=== PATIENT | male | born 1960 | race American Indian/Alaskan Native ===

== ENCOUNTER 2017-08-31 12:55 | Inpatient (IN) | payer MEDICAID, OTHER ==
[2017-08-31 15:09] LABS: BASO # 0.1 K/uL (0.0-0.2); BASO % 0.5 % (0.0-2.0); EOS # 1.3 K/uL (0.0-0.7); EOS % 8.6 % (0.0-4.0); HEMOGLOBIN 7.4 g/dL (12.0-18.0); LYMPH % 6.5 % (20.0-40.0); MEAN CELL VOLUME 68.3 fL (80.0-94.0); MEAN CORPUSCULAR HEMOGLOBIN 20.8 pg (27.0-31.0); MEAN CORPUSCULAR HGB CONC 30.4 g/dL (33.0-37.0); MEAN PLATELET VOLUME 7.4 fL (7.2-11.7); MONO # 1.3 K/uL (0.0-0.8); MONO % 8.6 % (0.0-10.0); NEUT # 11.1 K/uL (1.8-7.0); NEUT % 75.8 % (50.0-75.0); NRBC % 0.7 % (0.0-2.0); PLATELET COUNT 503 K/uL (130-400); RBC 3.57 Mil/uL (4.40-5.90); WHITE BLOOD COUNT 14.7 K/uL (4.8-10.8)
[2017-08-31] MEDS ORDERED: Permethrin 1% Kit 59 ML BOTTLE TOP ONE ×2 (15:15→16:31)
[2017-08-31 15:22] LABS: ALB/GLOB RATIO 0.7 (1.0-2.1); ALBUMIN 3.2 g/dL (3.5-5.0); ALT/SGPT 9 U/L (21-72); AST/SGOT 16 U/L (17-59); BLOOD UREA NITROGEN 19 mg/dL (9-20); CALCIUM 8.7 mg/dl (8.6-10.4); GFR AFRICAN-AMERICAN > 60; GFR NON-AFRICAN AMERICAN > 60; LIPASE 84 U/L (23-300)
[2017-08-31 15:29] LABS: NEUTROPHIL 78 % (50-75); TOTAL CELLS COUNTED 100
[2017-08-31 15:30] LABS: EOSINOPHIL 7 % (0-4); LYMPHOCYTE 7 % (20-40); MONOCYTE 8 % (0-10); PLATELET ESTIMATE NORMAL (NORMAL)
[2017-08-31 15:31] LABS: ANISOCYTOSIS SLIGHT; HYPOCHROMIC SLIGHT; POIKILOCYTOSIS SLIGHT; TARGET CELLS SLIGHT
[2017-08-31] MEDS: Permethrin 1% Kit 59 ML BOTTLE TOP ONE ×2 (15:45)
--- NOTE | 2017-08-31 16:30 | RAD ---
PROCEDURE: CHEST RADIOGRAPH, 1 VIEW HISTORY: Cough COMPARISON: None available. FINDINGS: LUNGS: The lungs are well inflated. There is a large mass in the left upper lobe. PLEURA: No pneumothorax or pleural fluid seen. CARDIOVASCULAR: Normal. OSSEOUS STRUCTURES: There is probable destruction of the left posterior 3rd rib. VISUALIZED UPPER ABDOMEN: Normal. OTHER FINDINGS: None. IMPRESSION: Large left upper lobe mass with probable involvement of the left posterior 3rd rib. Findings are concerning for malignancy. Dedicated CT scan of the chest with intravenous contrast is recommended for further characterization.
--- NOTE | 2017-08-31 16:52 | C.PDOC ---
History Of Present Illness Pt was sent from homeless residential for body lice infestation? Pt c/o generalized weakness. 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), HTN Family History: States: Unknown Family Hx - Social History Hx Alcohol Use: No Hx Substance Use: No - Immunization History Hx Tetanus Toxoid Vaccination: No Hx Influenza Vaccination: No Hx Pneumococcal Vaccination: No Review Of Systems Constitutional: Positive for: Weakness Respiratory: Positive for: Cough Physical Exam - Physical Exam Appears: No Acute Distress, Unkempt, Other (Infested with lice) Skin: Warm, Dry Head: Atraumatic Eye(s): bilateral: PERRL, EOMI, Conjunctiva Pale Neck: Normal ROM, Supple Cardiovascular: Rhythm Regular Respiratory: Normal Breath Sounds, No Accessory Muscle Use Gastrointestinal/Abdominal: Soft, Tenderness (mild nonspecific) Neurological/Psych: No Normal Motor (RUE weakness compared to left) Gait: Unable To Assess ED Course And Treatment - Laboratory Results Result Diagrams: 08/31/17 15:05 08/31/17 15:05 Lab Interpretation: Abnormal Interpretation Of Abnormal: Leukocytosis. Anemia. O2 Sat by Pulse Oximetry: 100 Pulse Ox Interpretation: Normal - Radiology CXR: Viewed By Me, Read By Radiologist CXR Interpretation: Yes: Other (Mass vs. consolidation in AMBROSE) Progress Note: Pt was given a shower with Nix. Pt will be placed on respiratory isolation after the CXR was reviewed. Disposition Discussed With : Francisco Lowry Comment: He accepted pt on hospitalist service. Doctor Will See Patient In The: Hospital Counseled Patient/Family Regarding: Studies Performed, Diagnosis - Disposition Disposition: HOSPITALIZED Disposition Time: 16:56 Condition: SERIOUS - Clinical Impression Clinical Impression: Mass of upper lobe of left lung, Pneumonia, Anemia, Lice infestation
[2017-08-31] MEDS ORDERED: cefTRIAXone IV 1 gm in Dextros 50 ML IVPB ONE ×2 (16:57→17:14)
[2017-08-31] MEDS ORDERED: Azithromycin 500mg/250ML NS 500 MG/250 ML BAG IVPB STA (16:58)
[2017-08-31] MEDS ORDERED: Azithromycin 500 MG in Sodium Chloride 0.9% 250 ML IVPB SCH (17:15)
[2017-08-31] MEDS ORDERED: Azithromycin 500mg/250ML NS 500 MG/250 ML BAG IVPB ONE (17:15)
[2017-08-31] MEDS ORDERED: Tuberculin 5 Units/0.1 ml Inj ID ONE (17:15)
[2017-08-31 17:23] LABS: INR 1.5; PROTHROMBIN TIME 17.5 SECONDS (9.7-12.2)
[2017-08-31] MEDS: Sodium Chloride 0.9% 1,000 ML IV SCH (17:52)
[2017-08-31] MEDS ORDERED: Sodium Chloride 0.9% 1,000 ML ONE (17:52)
--- NOTE | 2017-08-31 17:55 | CP.PCM.HP ---
History of Present Illness - History of Present Illness History of Present Illness: Chief complaint: Weakness, weight loss This is a 57-year-old male who was [facility] due to having body lice This is a 57-year-old male with a history that is significant for CVA ( resulting in a right sided weakness as well as some difficulty speaking), hypertension, seizures. He was seen in the emergency room and already given body washings and showers twice and also permethrin cream was applied by the emergency room. Per discussion with the emergency room staff he explained that he was feeling really weak and tired for one month. In the ER he had lab work done showing that his hemoglobin was 7.4 and he was tachycardic. He did have elevated white blood cell count as well. A chest x-ray was done in the emergency room showing that he has a large left upper lobe mass. Radiology was concerned that this could represent either malignancy or some type of infection. We are in the process of getting a CT scan of the chest. Per Unfortunately the patient is a rather poor historian. He did not know why fpc sent him to [facility]. Previous documentation suggest he is usually AAO x 2. He tells us that he's had weakness for at least one month now, fevers, weight loss and a very poor appetite. He reports that he's had some difficulty walking as well - both from his history of stroke as well as ongoing weakness for this past 1 month. When I saw him he denied having any pain. He denied nausea vomiting. He reported urinary discomfort. He was not readily cooperative with the ER staff who were/are trying to help Past medical history: CVA, hypertension, seizures, pneumonia Surgical history: The patient thinks he had some sort of abdominal surgery and he was a child Allergies: He denied having any allergies Medications: The patient states that he used to be on medication but he stopped some time ago he does not know what they are. Per review of medical records in 2016 he was supposed to be on aspirin, Lipitor, Keppra. Family history: The patient states he does not know Social history: The patient states that a long time ago he used cocaine, he did not know how long ago this was Present on Admission - Present on Admission Any Indicators Present on Admission: Yes History of DVT/PE: No History of Uncontrolled Diabetes: No Urinary Catheter: No Decubitus Ulcer Present: No Review of Systems - NT Eyes: Blurred Vision - Cardiovascular Cardiovascular: Dyspnea. absent: Chest Pain, Chest Pain at Rest - Respiratory Respiratory: Dyspnea on Exertion - Integumentary Integumentary: Pruritus, Rash - Psychiatric Psychiatric: Depression Past Patient History - Past Medical History & Family History Past Medical History?: Yes - Past Social History Smoking Status: Never Smoked - CARDIAC Hx Hypertension: Yes - PULMONARY Hx Respiratory Disorders: No - NEUROLOGICAL HX Cerebrovascular Accident: Yes - HEENT Hx HEENT Problems: No - RENAL Hx Chronic Kidney Disease: No - ENDOCRINE/METABOLIC Hx Endocrine Disorders: No - HEMATOLOGICAL/ONCOLOGICAL Hx Blood Disorders: No - INTEGUMENTARY Hx Dermatological Problems: No - MUSCULOSKELETAL/RHEUMATOLOGICAL Hx Musculoskeletal Disorders: No Hx Falls: No - GASTROINTESTINAL Hx Gastrointestinal Disorders: No - GENITOURINARY/GYNECOLOGICAL Hx Genitourinary Disorders: No - PSYCHIATRIC Hx Substance Use: No - SURGICAL HISTORY Hx Surgeries: No - ANESTHESIA Hx Anesthesia: No Meds Allergies/Adverse Reactions: Allergies Allergy/AdvReac Type Severity Reaction Status Date / Time No Known Allergies Allergy Verified 08/31/17 13:25 Physical Exam - Constitutional Appears: No Acute Distress, Unkempt, Older Than Stated Age, Confused, Chronically Ill - Head Exam Additional comments: He has head lice, and this is despite the emergency room are providing him with 2 showers and vigorous scrubbing. - ENT Exam ENT Exam: Mucous Membranes Moist - Neurological Exam Neurological exam: Alert Additional comments: AAO x 2 - Psychiatric Exam Psychiatric exam: Depressed, Flat Affect - Skin Skin Exam: Abrasion, Dry, Rash Additional comments: He has a lot of areas where it looks like he's been scratching very heavily. Results - Vital Signs Recent Vital Signs: Last Vital Signs Temp 98.8 F 08/31/17 13:21 Pulse 106 H 08/31/17 13:21 Resp 20 08/31/17 13:21 BP 136/100 H 08/31/17 13:21 Pulse Ox 100 08/31/17 16:57 - Labs Result Diagrams: 08/31/17 15:05 08/31/17 15:05 Labs: Laboratory Results - last 24 hr 08/31/17 08/31/17 08/31/17 15:05 15:05 17:00 WBC 14.7 H RBC 3.57 L Hgb 7.4 L Hct 24.4 L MCV 68.3 L MCH 20.8 L MCHC 30.4 L RDW 19.0 H Plt Count 503 H MPV 7.4 Neut % (Auto) 75.8 H Lymph % (Auto) 6.5 L [place] % (Auto) 8.6 Eos % (Auto) 8.6 H Baso % (Auto) 0.5 Neut # (Auto) 11.1 H Lymph # (Auto) 1.0 [place] # (Auto) 1.3 H Eos # (Auto) 1.3 H Baso # (Auto) 0.1 Neutrophils % (Manual) 78 H Lymphocytes % (Manual) 7 L Monocytes % (Manual) 8 Eosinophils % (Manual) 7 H Platelet Estimate Normal Hypochromasia (manual) Slight Poikilocytosis (manual Slight Anisocytosis (manual) Slight Target Cells Slight PT INR APTT Sodium 140 Potassium 4.2 Chloride 105 Carbon Dioxide 24 Anion Gap 15 BUN 19 Creatinine 1.0 Est GFR ( Amer) > 60 Est GFR (Non-Af Amer) > 60 Random Glucose 103 Calcium 8.7 Magnesium 1.6 Total Bilirubin 0.4 AST 16 L ALT 9 L Alkaline Phosphatase 102 Total Protein 7.6 Albumin 3.2 L Globulin 4.4 H Albumin/Globulin Ratio 0.7 L Lipase 84 Alcohol, Quantitative < 10 Influenza Typ A,B (EIA) Negative for flu a/b Blood Type Antibody Screen 08/31/17 08/31/17 17:07 17:07 WBC RBC Hgb Hct MCV MCH MCHC RDW Plt Count MPV Neut % (Auto) Lymph % (Auto) [place] % (Auto) Eos % (Auto) Baso % (Auto) Neut # (Auto) Lymph # (Auto) [place] # (Auto) Eos # (Auto) Baso # (Auto) Neutrophils % (Manual) Lymphocytes % (Manual) Monocytes % (Manual) Eosinophils % (Manual) Platelet Estimate Hypochromasia (manual) Poikilocytosis (manual Anisocytosis (manual) Target Cells PT 17.5 H INR 1.5 APTT 35 H Sodium Potassium Chloride Carbon Dioxide Anion Gap BUN Creatinine Est GFR ( Amer) Est GFR (Non-Af Amer) Random Glucose Calcium Magnesium Total Bilirubin AST ALT Alkaline Phosphatase Total Protein Albumin Globulin Albumin/Globulin Ratio Lipase Alcohol, Quantitative Influenza Typ A,B (EIA) Blood Type AB POSITIVE Antibody Screen Negative Assessment & Plan - Assessment and Plan (Free Text) Assessment: Overall assessment: This is a 57-year-old male sent in by the homeless [facility] due to body lice. He has a history for previous CVA, seizures. He was discovered to have weakness, fatigue. He was found to have a very low hemoglobin with iron deficiency anemia. A chest x-ray was done showing that he has an undefined left upper lobe mass that could represent malignancy or infection. He reports weight loss, poor appetite. The patient is a remarkably poor historian. Per review of records in 2016 when he was in either [facility] he was very uncooperative with the staff there often times refusing blood work and medications 1 Body lice: 08/31/17: Patient was sent in from the homeless [facility] due to body lice. In the emergency room he already received showering as well as scrubbing. He was already given permethrin cream as well. However by the time I saw him he still had some body lice on his head. He will need to undergo body shavings of his hair and as well as the skin. We'll give him a one-time dose of ivermectin tomorrow we'll give him additional permethrin topical cream. 2 Left Upper Lobe Mass that could be infection or malignancy: 08/31/17: Considering the patient is from a homeless [facility] where can have to place him on isolation. I pulled up the old chest x-ray from 2016, he did not have that left upper lobe mass. He denied coughing up any blood however this is a very poor historian. We are can have to get a CT scan of the chest without contrast give us more information. For the time being will place the patient on Rocephin and azithromycin. He does need to be under respiratory/droplet and contact precautions. We will need to check a QuantiFERON goal say, sputum cultures for AFB cultures and stains. As well as a PPD. He does have a elevated white blood cell count which could be due to either infection or potential malignancy, blood cultures as well 3 Anemia, iron deficiency 08/31/17: The patient was not able to sign the blood consent however he did give us verbal consent. He said that he had difficulty writing. We will give give him 1 unit of PRBCs. If he does have a malignancy, this may explain his weight loss as well as his lack of appetite. 4 Weight loss, and failure to thrive: 08/31/17: As mentioned above he could very well have malignancy or some sort of chronic infection such as tuberculosis. Because he tells us that he's had a drug history before the distant past will have to check HIV, RPR, hepatitis, as well as a UDS 5 History of a CVA in 2016 with documented right arm and leg weakness 08/31/17: In the past it's documented that he had seizures. If need to we could start him on Keppra and when necessary Ativan. But for now we'll hold off on that. He'll be placed on a statin, as well as an aspirin every day Will need PT/OT to see him - however we'll hold off on ordering a PT/OT eval because I don't want any additional medical staff to be exposed to the body lice that he has. At this time we will hold off on consult any specialist to see him until we get more information back from the lab work. Hopefully he will not refuse any the labs like has done in the past. He was not readily cooperating with the emergency room staff were try to help Thank you very much, Robert Morley
[2017-08-31 18:57] LABS: FERRITIN 36.3 ng/mL
[2017-08-31 19:15] LABS: FOLATE 17.6 ng/mL
[2017-08-31 22:01] LABS: SQUAMOUS EPITHIAL < 1 /hpf (0-5); URINE BACTERIA RARE (<OCC); URINE BILIRUBIN NEGATIVE (NEGATIVE); URINE BLOOD 1+ (NEGATIVE); URINE CLARITY Hazy (Clear); URINE COLOR Yellow (YELLOW); URINE GLUCOSE (UA) NORMAL (Normal); URINE LEUKOCYTE ESTERASE 1+ Leu/uL (Negative); URINE PROTEIN NEGATIVE (NEGATIVE)
[2017-09-01] MEDS ORDERED: Sodium Chloride 0.9% 500 ML IV ONE (00:50)
[2017-09-01] MEDS ORDERED: Albuterol 0.042% Inhal Sol (1.25 mg/3 mL) UD INH ONE (07:00)
[2017-09-01] MEDS ORDERED: Acetylcysteine 20% Inhal Soln (4ml) INH ONE (07:00)
[2017-09-01] MEDS: Sodium Chloride 0.9% 1,000 ML IV SCH ×3 (07:18→22:54)
--- NOTE | 2017-09-01 07:59 | CP.PCM.PN ---
<Volodymyr Bourgeois - Last Filed: 09/01/17 12:18> Subjective - Date & Time of Evaluation Date of Evaluation: 09/01/17 Time of Evaluation: 07:43 - Subjective Subjective: PGY-[address] Morley. No acute events noted overnight. Patient stated his entire body was hurting including his arms and legs. He said this is the reason he has been refusing blood work. He stated he understands that we need the blood work to tailor his management - he seemed to understand. He admitted to fatigue. He stated he has poor appetite but his breakfast seemed to be 75% finished. He denied all other prompts on review of systems. Objective - Vital Signs/Intake and Output Vital Signs (last 24 hours): Temp Pulse Resp BP Pulse Ox 97.8 F 103 H 20 105/67 99 09/01/17 07:35 09/01/17 07:35 09/01/17 07:35 09/01/17 07:35 09/01/17 07:35 Intake and Output: 09/01/17 09/01/17 06:59 18:59 Intake Total 2050 Output Total 650 Balance 1400 - Medications Medications: Current Medications Sodium Chloride (Sodium Chloride 0.9%) 1,000 mls @ 70 mls/hr IV .[id number] [facility] Last Admin: 08/31/17 17:52 Dose: 70 mls/hr Ceftriaxone Sodium 1 gm/ (Sodium Chloride) 100 mls @ 100 mls/hr IVPB Q12H DEBRA PRN Reason: Protocol Last Admin: 09/01/17 06:02 Dose: 100 mls/hr Azithromycin 500 mg/ Sodium (Chloride) 250 mls @ 250 mls/hr IVPB Q24H DEBRA PRN Reason: Protocol Pneumococcal Polyvalent Vaccine (Pneumovax 23 Vaccine) 0.5 ml IM .ONCE ONE Stop: 09/02/17 08:01 - Labs Labs: 08/31/17 15:05 08/31/17 15:05 PT 17.5 SECONDS (9.7-12.2) H 08/31/17 17:07 INR 1.5 08/31/17 17:07 APTT 35 SECONDS (21-34) H 08/31/17 17:07 - Constitutional Appears: Unkempt - Head Exam Head Exam: ATRAUMATIC, NORMAL INSPECTION Additional comments: He has head lice, excoriations seen - Eye Exam Eye Exam: EOMI Pupil Exam: PERRL - ENT Exam ENT Exam: Mucous Membranes Moist - Neck Exam Neck Exam: Full ROM - Respiratory Exam Respiratory Exam: Decreased Breath Sounds, Rales, Wheezes Additional comments: Decreased breath sounds in left upper lobe - Cardiovascular Exam Cardiovascular Exam: Tachycardia, REGULAR RHYTHM, +S1, +S2. absent: JVD, Murmur - GI/Abdominal Exam GI & Abdominal Exam: Soft, Normal Bowel Sounds. absent: Distended, Guarding, Rigid, Tenderness - Extremities Exam Extremities Exam: Full ROM, Normal Capillary Refill, Normal Inspection. absent : Tenderness - Neurological Exam Neurological Exam: absent: Oriented x3 Additional comments: AAO x 2 - Psychiatric Exam Psychiatric exam: Flat Affect - Skin Skin Exam: Rash, Warm Additional comments: He has a lot of areas where it looks like he's been scratching very heavily. Assessment and Plan - Assessment and Plan (Free Text) Assessment: Left Upper Lobe Mass + Leukocytosis, afebrile F/U Mycoplasma Igm, Strep Pneumoniae, Legionella, RPR F/U Quantiferon Gold F/U AFB sputum cultures F/U PPD test F/U Blood Cx Imaging: F/U CT chest w/wo contrast 09/01/17: CXR 08/31/17: * Large left upper lobe mass with probable involvement of the left posterior 3rd rib. Findings are concerning for malignancy. Dedicated CT scan of the chest with intravenous contrast is recommended for further characterization. Meds: Azithromycin 500mg IVP QD Rocephin 1g IVP BID Anemia Hg on admission 7.4 RBC indices indicative of iron deficiency anemia Retic Count ELEVATED 2.5, Haptoglobin ELEVATED 369 (stress response?) Vitamin B12 and Folate NORMAL Ferritin NORMAL Homocysteine NORMAL F/U Intrinsic Factor, Parietal cell Ab F/U Peripheral smear F/U LDH F/U Iron and TIBC and % saturation Meds: Transfuse 1u pRBC * Patient would not sign the consent - he has also refused blood work Body Lice Shave patient bald Meds: Applied ivermectin and permethrin Weight Loss Failure to Thrive F/U HIV 4th generation Hx of CVA Hx of CVA in 2016 with documented right arm and leg weakness Meds: Aspirin 81mg PO QD Crestor 10mg PO HS Hx of Seizures Prior records show seizure activity Will monitor and if necessary start keppra and ativan Seizure precautions Prophylaxis SCDs AO contraindicated 2/2 to anemia <Robert Morley H - Last Filed: 09/01/17 15:30> Objective - Vital Signs/Intake and Output Vital Signs (last 24 hours): Temp Pulse Resp BP Pulse Ox 97.8 F 103 H 20 105/67 99 09/01/17 07:35 09/01/17 07:35 09/01/17 07:35 09/01/17 07:35 09/01/17 07:35 Intake and Output: 09/01/17 09/01/17 06:59 18:59 Intake Total 2050 Output Total 650 Balance 1400 - Medications Medications: Current Medications Aspirin (Aspirin Chewable) [address] [facility] Last Admin: 09/01/17 13:19 Dose: Not Given Sodium Chloride (Sodium Chloride 0.9%) 1,000 mls @ 70 mls/hr IV .[id number] [facility] Last Admin: 09/01/17 13:18 Dose: 70 mls/hr Ceftriaxone Sodium 1 gm/ (Sodium Chloride) 100 mls @ 100 mls/hr IVPB Q12H DEBRA PRN Reason: Protocol Last Admin: 09/01/17 06:02 Dose: 100 mls/hr Azithromycin 500 mg/ Sodium (Chloride) 250 mls @ 250 mls/hr IVPB Q24H DEBRA PRN Reason: Protocol Pneumococcal Polyvalent Vaccine (Pneumovax 23 Vaccine) 0.5 ml IM .ONCE ONE Stop: 09/02/17 08:01 Rosuvastatin Calcium (Crestor) [address] [facility] Saccharomyces Boulardii (Florastor) 250 mg PO BID DEBRA - Labs Labs: 08/31/17 15:05 08/31/17 15:05 PT 17.5 SECONDS (9.7-12.2) H 08/31/17 17:07 INR 1.5 08/31/17 17:07 APTT 35 SECONDS (21-34) H 08/31/17 17:07 Attending/Attestation - Attestation I have personally seen and examined this patient.: Yes I have fully participated in the care of the patient.: Yes I have reviewed all pertinent clinical information, including history, physical exam and plan: Yes Notes (Text): Medical attending: Patient was seen and examined by me, agrees the above note by the medical collector. Unfortunately the patient was refusing lab draws. I explained to him that considering his weight loss, that it would be really important to follow-up at the lab work. However he didn't give me a good reason why he was refusing his lab work. Currently pending HIV 1 and 2, HIV fourth-generation, RPR. He has not given us a sputum culture and stain for AFB. Were currently pending on the CT scan of his chest to better assess what could be going on with the left upper lobe. My concern that it could represent either a malignancy or some type of infection such as tuberculosis or an opportunistic HIV infection The patient explained that he does not have any family members he's able to call. He does not know the number. At this time I do not want to consult any specialist since he is not being cooperative with us. Thank you very much, Robert Morley
[2017-09-01] MEDS ORDERED: Iohexol 350mg/ml 100 ML ONE (13:55)
[2017-09-01] MEDS ORDERED: Permethrin 1% Kit 59 ML BOTTLE TOP ONE (14:00)
[2017-09-01] MEDS: Saccharomyces Boulardi 250 mg Cap PO SCH (17:04)
[2017-09-01] MEDS: Azithromycin 500 MG in Sodium Chloride 0.9% 250 ML IVPB SCH (17:05)
[2017-09-02] MEDS ORDERED: Pneumococcal 23-Valent Vaccine IM ONE (08:00)
--- NOTE | 2017-09-02 09:41 | CP.PCM.PN ---
Subjective - Date & Time of Evaluation Date of Evaluation: 09/02/17 Time of Evaluation: 09:38 - Subjective Subjective: PGY-[address] Morley. Patient again refused blood transfusion yesterday, this was the 2nd attempt. Patient stated his entire body was hurting including his arms and legs. He said this is the reason he has been refusing blood work (he continues to refuse blood work). He admitted to fatigue. He stated he has poor appetite. He denied all other prompts on review of systems. Objective - Vital Signs/Intake and Output Vital Signs (last 24 hours): Temp Pulse Resp BP Pulse Ox 98.6 F 20 L 20 107/67 96 09/02/17 07:43 09/02/17 07:43 09/02/17 07:43 09/02/17 07:43 09/02/17 07:43 Intake and Output: 09/02/17 09/02/17 06:59 18:59 Intake Total 1400 840 Output Total 800 600 Balance 600 240 - Medications Medications: Current Medications Acetaminophen (Tylenol 325mg Tab) 650 mg PO Q6 PRN PRN Reason: fever. Last Admin: 09/01/17 22:46 Dose: 650 mg Aspirin (Aspirin Chewable) 81 mg PO DAILY [facility] Last Admin: 09/01/17 13:19 Dose: Not Given Sodium Chloride (Sodium Chloride 0.9%) 1,000 mls @ 70 mls/hr IV .[id number] [facility] Last Admin: 09/01/17 22:54 Dose: Not Given Ceftriaxone Sodium 1 gm/ (Sodium Chloride) 100 mls @ 100 mls/hr IVPB Q12H DEBRA PRN Reason: Protocol Last Admin: 09/02/17 05:46 Dose: 100 mls/hr Azithromycin 500 mg/ Sodium (Chloride) 250 mls @ 250 mls/hr IVPB Q24H DEBRA PRN Reason: Protocol Last Admin: 09/01/17 17:05 Dose: 250 mls/hr Rosuvastatin Calcium (Crestor) 10 mg PO HS [facility] Last Admin: 09/01/17 21:34 Dose: 10 mg Saccharomyces Boulardii (Florastor) 250 mg PO BID [facility] Last Admin: 09/01/17 17:04 Dose: 250 mg - Labs Labs: 08/31/17 15:05 08/31/17 15:05 PT 17.5 SECONDS (9.7-12.2) H 08/31/17 17:07 INR 1.5 08/31/17 17:07 APTT 35 SECONDS (21-34) H 08/31/17 17:07 - Additional Findings Additional findings: - Constitutional Appears: Unkempt - Head Exam Head Exam: ATRAUMATIC, NORMAL INSPECTION Additional comments: He has head lice, excoriations seen - Eye Exam Eye Exam: EOMI Pupil Exam: PERRL - ENT Exam ENT Exam: Mucous Membranes Moist - Neck Exam Neck Exam: Full ROM - Respiratory Exam Respiratory Exam: Decreased Breath Sounds, Rales, Wheezes Additional comments: Decreased breath sounds in left upper lobe - Cardiovascular Exam Cardiovascular Exam: Tachycardia, REGULAR RHYTHM, +S1, +S2. absent: JVD, Murmur - GI/Abdominal Exam GI & Abdominal Exam: Soft, Normal Bowel Sounds. absent: Distended, Guarding, Rigid, Tenderness - Extremities Exam Extremities Exam: Full ROM, Normal Capillary Refill, Normal Inspection. absent : Tenderness - Neurological Exam Neurological Exam: absent: Oriented x3 Additional comments: AAO x 2 - Psychiatric Exam Psychiatric exam: Flat Affect - Skin Skin Exam: Rash, Warm Additional comments: He has a lot of areas where it looks like he's been scratching very heavily. Assessment and Plan - Assessment and Plan (Free Text) Assessment: Left Upper Lobe Mass + Leukocytosis, afebrile F/U Mycoplasma Igm, Strep Pneumoniae, Legionella, RPR F/U Quantiferon Gold F/U AFB sputum cultures F/U PPD test F/U Blood Cx Imaging: F/U CT chest w/wo contrast 09/01/17: CXR 08/31/17: * Large left upper lobe mass with probable involvement of the left posterior 3rd rib. Findings are concerning for malignancy. Dedicated CT scan of the chest with intravenous contrast is recommended for further characterization. Meds: Azithromycin 500mg IVP QD Rocephin 1g IVP BID Anemia Hg on admission 7.4 RBC indices indicative of iron deficiency anemia Retic Count ELEVATED 2.5, Haptoglobin ELEVATED 369 (stress response?) Vitamin B12 and Folate NORMAL Ferritin NORMAL Homocysteine NORMAL F/U Intrinsic Factor, Parietal cell Ab F/U Peripheral smear F/U LDH F/U Iron and TIBC and % saturation Meds: Transfuse 1u pRBC * Patient has signed consent but continues to refuse transfusion - he has also refused blood work Body Lice Shave patient balmaximino Meds: Applied ivermectin and permethrin Weight Loss Failure to Thrive F/U HIV 4th generation Refusing Treatment Refusing transfusion, CT scan, and blood draws Psych consult, Dr Asencio Hx of CVA Hx of CVA in 2016 with documented right arm and leg weakness Meds: Aspirin 81mg PO QD Crestor 10mg PO HS Hx of Seizures Prior records show seizure activity Will monitor and if necessary start keppra and ativan Seizure precautions Prophylaxis SCDs AO contraindicated 2/2 to anemia
[2017-09-02] MEDS: Saccharomyces Boulardi 250 mg Cap PO SCH ×2 (09:43→18:03)
[2017-09-02] MEDS: Tramadol 25 mg PO SCH ×2 (11:49→18:22)
[2017-09-02] MEDS: Sodium Chloride 0.9% 1,000 ML IV SCH ×2 (13:58→23:55)
[2017-09-02] MEDS: Azithromycin 500 MG in Sodium Chloride 0.9% 250 ML IVPB SCH (18:04)
[2017-09-03] MEDS: Saccharomyces Boulardi 250 mg Cap PO SCH ×2 (10:00→17:13)
[2017-09-03] MEDS: Tramadol 25 mg PO SCH ×5 (10:00→17:13)
--- NOTE | 2017-09-03 10:19 | CP.PCM.PN ---
Objective - Vital Signs/Intake and Output Vital Signs (last 24 hours): Temp Pulse Resp BP Pulse Ox 99.2 F 111 H 20 123/74 65 L 09/03/17 08:00 09/03/17 08:00 09/03/17 08:00 09/03/17 08:00 09/03/17 08:00 Intake and Output: 09/03/17 09/03/17 06:59 18:59 Intake Total 1560 Output Total 850 Balance 710 - Medications Medications: Current Medications Acetaminophen (Tylenol 325mg Tab) 650 mg PO Q6 PRN PRN Reason: fever. Last Admin: 09/01/17 22:46 Dose: 650 mg Aspirin (Aspirin Chewable) 81 mg PO DAILY [facility] Last Admin: 09/03/17 10:00 Dose: 81 mg Sodium Chloride (Sodium Chloride 0.9%) 1,000 mls @ 70 mls/hr IV .[id number] [facility] Last Admin: 09/02/17 23:55 Dose: 70 mls/hr Ceftriaxone Sodium 1 gm/ (Sodium Chloride) 100 mls @ 100 mls/hr IVPB Q12H [facility] PRN Reason: Protocol Last Admin: 09/03/17 06:03 Dose: 100 mls/hr Azithromycin 500 mg/ Sodium (Chloride) 250 mls @ 250 mls/hr IVPB Q24H [facility] PRN Reason: Protocol Last Admin: 09/02/17 18:04 Dose: 250 mls/hr Rosuvastatin Calcium (Crestor) 10 mg PO HS [facility] Last Admin: 09/02/17 21:20 Dose: 10 mg Saccharomyces Boulardii (Florastor) 250 mg PO BID [facility] Last Admin: 09/03/17 10:00 Dose: 250 mg Tramadol HCl (Ultram) 25 mg PO TID [facility] Last Admin: 09/03/17 10:01 Dose: Not Given - Labs Labs: 08/31/17 15:05 08/31/17 15:05 PT 17.5 SECONDS (9.7-12.2) H 08/31/17 17:07 INR 1.5 08/31/17 17:07 APTT 35 SECONDS (21-34) H 08/31/17 17:07
[2017-09-03] MEDS ORDERED: Tuberculin 5 Units/0.1 ml Inj ID ONE (13:00)
[2017-09-03] MEDS: Azithromycin 500 MG in Sodium Chloride 0.9% 250 ML IVPB SCH (17:13)
[2017-09-03] MEDS: Sodium Chloride 0.9% 1,000 ML IV SCH (17:15)
[2017-09-04] MEDS: Sodium Chloride 0.9% 1,000 ML IV SCH (07:03)
[2017-09-04 08:22] LABS: BARBITURATES, UR NEGATIVE (NEGATIVE); BENZODIAZEPINES, UR NEGATIVE (NEGATIVE); OPIATES, UR NEGATIVE (NEGATIVE); PHENCYCLIDINE, UR NEGATIVE (NEGATIVE)
[2017-09-04 10:07] LABS: METHYLMALONIC ACID,SERUM 332 nmol/L (87-318)
[2017-09-04] MEDS: Tramadol 25 mg PO SCH ×3 (10:56→17:07)
[2017-09-04] MEDS: Saccharomyces Boulardi 250 mg Cap PO SCH ×2 (14:43→17:07)
[2017-09-04] MEDS: Azithromycin 500 MG in Sodium Chloride 0.9% 250 ML IVPB SCH (17:12)
--- NOTE | 2017-09-04 20:40 | CP.PCM.PN ---
<Carlos Morris E - Last Filed: 09/04/17 20:37> Subjective - Date & Time of Evaluation Date of Evaluation: 09/04/17 Time of Evaluation: 09:30 - Subjective Subjective: Medicine progress note (Dr. Torres's service) Patient was seen and examined at bedside. Patient was uncooperative and refused all recommended diagnostic test, blood work and treatment. Patient reports multiple times " I will be fine, don't worry about me" Objective - Vital Signs/Intake and Output Vital Signs (last 24 hours): Temp Pulse Resp BP Pulse Ox 99.7 F H 114 H 20 109/65 96 09/04/17 16:00 09/04/17 16:00 09/04/17 16:00 09/04/17 16:00 09/04/17 16:00 Intake and Output: 09/04/17 09/05/17 18:59 06:59 Intake Total 410 Balance 410 - Medications Medications: Current Medications Acetaminophen (Tylenol 325mg Tab) 650 mg PO Q6 PRN PRN Reason: fever. Last Admin: 09/01/17 22:46 Dose: 650 mg Aspirin (Aspirin Chewable) 81 mg PO DAILY [facility] Last Admin: 09/04/17 14:43 Dose: 81 mg Sodium Chloride (Sodium Chloride 0.9%) 1,000 mls @ 70 mls/hr IV .[id number] [facility] Last Admin: 09/03/17 17:15 Dose: Not Given Ceftriaxone Sodium 1 gm/ (Sodium Chloride) 100 mls @ 100 mls/hr IVPB Q12H [facility] PRN Reason: Protocol Last Admin: 09/04/17 17:11 Dose: 100 mls/hr Azithromycin 500 mg/ Sodium (Chloride) 250 mls @ 250 mls/hr IVPB Q24H [facility] PRN Reason: Protocol Last Admin: 09/04/17 17:12 Dose: 250 mls/hr Rosuvastatin Calcium (Crestor) 10 mg PO HS [facility] Last Admin: 09/03/17 21:20 Dose: 10 mg Saccharomyces Boulardii (Florastor) 250 mg PO BID [facility] Last Admin: 09/04/17 17:07 Dose: 250 mg Tramadol HCl (Ultram) 25 mg PO TID [facility] Last Admin: 09/04/17 17:07 Dose: 25 mg - Labs Labs: 08/31/17 15:05 08/31/17 15:05 PT 17.5 SECONDS (9.7-12.2) H 08/31/17 17:07 INR 1.5 08/31/17 17:07 APTT 35 SECONDS (21-34) H 08/31/17 17:07 - Constitutional Appears: No Acute Distress - Head Exam Head Exam: ATRAUMATIC - Eye Exam Eye Exam: EOMI - ENT Exam ENT Exam: Mucous Membranes Dry - Respiratory Exam Additional comments: Poor effort on exam; unable to note an adequate exam - Cardiovascular Exam Cardiovascular Exam: REGULAR RHYTHM, +S1, +S2 - GI/Abdominal Exam GI & Abdominal Exam: Soft, Normal Bowel Sounds. absent: Guarding, Rigid, Tenderness - Extremities Exam Extremities Exam: Normal Inspection - Neurological Exam Neurological Exam: Alert. absent: Oriented x3 - Psychiatric Exam Psychiatric exam: Depressed, Flat Affect - Skin Skin Exam: Rash Additional comments: Multiple scratches and dry Assessment and Plan (1) Refusal of treatment Assessment & Plan: Psych consult * Evaluate for capacity Status: Acute (2) Mass of upper lobe of left lung Assessment & Plan: CXR 08/31/17: * Large left upper lobe mass with probable involvement of the left posterior 3rd rib. Findings are concerning for malignancy. Dedicated CT scan of the chest with intravenous contrast is recommended for further characterization. * Patient is currently refusing chest CT Labs: * QFT negative, legionella negative, pending Mycoplasma Igm, Strep Pneumoniae, * Patient is refusing to produce sputum Status: Acute (3) Leukocytosis Assessment & Plan: On admission: 14.7, patient is refusing further lab work Blood Culture: Negative Meds: Azithromycin 500mg IVP QD Rocephin 1g IVP BID Status: Acute (4) Anemia Assessment & Plan: H/H: 7.4/24.4 Patient is refusing transfusion at the moment RBC indices indicative of iron deficiency anemia Retic Count ELEVATED 2.5, Haptoglobin ELEVATED 369 Vitamin B12 and Folate NORMAL Ferritin NORMAL Homocysteine NORMAL Parietal cell Ab negative, pending intrinsic factor Pending Peripheral smear, LDH, Iron and TIBC and % saturation Status: Acute (5) Lice infestation Assessment & Plan: Shave patient bald Meds: Applied ivermectin and permethrin Status: Acute (6) Weight loss Assessment & Plan: Pending HIV, patient is refusing blood work Status: Acute (7) History of CVA (cerebrovascular accident) Assessment & Plan: Hx of CVA in 2016 with documented right arm and leg weakness Meds: Aspirin 81mg PO QD Crestor 10mg PO HS Status: Chronic (8) History of seizures Assessment & Plan: Prior records show seizure activity Will monitor and if necessary start keppra and ativan Seizure precautions Status: Acute (9) Prophylactic measure Assessment & Plan: SCDs Anticoagualtion contraindication due to anemia All plans discussed with Dr. Torres Status: Acute <Lamonte Torres - Last Filed: 09/04/17 21:59> Objective - Vital Signs/Intake and Output Vital Signs (last 24 hours): Temp Pulse Resp BP Pulse Ox 99.7 F H 114 H 20 109/65 96 09/04/17 16:00 09/04/17 16:00 09/04/17 16:00 09/04/17 16:00 09/04/17 16:00 Intake and Output: 09/04/17 09/05/17 18:59 06:59 Intake Total 410 Balance 410 - Medications Medications: Current Medications Acetaminophen (Tylenol 325mg Tab) 650 mg PO Q6 PRN PRN Reason: fever. Last Admin: 09/01/17 22:46 Dose: 650 mg Aspirin (Aspirin Chewable) 81 mg PO DAILY [facility] Last Admin: 09/04/17 14:43 Dose: 81 mg Sodium Chloride (Sodium Chloride 0.9%) 1,000 mls @ 70 mls/hr IV .[id number] [facility] Last Admin: 09/03/17 17:15 Dose: Not Given Ceftriaxone Sodium 1 gm/ (Sodium Chloride) 100 mls @ 100 mls/hr IVPB Q12H [facility] PRN Reason: Protocol Last Admin: 09/04/17 17:11 Dose: 100 mls/hr Azithromycin 500 mg/ Sodium (Chloride) 250 mls @ 250 mls/hr IVPB Q24H [facility] PRN Reason: Protocol Last Admin: 09/04/17 17:12 Dose: 250 mls/hr Rosuvastatin Calcium (Crestor) 10 mg PO HS [facility] Last Admin: 09/03/17 21:20 Dose: 10 mg Saccharomyces Boulardii (Florastor) 250 mg PO BID [facility] Last Admin: 09/04/17 17:07 Dose: 250 mg Tramadol HCl (Ultram) 25 mg PO TID [facility] Last Admin: 09/04/17 17:07 Dose: 25 mg - Labs Labs: 08/31/17 15:05 08/31/17 15:05 PT 17.5 SECONDS (9.7-12.2) H 08/31/17 17:07 INR 1.5 08/31/17 17:07 APTT 35 SECONDS (21-34) H 08/31/17 17:07 Attending/Attestation - Attestation I have personally seen and examined this patient.: Yes I have fully participated in the care of the patient.: Yes I have reviewed all pertinent clinical information, including history, physical exam and plan: Yes Notes (Text): Patient was seen and examined this morning. Refuses CT chest. c/o not feeling well.Denies pain.lying comfortable on bed comfortable 1.Left upper lobe mass 2.Refusal of care 3.weight loss 4Anemia 5.Anemia 6.lice infection 7.h/o CVA 8.h/o Seziure D/W resident. I agree with the resident's documentation of the assessment and the plan
[2017-09-05] MEDS: Tramadol 25 mg PO SCH ×3 (10:00→17:11)
--- NOTE | 2017-09-05 11:20 | CP.PCM.PN ---
Addendum entered and electronically signed by Carlos Morris 09/05/17 17:59: Assessment: Anemia Plan: Labs: Intrinsic factor block ab: negative and anti-parietal cell ab: Negative Original Note: <Carlos Morris - Last Filed: 09/05/17 17:58> Subjective - Date & Time of Evaluation Date of Evaluation: 09/05/17 Time of Evaluation: 09:00 - Subjective Subjective: Medicine progress note (Dr. Torres's service) Patient was seen and examined at bedside. Patient was uncooperative and refused all recommended diagnostic test, blood work and treatmen, stating that he will think about accepting treatment and diagnostic testing. Patient reports multiple times " I will be fine, don't worry about me." During second encounter with the patient for PPD reading, patient remains uncooperative and mildly aggressive towards nursing staff. In addition, patient refused to drink contrast need for sahni CT scan. Objective - Vital Signs/Intake and Output Vital Signs (last 24 hours): Temp Pulse Resp BP Pulse Ox 99.7 F H 114 H 20 109/65 96 09/04/17 16:00 09/04/17 16:00 09/04/17 16:00 09/04/17 16:00 09/04/17 16:00 Intake and Output: 09/05/17 09/05/17 06:59 18:59 Intake Total 1810 Output Total 1200 Balance 610 - Medications Medications: Current Medications Acetaminophen (Tylenol 325mg Tab) 650 mg PO Q6 PRN PRN Reason: fever. Last Admin: 09/01/17 22:46 Dose: 650 mg Aspirin (Aspirin Chewable) 81 mg PO DAILY [facility] Last Admin: 09/04/17 14:43 Dose: 81 mg Sodium Chloride (Sodium Chloride 0.9%) 1,000 mls @ 70 mls/hr IV .[id number] [facility] Last Admin: 09/04/17 07:03 Dose: Not Given Ceftriaxone Sodium 1 gm/ (Sodium Chloride) 100 mls @ 100 mls/hr IVPB Q12H [facility] PRN Reason: Protocol Last Admin: 09/04/17 17:11 Dose: 100 mls/hr Azithromycin 500 mg/ Sodium (Chloride) 250 mls @ 250 mls/hr IVPB Q24H [facility] PRN Reason: Protocol Last Admin: 04/09/18 17:12 Dose: 250 mls/hr Rosuvastatin Calcium (Crestor) 10 mg PO HS [facility] Last Admin: 09/04/17 22:09 Dose: 10 mg Saccharomyces Boulardii (Florastor) 250 mg PO BID [facility] Last Admin: 09/04/17 17:07 Dose: 250 mg Tramadol HCl (Ultram) 25 mg PO TID [facility] Last Admin: 09/04/17 17:07 Dose: 25 mg - Labs Labs: 08/31/17 15:05 08/31/17 15:05 PT 17.5 SECONDS (9.7-12.2) H 08/31/17 17:07 INR 1.5 08/31/17 17:07 APTT 35 SECONDS (21-34) H 08/31/17 17:07 - Constitutional Appears: Non-toxic, Unkempt - Head Exam Head Exam: ATRAUMATIC - Eye Exam Eye Exam: EOMI - ENT Exam ENT Exam: Mucous Membranes Dry - Respiratory Exam Respiratory Exam: NORMAL BREATHING PATTERN. absent: Rhonchi, Wheezes Additional comments: Poor effort on exam; unable to note an adequate exam - Cardiovascular Exam Cardiovascular Exam: REGULAR RHYTHM, +S1, +S2 - GI/Abdominal Exam GI & Abdominal Exam: Soft, Normal Bowel Sounds. absent: Distended, Firm, Guarding, Rigid, Tenderness - Extremities Exam Extremities Exam: absent: Calf Tenderness, Pedal Edema - Neurological Exam Neurological Exam: Alert, Awake - Psychiatric Exam Psychiatric exam: Agitated, Anxious, Depressed - Skin Additional comments: Multiple old scratches and significant diffuse hyperkeratinization Assessment and Plan (1) Refusal of treatment Assessment & Plan: Psych consult, Dr. Martinez---> Help appreciated * Evaluate for capacity * As per psychiatry evaluation: Patient lacks the capacity to make his own medical decisions at this time. Status: Acute (2) Mass of upper lobe of left lung Assessment & Plan: CXR 08/31/17: * Large left upper lobe mass with probable involvement of the left posterior 3rd rib. Findings are concerning for malignancy. Dedicated CT scan of the chest with intravenous contrast is recommended for further characterization. * Patient is currently refusing chest CT Labs: * QFT negative, legionella negative, pending Mycoplasma Igm, Strep Pneumoniae, * Negative PPD read; no induration noted * Patient is refusing to produce sputum Status: Acute (3) Leukocytosis Assessment & Plan: On admission: 14.7, patient is refusing further lab work Blood Culture: Negative Meds: Azithromycin 500mg IVP QD Rocephin 1g IVP BID Status: Acute (4) Anemia Assessment & Plan: H/H: 7.4/24.4 Patient is refusing transfusion at the moment RBC indices indicative of iron deficiency anemia Retic Count ELEVATED 2.5, Haptoglobin ELEVATED 369 Vitamin B12 and Folate NORMAL Ferritin NORMAL Homocysteine NORMAL Parietal cell Ab negative, pending intrinsic factor Pending Peripheral smear, LDH, Iron and TIBC and % saturation Status: Acute (5) Lice infestation Assessment & Plan: Shave patient bald Meds: Applied ivermectin and permethrin Status: Acute (6) Weight loss Assessment & Plan: Pending HIV, patient is refusing blood work and sahni CT scan Status: Acute (7) History of CVA (cerebrovascular accident) Assessment & Plan: Hx of CVA in 2015 with documented right arm and leg weakness Meds: Aspirin 81mg PO QD Crestor 10mg PO HS Status: Chronic (8) Left shoulder pain Assessment & Plan: Left shoulder X-ray (09/05/2017): No acute fracture. Acromioclavicular degenerative arthritis. Status: Acute (9) History of seizures Assessment & Plan: Prior records show seizure activity Will monitor and if necessary start keppra and ativan Seizure precautions Status: Acute (10) Prophylactic measure Assessment & Plan: SCDs Anticoagualtion contraindication due to anemia Disposition: Patient continues to refuse treatment and diagnostic testing that is necessary for proper diagnosis All plans discussed with Dr. Torres Status: Acute <Lamonte Torres - Last Filed: 09/06/17 15:21> Objective - Vital Signs/Intake and Output Vital Signs (last 24 hours): Temp Pulse Resp BP Pulse Ox 98.3 F 102 H 20 132/67 96 09/06/17 07:41 09/06/17 07:41 09/06/17 07:41 09/06/17 07:41 09/06/17 07:41 Intake and Output: 09/06/17 09/06/17 06:59 18:59 Intake Total 760 Output Total 400 Balance 360 - Medications Medications: Current Medications Acetaminophen (Tylenol 325mg Tab) 650 mg PO Q6 PRN PRN Reason: fever. Last Admin: 09/01/17 22:46 Dose: 650 mg Aspirin (Aspirin Chewable) 81 mg PO DAILY [facility] Last Admin: 09/06/17 11:12 Dose: 81 mg Benztropine Mesylate (Cogentin) 1 mg PO BID [facility] Last Admin: 09/06/17 11:14 Dose: 1 mg Diphenhydramine HCl (Benadryl) 25 mg PO Q6 PRN PRN Reason: Agitation Haloperidol (Haldol) 5 mg PO Q6 PRN PRN Reason: Agitation Azithromycin 500 mg/ Sodium (Chloride) 250 mls @ 250 mls/hr IVPB Q24H [facility] PRN Reason: Protocol Last Admin: 09/05/17 17:11 Dose: 250 mls/hr Lorazepam (Ativan) 1 mg PO Q6 PRN PRN Reason: Agitation Oxycodone/Acetaminophen (Percocet 5/325 Mg Tab) 1 tab PO Q6H PRN PRN Reason: Pain, moderate (4-7) Stop: 09/07/17 11:21 Last Admin: 09/06/17 14:03 Dose: 1 tab Risperidone (Risperdal Tab) 1 mg PO BID [facility] Last Admin: 09/06/17 11:13 Dose: 1 mg Rosuvastatin Calcium (Crestor) 10 mg PO [facility] Last Admin: 09/05/17 22:56 Dose: Not Given Saccharomyces Boulardii (Florastor) 250 mg PO BID [facility] Last Admin: 09/06/17 11:12 Dose: 250 mg Tramadol HCl (Ultram) 25 mg PO TID [facility] Last Admin: 09/06/17 11:16 Dose: 25 mg Trazodone HCl (Desyrel) 50 mg PO [facility] - Labs Labs: 08/31/17 15:05 08/31/17 15:05 PT 17.5 SECONDS (9.7-12.2) H 08/31/17 17:07 INR 1.5 08/31/17 17:07 APTT 35 SECONDS (21-34) H 08/31/17 17:07 Attending/Attestation - Attestation I have personally seen and examined this patient.: Yes I have fully participated in the care of the patient.: Yes I have reviewed all pertinent clinical information, including history, physical exam and plan: Yes Notes (Text): Patient was seen and examined this morning . He is refusing blood test and CT chest,refusing transfusion.poor intake lying comfortable on bed .Refuses detail exam alert and oriented, 1.Left upper lobe mass 2.Refusal of care 3.weight loss 4Anemia 5.Anemia 6.lice infection 7.h/o CVA 8.h/o Seziure follow psychiatrist assessment.Unable to get history and not cooperating D/W resident. I agree with the resident's documentation of the assessment and the plan
[2017-09-05] MEDS: Oxycodone/Acetaminophen 5/325 mg Tab PO PRN ×2 (11:59→22:58)
[2017-09-05] MEDS: Saccharomyces Boulardi 250 mg Cap PO SCH ×2 (11:59→17:11)
[2017-09-05] MEDS ORDERED: Iohexol 240 (50 ml) PO ONE ×2 (12:00)
[2017-09-05] MEDS: Sodium Chloride 0.9% 1,000 ML IV SCH (12:56)
--- NOTE | 2017-09-05 15:48 | PCM.PSYCH ---
Initial Psychiatric Evaluation - Initial Psychiatric Evaluation Type of Admission: Voluntary Legal Status: Capacity Chief Complaint (in patient's own words): Consult for Refusing Treatment History of Present Illness and Precipitating Events: This is a 57 year old AA male, who is unemployed and homeless, who came to the ED on 08/31/2017 for body lice treatment. Patient [facility] the ED [facility] Patient initially agreed to treatment for head lice but after admission began refusing medical treatment and refusing to eat. Patient complains he has pain all over. Patient had trouble answering questions to the provider. He was unable to provide information regarding his medical history or any psychiatric history. His attention is poor. Patient states he consumes alcohol but unable to quantify. He admits to past history of tobacco use but unable to quantify. Patient denies psychiatric hospitalizations. He denies feelings of depression or anxiety. Patient remained disorganized and internally preoccupied. Patient appeared paranoid and delusional. He remained isolated, confined and withdrawn. According to medical records, patient was previously hospitalized in January 2016 for sepsis. During this admission, patient also refused medical treatment. Psychiatric consultation note designated Adjustment Disorder, with mixed depression and anxiety. Medical History: CVA, HTN, Seizure Disorder (according to medical chart) Psych History: denies Current Medications: Active Medications Generic Name Dose Route Start Last Admin Trade Name Freq PRN Reason Stop Dose Admin Acetaminophen 650 mg 09/01/17 22:19 09/01/17 22:46 Tylenol 325mg Tab PO 650 mg Q6 PRN Administration fever. Aspirin 81 mg 09/01/17 10:00 09/05/17 11:59 Aspirin Chewable PO 81 mg DAILY [facility] Administration Sodium Chloride 1,000 mls @ 70 mls/hr 08/31/17 17:15 09/05/17 12:56 Sodium Chloride 0.9% IV Not Given .[id number] [facility] Ceftriaxone Sodium 1 gm/ 100 mls @ 100 mls/hr 09/01/17 06:00 09/04/17 17:11 Sodium Chloride IVPB 100 mls/hr Q12H [facility] Administration Protocol Azithromycin 500 mg/ Sodium 250 mls @ 250 mls/hr 09/01/17 18:00 09/04/17 17: 12 Chloride IVPB 250 mls/hr Q24H [facility] Administration Protocol Oxycodone/Acetaminophen 1 tab 09/05/17 11:20 09/05/17 11:59 Percocet 5/325 Mg Tab PO 09/07/17 11:21 1 tab Q6H PRN Administration Pain, moderate (4-7) Rosuvastatin Calcium 10 mg 09/01/17 22:00 09/04/17 22:09 Crestor PO 10 mg HS [facility] Administration Saccharomyces Boulardii 250 mg 09/01/17 18:00 09/05/17 11:59 Florastor PO 250 mg BID [facility] Administration Tramadol HCl 25 mg 09/02/17 10:41 09/05/17 14:25 Ultram PO Not Given TID [facility] Past Psychiatric History - Past Psychiatric History Previous Treatment History: None Pertinent Medical Hx (Current Medical&Sleep Prob, Allergies): Allergies Allergy/AdvReac Type Severity Reaction Status Date / Time No Known Allergies Allergy Verified 08/31/17 13:25 Amoxicillin/Clavulanate [Augmentin 875 MG-125 MG] 1 tab PO BID #0 tab 02/17/16 Aspirin [Aspirin Chewable] 81 mg PO DAILY #0 chew 02/17/16 Atorvastatin [Lipitor] 10 mg PO HS #0 tab 02/17/16 Pantoprazole [Protonix EC Tab] 40 mg PO DAILY #0 ect 02/17/16 levETIRAcetam [Keppra] 500 mg PO BID #0 tab 02/17/16 Review of Systems - Review of Systems All systems: reviewed and no additional remarkable complaints except - Psychiatric Psychiatric: Change in Appetite, Difficulty Concentrating, Panic Attacks. absent: Anxiety, Depression, Hallucinations, Suicidal Ideation Mental Status Examination - Personal Presentation Personal Presentation: Looks older than stated age - Affect Affect: Flat - Motor Activity Motor Activity: Psychomotor Retardation - Reliability in Providing Information Reliability in Providing Information: Poor, due to alteration in thoughts - Speech Speech: Disorganized - Mood Mood: Neutral - Formal Thought Process Formal Thought Process: Delusions, Paranoia, Loosening of associations, Other - Obsessions/Compulsions Obsessions: No Compulsions: No - Cognitive Functions Orientation: Person, Place, Situation, Time Sensorium: Alert Attention/Concentration: Attentive Abstract Thinking: [place] Estimate of Intelligence: Below average Judgement: Imparied, as evidence by: Poor judgement, Imparied, as evidence by: Lack of insight into illness - Risk Risk: Diminished functioning - Limitations Limitations: Living alone DSM 5 DX - DSM 5 DSM 5 Diagnosis: Psychotic Disorder, unspecified Rule out Schizophrenia paranoid type continuous - Recommended/Plan of Treatment Treatment Recommendations and Plan of Treatment: Patient lacks the capacity to make his own medical decisions at this time. Supportive therapy Risperdal 1 mg PO BID Cogentin 1 mg pO BID - Smoking Cessation Smoking Cessation Initiated: No
--- NOTE | 2017-09-05 16:37 | RAD ---
PROCEDURE: Radiographs of the Left Shoulder HISTORY: Left shoulder pain COMPARISON: No prior. FINDINGS: BONES: Normal. No fracture. JOINTS: Glenohumeral articulation intact. Acromioclavicular degenerative arthritis. SOFT TISSUES: Normal. OTHER FINDINGS: None. IMPRESSION: No acute fracture. Acromioclavicular degenerative arthritis.
[2017-09-05] MEDS: Azithromycin 500 MG in Sodium Chloride 0.9% 250 ML IVPB SCH (17:11)
--- NOTE | 2017-09-06 09:13 | CP.PCM.PN ---
<ArturoShandadayanna Starr - Last Filed: 09/06/17 15:40> Subjective - Date & Time of Evaluation Date of Evaluation: 09/06/17 Time of Evaluation: 07:45 - Subjective Subjective: Medicine progress note (Dr. Torres's service) Patient was seen and examined at bedside. Patient remains uncooperative and continue to refuse all recommended diagnostic test, blood work and treatment, stating that he will think about accepting treatment and going for diagnostic testing. As per psychiatry initial evaluation, patient was deemed to lack capacity. Objective - Vital Signs/Intake and Output Vital Signs (last 24 hours): Temp Pulse Resp BP Pulse Ox 98.3 F 102 H 20 132/67 96 09/06/17 07:41 09/06/17 07:41 09/06/17 07:41 09/06/17 07:41 09/06/17 07:41 Intake and Output: 09/06/17 09/06/17 06:59 18:59 Intake Total 760 Output Total 400 Balance 360 - Medications Medications: Current Medications Acetaminophen (Tylenol 325mg Tab) 650 mg PO Q6 PRN PRN Reason: fever. Last Admin: 09/01/17 22:46 Dose: 650 mg Aspirin (Aspirin Chewable) 81 mg PO DAILY [facility] Last Admin: 09/05/17 11:59 Dose: 81 mg Benztropine Mesylate (Cogentin) 1 mg PO BID [facility] Diphenhydramine HCl (Benadryl) 25 mg PO Q6 PRN PRN Reason: Agitation Haloperidol (Haldol) 5 mg PO Q6 PRN PRN Reason: Agitation Sodium Chloride (Sodium Chloride 0.9%) 1,000 mls @ 70 mls/hr IV .[id number] [facility] Last Admin: 09/05/17 12:56 Dose: Not Given Azithromycin 500 mg/ Sodium (Chloride) 250 mls @ 250 mls/hr IVPB Q24H DEBRA PRN Reason: Protocol Last Admin: 09/05/17 17:11 Dose: 250 mls/hr Lorazepam (Ativan) 1 mg PO Q6 PRN PRN Reason: Agitation Oxycodone/Acetaminophen (Percocet 5/325 Mg Tab) 1 tab PO Q6H PRN PRN Reason: Pain, moderate (4-7) Stop: 09/07/17 11:21 Last Admin: 09/05/17 22:58 Dose: 1 tab Risperidone (Risperdal Tab) 1 mg PO BID [facility] Rosuvastatin Calcium (Crestor) 10 mg PO HS [facility] Last Admin: 09/05/17 22:56 Dose: Not Given Saccharomyces Boulardii (Florastor) 250 mg PO BID [facility] Last Admin: 09/05/17 17:11 Dose: 250 mg Tramadol HCl (Ultram) 25 mg PO TID [facility] Last Admin: 09/05/17 17:11 Dose: 25 mg Trazodone HCl (Desyrel) 50 mg PO HS [facility] - Labs Labs: 08/31/17 15:05 08/31/17 15:05 PT 17.5 SECONDS (9.7-12.2) H 08/31/17 17:07 INR 1.5 08/31/17 17:07 APTT 35 SECONDS (21-34) H 08/31/17 17:07 - Constitutional Appears: No Acute Distress - Head Exam Head Exam: ATRAUMATIC - Eye Exam Eye Exam: EOMI - ENT Exam ENT Exam: Mucous Membranes Dry - Respiratory Exam Respiratory Exam: NORMAL BREATHING PATTERN Additional comments: Poor effort on exam - Cardiovascular Exam Cardiovascular Exam: REGULAR RHYTHM, +S1, +S2 - GI/Abdominal Exam GI & Abdominal Exam: Soft, Normal Bowel Sounds. absent: Firm, Guarding, Rigid, Tenderness - Extremities Exam Extremities Exam: absent: Pedal Edema - Neurological Exam Neurological Exam: Alert, Awake - Psychiatric Exam Psychiatric exam: Flat Affect - Skin Additional comments: Diffuse hyperkeratinization Assessment and Plan (1) Refusal of treatment Assessment & Plan: Psych consult, Dr. Martinez---> Help appreciated * Evaluate for capacity * As per psychiatry evaluation: Patient lacks the capacity to make his own medical decisions at this time. Will ask for re-evaluation Schizophrenia Paranoid Diagnosis; * Congentin 1mg PO BID * Benadryl 25mg PO Q6H prn * Haldol 5mg PO q6H prn * Ativan 1mg PO Q6H prn * Risperdal 1mg PO BID * Trazadone 50mg PO HS Status: Acute (2) Generalized pain Assessment & Plan: Ultram 25mg PO TID Percocet 1 tab PO q6h prn Status: Acute (3) Mass of upper lobe of left lung Assessment & Plan: CXR 08/31/17: * Large left upper lobe mass with probable involvement of the left posterior 3rd rib. Findings are concerning for malignancy. Dedicated CT scan of the chest with intravenous contrast is recommended for further characterization. * Patient is currently refusing chest CT at this time Labs: * QFT negative, legionella negative, pending Mycoplasma Igm, Strep Pneumoniae, * Negative PPD read; no induration noted * Patient is refusing to produce sputum Status: Acute (4) Leukocytosis Assessment & Plan: On admission: 14.7, patient is refusing further lab work Blood Culture: Negative Meds: Azithromycin 500mg IVP QD Rocephin 1g IVP BID Status: Acute (5) Anemia Assessment & Plan: H/H: 7.4/24.4 Patient is refusing transfusion at the moment RBC indices indicative of iron deficiency anemia Retic Count ELEVATED 2.5, Haptoglobin ELEVATED 369 Vitamin B12 and Folate NORMAL Ferritin NORMAL Homocysteine NORMAL Parietal cell Ab negative, Negative intrinsic factor Pending Peripheral smear, LDH, Iron and TIBC and % saturation Status: Acute (6) Lice infestation Assessment & Plan: Meds: Applied ivermectin and permethrin Status: Acute (7) Weight loss Assessment & Plan: Pending HIV, patient is refusing blood work and sahni CT scan Status: Acute (8) History of CVA (cerebrovascular accident) Assessment & Plan: Hx of CVA in 2016 with documented right arm and leg weakness Meds: Aspirin 81mg PO QD Crestor 10mg PO HS Status: Chronic (9) Left shoulder pain Assessment & Plan: Left shoulder X-ray (09/05/2017): No acute fracture. Acromioclavicular degenerative arthritis. Status: Acute (10) History of seizures Assessment & Plan: Prior records show seizure activity Will monitor and if necessary start keppra and ativan Seizure precautions Status: Acute (11) Prophylactic measure Assessment & Plan: SCDs Anticoagulation contraindication due to anemia Disposition: Patient continues to refuse treatment and diagnostic testing that is necessary for proper diagnosis All plans discussed with Dr. Torres Status: Acute <Lamonte Torres - Last Filed: 09/08/17 14:52> Objective - Vital Signs/Intake and Output Vital Signs (last 24 hours): Temp Pulse Resp BP Pulse Ox 99.1 F 101 H 20 97/62 L 97 09/07/17 18:20 09/07/17 18:20 09/07/17 18:20 09/07/17 18:20 09/07/17 18:20 Intake and Output: 09/07/17 09/07/17 06:59 18:59 Intake Total 360 Output Total 300 Balance 60 - Medications Medications: Current Medications Acetaminophen (Tylenol 325mg Tab) 650 mg PO Q6 PRN PRN Reason: fever. Last Admin: 09/01/17 22:46 Dose: 650 mg Aspirin (Aspirin Chewable) 81 mg PO DAILY [facility] Last Admin: 09/07/17 10:04 Dose: 81 mg Benztropine Mesylate (Cogentin) 1 mg PO BID [facility] Last Admin: 09/07/17 17:52 Dose: 1 mg Diphenhydramine HCl (Benadryl) 25 mg PO Q6 PRN PRN Reason: Agitation Haloperidol (Haldol) 5 mg PO Q6 PRN PRN Reason: Agitation Lorazepam (Ativan) 1 mg PO Q6 PRN PRN Reason: Agitation Last Admin: 09/07/17 10:04 Dose: 1 mg Risperidone (Risperdal Tab) 1 mg PO BID [facility] Last Admin: 09/07/17 17:52 Dose: 1 mg Rosuvastatin Calcium (Crestor) 10 mg PO [facility] Last Admin: 09/06/17 22:44 Dose: 10 mg Saccharomyces Boulardii (Florastor) 250 mg PO BID [facility] Last Admin: 09/07/17 17:52 Dose: 250 mg Tramadol HCl (Ultram) 25 mg PO TID [facility] Last Admin: 09/07/17 14:49 Dose: 25 mg Trazodone HCl (Desyrel) 50 mg PO [facility] Last Admin: 09/06/17 22:44 Dose: 50 mg - Labs Labs: 08/31/17 15:05 08/31/17 15:05 PT 17.5 SECONDS (9.7-12.2) H 08/31/17 17:07 INR 1.5 08/31/17 17:07 APTT 35 SECONDS (21-34) H 08/31/17 17:07 Attending/Attestation - Attestation I have personally seen and examined this patient.: Yes I have fully participated in the care of the patient.: Yes I have reviewed all pertinent clinical information, including history, physical exam and plan: Yes Notes (Text): Patient was seen and examined this morning. Refuses CT chest. Refuses to have blood drawn ,no giving sputum for testing.lying comfortable on bed As per psychiatry initial evaluation, patient was deemed to lack capacity 1.Left upper lobe mass 2.Refusal of care 3.weight loss 4Anemia 5.Anemia 6.lice infection 7.h/o CVA 8.h/o Seziure D/W resident. I agree with the resident's documentation of the assessment and the plan. d/w Cw about getting a guardian for him
[2017-09-06] MEDS: Saccharomyces Boulardi 250 mg Cap PO SCH ×2 (11:12→18:58)
[2017-09-06] MEDS: Tramadol 25 mg PO SCH ×3 (11:16→18:58)
[2017-09-06] MEDS: Oxycodone/Acetaminophen 5/325 mg Tab PO PRN ×2 (14:03→22:45)
[2017-09-06] MEDS: Azithromycin 500 MG in Sodium Chloride 0.9% 250 ML IVPB SCH (19:00)
[2017-09-07] MEDS: Tramadol 25 mg PO SCH ×3 (10:04→23:05)
[2017-09-07] MEDS: Saccharomyces Boulardi 250 mg Cap PO SCH ×2 (10:04→17:52)
--- NOTE | 2017-09-07 11:28 | CP.PCM.PN ---
<RedlakeShanda leedayanna E - Last Filed: 09/07/17 13:14> Subjective - Date & Time of Evaluation Date of Evaluation: 09/07/17 Time of Evaluation: 07:40 - Subjective Subjective: Medicine progress note (Dr. Torres's service) Patient was seen and examined at bedside. Patient was mildly cooperative today and was more verbal. Patient agrees to recommended diagnostic testing and blood work today. Patient still admits to pain but claims that he understands that he must complete recommended diagnostic/lab testing in order for him to obtain adequate care. Objective - Vital Signs/Intake and Output Vital Signs (last 24 hours): Temp Pulse Resp BP Pulse Ox 99.4 F 103 H 20 103/61 95 09/07/17 07:00 09/07/17 07:00 09/07/17 07:00 09/07/17 07:00 09/07/17 07:00 Intake and Output: 09/07/17 09/07/17 06:59 18:59 Intake Total 360 Output Total 300 Balance 60 - Medications Medications: Current Medications Acetaminophen (Tylenol 325mg Tab) 650 mg PO Q6 PRN PRN Reason: fever. Last Admin: 09/01/17 22:46 Dose: 650 mg Aspirin (Aspirin Chewable) 81 mg PO DAILY [facility] Last Admin: 09/07/17 10:04 Dose: 81 mg Benztropine Mesylate (Cogentin) 1 mg PO BID [facility] Last Admin: 09/07/17 10:04 Dose: 1 mg Diphenhydramine HCl (Benadryl) 25 mg PO Q6 PRN PRN Reason: Agitation Haloperidol (Haldol) 5 mg PO Q6 PRN PRN Reason: Agitation Lorazepam (Ativan) 1 mg PO Q6 PRN PRN Reason: Agitation Last Admin: 09/07/17 10:04 Dose: 1 mg Risperidone (Risperdal Tab) 1 mg PO BID [facility] Last Admin: 09/07/17 10:04 Dose: 1 mg Rosuvastatin Calcium (Crestor) 10 mg PO HS [facility] Last Admin: 09/06/17 22:44 Dose: 10 mg Saccharomyces Boulardii (Florastor) 250 mg PO BID [facility] Last Admin: 09/07/17 10:04 Dose: 250 mg Tramadol HCl (Ultram) 25 mg PO TID [facility] Last Admin: 09/07/17 10:04 Dose: 25 mg Trazodone HCl (Desyrel) 50 mg PO HS [facility] Last Admin: 09/06/17 22:44 Dose: 50 mg - Labs Labs: 08/31/17 15:05 08/31/17 15:05 PT 17.5 SECONDS (9.7-12.2) H 08/31/17 17:07 INR 1.5 08/31/17 17:07 APTT 35 SECONDS (21-34) H 08/31/17 17:07 - Constitutional Appears: No Acute Distress - Head Exam Head Exam: ATRAUMATIC, NORMAL INSPECTION - Eye Exam Eye Exam: EOMI - ENT Exam ENT Exam: Mucous Membranes Dry - Respiratory Exam Respiratory Exam: NORMAL BREATHING PATTERN. absent: Rhonchi, Wheezes - Cardiovascular Exam Cardiovascular Exam: REGULAR RHYTHM, +S1, +S2 - GI/Abdominal Exam GI & Abdominal Exam: Soft, Normal Bowel Sounds. absent: Guarding, Rigid, Tenderness - Extremities Exam Extremities Exam: absent: Calf Tenderness, Pedal Edema Additional comments: PPD reading after 48 and 72 hours on right forearm, negative; no noted induration. - Neurological Exam Neurological Exam: Alert, Awake - Psychiatric Exam Psychiatric exam: Depressed, Flat Affect - Skin Additional comments: Diffuse hyperkeratinization and scratches Assessment and Plan (1) Refusal of treatment Assessment & Plan: Psych consult, Dr. Martinez---> Help appreciated * Evaluate for capacity * As per psychiatry evaluation: Patient lacks the capacity to make his own medical decisions at this time. Plans for reevaluation at a latter time * Discussion with porter sample case today, 09/07/17; regarding possible guardianship Status: Acute (2) Generalized pain Assessment & Plan: CXR 08/31/17: * Large left upper lobe mass with probable involvement of the left posterior 3rd rib. Findings are concerning for malignancy. Dedicated CT scan of the chest with intravenous contrast is recommended for further characterization. * Patient has been refusing chest CT but states that he will think about and have the test done soon Labs: * QFT negative, legionella negative, pending Mycoplasma Igm, Strep Pneumoniae, * Negative PPD read; no induration noted * Patient is still refusing to produce sputum Status: Acute (3) Mass of upper lobe of left lung Status: Acute (4) Leukocytosis Assessment & Plan: On admission: 14.7, patient has been refusing further lab work but states that he would rethink his decision Blood Culture: Negative Meds: Azithromycin 500mg IVP QD Rocephin 1g IVP BID Status: Acute (5) Anemia Assessment & Plan: H/H: 7.4/24.4 Patient is refusing transfusion at the moment RBC indices indicative of iron deficiency anemia Retic Count ELEVATED 2.5, Haptoglobin ELEVATED 369 Vitamin B12 and Folate NORMAL Ferritin NORMAL Homocysteine NORMAL Parietal cell Ab negative, Negative intrinsic factor Pending Peripheral smear, LDH, Iron and TIBC and % saturation Status: Acute (6) Lice infestation Assessment & Plan: Shave patient bald Meds: Applied ivermectin and permethrin Status: Acute (7) Weight loss Assessment & Plan: Pending HIV, patient is refusing blood work and sahni CT scan Status: Acute (8) History of CVA (cerebrovascular accident) Assessment & Plan: Hx of CVA in 2015 with documented right arm and leg weakness Meds: Aspirin 81mg PO QD Crestor 10mg PO HS Status: Chronic (9) Left shoulder pain Assessment & Plan: Left shoulder X-ray (09/05/2017): No acute fracture. Acromioclavicular degenerative arthritis. Status: Acute (10) History of seizures Assessment & Plan: Prior records show seizure activity Will monitor and if necessary start keppra and ativan Seizure precautions Status: Acute (11) Prophylactic measure Assessment & Plan: SCDs Anticoagualtion contraindication due to anemia Disposition: Patient continues to refuse treatment and diagnostic testing that is necessary for proper diagnosis All plans discussed with Dr. Torres Status: Acute <Lamonte Torres - Last Filed: 09/09/17 11:36> Objective - Vital Signs/Intake and Output Vital Signs (last 24 hours): Temp Pulse Resp BP Pulse Ox 98.3 F 92 H 20 106/66 95 09/09/17 08:06 09/09/17 08:06 09/09/17 08:06 09/09/17 08:06 09/09/17 08:06 Intake and Output: 09/09/17 09/09/17 06:59 18:59 Intake Total 780 Output Total 1200 Balance -420 - Medications Medications: Current Medications Acetaminophen (Tylenol 325mg Tab) 650 mg PO Q6 PRN PRN Reason: fever. Last Admin: 09/08/17 01:01 Dose: 650 mg Aspirin (Aspirin Chewable) 81 mg PO DAILY [facility] Last Admin: 09/09/17 09:46 Dose: 81 mg Benztropine Mesylate (Cogentin) 1 mg PO BID [facility] Last Admin: 09/09/17 09:47 Dose: 1 mg Diphenhydramine HCl (Benadryl) 25 mg PO Q6 PRN PRN Reason: Agitation Haloperidol (Haldol) 5 mg PO Q6 PRN PRN Reason: Agitation Last Admin: 09/08/17 11:41 Dose: 5 mg Lorazepam (Ativan) 1 mg PO Q6 PRN PRN Reason: Agitation Last Admin: 09/08/17 11:42 Dose: 1 mg Risperidone (Risperdal Tab) 1 mg PO BID [facility] Last Admin: 09/09/17 09:48 Dose: 1 mg Rosuvastatin Calcium (Crestor) 10 mg PO HS [facility] Last Admin: 09/08/17 21:12 Dose: 10 mg Saccharomyces Boulardii (Florastor) 250 mg PO BID [facility] Last Admin: 09/09/17 09:46 Dose: 250 mg Tramadol HCl (Ultram) 25 mg PO TID [facility] Last Admin: 09/09/17 09:46 Dose: 25 mg Trazodone HCl (Desyrel) 50 mg PO [facility] Last Admin: 09/08/17 21:12 Dose: 50 mg - Labs Labs: 08/31/17 15:05 08/31/17 15:05 PT 17.5 SECONDS (9.7-12.2) H 08/31/17 17:07 INR 1.5 08/31/17 17:07 APTT 35 SECONDS (21-34) H 08/31/17 17:07 Attending/Attestation - Attestation I have personally seen and examined this patient.: Yes I have fully participated in the care of the patient.: Yes I have reviewed all pertinent clinical information, including history, physical exam and plan: Yes Notes (Text): Patient was seen and examined by me.He refuses test. Complaining feeling tired. As per patient he was living in a jail and he was born and brought up in [place]. Mother . No family or friends . Patient doesn't know the name of the hospital. He was not able to answer what month and year. He knows that our president is Meek.Patient says he is weak and tired. He was told that he has a lung mass and he is anemic need further study .Patient has no comment. Refuses CT chest and blood test. 1.Refusing treatment 2.Lung mass.possible malignant mass 3.Anemia 4.CVA with right side weakness 5.Weight loss 6.Poor hygiene,s/p body lice 7.h/o seizure Seen by psychiatrist. .Patient has no capacity to make his own decision. Discussed with CW/SW. Patient needs a guardian to make decision for him.There is no medical emergency to have two physician decision. We cannot force treatment or test against him. d/w The resident
[2017-09-07] MEDS ORDERED: Iohexol 240 (50 ml) PO ONE (15:45)
[2017-09-08] MEDS: Saccharomyces Boulardi 250 mg Cap PO SCH ×2 (11:41→17:43)
[2017-09-08] MEDS: Tramadol 25 mg PO SCH ×3 (11:42→17:43)
[2017-09-08] MEDS ORDERED: Iodixanol 320 MG/ML 100 ML BOTTLE IV ONE (12:48)
--- NOTE | 2017-09-08 16:58 | CP.PCM.PN ---
<Edmar Rose - Last Filed: 09/08/17 16:55> Subjective - Date & Time of Evaluation Date of Evaluation: 09/08/17 Time of Evaluation: 16:55 - Subjective Subjective: Patient seen and examined at bedside. States he feels dirty but overall he is feeling better. Denies any pain at this time. Denies any chest pain. Denies any SOB, nausea, vomiting, cough, diarrhea. Tolerating diet. Objective - Vital Signs/Intake and Output Vital Signs (last 24 hours): Temp Pulse Resp BP Pulse Ox 98.0 F 100 H 20 103/65 96 09/08/17 16:00 09/08/17 16:00 09/08/17 16:00 09/08/17 16:00 09/08/17 16:00 Intake and Output: 09/08/17 09/08/17 06:59 18:59 Intake Total 400 250 Balance 400 250 - Medications Medications: Current Medications Acetaminophen (Tylenol 325mg Tab) 650 mg PO Q6 PRN PRN Reason: fever. Last Admin: 09/08/17 01:01 Dose: 650 mg Aspirin (Aspirin Chewable) 81 mg PO DAILY [facility] Last Admin: 09/08/17 11:41 Dose: 81 mg Benztropine Mesylate (Cogentin) 1 mg PO BID [facility] Last Admin: 09/08/17 11:41 Dose: 1 mg Diphenhydramine HCl (Benadryl) 25 mg PO Q6 PRN PRN Reason: Agitation Haloperidol (Haldol) 5 mg PO Q6 PRN PRN Reason: Agitation Last Admin: 09/08/17 11:41 Dose: 5 mg Lorazepam (Ativan) 1 mg PO Q6 PRN PRN Reason: Agitation Last Admin: 09/08/17 11:42 Dose: 1 mg Risperidone (Risperdal Tab) 1 mg PO BID [facility] Last Admin: 09/08/17 11:41 Dose: 1 mg Rosuvastatin Calcium (Crestor) 10 mg PO HS [facility] Last Admin: 09/07/17 23:03 Dose: 10 mg Saccharomyces Boulardii (Florastor) 250 mg PO BID [facility] Last Admin: 09/08/17 11:41 Dose: 250 mg Tramadol HCl (Ultram) 25 mg PO TID [facility] Last Admin: 09/08/17 14:49 Dose: 25 mg Trazodone HCl (Desyrel) 50 mg PO HS [facility] Last Admin: 09/07/17 23:03 Dose: 50 mg - Labs Labs: 08/31/17 15:05 08/31/17 15:05 PT 17.5 SECONDS (9.7-12.2) H 08/31/17 17:07 INR 1.5 08/31/17 17:07 APTT 35 SECONDS (21-34) H 08/31/17 17:07 - Constitutional Appears: Well - Head Exam Head Exam: ATRAUMATIC, NORMAL INSPECTION, NORMOCEPHALIC - Eye Exam Eye Exam: EOMI, Normal appearance, PERRL Pupil Exam: NORMAL ACCOMODATION, PERRL - ENT Exam ENT Exam: Mucous Membranes Moist, Normal Exam - Neck Exam Neck Exam: Full ROM, Normal Inspection. absent: Lymphadenopathy - Respiratory Exam Respiratory Exam: Clear to Ausculation Bilateral, NORMAL BREATHING PATTERN - Cardiovascular Exam Cardiovascular Exam: REGULAR RHYTHM, +S1, +S2. absent: Murmur - GI/Abdominal Exam GI & Abdominal Exam: Soft, Normal Bowel Sounds. absent: Tenderness - Extremities Exam Extremities Exam: Full ROM, Normal Capillary Refill, Normal Inspection. absent : Joint Swelling, Pedal Edema - Back Exam Back Exam: NORMAL INSPECTION - Neurological Exam Neurological Exam: Alert, Awake, CN II-XII Intact, Normal Gait, Oriented x3 - Psychiatric Exam Psychiatric exam: Normal Affect, Normal Mood - Skin Skin Exam: Dry, Intact, Normal Color, Warm Assessment and Plan - Assessment and Plan (Free Text) Assessment: (1) Refusal of treatment Assessment & Plan: Psych consult, Dr. Martinez---> Help appreciated * Evaluate for capacity * As per psychiatry evaluation: Patient lacks the capacity to make his own medical decisions at this time. Plans for reevaluation at a latter time * Discussion with telephonic case manager today, 09/08/17; regarding possible guardianship Status: Acute (2) Generalized pain Assessment & Plan: CXR 08/31/17: * Large left upper lobe mass with probable involvement of the left posterior 3rd rib. Findings are concerning for malignancy. Dedicated CT scan of the chest with intravenous contrast is recommended for further characterization. * Patient has been refusing chest CT but states that he will think about and have the test done soon * CT abd/pelvis with IV contrast for today. Wanted PO contrast but patient refusing to drink PO Contrast. Follow up IV Contrast Labs: * QFT negative, legionella negative, pending Mycoplasma Igm, Strep Pneumoniae, * Negative PPD read; no induration noted * Patient is still refusing to produce sputum Status: Acute (3) Mass of upper lobe of left lung Status: Acute (4) Leukocytosis Assessment & Plan: On admission: 14.7, patient has been refusing further lab work but states that he would rethink his decision Blood Culture: Negative Meds: Azithromycin 500mg IVP QD Rocephin 1g IVP BID Status: Acute (5) Anemia Assessment & Plan: H/H: 7.4/24.4 Patient is refusing transfusion at the moment RBC indices indicative of iron deficiency anemia Retic Count ELEVATED 2.5, Haptoglobin ELEVATED 369 Vitamin B12 and Folate NORMAL Ferritin NORMAL Homocysteine NORMAL Parietal cell Ab negative, Negative intrinsic factor Pending Peripheral smear, LDH, Iron and TIBC and % saturation Status: Acute (6) Lice infestation Assessment & Plan: Shave patient bald Meds: Applied ivermectin and permethrin Status: Acute (7) Weight loss Assessment & Plan: Pending HIV, patient is refusing blood work and sahni CT scan Status: Acute (8) History of CVA (cerebrovascular accident) Assessment & Plan: Hx of CVA in 2016 with documented right arm and leg weakness Meds: Aspirin 81mg PO QD Crestor 10mg PO HS Status: Chronic (9) Left shoulder pain Assessment & Plan: Left shoulder X-ray (09/05/2017): No acute fracture. Acromioclavicular degenerative arthritis. Status: Acute (10) History of seizures Assessment & Plan: Prior records show seizure activity Will monitor and if necessary start keppra and ativan Seizure precautions Status: Acute (11) Prophylactic measure Assessment & Plan: SCDs Anticoagualtion contraindication due to anemia Disposition: Patient continues to refuse treatment and diagnostic testing that is necessary for proper diagnosis All plans discussed with Dr. Torres Status: Acute <Lamonte Torres - Last Filed: 09/09/17 11:38> Objective - Vital Signs/Intake and Output Vital Signs (last 24 hours): Temp Pulse Resp BP Pulse Ox 98.3 F 92 H 20 106/66 95 09/09/17 08:06 09/09/17 08:06 09/09/17 08:06 09/09/17 08:06 09/09/17 08:06 Intake and Output: 09/09/17 09/09/17 06:59 18:59 Intake Total 780 Output Total 1200 Balance -420 - Medications Medications: Current Medications Acetaminophen (Tylenol 325mg Tab) 650 mg PO Q6 PRN PRN Reason: fever. Last Admin: 09/08/17 01:01 Dose: 650 mg Aspirin (Aspirin Chewable) 81 mg PO DAILY [facility] Last Admin: 09/09/17 09:46 Dose: 81 mg Benztropine Mesylate (Cogentin) 1 mg PO BID [facility] Last Admin: 09/09/17 09:47 Dose: 1 mg Diphenhydramine HCl (Benadryl) 25 mg PO Q6 PRN PRN Reason: Agitation Haloperidol (Haldol) 5 mg PO Q6 PRN PRN Reason: Agitation Last Admin: 09/08/17 11:41 Dose: 5 mg Lorazepam (Ativan) 1 mg PO Q6 PRN PRN Reason: Agitation Last Admin: 09/08/17 11:42 Dose: 1 mg Risperidone (Risperdal Tab) 1 mg PO BID [facility] Last Admin: 09/09/17 09:48 Dose: 1 mg Rosuvastatin Calcium (Crestor) 10 mg PO [facility] Last Admin: 09/08/17 21:12 Dose: 10 mg Saccharomyces Boulardii (Florastor) 250 mg PO BID [facility] Last Admin: 09/09/17 09:46 Dose: 250 mg Tramadol HCl (Ultram) 25 mg PO TID [facility] Last Admin: 09/09/17 09:46 Dose: 25 mg Trazodone HCl (Desyrel) 50 mg PO [facility] Last Admin: 09/08/17 21:12 Dose: 50 mg - Labs Labs: 08/31/17 15:05 08/31/17 15:05 PT 17.5 SECONDS (9.7-12.2) H 08/31/17 17:07 INR 1.5 08/31/17 17:07 APTT 35 SECONDS (21-34) H 08/31/17 17:07 Attending/Attestation - Attestation I have personally seen and examined this patient.: Yes I have fully participated in the care of the patient.: Yes I have reviewed all pertinent clinical information, including history, physical exam and plan: Yes Notes (Text): Seen and examined by me Has no changes .refuses care d/w RN As per patient he was living in a long term and he was born and brought up in [place]. Mother . No family or friends . Patient doesn't know the name of the hospital. He was not able to answer what month and year. He knows that our president is Meek.Patient says he is weak and tired. He was told that he has a lung mass and he is anemic need further study .Patient has no comment. Refuses CT chest and blood test. 1.Refusing treatment 2.Lung mass.possible malignant mass 3.Anemia 4.CVA with right side weakness 5.Weight loss 6.Poor hygiene,s/p body lice 7.h/o seizure Seen by psychiatrist. .Patient has no capacity to make his own decision. Discussed with CW/SW. Patient needs a guardian to make decision for him.There is no medical emergency to have two physician decision. We cannot force treatment or test against him. d/w The resident
--- NOTE | 2017-09-09 01:27 | CP.PCM.PN ---
<Carlos Morris - Last Filed: 09/09/17 01:24> Subjective - Date & Time of Evaluation Date of Evaluation: 09/09/17 Time of Evaluation: 01:05 - Subjective Subjective: Medicine progress note ( Dr. Torres's service) Patient was seen and examined at bedside. Patient was resting comfortably in bed watching TV and requesting for a sandwich. As per nursing, patient had no acute events and he has been eating very well. Patient agreed to diagnostic testing yesterday but refused at the time of transport. Refusal of treatment and diagnostic testing was discussed with patient and how important it is for him to not refuse in order to obtain adequate care. Patient states that he will continue to think about whether he will adhere to medical recommendation. Objective - Vital Signs/Intake and Output Vital Signs (last 24 hours): Temp Pulse Resp BP Pulse Ox 98.8 F 110 H 20 102/64 94 L 09/09/17 00:00 09/09/17 00:00 09/09/17 00:00 09/09/17 00:00 09/09/17 00:00 Intake and Output: 09/08/17 09/09/17 18:59 06:59 Intake Total 250 480 Output Total 800 Balance 250 -320 - Medications Medications: Current Medications Acetaminophen (Tylenol 325mg Tab) 650 mg PO Q6 PRN PRN Reason: fever. Last Admin: 09/08/17 01:01 Dose: 650 mg Aspirin (Aspirin Chewable) 81 mg PO DAILY [facility] Last Admin: 09/08/17 11:41 Dose: 81 mg Benztropine Mesylate (Cogentin) 1 mg PO BID [facility] Last Admin: 09/08/17 17:43 Dose: 1 mg Diphenhydramine HCl (Benadryl) 25 mg PO Q6 PRN PRN Reason: Agitation Haloperidol (Haldol) 5 mg PO Q6 PRN PRN Reason: Agitation Last Admin: 09/08/17 11:41 Dose: 5 mg Lorazepam (Ativan) 1 mg PO Q6 PRN PRN Reason: Agitation Last Admin: 09/08/17 11:42 Dose: 1 mg Risperidone (Risperdal Tab) 1 mg PO BID [facility] Last Admin: 09/08/17 17:43 Dose: 1 mg Rosuvastatin Calcium (Crestor) [address] [facility] Last Admin: 09/08/17 21:12 Dose: 10 mg Saccharomyces Boulardii (Florastor) 250 mg PO BID [facility] Last Admin: 09/08/17 17:43 Dose: 250 mg Tramadol HCl (Ultram) 25 mg PO TID [facility] Last Admin: 09/08/17 17:43 Dose: 25 mg Trazodone HCl (Desyrel) 50 mg PO HS [facility] Last Admin: 09/08/17 21:12 Dose: 50 mg - Labs Labs: 08/31/17 15:05 08/31/17 15:05 PT 17.5 SECONDS (9.7-12.2) H 08/31/17 17:07 INR 1.5 08/31/17 17:07 APTT 35 SECONDS (21-34) H 08/31/17 17:07 - Constitutional Appears: Well, No Acute Distress - Head Exam Head Exam: ATRAUMATIC - Eye Exam Eye Exam: EOMI - ENT Exam ENT Exam: Mucous Membranes Moist - Respiratory Exam Respiratory Exam: NORMAL BREATHING PATTERN - Cardiovascular Exam Cardiovascular Exam: REGULAR RHYTHM, +S1, +S2. absent: Murmur - GI/Abdominal Exam GI & Abdominal Exam: Soft, Normal Bowel Sounds. absent: Firm, Guarding, Rigid, Tenderness - Extremities Exam Extremities Exam: absent: Calf Tenderness, Pedal Edema - Neurological Exam Neurological Exam: Alert, Awake - Psychiatric Exam Psychiatric exam: Depressed, Flat Affect - Skin Additional comments: Diffuse hyperkeratinization Assessment and Plan (1) Refusal of treatment Assessment & Plan: Psych consult, Dr. Martinez---> Help appreciated * Evaluate for capacity * As per psychiatry evaluation: Patient lacks the capacity to make his own medical decisions at this time. Plans for reevaluation at a latter time * Discussion with case checker today, 09/08/17; regarding possible guardianship Medications: Status: Acute (2) Generalized pain Assessment & Plan: CXR 08/31/17: * Large left upper lobe mass with probable involvement of the left posterior 3rd rib. Findings are concerning for malignancy. Dedicated CT scan of the chest with intravenous contrast is recommended for further characterization. * Patient has been refusing chest CT but states that he will think about and have the test done soon * CT abd/pelvis with IV contrast for today. Wanted PO contrast but patient refusing to drink PO Contrast or IV contrast; refused testing at the time of transport Labs: * QFT negative, legionella negative, pending Mycoplasma Igm, Strep Pneumoniae, * Negative PPD read; no induration noted * Patient is still refusing to produce sputum Status: Acute (3) Mass of upper lobe of left lung Assessment & Plan: CXR 08/31/17: * Large left upper lobe mass with probable involvement of the left posterior 3rd rib. Findings are concerning for malignancy. Dedicated CT scan of the chest with intravenous contrast is recommended for further characterization. * Patient has been refusing chest CT but states that he will think about and have the test done soon * CT abd/pelvis with IV contrast for today. Wanted PO contrast but patient refusing to drink PO Contrast or IV contrast; refused testing at the time of transport Status: Acute (4) Leukocytosis Assessment & Plan: On admission: 14.7, patient has been refusing further lab work but continues to state that he would rethink his decision Blood Culture: Negative Meds: Azithromycin 500mg IVP QD Rocephin 1g IVP BID Status: Acute (5) Anemia Assessment & Plan: H/H: 7.4/24.4 Patient is refusing transfusion at the moment RBC indices indicative of iron deficiency anemia Retic Count ELEVATED 2.5, Haptoglobin ELEVATED 369 Vitamin B12 and Folate NORMAL Ferritin NORMAL Homocysteine NORMAL Parietal cell Ab negative, Negative intrinsic factor Pending Peripheral smear, LDH, Iron and TIBC and % saturation Status: Acute Status: Acute (6) Lice infestation Assessment & Plan: Recommendation to shave patient bald; patient refuses Meds: Applied ivermectin and permethrin Status: Acute (7) Weight loss Assessment & Plan: Pending HIV, patient is refusing blood work and sahni CT scan As per nursing, patient is eating very well Status: Acute (8) History of CVA (cerebrovascular accident) Assessment & Plan: Hx of CVA in 2016 with documented right arm and leg weakness Meds: Aspirin 81mg PO QD Crestor 10mg PO HS Status: Chronic (9) Left shoulder pain Assessment & Plan: Left shoulder X-ray (09/05/2017): No acute fracture. Acromioclavicular degenerative arthritis. Status: Acute (10) History of seizures Assessment & Plan: Prior records show seizure activity Will monitor and if necessary start keppra and ativan Seizure precautions Status: Acute (11) Prophylactic measure Assessment & Plan: SCDs Anticoagualtion contraindication due to anemia Disposition: Patient continues to refuse treatment and diagnostic testing that is necessary for proper diagnosis All plans discussed with Dr. Torres Status: Acute <Lamonte Torres - Last Filed: 09/09/17 11:40> Objective - Vital Signs/Intake and Output Vital Signs (last 24 hours): Temp Pulse Resp BP Pulse Ox 98.3 F 92 H 20 106/66 95 09/09/17 08:06 09/09/17 08:06 09/09/17 08:06 09/09/17 08:06 09/09/17 08:06 Intake and Output: 09/09/17 09/09/17 06:59 18:59 Intake Total 780 Output Total 1200 Balance -420 - Medications Medications: Current Medications Acetaminophen (Tylenol 325mg Tab) 650 mg PO Q6 PRN PRN Reason: fever. Last Admin: 09/08/17 01:01 Dose: 650 mg Aspirin (Aspirin Chewable) 81 mg PO DAILY [facility] Last Admin: 09/09/17 09:46 Dose: 81 mg Benztropine Mesylate (Cogentin) 1 mg PO BID [facility] Last Admin: 09/09/17 09:47 Dose: 1 mg Diphenhydramine HCl (Benadryl) 25 mg PO Q6 PRN PRN Reason: Agitation Haloperidol (Haldol) 5 mg PO Q6 PRN PRN Reason: Agitation Last Admin: 09/08/17 11:41 Dose: 5 mg Lorazepam (Ativan) 1 mg PO Q6 PRN PRN Reason: Agitation Last Admin: 09/08/17 11:42 Dose: 1 mg Risperidone (Risperdal Tab) 1 mg PO BID [facility] Last Admin: 09/09/17 09:48 Dose: 1 mg Rosuvastatin Calcium (Crestor) 10 mg PO HS [facility] Last Admin: 09/08/17 21:12 Dose: 10 mg Saccharomyces Boulardii (Florastor) 250 mg PO BID [facility] Last Admin: 09/09/17 09:46 Dose: 250 mg Tramadol HCl (Ultram) 25 mg PO TID [facility] Last Admin: 09/09/17 09:46 Dose: 25 mg Trazodone HCl (Desyrel) [address] [facility] Last Admin: 09/08/17 21:12 Dose: 50 mg - Labs Labs: 08/31/17 15:05 08/31/17 15:05 PT 17.5 SECONDS (9.7-12.2) H 08/31/17 17:07 INR 1.5 08/31/17 17:07 APTT 35 SECONDS (21-34) H 08/31/17 17:07 Attending/Attestation - Attestation I have personally seen and examined this patient.: Yes I have fully participated in the care of the patient.: Yes I have reviewed all pertinent clinical information, including history, physical exam and plan: Yes Notes (Text): Patient was seen and examined by me.No complain. Looks comfortable.Refuses tests As per patient he was living in a intermediate and he was born and brought up in [place]. Mother . No family or friends . Patient doesn't know the name of the hospital. He was not able to answer what month and year. He knows that our president is Meek.Patient says he is weak and tired. He was told that he has a lung mass and he is anemic need further study .Patient had no comments. 1.Refusing treatment 2.Lung mass.possible malignant mass 3.Anemia 4.CVA with right side weakness 5.Weight loss 6.Poor hygiene,s/p body lice 7.h/o seizure Seen by psychiatrist. .Patient has no capacity to make his own decision. Discussed with CW/SW. Patient needs a guardian to make decision for him.There is no medical emergency to have two physician decision. We cannot force treatment or test against him. I agree with the resident's documentation of assessment and the plan
[2017-09-09] MEDS: Saccharomyces Boulardi 250 mg Cap PO SCH ×2 (09:46→17:39)
[2017-09-09] MEDS: Tramadol 25 mg PO SCH ×3 (09:46→17:41)
--- NOTE | 2017-09-10 02:58 | CP.PCM.PN ---
<Carlos Morris E - Last Filed: 09/10/17 03:08> Subjective - Date & Time of Evaluation Date of Evaluation: 09/10/17 Time of Evaluation: 02:40 - Subjective Subjective: Medicine progress note ( Dr. Torres's service) Patient was seen and examined at bedside. Patient was resting comfortably in bed. Patient denies any acute issues or new complaints. Patient reports that he plans on going for recommended diagnostic testing as he still thinking about it. Patient still admits to generalized body pain. Objective - Vital Signs/Intake and Output Vital Signs (last 24 hours): Temp Pulse Resp BP Pulse Ox 97.2 F L 99 H 20 106/60 96 09/09/17 15:00 09/09/17 15:00 09/09/17 15:00 09/09/17 15:00 09/09/17 15:00 Intake and Output: 09/09/17 09/10/17 18:59 06:59 Intake Total 350 Output Total 500 Balance -150 - Medications Medications: Current Medications Acetaminophen (Tylenol 325mg Tab) 650 mg PO Q6 PRN PRN Reason: fever. Last Admin: 09/08/17 01:01 Dose: 650 mg Aspirin (Aspirin Chewable) 81 mg PO DAILY [facility] Last Admin: 09/09/17 09:46 Dose: 81 mg Benztropine Mesylate (Cogentin) 1 mg PO BID [facility] Last Admin: 09/09/17 17:39 Dose: 1 mg Diphenhydramine HCl (Benadryl) 25 mg PO Q6 PRN PRN Reason: Agitation Haloperidol (Haldol) 5 mg PO Q6 PRN PRN Reason: Agitation Last Admin: 09/08/17 11:41 Dose: 5 mg Lorazepam (Ativan) 1 mg PO Q6 PRN PRN Reason: Agitation Last Admin: 09/08/17 11:42 Dose: 1 mg Risperidone (Risperdal Tab) 1 mg PO BID [facility] Last Admin: 09/09/17 17:39 Dose: 1 mg Rosuvastatin Calcium (Crestor) 10 mg PO HS [facility] Last Admin: 09/09/17 21:52 Dose: 10 mg Saccharomyces Boulardii (Florastor) 250 mg PO BID [facility] Last Admin: 09/09/17 17:39 Dose: 250 mg Tramadol HCl (Ultram) 25 mg PO TID [facility] Last Admin: 09/09/17 17:41 Dose: 25 mg Trazodone HCl (Desyrel) 50 mg PO HS [facility] Last Admin: 09/09/17 21:52 Dose: 50 mg - Labs Labs: 08/31/17 15:05 08/31/17 15:05 PT 17.5 SECONDS (9.7-12.2) H 08/31/17 17:07 INR 1.5 08/31/17 17:07 APTT 35 SECONDS (21-34) H 08/31/17 17:07 - Constitutional Appears: No Acute Distress - Head Exam Head Exam: ATRAUMATIC - Eye Exam Eye Exam: EOMI - ENT Exam ENT Exam: Mucous Membranes Moist - Respiratory Exam Respiratory Exam: NORMAL BREATHING PATTERN. absent: Rhonchi, Wheezes - Cardiovascular Exam Cardiovascular Exam: REGULAR RHYTHM, +S1, +S2. absent: Murmur - GI/Abdominal Exam GI & Abdominal Exam: Soft, Normal Bowel Sounds. absent: Firm, Guarding, Rigid, Tenderness - Extremities Exam Extremities Exam: Normal Inspection. absent: Calf Tenderness, Pedal Edema - Neurological Exam Neurological Exam: Alert, Awake - Psychiatric Exam Psychiatric exam: Depressed, Flat Affect - Skin Additional comments: Diffuse hyperkeratinization Assessment and Plan (1) Refusal of treatment Assessment & Plan: Psych consult, Dr. Martinez---> Help appreciated * Evaluate for capacity * As per psychiatry evaluation: Patient lacks the capacity to make his own medical decisions at this time. Plans for reevaluation at a latter time * Discussion with case filler today, 09/08/17; regarding possible guardianship Medications: * Cogentin 1mg PO BID * Benadryl 25mg PO Q6H PRN * Haldol 5mg PO Q6H PRN * Ativan 1mg PO Q6H PRN * Risperidone 1mg PO BID * Trazodone 50mg PO HS Status: Acute (2) Generalized pain Assessment & Plan: CXR 08/31/17: * Large left upper lobe mass with probable involvement of the left posterior 3rd rib. Findings are concerning for malignancy. Dedicated CT scan of the chest with intravenous contrast is recommended for further characterization. * Patient has been refusing chest CT but states that he will think about and have the test done soon * CT abd/pelvis with IV contrast for today. Wanted PO contrast but patient refusing to drink PO Contrast or IV contrast; refused testing at the time of transport Labs: * QFT negative, legionella negative, pending Mycoplasma Igm, Strep Pneumoniae, * Negative PPD read; no induration noted (48 hours and 72 hours read) * Patient is still refusing to produce sputum Medications: * Trazadone 50mg PO HS * Tylenol 650mg PO Q6H PRN Status: Acute (3) Mass of upper lobe of left lung Assessment & Plan: CXR 08/31/17: * Large left upper lobe mass with probable involvement of the left posterior 3rd rib. Findings are concerning for malignancy. Dedicated CT scan of the chest with intravenous contrast is recommended for further characterization. * Patient has been refusing chest CT but states that he will think about and have the test done soon * CT abd/pelvis with IV contrast for today. Wanted PO contrast but patient refusing to drink PO Contrast. Follow up IV Contrast Status: Acute (4) Leukocytosis Assessment & Plan: On admission: 14.7, patient has been refusing further lab work but continues to state that he would rethink his decision Blood Culture: Negative Meds: Azithromycin 500mg IVP QD-- D/C Rocephin 1g IVP BID--D/C Status: Acute (5) Anemia Assessment & Plan: H/H: 7.4/24.4 Patient is refusing transfusion at the moment RBC indices indicative of iron deficiency anemia Retic Count ELEVATED 2.5, Haptoglobin ELEVATED 369 Vitamin B12 and Folate NORMAL Ferritin NORMAL Homocysteine NORMAL Parietal cell Ab negative, Negative intrinsic factor Pending Peripheral smear, LDH, Iron and TIBC and % saturation Status: Acute (6) Lice infestation Assessment & Plan: Recommendation to shave patient bald; patient refuses Meds: Applied ivermectin and permethrin Status: Acute (7) Weight loss Assessment & Plan: Pending HIV, patient is refusing blood work and sahni CT scan As per nursing, patient is eating very well Status: Acute (8) History of CVA (cerebrovascular accident) Assessment & Plan: Hx of CVA in 2016 with documented right arm and leg weakness Meds: Aspirin 81mg PO QD Crestor 10mg PO HS Status: Chronic (9) Left shoulder pain Assessment & Plan: Left shoulder X-ray (09/05/2017): No acute fracture. Acromioclavicular degenerative arthritis. Status: Acute (10) History of seizures Assessment & Plan: Prior records show seizure activity Will monitor and if necessary start keppra and ativan Seizure precautions Status: Acute (11) Prophylactic measure Assessment & Plan: SCDs Anticoagualtion contraindication due to anemia Disposition: Patient continues to refuse treatment and diagnostic testing that is necessary for proper diagnosis All plans discussed with Dr. Torres Status: Acute <Lamonte Torres - Last Filed: 09/10/17 12:04> Objective - Vital Signs/Intake and Output Vital Signs (last 24 hours): Temp Pulse Resp BP Pulse Ox 98.2 F 102 H 20 99/64 L 100 09/10/17 08:29 09/10/17 08:29 09/10/17 08:29 09/10/17 08:29 09/10/17 08:29 Intake and Output: 09/10/17 09/10/17 06:59 18:59 Intake Total 350 Output Total 500 Balance -150 - Medications Medications: Current Medications Acetaminophen (Tylenol 325mg Tab) 650 mg PO Q6 PRN PRN Reason: fever. Last Admin: 09/08/17 01:01 Dose: 650 mg Aspirin (Aspirin Chewable) 81 mg PO DAILY [facility] Last Admin: 09/10/17 09:44 Dose: 81 mg Benztropine Mesylate (Cogentin) 1 mg PO BID [facility] Last Admin: 09/10/17 09:45 Dose: 1 mg Diphenhydramine HCl (Benadryl) 25 mg PO Q6 PRN PRN Reason: Agitation Haloperidol (Haldol) 5 mg PO Q6 PRN PRN Reason: Agitation Last Admin: 09/08/17 11:41 Dose: 5 mg Lorazepam (Ativan) 1 mg PO Q6 PRN PRN Reason: Agitation Last Admin: 09/08/17 11:42 Dose: 1 mg Risperidone (Risperdal Tab) 1 mg PO BID [facility] Last Admin: 09/10/17 09:45 Dose: 1 mg Rosuvastatin Calcium (Crestor) 10 mg PO HS [facility] Last Admin: 09/09/17 21:52 Dose: 10 mg Saccharomyces Boulardii (Florastor) 250 mg PO BID [facility] Last Admin: 09/10/17 09:45 Dose: 250 mg Tramadol HCl (Ultram) 25 mg PO TID [facility] Last Admin: 09/10/17 09:47 Dose: 25 mg Trazodone HCl (Desyrel) 50 mg PO HS [facility] Last Admin: 09/09/17 21:52 Dose: 50 mg - Labs Labs: 08/31/17 15:05 08/31/17 15:05 PT 17.5 SECONDS (9.7-12.2) H 08/31/17 17:07 INR 1.5 08/31/17 17:07 APTT 35 SECONDS (21-34) H 08/31/17 17:07 Attending/Attestation - Attestation I have personally seen and examined this patient.: Yes I have fully participated in the care of the patient.: Yes I have reviewed all pertinent clinical information, including history, physical exam and plan: Yes Notes (Text): Patient was seen and examined by me .He was not cooperating. Has right side weakness with some stiffness. left arm is ok. Uses left arm to feed himself. Not want me to touch his legs.Patient refuses all test today. says may be later. d/w RN .He ate breakfast good today. Intake improving. patient was choosing his lunch from menu this morning . Took his oral meds .His is not interested in knowing his medical problem. Patient says he is weak and tired. He was told that he is anemia and has a lung mass needs further study .Patient had no comments. no cough,no fever.Not able to give sputum for AF[employer]. (He is from a homeless senior living . Brought in for body lice .He is a poor historian .Refuses care and test . As per patient he was born and brought up in [place]. Mother . He is not in touch with his family or friends . Patient doesn't know the name of the hospital. He was not able to answer what month or year. He knows that our president is Meek.) 1.Refusing treatment 2.Lung mass.possible malignant mass 3.Anemia 4.CVA with right side weakness 5.Weight loss 6.Poor hygiene,s/p body lice 7.h/o seizure Seen by psychiatrist. .Patient has no capacity to make his own decision. Discussed with CW/SW. Patient needs a guardian to make decision for him.There is no medical emergency to have two physician decision. I agree with the resident's documentation of assessment and the plan
[2017-09-10] MEDS: Saccharomyces Boulardi 250 mg Cap PO SCH ×2 (09:45→17:41)
[2017-09-10] MEDS: Tramadol 25 mg PO SCH ×3 (09:47→17:41)
[2017-09-11] MEDS: Tramadol 25 mg PO SCH ×3 (09:38→17:56)
[2017-09-11] MEDS: Saccharomyces Boulardi 250 mg Cap PO SCH ×2 (09:38→17:56)
--- NOTE | 2017-09-11 11:09 | CP.PCM.PN ---
<Carlos Morris E - Last Filed: 09/11/17 16:35> Subjective - Date & Time of Evaluation Date of Evaluation: 09/11/17 Time of Evaluation: 07:10 - Subjective Subjective: Medicine progress note ( Dr. Morley's service) Patient was seen and examined at bedside. Patient was resting comfortably in bed. Patient denies any acute issues or new complaints. Patient reports that he plans on going for recommended diagnostic testing as he still thinking about it. Patient still admits to generalized body pain. Patient is awake, alert and oriented to day, year, location and he is aware of who the president is. Objective - Vital Signs/Intake and Output Vital Signs (last 24 hours): Temp Pulse Resp BP Pulse Ox 97.9 F 100 H 20 104/67 96 09/11/17 07:00 09/11/17 07:00 09/11/17 07:00 09/11/17 07:00 09/11/17 07:00 Intake and Output: 09/11/17 09/11/17 06:59 18:59 Intake Total 300 Output Total 800 Balance -500 - Medications Medications: Current Medications Acetaminophen (Tylenol 325mg Tab) 650 mg PO Q6 PRN PRN Reason: fever. Last Admin: 09/08/17 01:01 Dose: 650 mg Aspirin (Aspirin Chewable) 81 mg PO DAILY [facility] Last Admin: 09/11/17 09:37 Dose: 81 mg Benztropine Mesylate (Cogentin) 1 mg PO BID [facility] Last Admin: 09/11/17 09:38 Dose: 1 mg Diphenhydramine HCl (Benadryl) 25 mg PO Q6 PRN PRN Reason: Agitation Haloperidol (Haldol) 5 mg PO Q6 PRN PRN Reason: Agitation Last Admin: 09/08/17 11:41 Dose: 5 mg Lorazepam (Ativan) 1 mg PO Q6 PRN PRN Reason: Agitation Last Admin: 09/08/17 11:42 Dose: 1 mg Lorazepam (Ativan) 1 mg IVP ONCE ONE Stop: 09/11/17 11:09 Risperidone (Risperdal Tab) 1 mg PO BID [facility] Last Admin: 09/11/17 09:38 Dose: 1 mg Rosuvastatin Calcium (Crestor) 10 mg PO HS [facility] Last Admin: 09/10/17 21:30 Dose: 10 mg Saccharomyces Boulardii (Florastor) 250 mg PO BID [facility] Last Admin: 09/11/17 09:38 Dose: 250 mg Tramadol HCl (Ultram) 25 mg PO TID [facility] Last Admin: 09/11/17 09:38 Dose: 25 mg Trazodone HCl (Desyrel) 50 mg PO HS [facility] Last Admin: 09/10/17 21:30 Dose: 50 mg - Labs Labs: 08/31/17 15:05 08/31/17 15:05 PT 17.5 SECONDS (9.7-12.2) H 08/31/17 17:07 INR 1.5 08/31/17 17:07 APTT 35 SECONDS (21-34) H 08/31/17 17:07 - Constitutional Appears: No Acute Distress - Head Exam Head Exam: ATRAUMATIC, NORMAL INSPECTION - Eye Exam Eye Exam: EOMI - ENT Exam ENT Exam: Mucous Membranes Moist - Respiratory Exam Respiratory Exam: NORMAL BREATHING PATTERN - Cardiovascular Exam Cardiovascular Exam: REGULAR RHYTHM, +S1, +S2. absent: Murmur - GI/Abdominal Exam GI & Abdominal Exam: Soft, Normal Bowel Sounds - Extremities Exam Extremities Exam: Normal Inspection - Neurological Exam Neurological Exam: Alert, Awake - Psychiatric Exam Psychiatric exam: Depressed, Flat Affect - Skin Skin Exam: Normal Color Assessment and Plan (1) Refusal of treatment Assessment & Plan: Psych consult, Dr. Martinez---> Help appreciated * Evaluate for capacity * As per psychiatry evaluation: Patient lacks the capacity to make his own medical decisions at this time. Plans for reevaluation at a latter time * Discussion with porter sample case today, 09/08/17; regarding possible guardianship Medications: * Cogentin 1mg PO BID * Benadryl 25mg PO Q6H PRN * Haldol 5mg PO Q6H PRN * Ativan 1mg PO Q6H PRN * Risperidone 1mg PO BID * Trazodone 50mg PO HS Status: Acute (2) Generalized pain Assessment & Plan: CXR 08/31/17: * Large left upper lobe mass with probable involvement of the left posterior 3rd rib. Findings are concerning for malignancy. Dedicated CT scan of the chest with intravenous contrast is recommended for further characterization. * Patient has been refusing chest CT but states that he will think about and have the test done soon * CT abd/pelvis with IV contrast for today. Wanted PO contrast but patient refusing to drink PO Contrast or IV contrast; refused testing at the time of transport Labs: * QFT negative, legionella negative, pending Mycoplasma Igm, Strep Pneumoniae, * Negative PPD read; no induration noted (48 hours and 72 hours read) * Patient is still refusing to produce sputum Medications: * Trazadone 50mg PO HS * Tylenol 650mg PO Q6H PRN Status: Acute (3) Mass of upper lobe of left lung Assessment & Plan: CXR 08/31/17: Large left upper lobe mass with probable involvement of the left posterior 3rd rib. Findings are concerning for malignancy. Dedicated CT scan of the chest with intravenous contrast is recommended for further characterization. Patient has been refusing chest CT but states that he will think about it and plans for IV contrast today CT chest/ abd/pelvis with IV contrast for today. Wanted PO contrast but patient refusing to drink PO Contrast. Status: Acute (4) Leukocytosis Assessment & Plan: On admission: 14.7, patient has been refusing further lab work but continues to state that he would rethink his decision Blood Culture: Negative Meds: Azithromycin 500mg IVP QD-- D/C Rocephin 1g IVP BID--D/C Status: Acute (5) Anemia Assessment & Plan: H/H: 7.4/24.4 Patient is refusing transfusion at the moment RBC indices indicative of iron deficiency anemia Retic Count ELEVATED 2.5, Haptoglobin ELEVATED 369 Vitamin B12 and Folate NORMAL Ferritin NORMAL Homocysteine NORMAL Parietal cell Ab negative, Negative intrinsic factor Pending Peripheral smear, LDH, Iron and TIBC and % saturation Status: Acute (6) Lice infestation Assessment & Plan: Recommendation to shave patient bald; patient refuses Meds: Applied ivermectin and permethrin Status: Acute (7) Weight loss Assessment & Plan: Pending HIV, patient is refusing blood work and sahni CT scan; will attempt blood work and CT chest/abdomen/pelvis 09/11/17 As per nursing, patient is eating very well Status: Acute (8) History of CVA (cerebrovascular accident) Assessment & Plan: Hx of CVA in 2015 with documented right arm and leg weakness Meds: Aspirin 81mg PO QD Crestor 10mg PO HS Status: Chronic (9) Left shoulder pain Assessment & Plan: Left shoulder X-ray (09/05/2017): No acute fracture. Acromioclavicular degenerative arthritis. Status: Acute (10) History of seizures Assessment & Plan: Patient has been without any seizure activity since admission Prior records show seizure activity Will monitor and if necessary start keppra and ativan Seizure precautions Status: Acute (11) Prophylactic measure Assessment & Plan: SCDs Anticoagualtion contraindication due to anemia Disposition: Patient continues to refuse treatment and diagnostic testing that is necessary for proper diagnosis. Will attempt to obtain diagnostic testing and lab work with Ativan, as patient is very anxious at testing All plans discussed with Dr. Morley Status: Acute <Robert Morley H - Last Filed: 09/11/17 18:27> Objective - Vital Signs/Intake and Output Vital Signs (last 24 hours): Temp Pulse Resp BP Pulse Ox 98.3 F 99 H 20 106/68 96 09/11/17 15:10 09/11/17 15:10 09/11/17 15:10 09/11/17 15:10 09/11/17 15:10 Intake and Output: 09/11/17 09/11/17 06:59 18:59 Intake Total 300 360 Output Total 800 Balance -500 360 - Medications Medications: Current Medications Acetaminophen (Tylenol 325mg Tab) 650 mg PO Q6 PRN PRN Reason: fever. Last Admin: 09/08/17 01:01 Dose: 650 mg Aspirin (Aspirin Chewable) 81 mg PO DAILY [facility] Last Admin: 09/11/17 09:37 Dose: 81 mg Benztropine Mesylate (Cogentin) 1 mg PO BID [facility] Last Admin: 09/11/17 17:55 Dose: 1 mg Diphenhydramine HCl (Benadryl) 25 mg PO Q6 PRN PRN Reason: Agitation Haloperidol (Haldol) 5 mg PO Q6 PRN PRN Reason: Agitation Last Admin: 09/08/17 11:41 Dose: 5 mg Lorazepam (Ativan) 1 mg PO Q6 PRN PRN Reason: Agitation Last Admin: 09/08/17 11:42 Dose: 1 mg Risperidone (Risperdal Tab) 1 mg PO BID [facility] Last Admin: 09/11/17 17:54 Dose: 1 mg Rosuvastatin Calcium (Crestor) 10 mg PO HS [facility] Last Admin: 04/15/18 21:30 Dose: 10 mg Saccharomyces Boulardii (Florastor) 250 mg PO BID [facility] Last Admin: 09/11/17 17:56 Dose: 250 mg Tramadol HCl (Ultram) 25 mg PO TID [facility] Last Admin: 09/11/17 17:56 Dose: 25 mg Trazodone HCl (Desyrel) 50 mg PO HS [facility] Last Admin: 09/10/17 21:30 Dose: 50 mg - Labs Labs: 08/31/17 15:05 08/31/17 15:05 PT 17.5 SECONDS (9.7-12.2) H 08/31/17 17:07 INR 1.5 08/31/17 17:07 APTT 35 SECONDS (21-34) H 08/31/17 17:07 Attending/Attestation - Attestation I have personally seen and examined this patient.: Yes I have fully participated in the care of the patient.: Yes I have reviewed all pertinent clinical information, including history, physical exam and plan: Yes Notes (Text): Medical attending: Patient was seen and examined by me. Also with the medical doctor md Not much has changed - as mentioned previously he was evaluated by psychiatry last week and is declared non-competent So today I tried to tried to reason with him - and maybe that was a waste of time - but I explained to him that we will give IV ativan before a CT scan today. He seemed ok with this. However from discussion with from my colleague last week - he then refuses the CT later when they ordered it. So we will see if he continues to refuse the CT - if he does then we will get an ethics consult to see if him being non - competent could allow us to get imaging as well as blood work thank you Robert Morley
[2017-09-12] MEDS: Tramadol 25 mg PO SCH ×3 (09:28→18:31)
[2017-09-12] MEDS: Saccharomyces Boulardi 250 mg Cap PO SCH ×2 (09:30→18:18)
[2017-09-12] MEDS ORDERED: Permethrin 5% Cream(60 gm) TOP ONE (12:14)
[2017-09-12] MEDS ORDERED: Iodixanol 320 MG/ML 100 ML BOTTLE IV ONE ×2 (13:51→14:11)
--- NOTE | 2017-09-12 15:09 | CT ---
PROCEDURE: CT HEAD WITHOUT CONTRAST. HISTORY: R/o brain pathology COMPARISON: None available. TECHNIQUE: Axial computed tomography images were obtained through the head/brain without intravenous contrast. Radiation dose: Total exam DLP = 1420.09 mGy-cm. This CT exam was performed using one or more of the following dose reduction techniques: Automated exposure control, adjustment of the mA and/or kV according to patient size, and/or use of iterative reconstruction technique. FINDINGS: HEMORRHAGE: No intracranial hemorrhage. BRAIN: A moderately large posterior left MCA distribution chronic infarct is identified. No CT evidence to suggest an acute separate Hem brain infarction at this time. There is no positive mass effect above or below the tentorium with ex vacuo expansion of the left lateral ventricle appreciated mild expansion of mid to posterior left cerebral sulci and cisterns as well. No suspicious extra-axial fluid collections identified with the posterior fossa contents appear unremarkable including the brainstem. VENTRICLES: Unremarkable. No hydrocephalus. CALVARIUM: Unremarkable. PARANASAL SINUSES: Unremarkable as visualized. No significant inflammatory changes. MASTOID AIR CELLS: Unremarkable as visualized. No inflammatory changes. OTHER FINDINGS: None. IMPRESSION: A chronic infarct at the left MCA distribution is identified as well as age related neuro degenerative changes which are mildly advanced for the patient's age of 57 years. No intra hemorrhage, mass effect or CT pattern of an acute or subacute brain infarction is appreciated at this time. Follow-up CT or MRI are available if clinically warranted. .
--- NOTE | 2017-09-12 17:28 | CT ---
PROCEDURE: CT Chest, Abdomen and Pelvis with intravenous contrast HISTORY: Weight loss COMPARISON: None. TECHNIQUE: IV dose administered: 100 mL Visipaque Radiation dose: Total exam DLP = 920.32 mGy-cm. This CT exam was performed using one or more of the following dose reduction techniques: Automated exposure control, adjustment of the mA and/or kV according to patient size, and/or use of iterative reconstruction technique. FINDINGS: CT CHEST WITH CONTRAST: LUNGS: There is large heterogeneous mass lesion at the left lung upper lobe extending to the left apex measures 9.2 centimeter in the longitudinal diameter 10.3 centimeter in the transverse diameter and 8.8 centimeter in the AP diameter consistent with malignant neoplasm. This mass extending to the superior portion of the left hilum. The mass is also extending to the left posterior chest wall and extending to the left aspect of T3 and T4. There are moderate emphysematous changes noted in the upper lobes. MEDIASTINUM: Unremarkable. Normal caliber aorta and pulmonary arterial trunk. No aortic dissection. Normal size heart. LYMPH NODES: Left hilar and left AP window lymphadenopathy are noted suggestive of metastasis. PLEURA: Small amount of left pleural effusion is noted. Foci of pleural thickening seen bilaterally. BONES: There are erosion and partial destruction of the left 2nd 3rd 4th ribs adjacent to the above-mentioned mass consistent with local invasion of the ribs by the mass. There is pathology care fracture at the posterior aspect of the left 4th rib. There is also partial destruction of the left aspect of T3 and T4 and upper aspect of T5 also consistent with local invasion of the tumor to the upper thoracic spine. There is partial destruction of T4 vertebral body. OTHER FINDINGS: None. CT ABDOMEN AND PELVIS: LIVER: Heterogeneous enhancement of the liver is noted without evidence of discrete mass. GALLBLADDER AND BILE DUCTS: Unremarkable. PANCREAS: Unremarkable. No gross lesion or ductal dilatation. SPLEEN: Unremarkable. ADRENALS: There is 3.2 x 2.5 centimeter mass lesion at the right adrenal gland highly suspicious for metastasis. KIDNEYS AND URETERS: There is moderate to mildly severe right hydronephrosis and proximal hydroureter up to 10.5 millimeter calculus at the proximal right ureter the right kidney appears smaller than the left. There are possible nonobstructing calculi in both kidneys. No evidence of left hydronephrosis. There is mild to moderate delayed enhancement of the right renal cortex compared to the left. VASCULATURE: Unremarkable. No aortic aneurysm. BOWEL: Moderate constipation is noted. No evidence of high-grade bowel obstruction. APPENDIX: No evidence of appendicitis PERITONEUM: Unremarkable. No free fluid. No free air. LYMPH NODES: Unremarkable. No enlarged lymph nodes. BLADDER: Unremarkable. REPRODUCTIVE: Prostate is mildly enlarged BONES: No evidence of destructive bony lesion in the abdomen and pelvis. OTHER FINDINGS: None. IMPRESSION: Large destructive heterogeneous soft tissue mass in the left lung upper lobe extending to the left upper posterior chest wall and extending to the left aspect of the upper thoracic spine consistent with malignant neoplasm. The mass is extending to upper aspect of the left hilum. Bony erosion and partial destruction of the left upper ribs and left aspect of T3 and T4 vertebral bodies. Left hilum and left mediastinum lymphadenopathy consistent with metastasis. Right adrenal mass likely represent metastasis. Moderate to mildly severe right hydronephrosis and proximal hydroureter up to 10.5 millimeter obstructing calculus at the proximal right ureter. Moderate constipation.
--- NOTE | 2017-09-12 17:35 | CP.PCM.PN ---
<Carlos Morris E - Last Filed: 09/12/17 17:45> Subjective - Date & Time of Evaluation Date of Evaluation: 09/12/17 Time of Evaluation: 07:25 - Subjective Subjective: Medicine progress note ( Dr. Morley's service) Patient was seen and examined at bedside. Patient was resting comfortably in bed. Patient denies any acute issues or new complaints. Patient reports that he plans on going for recommended diagnostic testing today, which he did. Patient still admits to generalized body pain. Patient is awake, alert and oriented to day, year, location. Objective - Vital Signs/Intake and Output Vital Signs (last 24 hours): Temp Pulse Resp BP Pulse Ox 97.8 F 90 20 113/62 98 09/12/17 16:38 09/12/17 16:38 09/12/17 16:38 09/12/17 16:38 09/12/17 16:38 Intake and Output: 09/12/17 09/12/17 06:59 18:59 Intake Total 240 300 Balance 240 300 - Medications Medications: Current Medications Acetaminophen (Tylenol 325mg Tab) 650 mg PO Q6 PRN PRN Reason: fever. Last Admin: 09/08/17 01:01 Dose: 650 mg Aspirin (Aspirin Chewable) 81 mg PO DAILY [facility] Last Admin: 09/12/17 09:30 Dose: 81 mg Benztropine Mesylate (Cogentin) 1 mg PO BID [facility] Last Admin: 09/12/17 09:32 Dose: 1 mg Diphenhydramine HCl (Benadryl) 25 mg PO Q6 PRN PRN Reason: Agitation Haloperidol (Haldol) 5 mg PO Q6 PRN PRN Reason: Agitation Last Admin: 09/08/17 11:41 Dose: 5 mg Lorazepam (Ativan) 1 mg PO Q6 PRN PRN Reason: Agitation Last Admin: 09/08/17 11:42 Dose: 1 mg Risperidone (Risperdal Tab) 1 mg PO BID [facility] Last Admin: 09/12/17 09:31 Dose: 1 mg Rosuvastatin Calcium (Crestor) 10 mg PO HS [facility] Last Admin: 09/11/17 22:19 Dose: 10 mg Saccharomyces Boulardii (Florastor) 250 mg PO BID [facility] Last Admin: 09/12/17 09:30 Dose: 250 mg Tramadol HCl (Ultram) 25 mg PO TID [facility] Last Admin: 09/12/17 09:28 Dose: 25 mg Trazodone HCl (Desyrel) 50 mg PO HS [facility] Last Admin: 09/11/17 22:19 Dose: 50 mg - Labs Labs: 08/31/17 15:05 08/31/17 15:05 PT 17.5 SECONDS (9.7-12.2) H 08/31/17 17:07 INR 1.5 08/31/17 17:07 APTT 35 SECONDS (21-34) H 08/31/17 17:07 - Constitutional Appears: No Acute Distress - Head Exam Head Exam: ATRAUMATIC, NORMAL INSPECTION - Eye Exam Eye Exam: EOMI, Normal appearance - ENT Exam ENT Exam: Mucous Membranes Dry - Respiratory Exam Respiratory Exam: NORMAL BREATHING PATTERN. absent: Rhonchi, Wheezes - Cardiovascular Exam Cardiovascular Exam: REGULAR RHYTHM, +S1, +S2 - GI/Abdominal Exam GI & Abdominal Exam: Soft, Normal Bowel Sounds. absent: Firm, Guarding, Rigid, Tenderness - Extremities Exam Extremities Exam: Normal Inspection. absent: Calf Tenderness, Pedal Edema - Neurological Exam Neurological Exam: Alert, Awake - Psychiatric Exam Psychiatric exam: Depressed, Flat Affect - Skin Skin Exam: Normal Color Assessment and Plan (1) Refusal of treatment Assessment & Plan: Psych consult, Dr. Martinez---> Help appreciated * Evaluate for capacity * As per psychiatry evaluation: Patient lacks the capacity to make his own medical decisions at this time. Plans for reevaluation at a latter time * Discussion with immigration case manager today, 09/08/17; regarding possible guardianship Medical ethics consults * Management as per recommendation Medications: * Cogentin 1mg PO BID * Benadryl 25mg PO Q6H PRN * Haldol 5mg PO Q6H PRN * Ativan 1mg PO Q6H PRN * Risperidone 1mg PO BID * Trazodone 50mg PO HS Status: Acute (2) Generalized pain Assessment & Plan: CXR 08/31/17: * Large left upper lobe mass with probable involvement of the left posterior 3rd rib. Findings are concerning for malignancy. Dedicated CT scan of the chest with intravenous contrast is recommended for further characterization. * Patient has been refusing chest CT but states that he will think about and have the test done soon * CT abd/pelvis with IV contrast for today. Wanted PO contrast but patient refusing to drink PO Contrast, thus IV contrast: Large destructive heterogeneous soft tissue mass in the left lung upper lobe extending to the left upper posterior chest wall and extending to the left aspect of the upper thoracic spine consistent with malignant neoplasm. The mass is extending to upper aspect of the left hilum. Bony erosion and partial destruction of the left upper ribs and left aspect of T3 and T4 vertebral bodies. Left hilum and left mediastinum lymphadenopathy consistent with metastasis. Right adrenal mass likely represent metastasis. Moderate to mildly severe right hydronephrosis and proximal hydroureter up to 10.5 millimeter obstructing calculus at the proximal right ureter. Moderate constipation. Labs: * QFT negative, legionella negative, pending Mycoplasma Igm, Strep Pneumoniae, * Negative PPD read; no induration noted (48 hours and 72 hours read) * Patient is still refusing to produce sputum Medications: * Trazadone 50mg PO HS * Tylenol 650mg PO Q6H PRN Status: Acute (3) Mass of upper lobe of left lung Assessment & Plan: CXR 08/31/17: Large left upper lobe mass with probable involvement of the left posterior 3rd rib. Findings are concerning for malignancy. Dedicated CT scan of the chest with intravenous contrast is recommended for further characterization. Chest CT: Large destructive heterogeneous soft tissue mass in the left lung upper lobe extending to the left upper posterior chest wall and extending to the left aspect of the upper thoracic spine consistent with malignant neoplasm. The mass is extending to upper aspect of the left hilum. Bony erosion and partial destruction of the left upper ribs and left aspect of T3 and T4 vertebral bodies. Left hilum and left mediastinum lymphadenopathy consistent with metastasis. Status: Acute (4) Leukocytosis Assessment & Plan: On admission: 14.7, patient has been refusing further lab work but continues to state that he would rethink his decision Blood Culture: Negative Meds: Azithromycin 500mg IVP QD-- D/C Rocephin 1g IVP BID--D/C Status: Acute (5) Anemia Assessment & Plan: H/H: 7.4/24.4 Patient is refusing transfusion at the moment RBC indices indicative of iron deficiency anemia Retic Count ELEVATED 2.5, Haptoglobin ELEVATED 369 Vitamin B12 and Folate NORMAL Ferritin NORMAL Homocysteine NORMAL Parietal cell Ab negative, Negative intrinsic factor Pending Peripheral smear, LDH, Iron and TIBC and % saturation Status: Acute (6) Lice infestation Assessment & Plan: Recommendation to shave patient bald; patient refuses Meds: Applied ivermectin and permethrin Status: Acute (7) Weight loss Assessment & Plan: Pending HIV, patient is refusing blood work and sahni CT scan; will attempt blood work and CT chest/abdomen/pelvis 09/11/17 As per nursing, patient is eating very well Status: Acute (8) History of CVA (cerebrovascular accident) Assessment & Plan: Hx of CVA in 2016 with documented right arm and leg weakness Head CT: A chronic infarct at the left MCA distribution is identified as well as age related neuro degenerative changes which are mildly advanced for the patient's age of 57 years. No intra hemorrhage, mass effect or CT pattern of an acute or subacute brain infarction is appreciated at this time. Follow-up CT or MRI are available if clinically warranted. Meds: Aspirin 81mg PO QD Crestor 10mg PO HS Status: Chronic (9) Left shoulder pain Assessment & Plan: Left shoulder X-ray (09/05/2017): No acute fracture. Acromioclavicular degenerative arthritis. Status: Acute (10) History of seizures Assessment & Plan: Patient has been without any seizure activity since admission Prior records show seizure activity Will monitor and if necessary start keppra and ativan Seizure precautions Status: Acute (11) Prophylactic measure Assessment & Plan: SCDs Anticoagualtion contraindication due to anemia All plans discussed with Dr. Morley Status: Acute <Robert Morley H - Last Filed: 09/12/17 19:15> Objective - Vital Signs/Intake and Output Vital Signs (last 24 hours): Temp Pulse Resp BP Pulse Ox 97.8 F 90 20 113/62 98 09/12/17 16:38 09/12/17 16:38 09/12/17 16:38 09/12/17 16:38 09/12/17 16:38 Intake and Output: 09/12/17 09/13/17 18:59 06:59 Intake Total 300 Balance 300 - Medications Medications: Current Medications Acetaminophen (Tylenol 325mg Tab) 650 mg PO Q6 PRN PRN Reason: fever. Last Admin: 09/08/17 01:01 Dose: 650 mg Aspirin (Aspirin Chewable) 81 mg PO DAILY [facility] Last Admin: 09/12/17 09:30 Dose: 81 mg Benztropine Mesylate (Cogentin) 1 mg PO BID [facility] Last Admin: 09/12/17 18:17 Dose: 1 mg Diphenhydramine HCl (Benadryl) 25 mg PO Q6 PRN PRN Reason: Agitation Haloperidol (Haldol) 5 mg PO Q6 PRN PRN Reason: Agitation Last Admin: 09/08/17 11:41 Dose: 5 mg Lorazepam (Ativan) 1 mg PO Q6 PRN PRN Reason: Agitation Last Admin: 09/08/17 11:42 Dose: 1 mg Risperidone (Risperdal Tab) 1 mg PO BID [facility] Last Admin: 09/12/17 18:18 Dose: 1 mg Rosuvastatin Calcium (Crestor) 10 mg PO [facility] Last Admin: 09/11/17 22:19 Dose: 10 mg Saccharomyces Boulardii (Florastor) 250 mg PO BID [facility] Last Admin: 09/12/17 18:18 Dose: 250 mg Tramadol HCl (Ultram) 25 mg PO TID [facility] Last Admin: 09/12/17 18:31 Dose: 25 mg Trazodone HCl (Desyrel) 50 mg PO [facility] Last Admin: 09/11/17 22:19 Dose: 50 mg - Labs Labs: 08/31/17 15:05 08/31/17 15:05 PT 17.5 SECONDS (9.7-12.2) H 08/31/17 17:07 INR 1.5 08/31/17 17:07 APTT 35 SECONDS (21-34) H 08/31/17 17:07 Attending/Attestation - Attestation I have personally seen and examined this patient.: Yes I have fully participated in the care of the patient.: Yes I have reviewed all pertinent clinical information, including history, physical exam and plan: Yes Notes (Text): 09/12/17 19:08 Medical attending: Patient was seen and examined by me as well - suprisingly he was able to get a CT of the head, chest, abdomen and pelvis. I saw him as he was coming back from CT today. Later in the day it was resulted and the left upper lung mass shows that it appears this is some type of very advanced malignancy. The report is suggesting this is also in his vertebral body as well as other systems of his body. So at this time I feel more comfortable DC the repiratory isolation. He will still need contact precautions however given his ongoing lice infestation that is particularly difficult to deal with..... Robert Morley
[2017-09-13] MEDS: Saccharomyces Boulardi 250 mg Cap PO SCH ×2 (09:43→18:04)
[2017-09-13] MEDS: Tramadol 25 mg PO SCH ×3 (09:43→18:04)
[2017-09-13] MEDS ORDERED: Morphine 4 MG/ML VIAL IV PRN (14:08)
--- NOTE | 2017-09-13 14:12 | CP.PCM.PN ---
<Carlos Morris E - Last Filed: 09/13/17 15:08> Subjective - Date & Time of Evaluation Date of Evaluation: 09/13/17 Time of Evaluation: 07:00 - Subjective Subjective: Medicine progress note ( Dr. Morley's service) Patient was seen and examined at bedside. Patient was resting comfortably in bed. Patient denies any acute issues or new complaints. Patient still admits to generalized body pain. Patient was made aware that there is significant disease noted on imaging. Patient is awake, alert and oriented to day, year, location. During the encounter, patient was also urged to obtain blood work; patient states that he will think about it. Objective - Vital Signs/Intake and Output Vital Signs (last 24 hours): Temp Pulse Resp BP Pulse Ox 99.0 F 100 H 20 108/69 97 09/13/17 09:15 09/13/17 09:15 09/13/17 09:15 09/13/17 09:15 09/13/17 09:15 Intake and Output: 09/13/17 09/13/17 06:59 18:59 Intake Total 200 Balance 200 - Medications Medications: Current Medications Acetaminophen (Tylenol 325mg Tab) 650 mg PO Q6 PRN PRN Reason: fever. Last Admin: 09/08/17 01:01 Dose: 650 mg Aspirin (Aspirin Chewable) 81 mg PO DAILY [facility] Last Admin: 09/13/17 09:43 Dose: 81 mg Benztropine Mesylate (Cogentin) 1 mg PO BID [facility] Last Admin: 09/13/17 09:43 Dose: 1 mg Diphenhydramine HCl (Benadryl) 25 mg PO Q6 PRN PRN Reason: Agitation Haloperidol (Haldol) 5 mg PO Q6 PRN PRN Reason: Agitation Last Admin: 09/08/17 11:41 Dose: 5 mg Morphine Sulfate (Morphine) 2 mg IV Q6 PRN PRN Reason: Pain, severe (8-10) Risperidone (Risperdal Tab) 1 mg PO BID [facility] Last Admin: 09/13/17 09:43 Dose: 1 mg Rosuvastatin Calcium (Crestor) 10 mg PO HS [facility] Last Admin: 09/12/17 21:15 Dose: 10 mg Saccharomyces Boulardii (Florastor) 250 mg PO BID [facility] Last Admin: 09/13/17 09:43 Dose: 250 mg Tramadol HCl (Ultram) 25 mg PO TID [facility] Last Admin: 09/13/17 13:33 Dose: Not Given Trazodone HCl (Desyrel) 50 mg PO HS [facility] Last Admin: 09/12/17 21:16 Dose: 50 mg - Labs Labs: 08/31/17 15:05 08/31/17 15:05 PT 17.5 SECONDS (9.7-12.2) H 08/31/17 17:07 INR 1.5 08/31/17 17:07 APTT 35 SECONDS (21-34) H 08/31/17 17:07 - Constitutional Appears: Well, No Acute Distress - Head Exam Head Exam: ATRAUMATIC, NORMAL INSPECTION - Eye Exam Eye Exam: EOMI, Normal appearance - ENT Exam ENT Exam: Mucous Membranes Moist - Respiratory Exam Respiratory Exam: Clear to Ausculation Bilateral, NORMAL BREATHING PATTERN. absent: Accessory Muscle Use, Chest Wall Tenderness, Prolonged Expiratory Phase , Rhonchi, Wheezes, Respiratory Distress - Cardiovascular Exam Cardiovascular Exam: REGULAR RHYTHM, +S1, +S2. absent: Murmur - GI/Abdominal Exam GI & Abdominal Exam: Soft, Normal Bowel Sounds. absent: Distended, Firm, Guarding, Rigid, Tenderness - Extremities Exam Extremities Exam: Normal Inspection. absent: Calf Tenderness, Pedal Edema - Neurological Exam Neurological Exam: Alert, Awake - Psychiatric Exam Psychiatric exam: Depressed, Flat Affect - Skin Skin Exam: Normal Color Assessment and Plan (1) Refusal of treatment Assessment & Plan: Evaluate for capacity * As per psychiatry evaluation: Patient lacks the capacity to make his own medical decisions at this time. Plans for reevaluation at a latter time * Discussion with special education case manager today, 09/08/17; regarding possible guardianship Medical ethics consults * Management as per recommendation Medications: * Cogentin 1mg PO BID * Benadryl 25mg PO Q6H PRN * Haldol 5mg PO Q6H PRN * Ativan 1mg PO Q6H PRN * Risperidone 1mg PO BID * Trazodone 50mg PO HS Status: Acute (2) Generalized pain Assessment & Plan: CXR 08/31/17: * Large left upper lobe mass with probable involvement of the left posterior 3rd rib. Findings are concerning for malignancy. Dedicated CT scan of the chest with intravenous contrast is recommended for further characterization. * Patient has been refusing chest CT but states that he will think about and have the test done soon * CT abd/pelvis with IV contrast for today. Wanted PO contrast but patient refusing to drink PO Contrast, thus IV contrast: Large destructive heterogeneous soft tissue mass in the left lung upper lobe extending to the left upper posterior chest wall and extending to the left aspect of the upper thoracic spine consistent with malignant neoplasm. The mass is extending to upper aspect of the left hilum. Bony erosion and partial destruction of the left upper ribs and left aspect of T3 and T4 vertebral bodies. Left hilum and left mediastinum lymphadenopathy consistent with metastasis. Right adrenal mass likely represent metastasis. Moderate to mildly severe right hydronephrosis and proximal hydroureter up to 10.5 millimeter obstructing calculus at the proximal right ureter. Moderate constipation. Labs: * QFT negative, legionella negative, pending Mycoplasma Igm, Strep Pneumoniae, * Negative PPD read; no induration noted (48 hours and 72 hours read) * Patient is still refusing to produce sputum Medications: * Trazadone 50mg PO HS * Tylenol 650mg PO Q6H PRN * Morphine 2mg IV Q6H PRN, for severe pain Palliative consult * Management as per recommendation Status: Acute (3) Mass of upper lobe of left lung Assessment & Plan: CXR 08/31/17: Large left upper lobe mass with probable involvement of the left posterior 3rd rib. Findings are concerning for malignancy. Dedicated CT scan of the chest with intravenous contrast is recommended for further characterization. Chest CT: Large destructive heterogeneous soft tissue mass in the left lung upper lobe extending to the left upper posterior chest wall and extending to the left aspect of the upper thoracic spine consistent with malignant neoplasm. The mass is extending to upper aspect of the left hilum. Bony erosion and partial destruction of the left upper ribs and left aspect of T3 and T4 vertebral bodies. Left hilum and left mediastinum lymphadenopathy consistent with metastasis. Palliative consult * Management as per recommendation Status: Acute (4) Leukocytosis Assessment & Plan: On admission: 14.7, patient has been refusing further lab work but continues to state that he would rethink his decision Blood Culture: Negative X5 days Meds: Azithromycin 500mg IVP QD-- D/C Rocephin 1g IVP BID--D/C Status: Acute (5) Anemia Assessment & Plan: H/H: 7.4/24.4 Patient is refusing transfusion at the moment RBC indices indicative of iron deficiency anemia Retic Count ELEVATED 2.5, Haptoglobin ELEVATED 369 Vitamin B12 and Folate NORMAL Ferritin NORMAL Homocysteine NORMAL Parietal cell Ab negative, Negative intrinsic factor Pending Peripheral smear, LDH, Iron and TIBC and % saturation Status: Acute (6) Lice infestation Assessment & Plan: Recommendation to shave patient bald; patient refuses Meds: Applied ivermectin and permethrin Contact precautions Status: Acute (7) Weight loss Assessment & Plan: Pending HIV, patient is refusing blood work and sahni CT scan; will attempt blood work and CT chest/abdomen/pelvis 09/11/17 As per nursing, patient is eating very well Status: Acute (8) History of CVA (cerebrovascular accident) Assessment & Plan: Hx of CVA in 2016 with documented right arm and leg weakness Head CT: A chronic infarct at the left MCA distribution is identified as well as age related neuro degenerative changes which are mildly advanced for the patient's age of 57 years. No intra hemorrhage, mass effect or CT pattern of an acute or subacute brain infarction is appreciated at this time. Follow-up CT or MRI are available if clinically warranted. Meds: Aspirin 81mg PO QD Crestor 10mg PO HS Status: Chronic (9) Left shoulder pain Assessment & Plan: Left shoulder X-ray (09/05/2017): No acute fracture. Acromioclavicular degenerative arthritis. Status: Acute (10) History of seizures Assessment & Plan: Patient has been without any seizure activity since admission Prior records show seizure activity Will monitor and if necessary start keppra and ativan Seizure precautions Status: Acute (11) Prophylactic measure Assessment & Plan: SCDs Anticoagualtion contraindication due to anemia All plans discussed with Dr. Morley Status: Acute (12) Right adrenal mass Status: Acute <Robetr Morley - Last Filed: 09/13/17 17:23> Objective - Vital Signs/Intake and Output Vital Signs (last 24 hours): Temp Pulse Resp BP Pulse Ox 98.4 F 78 20 100/63 97 09/13/17 15:00 09/13/17 15:00 09/13/17 15:00 09/13/17 15:00 09/13/17 15:00 Intake and Output: 09/13/17 09/13/17 06:59 18:59 Intake Total 200 Balance 200 - Medications Medications: Current Medications Acetaminophen (Tylenol 325mg Tab) 650 mg PO Q6 PRN PRN Reason: fever. Last Admin: 09/08/17 01:01 Dose: 650 mg Aspirin (Aspirin Chewable) 81 mg PO DAILY [facility] Last Admin: 09/13/17 09:43 Dose: 81 mg Benztropine Mesylate (Cogentin) 1 mg PO BID [facility] Last Admin: 09/13/17 09:43 Dose: 1 mg Diphenhydramine HCl (Benadryl) 25 mg PO Q6 PRN PRN Reason: Agitation Haloperidol (Haldol) 5 mg PO Q6 PRN PRN Reason: Agitation Last Admin: 09/08/17 11:41 Dose: 5 mg Morphine Sulfate (Morphine) 2 mg IV Q6 PRN PRN Reason: Pain, severe (8-10) Risperidone (Risperdal Tab) 1 mg PO BID [facility] Last Admin: 09/13/17 09:43 Dose: 1 mg Rosuvastatin Calcium (Crestor) 10 mg PO [facility] Last Admin: 09/12/17 21:15 Dose: 10 mg Saccharomyces Boulardii (Florastor) 250 mg PO BID [facility] Last Admin: 09/13/17 09:43 Dose: 250 mg Tramadol HCl (Ultram) 25 mg PO TID [facility] Last Admin: 09/13/17 13:33 Dose: Not Given Trazodone HCl (Desyrel) 50 mg PO [facility] Last Admin: 09/12/17 21:16 Dose: 50 mg - Labs Labs: 08/31/17 15:05 08/31/17 15:05 PT 17.5 SECONDS (9.7-12.2) H 08/31/17 17:07 INR 1.5 08/31/17 17:07 APTT 35 SECONDS (21-34) H 08/31/17 17:07 Attending/Attestation - Attestation I have personally seen and examined this patient.: Yes I have fully participated in the care of the patient.: Yes I have reviewed all pertinent clinical information, including history, physical exam and plan: Yes Notes (Text): 09/13/17 17:16 Medical attending: Patient was seen and examined by me. agree with the above note by the medical services manager The patient had a CT of the chest, abdomen, and pelvis, as well as of the head yesterday afternoon. Unfortunately it shows that the left upper lobe mass we were concerned about is an advanced malignancy - the report is showing metastatic spread to the bone - the thoracic and verterbal area. There are also lymph-adenopathy as well as metastatic spread to the adrenal gland. I came and explained this to Mr Perez, he seemed to understand what I was telling him - however he did not say much afterward. I suggested to him to allow us to do a lab work/blood work and he sort of looked away. The reason for additional lab work I explained would be it would allow us to see if he need a blood transfusion or not. "I'll think about it he says" Despite the patient being declared non-competent I do not believe we can force him to get lab work. I encouraged patient to allow for it later on. For now palliative care consult, also pain medication as well thank you Robert Morley
[2017-09-14] MEDS: Saccharomyces Boulardi 250 mg Cap PO SCH ×2 (09:57→17:53)
[2017-09-14] MEDS: Tramadol 25 mg PO SCH ×3 (09:57→17:53)
--- NOTE | 2017-09-14 10:56 | CP.PCM.CON ---
History of Present Illness - History of Present Illness History of Present Illness: Palliative consult requested by Tiburcio STOREY for goals of care discussion patient is a 57 yo male admitted from [facility], with weakness, cough and boy lice infestation. After multiple diagnostic stdudies, clinical diagnosis are Left lung mass, pneumonia, anemia and lice infestation. Rocephin IV initiated, patient placed n isolation. WBC 14.7 and Hb 7.4 on admission. Patient was seen by Psychiatrist and determined to have lack of decision making capacity.Possible guardianship pending. PMH: CVA, RUE weakness, mild aphasia, HTN Soc. Hx: single, denies family and friends Fam. Hx: denies Review of Systems - Constitutional Constitutional: Fatigue, Weakness - EENT Eyes: absent: As Per HPI, Blind Spots, Blurred Vision, Change in Vision, Decreased Night Vision, Diplopia, Discharge, Dry Eye, Exophthalmos, Floaters, Irritation, Itchy Eyes, Loss of Peripheral Vision, Pain, Photophobia, Requires Corrective Lenses, Sees Flashes, Spots in Vision, Tunnel Vision, Other Visual Disturbances, Loss of Vision, Other Ears: absent: As Per HPI, Decreased Hearing, Ear Discharge, Ear Pain, Tinnitus, Abnormal Hearing, Disequilibrium, Dizziness, Other Nose/Mouth/Throat: absent: As Per HPI, Epistaxis, Nasal Congestion, Nasal Discharge, Nasal Obstruction, Nasal Trauma, Nose Pain, Post Nasal Drip, Sinus Pain, Sinus Pressure, Bleeding Gums, Change in Voice, Dental Pain, Dry Mouth, Dysphagia, Halitosis, Hoarsness, Lip Swelling, Mouth Lesions, Mouth Pain, Odynophagia, Sore Throat, Throat Swelling, Tongue Swelling, Facial Pain, Neck Pain, Neck Mass, Other - Cardiovascular Cardiovascular: absent: As Per HPI, Acrocyanosis, Chest Pain, Chest Pain at Rest , Chest Pain with Activity, Claudication, Diaphoresis, Dyspnea, Dyspnea on Exertion, Edema, Irregular Heart Rhythm, Pain Radiating to Arm/Neck/Jaw, Leg Edema, Leg Ulcers, Lightheadedness, Orthopnea, Palpitations, Paroxysmal Nocturnal Dyspnea, Pedal Edema, Radiating Pain, Rapid Heart Rate, Slow Heart Rate, Syncope, Other - Respiratory Respiratory: Cough - Gastrointestinal Gastrointestinal: Abdominal Pain - Genitourinary Genitourinary: absent: As Per HPI, Change in Urinary Stream, Difficulty Urinating, Dysuria, Flank Pain, Hematuria, Pyuria, Nocturia, Urinary Incontinence, Urinary Frequency, Urinary Hesitance, Urinary Urgency, Voiding Freq/Small Amts, Freq UTI, Hx Renal/Bladder Calculi, Hx /Renal Surgery, Bladder Distension, Other - Musculoskeletal Musculoskeletal: absent: As Per HPI, Abnormal Gait, Arthralgias, Atrophy, Back Pain, Deformity, Joint Swelling, Limited Range of Motion, Loss of Height, Muscle Cramps, Muscle Weakness, Myalgias, Neck Pain, Numbness, Radiating Pain into Limb, Stiffness, Tingling, Other - Integumentary Integumentary: Pruritus - Neurological Neurological: Abnormal Speech - Psychiatric Psychiatric: Anhedonia - Endocrine Endocrine: absent: As Per HPI, Change in Body Appearance, Change in Libido, Cold Intolorance, Deepening of Voice, Excessive Sweating, Fatigue, Flushing, Heat Intolorance, Increase in Ring/Shoe/Hat Size, Palpitations, Polydipsia, Polyphagia, Polyuria, Other - Hematologic/Lymphatic Hematologic: As Per HPI Past Patient History - Past Medical History & Family History Past Medical History?: Yes - Past Social History Smoking Status: Never Smoked - CARDIAC Hx Cardiac Disorders: Yes Hx Hypertension: Yes - PULMONARY Hx Respiratory Disorders: No - NEUROLOGICAL HX Cerebrovascular Accident: Yes - HEENT Hx HEENT Problems: No - RENAL Hx Chronic Kidney Disease: No - ENDOCRINE/METABOLIC Hx Endocrine Disorders: No - HEMATOLOGICAL/ONCOLOGICAL Hx Blood Disorders: Yes Hx Anemia: Yes - INTEGUMENTARY Hx Dermatological Problems: No - MUSCULOSKELETAL/RHEUMATOLOGICAL Hx Falls: No - GASTROINTESTINAL Hx Gastrointestinal Disorders: No - GENITOURINARY/GYNECOLOGICAL Hx Genitourinary Disorders: No - PSYCHIATRIC Hx Psychophysiologic Disorder: Yes Hx Substance Use: Yes - SURGICAL HISTORY Hx Surgeries: No - ANESTHESIA Hx Anesthesia: No Hx Anesthesia Reactions: No Hx Malignant Hyperthermia: No Has any member of the family had a problem w/ anesthesia?: No Meds Allergies/Adverse Reactions: Allergies Allergy/AdvReac Type Severity Reaction Status Date / Time No Known Allergies Allergy Verified 08/31/17 13:25 - Medications Medications: Current Medications Acetaminophen (Tylenol 325mg Tab) 650 mg PO Q6 PRN PRN Reason: fever. Last Admin: 09/08/17 01:01 Dose: 650 mg Aspirin (Aspirin Chewable) 81 mg PO DAILY [facility] Last Admin: 04/19/18 09:57 Dose: 81 mg Benztropine Mesylate (Cogentin) 1 mg PO BID [facility] Last Admin: 09/14/17 09:56 Dose: 1 mg Diphenhydramine HCl (Benadryl) 25 mg PO Q6 PRN PRN Reason: Agitation Haloperidol (Haldol) 5 mg PO Q6 PRN PRN Reason: Agitation Last Admin: 09/08/17 11:41 Dose: 5 mg Morphine Sulfate (Morphine) 2 mg IV Q6 PRN PRN Reason: Pain, severe (8-10) Risperidone (Risperdal Tab) 1 mg PO BID [facility] Last Admin: 09/14/17 09:56 Dose: 1 mg Rosuvastatin Calcium (Crestor) 10 mg PO [facility] Last Admin: 09/13/17 22:10 Dose: 10 mg Saccharomyces Boulardii (Florastor) 250 mg PO BID [facility] Last Admin: 09/14/17 09:57 Dose: 250 mg Tramadol HCl (Ultram) 25 mg PO TID [facility] Last Admin: 09/14/17 09:57 Dose: 25 mg Trazodone HCl (Desyrel) 50 mg PO [facility] Last Admin: 09/13/17 22:10 Dose: 50 mg Physical Exam - Constitutional Appears: No Acute Distress - Head Exam Head Exam: ATRAUMATIC, NORMAL INSPECTION, NORMOCEPHALIC - Eye Exam Eye Exam: EOMI, Normal appearance, PERRL Pupil Exam: NORMAL ACCOMODATION, PERRL - ENT Exam ENT Exam: Normal Exam - Neck Exam Neck exam: Positive for: Normal Inspection - Respiratory Exam Respiratory Exam: Decreased Breath Sounds, Rhonchi, NORMAL BREATHING PATTERN - Cardiovascular Exam Cardiovascular Exam: Tachycardia, REGULAR RHYTHM - GI/Abdominal Exam GI & Abdominal Exam: Guarding, Normal Bowel Sounds - Rectal Exam Rectal Exam: Deferred - Extremities Exam Extremities exam: Positive for: normal inspection - Back Exam Back exam: NORMAL INSPECTION - Neurological Exam Neurological exam: Alert, Oriented x3 - Psychiatric Exam Psychiatric exam: Flat Affect - Skin Additional comments: admits to itching, no visible scratch zarate Results - Vital Signs Recent Vital Signs: Last Vital Signs Temp 98.8 F 09/14/17 00:04 Pulse 106 H 09/14/17 00:04 Resp 20 09/14/17 00:04 BP 100/61 09/14/17 00:04 Pulse Ox 98 09/14/17 00:04 - Labs Result Diagrams: 08/31/17 15:05 08/31/17 15:05 Assessment & Plan - Assessment and Plan (Free Text) Assessment: Palliative consult Full Code, no advance directive on chart, PPS 40% I reviewed medical records, all diagnostic studies, examined and interviewed patient in the bed. Patient is alert, oriented to place , time and person. Speech muffled but able to bring his point across. Affect is flat. Patient is on antipsych. Tx. Seen by Psych. Determined to lack decision making capacity. Skin intact, no visible scratch zarate, admits to itching, Benadryl on board. Breaths sounds diminished, admits to dry cough. Abdomen soft, active bowel sounds. Complains of abdominal pain. Unable to give more clear characteristics of pain, just calls it " pain". Morphine PRN and Tramadol on board for pain. Uses urinal. Urine concentrated. NaCl 0.9 % at 70 cc on board. Able to freely move all extremities. BP 100/61, HR 106. Hb 7.4 Goals of care discussion attempted. I first elicited patient's knowledge about his condition. He understands " he has bad disease" on his lungs. I confirmed. Further discussion was about his expectations of care. Patient was able to say that he wanted to get better. More detailed conversation about treatment options was not possible as patient showed poor insight of overall condition. When asked what he thinks where will he go from here, patient was firm, he did not want to return to a [facility]. Impression * This is a young, homeless man with mild mental disorder, unable to fully advocate for himself * lack of family support * Acute abdominal pain * Cough * Possible lice infestation * Weakness * Anemia Suggestion * Patient will need a guardian to advocate for him and be his decision making surrogate * Due to mild retardation, discharge to [facility] may not be a safe discharge. I would look into a intermediate placement if possible * Treat pneumonia * Would involve ID * Continue current pain meds * Would consider blood transfusion for Hb 7.4 and further monitoring of Hb level Thank you for consulting Palliative care.
--- NOTE | 2017-09-14 21:01 | CP.PCM.PN ---
Subjective - Date & Time of Evaluation Date of Evaluation: 09/14/17 Time of Evaluation: 07:10 - Subjective Subjective: Medicine progress note ( Dr. Rajan'ss service) Patient was seen and examined at bedside. Patient was resting comfortably in bed. Patient denies any acute issues or new complaints. Patient still admits to generalized body pain. Information regarding patient's diagnostic image was review again today and patient was made aware of subsequent testing. Patient is awake, alert and oriented to day, year, location. During the second encounter with attending present, patient revealed that he lost his mother over a year ago and he has not been the same since the incident. Objective - Vital Signs/Intake and Output Vital Signs (last 24 hours): Temp Pulse Resp BP Pulse Ox 97.4 F L 97 H 20 103/66 97 09/14/17 15:00 09/14/17 15:00 09/14/17 15:00 09/14/17 15:00 09/14/17 15:00 Intake and Output: 09/14/17 09/15/17 18:59 06:59 Intake Total 240 Balance 240 - Medications Medications: Current Medications Acetaminophen (Tylenol 325mg Tab) 650 mg PO Q6 PRN PRN Reason: fever. Last Admin: 09/08/17 01:01 Dose: 650 mg Aspirin (Aspirin Chewable) 81 mg PO DAILY [facility] Last Admin: 09/14/17 09:57 Dose: 81 mg Benztropine Mesylate (Cogentin) 1 mg PO BID [facility] Last Admin: 09/14/17 17:54 Dose: 1 mg Diphenhydramine HCl (Benadryl) 25 mg PO Q6 PRN PRN Reason: Agitation Haloperidol (Haldol) 5 mg PO Q6 PRN PRN Reason: Agitation Last Admin: 09/08/17 11:41 Dose: 5 mg Morphine Sulfate (Morphine) 2 mg IV Q6 PRN PRN Reason: Pain, severe (8-10) Risperidone (Risperdal Tab) 1 mg PO BID [facility] Last Admin: 09/14/17 17:53 Dose: 1 mg Rosuvastatin Calcium (Crestor) 10 mg PO HS [facility] Last Admin: 09/13/17 22:10 Dose: 10 mg Saccharomyces Boulardii (Florastor) 250 mg PO BID [facility] Last Admin: 09/14/17 17:53 Dose: 250 mg Tramadol HCl (Ultram) 25 mg PO TID [facility] Last Admin: 09/14/17 17:53 Dose: 25 mg Trazodone HCl (Desyrel) 50 mg PO HS [facility] Last Admin: 09/13/17 22:10 Dose: 50 mg - Labs Labs: 08/31/17 15:05 08/31/17 15:05 PT 17.5 SECONDS (9.7-12.2) H 08/31/17 17:07 INR 1.5 08/31/17 17:07 APTT 35 SECONDS (21-34) H 08/31/17 17:07 - Constitutional Appears: No Acute Distress - Head Exam Head Exam: ATRAUMATIC, NORMAL INSPECTION - Eye Exam Eye Exam: EOMI - ENT Exam ENT Exam: Mucous Membranes Dry - Respiratory Exam Respiratory Exam: NORMAL BREATHING PATTERN - Cardiovascular Exam Cardiovascular Exam: REGULAR RHYTHM, +S1, +S2. absent: Murmur - GI/Abdominal Exam GI & Abdominal Exam: Soft, Normal Bowel Sounds - Extremities Exam Extremities Exam: absent: Calf Tenderness, Full ROM - Neurological Exam Neurological Exam: Alert. absent: Oriented x3 - Psychiatric Exam Psychiatric exam: Depressed, Flat Affect - Skin Skin Exam: Normal Color Assessment and Plan (1) Refusal of treatment Assessment & Plan: Evaluate for capacity * As per psychiatry evaluation: Patient lacks the capacity to make his own medical decisions at this time. Plans for reevaluation at a latter time. * Re-consultation for capacity and evaluation for severe depression and possible pseudodementia (09/14/17) * Discussion with case checker today, 09/08/17; regarding possible guardianship Medical ethics consults * Management as per recommendation Medications: * Cogentin 1mg PO BID * Benadryl 25mg PO Q6H PRN * Haldol 5mg PO Q6H PRN * Ativan 1mg PO Q6H PRN * Risperidone 1mg PO BID * Trazodone 50mg PO HS Status: Acute (2) Generalized pain Assessment & Plan: CXR 08/31/17: * Large left upper lobe mass with probable involvement of the left posterior 3rd rib. Findings are concerning for malignancy. Dedicated CT scan of the chest with intravenous contrast is recommended for further characterization. * Patient has been refusing chest CT but states that he will think about and have the test done soon * CT abd/pelvis with IV contrast for today. Wanted PO contrast but patient refusing to drink PO Contrast, thus IV contrast: Large destructive heterogeneous soft tissue mass in the left lung upper lobe extending to the left upper posterior chest wall and extending to the left aspect of the upper thoracic spine consistent with malignant neoplasm. The mass is extending to upper aspect of the left hilum. Bony erosion and partial destruction of the left upper ribs and left aspect of T3 and T4 vertebral bodies. Left hilum and left mediastinum lymphadenopathy consistent with metastasis. Right adrenal mass likely represent metastasis. Moderate to mildly severe right hydronephrosis and proximal hydroureter up to 10.5 millimeter obstructing calculus at the proximal right ureter. Moderate constipation. Labs: * QFT negative, legionella negative, pending Mycoplasma Igm, Strep Pneumoniae, * Negative PPD read; no induration noted (48 hours and 72 hours read) * Patient is still refusing to produce sputum Medications: * Trazadone 50mg PO HS * Tylenol 650mg PO Q6H PRN * Morphine 2mg IV Q6H PRN, for severe pain Palliative consult * Management as per recommendation Status: Acute (3) Mass of upper lobe of left lung Assessment & Plan: CXR 08/31/17: Large left upper lobe mass with probable involvement of the left posterior 3rd rib. Findings are concerning for malignancy. Dedicated CT scan of the chest with intravenous contrast is recommended for further characterization. Chest CT: Large destructive heterogeneous soft tissue mass in the left lung upper lobe extending to the left upper posterior chest wall and extending to the left aspect of the upper thoracic spine consistent with malignant neoplasm. The mass is extending to upper aspect of the left hilum. Bony erosion and partial destruction of the left upper ribs and left aspect of T3 and T4 vertebral bodies. Left hilum and left mediastinum lymphadenopathy consistent with metastasis. Palliative consult * Management as per recommendation Status: Acute (4) Right adrenal mass Assessment & Plan: CT abd/pelvis with IV contrast for today. Wanted PO contrast but patient refusing to drink PO Contrast, thus IV contrast: Right adrenal mass likely represent metastasis. Status: Acute (5) Leukocytosis Assessment & Plan: On admission: 14.7, patient has been refusing further lab work but continues to state that he would rethink his decision Blood Culture: Negative X5 days Meds: Azithromycin 500mg IVP QD-- D/C Rocephin 1g IVP BID--D/C Status: Acute (6) Anemia Assessment & Plan: H/H: 7.4/24.4 Patient is refusing transfusion at the moment RBC indices indicative of iron deficiency anemia Retic Count ELEVATED 2.5, Haptoglobin ELEVATED 369 Vitamin B12 and Folate NORMAL Ferritin NORMAL Homocysteine NORMAL Parietal cell Ab negative, Negative intrinsic factor Pending Peripheral smear, LDH, Iron and TIBC and % saturation Status: Acute (7) Lice infestation Assessment & Plan: Recommendation to shave patient bald; patient refuses Meds: Applied ivermectin and permethrin Contact precautions Status: Acute (8) Weight loss Assessment & Plan: Pending HIV, patient is refusing blood work and sahni CT scan; will attempt blood work and CT chest/abdomen/pelvis 09/11/17 As per nursing, patient is eating very well Status: Acute (9) History of CVA (cerebrovascular accident) Assessment & Plan: Hx of CVA in 2016 with documented right arm and leg weakness Head CT: A chronic infarct at the left MCA distribution is identified as well as age related neuro degenerative changes which are mildly advanced for the patient's age of 57 years. No intra hemorrhage, mass effect or CT pattern of an acute or subacute brain infarction is appreciated at this time. Follow-up CT or MRI are available if clinically warranted. Meds: Aspirin 81mg PO QD Crestor 10mg PO HS Status: Chronic (10) Left shoulder pain Assessment & Plan: Left shoulder X-ray (09/05/2017): No acute fracture. Acromioclavicular degenerative arthritis. Status: Acute (11) History of seizures Assessment & Plan: Patient has been without any seizure activity since admission Prior records show seizure activity Will monitor and if necessary start keppra and ativan Seizure precautions Status: Acute (12) Prophylactic measure Assessment & Plan: SCDs Anticoagualtion contraindication due to anemia All plans discussed with Dr. Rajan Status: Acute
--- NOTE | 2017-09-14 22:53 | PCM.PYCHPN ---
Psychiatric Progress Note - Psychiatric Progress Note Patient seen today, length of contact: 15 min Patient Chief Complaint: Consult for Refusing Treatment Problems Identified/Issues Discussed: Patient seen and evaluated, chart reviewed and discussed with the nurse. Patient appears more organized and reports improvement in his mood and improvement. Pt denies any auditory and visual hallucinations. He denies any SI/HI. Patient is compliant with medications and denies any side effects. Support and psychoeducation given. Medication Change: No Medical Record Reviewed: Yes Mental Status Examination - Cognitive Function Orientation: Person, Place, Situation, Time Memory: Intact Attention: WNL Concentration: WNL Association: WNL Fund of Knowledge: Poor - Mood Mood: Neutral - Affect Affect: Constricted - Speech Speech: Soft - Formal Thought Process Formal Thought Process: No Impairment - Suicidal Ideation Suicidal Ideation: No - Homicidal Ideation Homicidal Ideation: No Goal/Treatment Plan - Goal/Treatment Plan Need for Continued Stay: Severe depression anxiety, Severe functional impairment Progress Toward Problem(s) and Goals/Treatment Plan: Patient psychiatrically stable and clear for discharge. - Smoking Cessation Smoking Cessation Initiated: No
[2017-09-15] MEDS: Tramadol 25 mg PO SCH (10:53)
[2017-09-15] MEDS: Saccharomyces Boulardi 250 mg Cap PO SCH (10:53)
[2017-09-15] MEDS ORDERED: Permethrin 1% Kit 59 ML BOTTLE TOP ONE (12:30)
--- NOTE | 2017-09-15 18:22 | CP.PCM.PN ---
Subjective - Date & Time of Evaluation Date of Evaluation: 09/15/17 Time of Evaluation: 07:45 - Subjective Subjective: Medicine progress note ( Dr. Rajan'ss service) Patient was seen and examined at bedside. Patient was resting comfortably in bed. Patient denies any acute issues or new complaints. Patient still admits to generalized body pain. Patient is awake, alert and oriented to day, year, location. Objective - Vital Signs/Intake and Output Vital Signs (last 24 hours): Temp Pulse Resp BP Pulse Ox 99.3 F 94 H 20 121/64 97 09/15/17 15:00 09/15/17 15:00 09/15/17 15:00 09/15/17 15:00 09/15/17 15:00 Intake and Output: 09/15/17 09/15/17 06:59 18:59 Intake Total 680 Balance 680 - Medications Medications: Current Medications Acetaminophen (Tylenol 325mg Tab) 650 mg PO Q6 PRN PRN Reason: fever. Last Admin: 09/08/17 01:01 Dose: 650 mg Aspirin (Aspirin Chewable) 81 mg PO DAILY [facility] Last Admin: 09/15/17 10:52 Dose: 81 mg Benztropine Mesylate (Cogentin) 1 mg PO BID [facility] Last Admin: 09/15/17 17:32 Dose: Not Given Haloperidol (Haldol) 5 mg PO Q6 PRN PRN Reason: Agitation Last Admin: 09/08/17 11:41 Dose: 5 mg Risperidone (Risperdal Tab) 1 mg PO BID [facility] Last Admin: 09/15/17 17:32 Dose: Not Given Rosuvastatin Calcium (Crestor) 10 mg PO HS [facility] Last Admin: 09/14/17 22:17 Dose: 10 mg Trazodone HCl (Desyrel) 50 mg PO [facility] Last Admin: 09/14/17 22:18 Dose: 50 mg - Labs Labs: 08/31/17 15:05 08/31/17 15:05 PT 17.5 SECONDS (9.7-12.2) H 08/31/17 17:07 INR 1.5 08/31/17 17:07 APTT 35 SECONDS (21-34) H 08/31/17 17:07 - Constitutional Appears: Well, No Acute Distress - Head Exam Head Exam: ATRAUMATIC, NORMAL INSPECTION - Eye Exam Eye Exam: EOMI, Normal appearance - ENT Exam ENT Exam: Mucous Membranes Dry - Respiratory Exam Respiratory Exam: Clear to Ausculation Bilateral, NORMAL BREATHING PATTERN. absent: Prolonged Expiratory Phase, Rhonchi, Wheezes, Respiratory Distress - Cardiovascular Exam Cardiovascular Exam: REGULAR RHYTHM, +S1, +S2. absent: Murmur - GI/Abdominal Exam GI & Abdominal Exam: Soft, Normal Bowel Sounds. absent: Distended, Firm, Guarding, Rigid, Tenderness - Extremities Exam Extremities Exam: absent: Calf Tenderness, Pedal Edema - Back Exam Back Exam: NORMAL INSPECTION - Neurological Exam Neurological Exam: Alert, Awake - Psychiatric Exam Psychiatric exam: Normal Affect - Skin Skin Exam: Normal Color Assessment and Plan (1) Refusal of treatment Assessment & Plan: Psychiatry Consult, Dr. Martinez---> Help appreciated Evaluate for capacity * As per psychiatry evaluation: Patient lacks the capacity to make his own medical decisions at this time. Plans for reevaluation at a latter time. * Re-consultation for capacity and evaluation for severe depression and possible pseudodementia (09/14/17); As per documentation, patient is psychiatrically stable for discharge. As per phone conversation with Dr. Martinez, he will addendum note (09/14/17) commenting on patient's capacity receiving manager, Consultation: Discussion with geriatric case manager today, 09/08/17; regarding possible guardianship Medical ethics consults * Management as per recommendation Medications: * Cogentin 1mg PO BID * Haldol 5mg PO Q6H PRN * Risperidone 1mg PO BID * Trazodone 50mg PO HS Status: Acute (2) Generalized pain Assessment & Plan: CXR 08/31/17: * Large left upper lobe mass with probable involvement of the left posterior 3rd rib. Findings are concerning for malignancy. Dedicated CT scan of the chest with intravenous contrast is recommended for further characterization. * Patient has been refusing chest CT but states that he will think about and have the test done soon * CT abd/pelvis with IV contrast for today. Wanted PO contrast but patient refusing to drink PO Contrast, thus IV contrast: Large destructive heterogeneous soft tissue mass in the left lung upper lobe extending to the left upper posterior chest wall and extending to the left aspect of the upper thoracic spine consistent with malignant neoplasm. The mass is extending to upper aspect of the left hilum. Bony erosion and partial destruction of the left upper ribs and left aspect of T3 and T4 vertebral bodies. Left hilum and left mediastinum lymphadenopathy consistent with metastasis. Right adrenal mass likely represent metastasis. Moderate to mildly severe right hydronephrosis and proximal hydroureter up to 10.5 millimeter obstructing calculus at the proximal right ureter. Moderate constipation. Labs: * QFT negative, legionella negative, pending Mycoplasma Igm, Strep Pneumoniae, * Negative PPD read; no induration noted (48 hours and 72 hours read) * Patient is still refusing to produce sputum Medications: * Trazadone 50mg PO HS * Tylenol 650mg PO Q6H PRN Palliative consult * Management as per recommendation Status: Acute (3) Mass of upper lobe of left lung Assessment & Plan: CXR 08/31/17: Large left upper lobe mass with probable involvement of the left posterior 3rd rib. Findings are concerning for malignancy. Dedicated CT scan of the chest with intravenous contrast is recommended for further characterization. Chest CT: Large destructive heterogeneous soft tissue mass in the left lung upper lobe extending to the left upper posterior chest wall and extending to the left aspect of the upper thoracic spine consistent with malignant neoplasm. The mass is extending to upper aspect of the left hilum. Bony erosion and partial destruction of the left upper ribs and left aspect of T3 and T4 vertebral bodies. Left hilum and left mediastinum lymphadenopathy consistent with metastasis. Palliative consult * Management as per recommendation Status: Acute (4) Right adrenal mass Assessment & Plan: CT abd/pelvis with IV contrast for today. Wanted PO contrast but patient refusing to drink PO Contrast, thus IV contrast: Right adrenal mass likely represent metastasis. Status: Acute (5) Leukocytosis Assessment & Plan: On admission: 14.7, patient has been refusing further lab work but continues to state that he would rethink his decision Blood Culture: Negative X5 days UA: LE (2+) and WBC (22), f/u repeat UA and UC (09/15/17) Meds: Cipro 400mg PO BID, started 09/15/17 ( Discontinue if repeat UA AND UC is negative) Status: Acute (6) Anemia Assessment & Plan: H/H: 7.4/24.4 Patient is refusing transfusion at the moment RBC indices indicative of iron deficiency anemia Retic Count ELEVATED 2.5, Haptoglobin ELEVATED 369 Vitamin B12 and Folate NORMAL Ferritin NORMAL Homocysteine NORMAL Parietal cell Ab negative, Negative intrinsic factor Pending Peripheral smear, LDH, Iron and TIBC and % saturation Status: Acute (7) Lice infestation Assessment & Plan: Recommendation to shave patient bald; patient refuses Meds: Applied ivermectin and permethrin Given NIX kit Contact precautions Status: Acute (8) Weight loss Assessment & Plan: Pending HIV, patient is refusing blood work and sahni CT scan; will attempt blood work and CT chest/abdomen/pelvis 09/11/17 As per nursing, patient is eating Status: Acute (9) History of CVA (cerebrovascular accident) Assessment & Plan: Hx of CVA in 2016 with documented right arm and leg weakness Head CT: A chronic infarct at the left MCA distribution is identified as well as age related neuro degenerative changes which are mildly advanced for the patient's age of 57 years. No intra hemorrhage, mass effect or CT pattern of an acute or subacute brain infarction is appreciated at this time. Follow-up CT or MRI are available if clinically warranted. Meds: Aspirin 81mg PO QD Crestor 10mg PO HS Status: Chronic (10) Left shoulder pain Assessment & Plan: Left shoulder X-ray (09/05/2017): No acute fracture. Acromioclavicular degenerative arthritis. Status: Acute (11) History of seizures Assessment & Plan: Patient has been without any seizure activity since admission Prior records show seizure activity Will monitor and if necessary start keppra and ativan Seizure precautions Status: Acute (12) Prophylactic measure Assessment & Plan: SCDs Anticoagualtion contraindication due to anemia All plans discussed with Dr. Rajan Status: Acute
[2017-09-15 20:08] LABS: SQUAMOUS EPITHIAL 6 /hpf (0-5); URINE BILIRUBIN NEGATIVE (NEGATIVE); URINE BLOOD 1+ (NEGATIVE); URINE CALCIUM OXALATE CRYSTALS FEW /hpf (<OCC); URINE CLARITY Hazy (Clear); URINE COLOR Yellow (YELLOW); URINE GLUCOSE (UA) NORMAL (Normal); URINE LEUKOCYTE ESTERASE 1+ Leu/uL (Negative); URINE PROTEIN NEGATIVE (NEGATIVE)
--- NOTE | 2017-09-16 00:13 | CP.PCM.PN ---
<Diamante Gallardo - Last Filed: 09/16/17 06:11> Subjective - Date & Time of Evaluation Date of Evaluation: 09/16/17 Time of Evaluation: 06:00 - Subjective Subjective: PGY 1 Medicine Note Patient seen and examined at bedside and in no acute distress. Patient says he feels fine and has no complaints. Patient denies any shortness of breath, chest pain, abdominal pain, nausea, vomiting, constipation, or diarrhea. Objective - Vital Signs/Intake and Output Vital Signs (last 24 hours): Temp Pulse Resp BP Pulse Ox 99.3 F 94 H 20 121/64 97 09/15/17 15:00 09/15/17 15:00 09/15/17 15:00 09/15/17 15:00 09/15/17 15:00 - Medications Medications: Current Medications Acetaminophen (Tylenol 325mg Tab) 650 mg PO Q6 PRN PRN Reason: fever. Last Admin: 09/08/17 01:01 Dose: 650 mg Aspirin (Aspirin Chewable) 81 mg PO DAILY [facility] Last Admin: 09/15/17 10:52 Dose: 81 mg Benztropine Mesylate (Cogentin) 1 mg PO BID [facility] Last Admin: 09/15/17 17:32 Dose: Not Given Ciprofloxacin (Cipro) 500 mg PO BID [facility] PRN Reason: Protocol Last Admin: 09/15/17 18:53 Dose: 500 mg Haloperidol (Haldol) 5 mg PO Q6 PRN PRN Reason: Agitation Last Admin: 09/08/17 11:41 Dose: 5 mg Risperidone (Risperdal Tab) 1 mg PO BID [facility] Last Admin: 09/15/17 17:32 Dose: Not Given Rosuvastatin Calcium (Crestor) 10 mg PO [facility] Last Admin: 09/15/17 21:39 Dose: Not Given Trazodone HCl (Desyrel) 50 mg PO [facility] Last Admin: 09/15/17 21:39 Dose: Not Given - Labs Labs: 08/31/17 15:05 08/31/17 15:05 PT 17.5 SECONDS (9.7-12.2) H 08/31/17 17:07 INR 1.5 08/31/17 17:07 APTT 35 SECONDS (21-34) H 08/31/17 17:07 - Additional Findings Additional findings: - Constitutional Appears: Well, No Acute Distress - Head Exam Head Exam: ATRAUMATIC, NORMAL INSPECTION - Eye Exam Eye Exam: EOMI, Normal appearance - ENT Exam ENT Exam: Mucous Membranes Dry - Respiratory Exam Respiratory Exam: Clear to Ausculation Bilateral, NORMAL BREATHING PATTERN. absent: Prolonged Expiratory Phase, Rhonchi, Wheezes, Respiratory Distress - Cardiovascular Exam Cardiovascular Exam: REGULAR RHYTHM, +S1, +S2. absent: Murmur - GI/Abdominal Exam GI & Abdominal Exam: Soft, Normal Bowel Sounds. absent: Distended, Firm, Guarding, Rigid, Tenderness - Extremities Exam Extremities Exam: absent: Calf Tenderness, Pedal Edema - Back Exam Back Exam: NORMAL INSPECTION - Neurological Exam Neurological Exam: Alert, Awake - Psychiatric Exam Psychiatric exam: Normal Affect - Skin Skin Exam: Normal Color Assessment and Plan - Assessment and Plan (Free Text) Assessment: (1) Refusal of treatment Assessment & Plan: Psychiatry Consult, Dr. Martinez---> Help appreciated Evaluate for capacity * As per psychiatry evaluation: Patient lacks the capacity to make his own medical decisions at this time. Plans for reevaluation at a latter time. * Re-consultation for capacity and evaluation for severe depression and possible pseudodementia (09/14/17); As per documentation, patient is psychiatrically stable for discharge. As per phone conversation with Dr. 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 Findings are concerning for malignancy. Dedicated CT scan of the chest with intravenous contrast is recommended for further characterization. * Patient has been refusing chest CT but states that he will think about and have the test done soon * CT abd/pelvis with IV contrast for today. Wanted PO contrast but patient refusing to drink PO Contrast, thus IV contrast: Large destructive heterogeneous soft tissue mass in the left lung upper lobe extending to the left upper posterior chest wall and extending to the left aspect of the upper thoracic spine consistent with malignant neoplasm. The mass is extending to upper aspect of the left hilum. Bony erosion and partial destruction of the left upper ribs and left aspect of T3 and T4 vertebral bodies. Left hilum and left mediastinum lymphadenopathy consistent with metastasis. Right adrenal mass likely represent metastasis. Moderate to mildly severe right hydronephrosis and proximal hydroureter up to 10.5 millimeter obstructing calculus at the proximal right ureter. Moderate constipation. Labs: * QFT negative, legionella negative, pending Mycoplasma Igm, Strep Pneumoniae, * Negative PPD read; no induration noted (48 hours and 72 hours read) * Patient is still refusing to produce sputum Medications: * Trazadone 50mg PO HS * Tylenol 650mg PO Q6H PRN Palliative consult * Management as per recommendation Status: Acute (3) Mass of upper lobe of left lung Assessment & Plan: CXR 08/31/17: Large left upper lobe mass with probable involvement of the left posterior 3rd rib. Findings are concerning for malignancy. Dedicated CT scan of the chest with intravenous contrast is recommended for further characterization. Chest CT: Large destructive heterogeneous soft tissue mass in the left lung upper lobe extending to the left upper posterior chest wall and extending to the left aspect of the upper thoracic spine consistent with malignant neoplasm. The mass is extending to upper aspect of the left hilum. Bony erosion and partial destruction of the left upper ribs and left aspect of T3 and T4 vertebral bodies. Left hilum and left mediastinum lymphadenopathy consistent with metastasis. Palliative consult * Management as per recommendation Status: Acute (4) Right adrenal mass Assessment & Plan: CT abd/pelvis with IV contrast for today. Wanted PO contrast but patient refusing to drink PO Contrast, thus IV contrast: Right adrenal mass likely represent metastasis. Status: Acute (5) Leukocytosis Assessment & Plan: On admission: 14.7, patient has been refusing further lab work but continues to state that he would rethink his decision Blood Culture: Negative X5 days UA: LE (2+) and WBC (22), f/u repeat UA and UC (09/15/17) Meds: Cipro 400mg PO BID, started 09/15/17 ( Discontinue if repeat UA AND UC is negative) Status: Acute (6) Anemia Assessment & Plan: H/H: 7.4/24.4 Patient is refusing transfusion at the moment RBC indices indicative of iron deficiency anemia Retic Count ELEVATED 2.5, Haptoglobin ELEVATED 369 Vitamin B12 and Folate NORMAL Ferritin NORMAL Homocysteine NORMAL Parietal cell Ab negative, Negative intrinsic factor Pending Peripheral smear, LDH, Iron and TIBC and % saturation Status: Acute (7) Lice infestation Assessment & Plan: Recommendation to shave patient bald; patient refuses Meds: Applied ivermectin and permethrin Given NIX kit Contact precautions Status: Acute (8) Weight loss Assessment & Plan: Pending HIV, patient is refusing blood work and sahni CT scan; will attempt blood work and CT chest/abdomen/pelvis 09/11/17 As per nursing, patient is eating Status: Acute (9) History of CVA (cerebrovascular accident) Assessment & Plan: Hx of CVA in 2016 with documented right arm and leg weakness Head CT: A chronic infarct at the left MCA distribution is identified as well as age related neuro degenerative changes which are mildly advanced for the patient's age of 57 years. No intra hemorrhage, mass effect or CT pattern of an acute or subacute brain infarction is appreciated at this time. Follow-up CT or MRI are available if clinically warranted. Meds: Aspirin 81mg PO QD Crestor 10mg PO HS Status: Chronic (10) Left shoulder pain Assessment & Plan: Left shoulder X-ray (09/05/2017): No acute fracture. Acromioclavicular degenerative arthritis. Status: Acute (11) History of seizures Assessment & Plan: Patient has been without any seizure activity since admission Prior records show seizure activity Will monitor and if necessary start keppra and ativan Seizure precautions Status: Acute (12) Prophylactic measure Assessment & Plan: SCDs Anticoagualtion contraindication due to anemia <Robert Morley H - Last Filed: 09/16/17 13:15> Objective - Vital Signs/Intake and Output Vital Signs (last 24 hours): Temp Pulse Resp BP Pulse Ox 97.8 F 70 20 99/63 L 98 09/16/17 08:00 09/16/17 08:00 09/16/17 08:00 09/16/17 08:00 09/16/17 08:00 Intake and Output: 09/16/17 09/16/17 06:59 18:59 Intake Total 200 Balance 200 - Medications Medications: Current Medications Acetaminophen (Tylenol 325mg Tab) 650 mg PO Q6 PRN PRN Reason: fever. Last Admin: 09/08/17 01:01 Dose: 650 mg Aspirin (Aspirin Chewable) 81 mg PO DAILY [facility] Last Admin: 09/16/17 10:34 Dose: Not Given Benztropine Mesylate (Cogentin) 1 mg PO BID [facility] Last Admin: 09/16/17 10:34 Dose: Not Given Ciprofloxacin (Cipro) 500 mg PO BID [facility] PRN Reason: Protocol Last Admin: 09/16/17 10:27 Dose: 500 mg Haloperidol (Haldol) 5 mg PO Q6 PRN PRN Reason: Agitation Last Admin: 09/08/17 11:41 Dose: 5 mg Risperidone (Risperdal Tab) 1 mg PO BID [facility] Last Admin: 09/16/17 10:34 Dose: Not Given Rosuvastatin Calcium (Crestor) 10 mg PO HS [facility] Last Admin: 09/15/17 21:39 Dose: Not Given Trazodone HCl (Desyrel) 50 mg PO [facility] Last Admin: 09/15/17 21:39 Dose: Not Given - Labs Labs: 08/31/17 15:05 08/31/17 15:05 PT 17.5 SECONDS (9.7-12.2) H 08/31/17 17:07 INR 1.5 08/31/17 17:07 APTT 35 SECONDS (21-34) H 08/31/17 17:07 Attending/Attestation - Attestation I have personally seen and examined this patient.: Yes I have fully participated in the care of the patient.: Yes I have reviewed all pertinent clinical information, including history, physical exam and plan: Yes Notes (Text): Medical attending: Patient was seen and examined by me. His speech this morning was very difficult to understand. He looks profoundly depressed and fatigued. The entire food tray was untouched. He does not want to try any appettie stimulant such as megace. Currently on Cipro PO for UTI. He unfortunately continues to not want to allow lab/blood draws despite us explaining several times he may be anemic probably from the metastatic malignancy Overall prognosis appears poor - he is barely moving at all. Robert Morley
--- NOTE | 2017-09-17 03:28 | CP.PCM.PN ---
<Elida Burris - Last Filed: 09/17/17 06:11> Subjective - Date & Time of Evaluation Date of Evaluation: 09/17/17 Time of Evaluation: 03:29 - Subjective Subjective: Progress note for Dr. Morley Patient seen and examined at bedside. No changes since last visit per notes. Labs have not been drawn since 08/31. Objective - Vital Signs/Intake and Output Vital Signs (last 24 hours): Temp Pulse Resp BP Pulse Ox 98.2 F 91 H 20 105/57 L 95 09/17/17 00:53 09/17/17 00:53 09/17/17 00:53 09/17/17 00:53 09/17/17 00:53 Intake and Output: 09/16/17 09/17/17 18:59 06:59 Intake Total 480 480 Output Total 450 Balance 30 480 - Medications Medications: Current Medications Acetaminophen (Tylenol 325mg Tab) 650 mg PO Q6 PRN PRN Reason: fever. Last Admin: 09/08/17 01:01 Dose: 650 mg Aspirin (Aspirin Chewable) 81 mg PO DAILY [facility] Last Admin: 09/16/17 10:34 Dose: Not Given Benztropine Mesylate (Cogentin) 1 mg PO BID [facility] Last Admin: 09/16/17 18:40 Dose: Not Given Haloperidol (Haldol) 5 mg PO Q6 PRN PRN Reason: Agitation Last Admin: 09/08/17 11:41 Dose: 5 mg Risperidone (Risperdal Tab) 1 mg PO BID [facility] Last Admin: 09/16/17 18:40 Dose: Not Given Rosuvastatin Calcium (Crestor) 10 mg PO [facility] Last Admin: 09/16/17 22:11 Dose: 10 mg Trazodone HCl (Desyrel) 50 mg PO [facility] Last Admin: 09/16/17 22:11 Dose: 50 mg - Labs Labs: 08/31/17 15:05 08/31/17 15:05 PT 17.5 SECONDS (9.7-12.2) H 08/31/17 17:07 INR 1.5 08/31/17 17:07 APTT 35 SECONDS (21-34) H 08/31/17 17:07 - Additional Findings Additional findings: - Constitutional Appears: Well, No Acute Distress - Head Exam Head Exam: ATRAUMATIC, NORMAL INSPECTION - Eye Exam Eye Exam: EOMI, Normal appearance - ENT Exam ENT Exam: Mucous Membranes Dry - Respiratory Exam Respiratory Exam: Clear to Ausculation Bilateral, NORMAL BREATHING PATTERN. absent: Prolonged Expiratory Phase, Rhonchi, Wheezes, Respiratory Distress - Cardiovascular Exam Cardiovascular Exam: REGULAR RHYTHM, +S1, +S2. absent: Murmur - GI/Abdominal Exam GI & Abdominal Exam: Soft, Normal Bowel Sounds. absent: Distended, Firm, Guarding, Rigid, Tenderness - Extremities Exam Extremities Exam: absent: Calf Tenderness, Pedal Edema - Back Exam Back Exam: NORMAL INSPECTION - Neurological Exam Neurological Exam: Alert, Awake - Psychiatric Exam Psychiatric exam: Normal Affect - Skin Skin Exam: Normal Color Assessment and Plan - Assessment and Plan (Free Text) Assessment: (1) Refusal of treatment Assessment & Plan: Psychiatry Consult, Dr. Martinez Evaluate for capacity * As per psychiatry evaluation: Patient lacks the capacity to make his own medical decisions at this time. Plans for reevaluation at a latter time. * Re-consultation for capacity and evaluation for severe depression and possible pseudodementia (09/14/17); As per documentation, patient is psychiatrically stable for discharge. As per phone conversation with Dr. 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 Findings are concerning for malignancy. Dedicated CT scan of the chest with intravenous contrast is recommended for further characterization. * Patient has been refusing chest CT but states that he will think about and have the test done soon * CT abd/pelvis with IV contrast for today. Wanted PO contrast but patient refusing to drink PO Contrast, thus IV contrast: Large destructive heterogeneous soft tissue mass in the left lung upper lobe extending to the left upper posterior chest wall and extending to the left aspect of the upper thoracic spine consistent with malignant neoplasm. The mass is extending to upper aspect of the left hilum. Bony erosion and partial destruction of the left upper ribs and left aspect of T3 and T4 vertebral bodies. Left hilum and left mediastinum lymphadenopathy consistent with metastasis. Right adrenal mass likely represent metastasis. Moderate to mildly severe right hydronephrosis and proximal hydroureter up to 10.5 millimeter obstructing calculus at the proximal right ureter. Moderate constipation. Labs: * QFT negative, legionella negative, pending Mycoplasma Igm, Strep Pneumoniae, * Negative PPD read; no induration noted (48 hours and 72 hours read) * Patient is still refusing to produce sputum Medications: * Trazadone 50mg PO HS * Tylenol 650mg PO Q6H PRN Palliative consult * Management as per recommendation Status: Acute (3) Mass of upper lobe of left lung Assessment & Plan: CXR 08/31/17: Large left upper lobe mass with probable involvement of the left posterior 3rd rib. Findings are concerning for malignancy. Dedicated CT scan of the chest with intravenous contrast is recommended for further characterization. Chest CT: Large destructive heterogeneous soft tissue mass in the left lung upper lobe extending to the left upper posterior chest wall and extending to the left aspect of the upper thoracic spine consistent with malignant neoplasm. The mass is extending to upper aspect of the left hilum. Bony erosion and partial destruction of the left upper ribs and left aspect of T3 and T4 vertebral bodies. Left hilum and left mediastinum lymphadenopathy consistent with metastasis. Palliative consult * Management as per recommendation Status: Acute (4) Right adrenal mass Assessment & Plan: CT abd/pelvis with IV contrast for today. Wanted PO contrast but patient refusing to drink PO Contrast, thus IV contrast: Right adrenal mass likely represent metastasis. Status: Acute (5) Leukocytosis Assessment & Plan: On admission: 14.7, patient has been refusing further lab work but continues to state that he would rethink his decision Blood Culture: Negative X5 days UA: LE (2+) and WBC (22), f/u repeat UA and UC (09/15/17) Meds: Cipro 400mg PO BID, started 09/15/17 ( Discontinue if repeat UA AND UC is negative) Status: Acute (6) Anemia Assessment & Plan: Patient is refusing transfusion at the moment RBC indices indicative of iron deficiency anemia Retic Count ELEVATED 2.5, Haptoglobin ELEVATED 369 Vitamin B12 and Folate NORMAL Ferritin NORMAL Homocysteine NORMAL Parietal cell Ab negative, Negative intrinsic factor Pending Peripheral smear, LDH, Iron and TIBC and % saturation Status: Acute (7) Lice infestation Assessment & Plan: Recommendation to shave patient bald; patient refuses Meds: Applied ivermectin and permethrin Given NIX kit Contact precautions Status: Acute (8) Weight loss Assessment & Plan: Pending HIV, patient is refusing blood work and sahni CT scan; will attempt blood work and CT chest/abdomen/pelvis 09/11/17 As per nursing, patient is eating Status: Acute (9) History of CVA (cerebrovascular accident) Assessment & Plan: Hx of CVA in 2016 with documented right arm and leg weakness Head CT: A chronic infarct at the left MCA distribution is identified as well as age related neuro degenerative changes which are mildly advanced for the patient's age of 57 years. No intra hemorrhage, mass effect or CT pattern of an acute or subacute brain infarction is appreciated at this time. Follow-up CT or MRI are available if clinically warranted. Meds: Aspirin 81mg PO QD Crestor 10mg PO HS Status: Chronic (10) Left shoulder pain Assessment & Plan: Left shoulder X-ray (09/05/2017): No acute fracture. Acromioclavicular degenerative arthritis. Status: Acute (11) History of seizures Assessment & Plan: Patient has been without any seizure activity since admission Prior records show seizure activity Will monitor and if necessary start keppra and ativan Seizure precautions Status: Acute (12) Prophylactic measure Assessment & Plan: SCDs Anticoagulation contraindication due to anemia Patient continues to refuse labs. Dr. Milli Burris DO PGY1 <Robert Morley H - Last Filed: 09/17/17 09:59> Objective - Vital Signs/Intake and Output Vital Signs (last 24 hours): Temp Pulse Resp BP Pulse Ox 97.5 F L 103 H 21 105/67 97 09/17/17 07:00 09/17/17 07:00 09/17/17 07:00 09/17/17 07:00 09/17/17 07:00 Intake and Output: 09/17/17 09/17/17 06:59 18:59 Intake Total 480 200 Balance 480 200 - Medications Medications: Current Medications Acetaminophen (Tylenol 325mg Tab) 650 mg PO Q6 PRN PRN Reason: fever. Last Admin: 09/08/17 01:01 Dose: 650 mg Aspirin (Aspirin Chewable) 81 mg PO DAILY [facility] Last Admin: 09/16/17 10:34 Dose: Not Given Benztropine Mesylate (Cogentin) 1 mg PO BID [facility] Last Admin: 09/16/17 18:40 Dose: Not Given Haloperidol (Haldol) 5 mg PO Q6 PRN PRN Reason: Agitation Last Admin: 09/08/17 11:41 Dose: 5 mg Risperidone (Risperdal Tab) 1 mg PO BID [facility] Last Admin: 09/16/17 18:40 Dose: Not Given Rosuvastatin Calcium (Crestor) 10 mg PO HS [facility] Last Admin: 09/16/17 22:11 Dose: 10 mg Trazodone HCl (Desyrel) 50 mg PO [facility] Last Admin: 09/16/17 22:11 Dose: 50 mg - Labs Labs: 08/31/17 15:05 08/31/17 15:05 PT 17.5 SECONDS (9.7-12.2) H 08/31/17 17:07 INR 1.5 08/31/17 17:07 APTT 35 SECONDS (21-34) H 08/31/17 17:07 Attending/Attestation - Attestation I have personally seen and examined this patient.: Yes I have fully participated in the care of the patient.: Yes I have reviewed all pertinent clinical information, including history, physical exam and plan: Yes Notes (Text): 09/17/17 09:58 Medical attending: Patient was seen and examined by me. Again the food tray was not touched Per staff he has not gotten out of bed and has been bed bound. He is not able to change the channel on the television. Unfortunately continues to not want to allow lab/blood draws despite us explaining several times he may be anemic probably from the metastatic malignancy Overall prognosis appears poor - he is barely moving at all. Robert Morley
[2017-09-18] MEDS ORDERED: Oxycodone/Acetaminophen 5/325 mg Tab PO PRN (13:23)
[2017-09-18 14:41] LABS: BASO # 0.1 K/uL (0.0-0.2); BASO % 0.6 % (0.0-2.0); EOS # 0.3 K/uL (0.0-0.7); EOS % 2.3 % (0.0-4.0); HEMOGLOBIN 8.1 g/dL (12.0-18.0); LYMPH % 7.8 % (20.0-40.0); MEAN CORPUSCULAR HEMOGLOBIN 19.9 pg (27.0-31.0); MEAN CORPUSCULAR HGB CONC 30.2 g/dL (33.0-37.0); MEAN PLATELET VOLUME 7.3 fL (7.2-11.7); MONO # 1.2 K/uL (0.0-0.8); MONO % 9.5 % (0.0-10.0); NEUT # 10.5 K/uL (1.8-7.0); NEUT % 79.8 % (50.0-75.0); NRBC % 0.7 % (0.0-2.0); RBC 4.08 Mil/uL (4.40-5.90); RED CELL DISTRIBUTION WIDTH 18.8 % (11.5-14.5); WHITE BLOOD COUNT 13.2 K/uL (4.8-10.8)
[2017-09-18 14:42] LABS: MEAN CELL VOLUME 65.8 fL (80.0-94.0); PLATELET COUNT 809 K/uL (130-400)
[2017-09-18 14:59] LABS: ALB/GLOB RATIO 0.6 (1.0-2.1); ALBUMIN 3.4 g/dL (3.5-5.0); ALT/SGPT 14 U/L (21-72); AST/SGOT 20 U/L (17-59); BLOOD UREA NITROGEN 16 mg/dL (9-20); GFR AFRICAN-AMERICAN > 60; GFR NON-AFRICAN AMERICAN > 60
[2017-09-18 15:05] LABS: IRON 16 ug/dL (49-181)
[2017-09-18 15:14] LABS: % IRON SATURATION 5 (20-55); TOTAL IRON BINDING CAPACITY 302 ug/dL (250-450)
[2017-09-18 15:29] LABS: HEPATITIS B SURFACE AG Negative (NEGATIVE)
[2017-09-18 15:34] LABS: HEPATITIS A IGM NEGATIVE (NEGATIVE); HEPATITIS B CORE AB NEGATIVE (NEGATIVE)
[2017-09-18 15:40] LABS: ANISOCYTOSIS SLIGHT; BASOPHIL 1 % (0-2); HYPOCHROMIC MODERATE; LYMPHOCYTE 7 % (20-40); MONOCYTE 11 % (0-10); NEUTROPHIL 81 % (50-75); PLATELET ESTIMATE INCREASED (NORMAL); POIKILOCYTOSIS SLIGHT; TARGET CELLS SLIGHT; TOTAL CELLS COUNTED 100
[2017-09-18 15:41] LABS: MICROCYTOSIS SLIGHT
[2017-09-18 15:46] LABS: HEPATITIS C ANTIBODY NEGATIVE (NEGATIVE)
--- NOTE | 2017-09-18 17:45 | CP.PCM.PN ---
<Shanda Morrisdayanna Starr - Last Filed: 09/18/17 17:52> Subjective - Date & Time of Evaluation Date of Evaluation: 09/18/17 Time of Evaluation: 09:30 - Subjective Subjective: Medicine progress note ( Dr. Torres's service) Patient was seen and examined with bed with attending and psychiatrist attending present. Patient confirms that he is aware that there is noted malignancy on his CT scan. Patient agreed to have blood work done upon request, however, patient denied when nurse staff was present to collect blood work. Patient was moderately aggressive when asked if does not treatment and recommended studies; patient did not give a clear answer. Objective - Vital Signs/Intake and Output Vital Signs (last 24 hours): Temp Pulse Resp BP Pulse Ox 97.6 F 86 20 111/69 96 09/18/17 07:45 09/18/17 07:45 09/18/17 07:45 09/18/17 07:45 09/18/17 07:45 Intake and Output: 09/18/17 09/18/17 06:59 18:59 Intake Total 860 350 Balance 860 350 - Medications Medications: Current Medications Acetaminophen (Tylenol 325mg Tab) 650 mg PO Q6 PRN PRN Reason: fever. Last Admin: 09/17/17 11:32 Dose: 650 mg Aspirin (Aspirin Chewable) 81 mg PO DAILY [facility] Last Admin: 09/18/17 10:37 Dose: Not Given Benztropine Mesylate (Cogentin) 1 mg PO BID [facility] Last Admin: 09/18/17 10:37 Dose: Not Given Docusate Sodium (Colace) 100 mg PO TID [facility] Last Admin: 09/18/17 13:59 Dose: Not Given Haloperidol (Haldol) 5 mg PO Q6 PRN PRN Reason: Agitation Last Admin: 09/08/17 11:41 Dose: 5 mg Morphine Sulfate (Morphine Extended Release Tab) 15 mg PO Q12 [facility] Oxycodone/Acetaminophen (Percocet 5/325 Mg Tab) 1 tab PO Q4H PRN PRN Reason: Pain, moderate (4-7) Stop: 09/21/17 13:24 Risperidone (Risperdal Tab) 1 mg PO BID [facility] Last Admin: 09/18/17 10:37 Dose: Not Given Rosuvastatin Calcium (Crestor) 10 mg PO HS [facility] Last Admin: 09/17/17 22:32 Dose: Not Given Trazodone HCl (Desyrel) 50 mg PO HS [facility] Last Admin: 09/17/17 22:32 Dose: Not Given - Labs Labs: 09/18/17 14:34 09/18/17 14:34 PT 17.5 SECONDS (9.7-12.2) H 08/31/17 17:07 INR 1.5 08/31/17 17:07 APTT 35 SECONDS (21-34) H 08/31/17 17:07 - Constitutional Appears: No Acute Distress - Head Exam Head Exam: ATRAUMATIC - Eye Exam Eye Exam: EOMI - ENT Exam ENT Exam: Mucous Membranes Dry - Respiratory Exam Respiratory Exam: NORMAL BREATHING PATTERN - Cardiovascular Exam Cardiovascular Exam: REGULAR RHYTHM, +S1, +S2 - GI/Abdominal Exam GI & Abdominal Exam: Soft, Normal Bowel Sounds - Extremities Exam Extremities Exam: Normal Inspection - Neurological Exam Neurological Exam: Alert, Awake - Psychiatric Exam Psychiatric exam: Agitated, Depressed, Flat Affect - Skin Skin Exam: Normal Color Assessment and Plan (1) Refusal of treatment Assessment & Plan: Psychiatry Consult, Dr. Martinez Evaluate for capacity * As per psychiatry evaluation: Patient lacks the capacity to make his own medical decisions at this time. Plans for reevaluation at a latter time. * Re-consultation for capacity and evaluation for severe depression and possible pseudodementia (09/14/17); As per documentation, patient is psychiatrically stable for discharge. As per phone conversation with Dr. 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 Findings are concerning for malignancy. Dedicated CT scan of the chest with intravenous contrast is recommended for further characterization. * Patient has been refusing chest CT but states that he will think about and have the test done soon * CT abd/pelvis with IV contrast for today. Wanted PO contrast but patient refusing to drink PO Contrast, thus IV contrast: Large destructive heterogeneous soft tissue mass in the left lung upper lobe extending to the left upper posterior chest wall and extending to the left aspect of the upper thoracic spine consistent with malignant neoplasm. The mass is extending to upper aspect of the left hilum. Bony erosion and partial destruction of the left upper ribs and left aspect of T3 and T4 vertebral bodies. Left hilum and left mediastinum lymphadenopathy consistent with metastasis. Right adrenal mass likely represent metastasis. Moderate to mildly severe right hydronephrosis and proximal hydroureter up to 10.5 millimeter obstructing calculus at the proximal right ureter. Moderate constipation. Labs: * QFT negative, legionella negative, pending Mycoplasma Igm, Strep Pneumoniae, * Negative PPD read; no induration noted (48 hours and 72 hours read) * Patient is still refusing to produce sputum Medications: * Trazadone 50mg PO HS * Tylenol 650mg PO Q6H PRN * Morphine extended release 15mg PO Q12H * Percocet 1 tab PO Q4H Palliative consult * Management as per recommendation Status: Acute (3) Mass of upper lobe of left lung Assessment & Plan: CXR 08/31/17: Large left upper lobe mass with probable involvement of the left posterior 3rd rib. Findings are concerning for malignancy. Dedicated CT scan of the chest with intravenous contrast is recommended for further characterization. Chest CT: Large destructive heterogeneous soft tissue mass in the left lung upper lobe extending to the left upper posterior chest wall and extending to the left aspect of the upper thoracic spine consistent with malignant neoplasm. The mass is extending to upper aspect of the left hilum. Bony erosion and partial destruction of the left upper ribs and left aspect of T3 and T4 vertebral bodies. Left hilum and left mediastinum lymphadenopathy consistent with metastasis. Palliative consult Management as per recommendation Status: Acute (4) Right adrenal mass Assessment & Plan: CT abd/pelvis with IV contrast for today. Wanted PO contrast but patient refusing to drink PO Contrast, thus IV contrast: Right adrenal mass likely represent metastasis. Status: Acute (5) Leukocytosis Assessment & Plan: On admission: 14.7, patient has been refusing further lab work but continues to state that he would rethink his decision Blood Culture: Negative X5 days UA: LE (2+) and WBC (22), f/u repeat UA and UC (09/15/17) Meds: Cipro 400mg PO BID, started 09/15/17 ( Discontinue if repeat UA AND UC is negative) Status: Acute (6) Anemia Assessment & Plan: Patient is refusing transfusion at the moment RBC indices indicative of iron deficiency anemia Retic Count ELEVATED 2.5, Haptoglobin ELEVATED 369 Vitamin B12 and Folate NORMAL Ferritin NORMAL Homocysteine NORMAL Parietal cell Ab negative, Negative intrinsic factor Pending Peripheral smear, LDH, Iron and TIBC and % saturation Status: Acute (7) Lice infestation Assessment & Plan: Recommendation to shave patient bald; patient refuses Meds: Applied ivermectin and permethrin Given NIX kit once Contact precautions Status: Acute (8) Weight loss Assessment & Plan: Pending HIV, patient is refusing blood work and sahni CT scan; will attempt blood work and CT chest/abdomen/pelvis 09/11/17 Patient is currently not eating Status: Acute (9) History of CVA (cerebrovascular accident) Assessment & Plan: Hx of CVA in 2016 with documented right arm and leg weakness Head CT: A chronic infarct at the left MCA distribution is identified as well as age related neuro degenerative changes which are mildly advanced for the patient's age of 57 years. No intra hemorrhage, mass effect or CT pattern of an acute or subacute brain infarction is appreciated at this time. Follow-up CT or MRI are available if clinically warranted. Meds: Aspirin 81mg PO QD Crestor 10mg PO HS Status: Chronic (10) Left shoulder pain Assessment & Plan: Left shoulder X-ray (09/05/2017): No acute fracture. Acromioclavicular degenerative arthritis. Status: Acute (11) History of seizures Assessment & Plan: Patient has been without any seizure activity since admission Prior records show seizure activity Will monitor and if necessary start keppra and ativan Seizure precautions Status: Acute (12) Prophylactic measure Assessment & Plan: SCDs Anticoagulation contraindication due to anemia Disposition: Patient continues to refuse labs, food, treatment and diagnostic testing All plans and management discussed with attending, Dr. Torres Status: Acute <Lamonte Torres - Last Filed: 09/19/17 16:48> Objective - Vital Signs/Intake and Output Vital Signs (last 24 hours): Temp Pulse Resp BP Pulse Ox 98.1 F 79 21 104/70 98 09/19/17 09:27 09/19/17 09:27 09/19/17 09:27 09/19/17 09:27 09/19/17 09:27 Intake and Output: 09/19/17 09/19/17 06:59 18:59 Intake Total 300 540 Output Total 400 Balance -100 540 - Medications Medications: Current Medications Acetaminophen (Tylenol 325mg Tab) 650 mg PO Q6 PRN PRN Reason: fever. Last Admin: 09/17/17 11:32 Dose: 650 mg Aspirin (Aspirin Chewable) 81 mg PO DAILY [facility] Last Admin: 09/19/17 10:49 Dose: Not Given Benztropine Mesylate (Cogentin) 1 mg PO BID [facility] Last Admin: 09/19/17 10:49 Dose: Not Given Docusate Sodium (Colace) 100 mg PO TID [facility] Last Admin: 09/19/17 13:50 Dose: Not Given Enoxaparin Sodium (Lovenox) 30 mg SC DAILY [facility] Last Admin: 09/19/17 10:49 Dose: Not Given Ferrous Sulfate (Feosol) 325 mg PO TID [facility] Last Admin: 09/19/17 13:50 Dose: Not Given Haloperidol (Haldol) 5 mg PO Q6 PRN PRN Reason: Agitation Last Admin: 09/08/17 11:41 Dose: 5 mg Piperacillin Sod/Tazobactam Sod (Zosyn 3.375 Gm Iv Premix) 3.375 gm in 50 mls @ 100 mls/hr IVPB Q6H [facility] PRN Reason: Protocol Last Admin: 09/19/17 10:51 Dose: Not Given Sodium Chloride (Sodium Chloride 0.9%) 1,000 mls @ 80 mls/hr IV .[id number] [facility] Last Admin: 09/19/17 10:51 Dose: Not Given Mirtazapine (Remeron) 15 mg PO HS [facility] Morphine Sulfate (Morphine Extended Release Tab) 15 mg PO Q12 [facility] Last Admin: 09/19/17 10:50 Dose: Not Given Oxycodone/Acetaminophen (Percocet 5/325 Mg Tab) 1 tab PO Q4H PRN PRN Reason: Pain, moderate (4-7) Stop: 09/21/17 13:24 Risperidone (Risperdal Tab) 1 mg PO BID [facility] Last Admin: 09/19/17 10:50 Dose: Not Given Rosuvastatin Calcium (Crestor) 10 mg PO HS [facility] Last Admin: 09/18/17 21:14 Dose: Not Given Sertraline HCl (Zoloft) 50 mg PO DAILY [facility] Last Admin: 09/19/17 10:51 Dose: Not Given Trazodone HCl (Desyrel) 50 mg PO HS [facility] Last Admin: 09/18/17 21:14 Dose: Not Given - Labs Labs: 09/18/17 14:34 09/18/17 14:34 PT 17.5 SECONDS (9.7-12.2) H 08/31/17 17:07 INR 1.5 08/31/17 17:07 APTT 35 SECONDS (21-34) H 08/31/17 17:07 Attending/Attestation - Attestation I have personally seen and examined this patient.: Yes I have fully participated in the care of the patient.: Yes I have reviewed all pertinent clinical information, including history, physical exam and plan: Yes Notes (Text): Patient was seen and examined by me. He is lying comfortable. Admitted that he has pain all over his body.Refuses lung biopsy/any procedures. Discussed about advance directives/Resuscitation. He has no answer.Discussed with psychiatrist Dr Martinez. He is planning to start on meds for depression. I will start him on pain medication Agrees to have blood drawn for test. He knows that he is sick and has lung cancer. Discussed with the resident I agree with the documentation of the resident's assessment and the plan
[2017-09-18] MEDS: Morphine 15 mg SR Tab PO SCH (21:14)
--- NOTE | 2017-09-18 21:18 | PCM.PYCHPN ---
Psychiatric Progress Note - Psychiatric Progress Note Patient seen today, length of contact: 15 min Patient Chief Complaint: Consult for Refusing Treatment Problems Identified/Issues Discussed: Patient seen and evaluated, chart reviewed and discussed with the nurse. Patient appears more organized but he appeared very depressed and isolated. As per the staff he is not eating and not getting out pf his room. However, Pt denies any auditory and visual hallucinations and he denies any SI/HI. Patient is compliant with medications and denies any side effects. Support and psychoeducation given. Medication Change: Yes (start remeron , start zoloft) Medical Record Reviewed: Yes Mental Status Examination - Cognitive Function Orientation: Person, Place, Situation, Time Memory: Intact Attention: WNL Concentration: WNL Association: WNL Fund of Knowledge: Poor - Mood Mood: Depressed, Anxious - Affect Affect: Constricted, Depressed - Speech Speech: Soft - Formal Thought Process Formal Thought Process: No Impairment - Suicidal Ideation Suicidal Ideation: No - Homicidal Ideation Homicidal Ideation: No Goal/Treatment Plan - Goal/Treatment Plan Need for Continued Stay: Severe depression anxiety, Severe functional impairment Progress Toward Problem(s) and Goals/Treatment Plan: Supportive therapy Start Zoloft 50 mg PO Daily Start Remeron 15 mg PO QHS Continue Risperdal 1 mg PO BID Continue Cegentin 1 mg pO BID - Smoking Cessation Smoking Cessation Initiated: No
[2017-09-19] MEDS: Enoxaparin 30 mg Syringe SC SCH (10:49)
[2017-09-19] MEDS: Morphine 15 mg SR Tab PO SCH ×2 (10:50→22:11)
[2017-09-19] MEDS: Sodium Chloride 0.9% 1,000 ML IV SCH ×2 (10:51→22:33)
[2017-09-19] MEDS: Piperacill/Tazo 3.375gm in Dex 3.375 GM/50 ML BAG IVPB SCH ×3 (10:51→22:11)
--- NOTE | 2017-09-19 15:57 | CP.PCM.PN ---
<Carlos Morris - Last Filed: 09/19/17 15:51> Subjective - Date & Time of Evaluation Date of Evaluation: 09/19/17 Time of Evaluation: 07:15 - Subjective Subjective: Medicine progress note ( Dr. Torres's service) Patient was seen and examined at bedside. Patient is resting in bed. Patient is clinically the same with no acute issues. Patient continues to intermittently refuse treatment, however, patient allowed for blood work yesterday. Objective - Vital Signs/Intake and Output Vital Signs (last 24 hours): Temp Pulse Resp BP Pulse Ox 98.1 F 79 21 104/70 98 09/19/17 09:27 09/19/17 09:27 09/19/17 09:27 09/19/17 09:27 09/19/17 09:27 Intake and Output: 09/19/17 09/19/17 06:59 18:59 Intake Total 300 540 Output Total 400 Balance -100 540 - Medications Medications: Current Medications Acetaminophen (Tylenol 325mg Tab) 650 mg PO Q6 PRN PRN Reason: fever. Last Admin: 09/17/17 11:32 Dose: 650 mg Aspirin (Aspirin Chewable) 81 mg PO DAILY [facility] Last Admin: 09/19/17 10:49 Dose: Not Given Benztropine Mesylate (Cogentin) 1 mg PO BID [facility] Last Admin: 09/19/17 10:49 Dose: Not Given Docusate Sodium (Colace) 100 mg PO TID [facility] Last Admin: 09/19/17 13:50 Dose: Not Given Enoxaparin Sodium (Lovenox) 30 mg SC DAILY [facility] Last Admin: 09/19/17 10:49 Dose: Not Given Ferrous Sulfate (Feosol) 325 mg PO TID [facility] Last Admin: 09/19/17 13:50 Dose: Not Given Haloperidol (Haldol) 5 mg PO Q6 PRN PRN Reason: Agitation Last Admin: 09/08/17 11:41 Dose: 5 mg Piperacillin Sod/Tazobactam Sod (Zosyn 3.375 Gm Iv Premix) 3.375 gm in 50 mls @ 100 mls/hr IVPB Q6H [facility] PRN Reason: Protocol Last Admin: 09/19/17 10:51 Dose: Not Given Sodium Chloride (Sodium Chloride 0.9%) 1,000 mls @ 80 mls/hr IV .[id number] [facility] Last Admin: 09/19/17 10:51 Dose: Not Given Mirtazapine (Remeron) 15 mg PO [facility] Morphine Sulfate (Morphine Extended Release Tab) 15 mg PO Q12 [facility] Last Admin: 09/19/17 10:50 Dose: Not Given Oxycodone/Acetaminophen (Percocet 5/325 Mg Tab) 1 tab PO Q4H PRN PRN Reason: Pain, moderate (4-7) Stop: 09/21/17 13:24 Risperidone (Risperdal Tab) 1 mg PO BID [facility] Last Admin: 09/19/17 10:50 Dose: Not Given Rosuvastatin Calcium (Crestor) 10 mg PO [facility] Last Admin: 09/18/17 21:14 Dose: Not Given Sertraline HCl (Zoloft) 50 mg PO DAILY [facility] Last Admin: 09/19/17 10:51 Dose: Not Given Trazodone HCl (Desyrel) 50 mg PO [facility] Last Admin: 09/18/17 21:14 Dose: Not Given - Labs Labs: 09/18/17 14:34 09/18/17 14:34 PT 17.5 SECONDS (9.7-12.2) H 08/31/17 17:07 INR 1.5 08/31/17 17:07 APTT 35 SECONDS (21-34) H 08/31/17 17:07 - Constitutional Appears: No Acute Distress - Head Exam Head Exam: ATRAUMATIC - Eye Exam Eye Exam: EOMI - ENT Exam ENT Exam: Mucous Membranes Dry - Respiratory Exam Respiratory Exam: NORMAL BREATHING PATTERN. absent: Rhonchi, Wheezes, Respiratory Distress - Cardiovascular Exam Cardiovascular Exam: REGULAR RHYTHM, +S1, +S2. absent: Murmur - GI/Abdominal Exam GI & Abdominal Exam: Soft, Normal Bowel Sounds. absent: Firm, Guarding, Rigid, Tenderness - Extremities Exam Extremities Exam: Normal Inspection. absent: Calf Tenderness, Pedal Edema - Neurological Exam Neurological Exam: Alert, Awake - Psychiatric Exam Psychiatric exam: Depressed, Flat Affect - Skin Skin Exam: Normal Color Assessment and Plan (1) Refusal of treatment Assessment & Plan: Psychiatry Consult, Dr. Martinez Evaluate for capacity * As per psychiatry evaluation: Patient lacks the capacity to make his own medical decisions at this time. Plans for reevaluation at a latter time. * Re-consultation for capacity and evaluation for severe depression and possible pseudodementia (09/14/17); As per documentation, patient is psychiatrically stable for discharge. As per phone conversation with Dr. 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 Findings are concerning for malignancy. Dedicated CT scan of the chest with intravenous contrast is recommended for further characterization. * Patient has been refusing chest CT but states that he will think about and have the test done soon * CT abd/pelvis with IV contrast for today. Wanted PO contrast but patient refusing to drink PO Contrast, thus IV contrast: Large destructive heterogeneous soft tissue mass in the left lung upper lobe extending to the left upper posterior chest wall and extending to the left aspect of the upper thoracic spine consistent with malignant neoplasm. The mass is extending to upper aspect of the left hilum. Bony erosion and partial destruction of the left upper ribs and left aspect of T3 and T4 vertebral bodies. Left hilum and left mediastinum lymphadenopathy consistent with metastasis. Right adrenal mass likely represent metastasis. Moderate to mildly severe right hydronephrosis and proximal hydroureter up to 10.5 millimeter obstructing calculus at the proximal right ureter. Moderate constipation. Labs: * QFT negative, legionella negative, pending Mycoplasma Igm, Strep Pneumoniae, * Negative PPD read; no induration noted (48 hours and 72 hours read) * Patient is still refusing to produce sputum Medications: * Trazadone 50mg PO HS * Tylenol 650mg PO Q6H PRN * Morphine extended release 15mg PO Q12H * Percocet 1 tab PO Q4H Palliative consult * Management as per recommendation Status: Acute (3) Mass of upper lobe of left lung Assessment & Plan: CXR 08/31/17: Large left upper lobe mass with probable involvement of the left posterior 3rd rib. Findings are concerning for malignancy. Dedicated CT scan of the chest with intravenous contrast is recommended for further characterization. Chest CT: Large destructive heterogeneous soft tissue mass in the left lung upper lobe extending to the left upper posterior chest wall and extending to the left aspect of the upper thoracic spine consistent with malignant neoplasm. The mass is extending to upper aspect of the left hilum. Bony erosion and partial destruction of the left upper ribs and left aspect of T3 and T4 vertebral bodies. Left hilum and left mediastinum lymphadenopathy consistent with metastasis. Palliative consult Management as per recommendation Status: Acute (4) Right adrenal mass Assessment & Plan: CT abd/pelvis with IV contrast for today. Wanted PO contrast but patient refusing to drink PO Contrast, thus IV contrast: Right adrenal mass likely represent metastasis. Status: Acute Status: Acute (5) Leukocytosis Assessment & Plan: Patient agreed to blood work, 09/20/17: 13.7 On admission: 14.7, patient has been refusing further lab work but continues to state that he would rethink his decision Blood Culture: Negative X5 days UA: LE (2+) and WBC (22), f/u repeat UA and UC (09/15/17) Meds: Cipro 400mg PO BID, started 09/15/17 ( Discontinue if repeat UA AND UC is negative) Zosyn 3.375gm IV Q6H ( Started 09/19/17) Status: Acute (6) Anemia Assessment & Plan: Patient is refusing transfusion at the moment RBC indices indicative of iron deficiency anemia Retic Count ELEVATED 2.5, Haptoglobin ELEVATED 369 Vitamin B12 and Folate NORMAL Ferritin NORMAL Homocysteine NORMAL IRON: 16 TIBC: 302 % Saturation: 5 Peripheral smear: Slight Parietal cell Ab negative, Negative intrinsic factor Pending LDH Medication: * Ferrous sulfate 325mg PO TID Status: Acute (7) Lice infestation Assessment & Plan: Recommendation to shave patient bald; patient refuses Meds: Applied ivermectin and permethrin Given NIX kit once Contact precautions Status: Acute (8) Weight loss Assessment & Plan: Pending HIV Patient is currently not eating Supplemental diet Status: Acute (9) History of CVA (cerebrovascular accident) Assessment & Plan: Hx of CVA in 2016 with documented right arm and leg weakness Head CT: A chronic infarct at the left MCA distribution is identified as well as age related neuro degenerative changes which are mildly advanced for the patient's age of 57 years. No intra hemorrhage, mass effect or CT pattern of an acute or subacute brain infarction is appreciated at this time. Follow-up CT or MRI are available if clinically warranted. Meds: Aspirin 81mg PO QD Crestor 10mg PO HS Status: Chronic (10) Left shoulder pain Assessment & Plan: Left shoulder X-ray (09/05/2017): No acute fracture. Acromioclavicular degenerative arthritis. Status: Acute (11) History of seizures Assessment & Plan: Patient has been without any seizure activity since admission Prior records show seizure activity Will monitor and if necessary start keppra and ativan Seizure precautions Status: Acute (12) Prophylactic measure Assessment & Plan: SCDs Anticoagulation contraindication due to anemia Disposition: Patient continues to refuse labs, food, treatment and diagnostic testing All plans and management discussed with attending, Dr. Torres Status: Acute <Lamonte Torres - Last Filed: 09/22/17 10:03> Objective - Vital Signs/Intake and Output Vital Signs (last 24 hours): Temp Pulse Resp BP Pulse Ox 98.4 F 98 H 20 109/68 97 09/19/17 15:00 09/19/17 15:00 09/19/17 15:00 09/19/17 15:00 09/19/17 15:00 Intake and Output: 09/19/17 09/19/17 06:59 18:59 Intake Total 300 540 Output Total 400 Balance -100 540 - Medications Medications: Current Medications Acetaminophen (Tylenol 325mg Tab) 650 mg PO Q6 PRN PRN Reason: fever. Last Admin: 09/17/17 11:32 Dose: 650 mg Aspirin (Aspirin Chewable) 81 mg PO DAILY [facility] Last Admin: 09/19/17 10:49 Dose: Not Given Benztropine Mesylate (Cogentin) 1 mg PO BID [facility] Last Admin: 09/19/17 10:49 Dose: Not Given Docusate Sodium (Colace) 100 mg PO TID [facility] Last Admin: 09/19/17 13:50 Dose: Not Given Enoxaparin Sodium (Lovenox) 30 mg SC DAILY [facility] Last Admin: 09/19/17 10:49 Dose: Not Given Ferrous Sulfate (Feosol) 325 mg PO TID [facility] Last Admin: 09/19/17 13:50 Dose: Not Given Haloperidol (Haldol) 5 mg PO Q6 PRN PRN Reason: Agitation Last Admin: 09/08/17 11:41 Dose: 5 mg Piperacillin Sod/Tazobactam Sod (Zosyn 3.375 Gm Iv Premix) 3.375 gm in 50 mls @ 100 mls/hr IVPB Q6H [facility] PRN Reason: Protocol Last Admin: 09/19/17 10:51 Dose: Not Given Sodium Chloride (Sodium Chloride 0.9%) 1,000 mls @ 80 mls/hr IV .[id number] [facility] Last Admin: 09/19/17 10:51 Dose: Not Given Mirtazapine (Remeron) 15 mg PO HS [facility] Morphine Sulfate (Morphine Extended Release Tab) 15 mg PO Q12 [facility] Last Admin: 09/19/17 10:50 Dose: Not Given Oxycodone/Acetaminophen (Percocet 5/325 Mg Tab) 1 tab PO Q4H PRN PRN Reason: Pain, moderate (4-7) Stop: 09/21/17 13:24 Risperidone (Risperdal Tab) 1 mg PO BID [facility] Last Admin: 09/19/17 10:50 Dose: Not Given Rosuvastatin Calcium (Crestor) 10 mg PO HS [facility] Last Admin: 09/18/17 21:14 Dose: Not Given Sertraline HCl (Zoloft) 50 mg PO DAILY [facility] Last Admin: 09/19/17 10:51 Dose: Not Given Trazodone HCl (Desyrel) 50 mg PO HS [facility] Last Admin: 09/18/17 21:14 Dose: Not Given - Labs Labs: 09/18/17 14:34 09/18/17 14:34 PT 17.5 SECONDS (9.7-12.2) H 08/31/17 17:07 INR 1.5 08/31/17 17:07 APTT 35 SECONDS (21-34) H 08/31/17 17:07 Attending/Attestation - Attestation I have personally seen and examined this patient.: Yes I have fully participated in the care of the patient.: Yes I have reviewed all pertinent clinical information, including history, physical exam and plan: Yes Notes (Text): seen and examined by me. He is lying on bed with no activities,Had blood test yesterday. has leukocytosis with left shift. started on zosyn for possible aspiration pneumoia. He is refusing labs and intervention. Discussed with the resident I agree with the documentation of the assessment and the plan
[2017-09-20] MEDS: Piperacill/Tazo 3.375gm in Dex 3.375 GM/50 ML BAG IVPB SCH ×4 (04:00→21:48)
[2017-09-20] MEDS: Enoxaparin 30 mg Syringe SC SCH (10:12)
[2017-09-20] MEDS: Morphine 15 mg SR Tab PO SCH ×2 (10:12→21:48)
[2017-09-20] MEDS: Sodium Chloride 0.9% 1,000 ML IV SCH (13:17)
--- NOTE | 2017-09-20 14:37 | CP.PCM.PN ---
<Carlos Morris E - Last Filed: 09/20/17 14:39> Subjective - Date & Time of Evaluation Date of Evaluation: 09/20/17 Time of Evaluation: 07:45 - Subjective Subjective: Medicine progress note ( Dr. Torres's service) Patient was seen and examined at bedside. Patient is resting in bed. Patient is clinically the same with no acute issues. Patient continues to intermittently refuse treatment. Patient was asked about the goal of care, " You have to give me time" Objective - Vital Signs/Intake and Output Vital Signs (last 24 hours): Temp Pulse Resp BP Pulse Ox 98.8 F 88 20 106/67 96 09/20/17 07:59 09/20/17 07:59 09/20/17 07:59 09/20/17 07:59 09/20/17 07:59 Intake and Output: 09/20/17 09/20/17 06:59 18:59 Intake Total 240 Balance 240 - Medications Medications: Current Medications Acetaminophen (Tylenol 325mg Tab) 650 mg PO Q6 PRN PRN Reason: fever. Last Admin: 09/17/17 11:32 Dose: 650 mg Aspirin (Aspirin Chewable) 81 mg PO DAILY [facility] Last Admin: 09/20/17 10:11 Dose: Not Given Benztropine Mesylate (Cogentin) 1 mg PO BID [facility] Last Admin: 09/20/17 10:12 Dose: Not Given Docusate Sodium (Colace) 100 mg PO TID [facility] Last Admin: 09/20/17 13:18 Dose: Not Given Enoxaparin Sodium (Lovenox) 30 mg SC DAILY [facility] Last Admin: 09/20/17 10:12 Dose: Not Given Ferrous Sulfate (Feosol) 325 mg PO TID [facility] Last Admin: 09/20/17 13:18 Dose: Not Given Haloperidol (Haldol) 5 mg PO Q6 PRN PRN Reason: Agitation Last Admin: 09/08/17 11:41 Dose: 5 mg Piperacillin Sod/Tazobactam Sod (Zosyn 3.375 Gm Iv Premix) 3.375 gm in 50 mls @ 100 mls/hr IVPB Q6H DE[facility] PRN Reason: Protocol Last Admin: 09/20/17 10:12 Dose: Not Given Sodium Chloride (Sodium Chloride 0.9%) 1,000 mls @ 80 mls/hr IV .[id number] [facility] Last Admin: 09/20/17 13:17 Dose: Not Given Mirtazapine (Remeron) 15 mg PO [facility] Last Admin: 09/19/17 22:11 Dose: Not Given Morphine Sulfate (Morphine Extended Release Tab) 15 mg PO Q12 [facility] Last Admin: 09/20/17 10:12 Dose: Not Given Oxycodone/Acetaminophen (Percocet 5/325 Mg Tab) 1 tab PO Q4H PRN PRN Reason: Pain, moderate (4-7) Stop: 09/21/17 13:24 Risperidone (Risperdal Tab) 1 mg PO BID [facility] Last Admin: 09/20/17 10:12 Dose: Not Given Rosuvastatin Calcium (Crestor) 10 mg PO [facility] Last Admin: 09/19/17 22:11 Dose: Not Given Sertraline HCl (Zoloft) 50 mg PO DAILY [facility] Last Admin: 09/20/17 10:12 Dose: Not Given Trazodone HCl (Desyrel) 50 mg PO [facility] Last Admin: 09/19/17 22:11 Dose: Not Given - Labs Labs: 09/18/17 14:34 09/18/17 14:34 PT 17.5 SECONDS (9.7-12.2) H 08/31/17 17:07 INR 1.5 08/31/17 17:07 APTT 35 SECONDS (21-34) H 08/31/17 17:07 - Constitutional Appears: No Acute Distress, Unkempt - Head Exam Head Exam: ATRAUMATIC, NORMAL INSPECTION - Eye Exam Eye Exam: EOMI - ENT Exam ENT Exam: Mucous Membranes Moist - Respiratory Exam Respiratory Exam: NORMAL BREATHING PATTERN. absent: Prolonged Expiratory Phase , Rhonchi, Wheezes, Respiratory Distress - Cardiovascular Exam Cardiovascular Exam: REGULAR RHYTHM, +S1, +S2 - GI/Abdominal Exam GI & Abdominal Exam: Soft, Normal Bowel Sounds - Extremities Exam Extremities Exam: Normal Inspection - Neurological Exam Neurological Exam: Alert, Awake - Psychiatric Exam Psychiatric exam: Depressed, Flat Affect - Skin Skin Exam: Normal Color Assessment and Plan (1) Refusal of treatment Assessment & Plan: Psychiatry Consult, Dr. Martinez Evaluate for capacity * As per psychiatry evaluation: Patient lacks the capacity to make his own medical decisions at this time. Plans for reevaluation at a latter time. * Re-consultation for capacity and evaluation for severe depression and possible pseudodementia (09/14/17); As per documentation, patient is psychiatrically stable for discharge. As per phone conversation with Dr. Martinez, he will addendum note (09/14/17) commenting on patient's capacity manager medicaid, Consultation: Discussion with corrections caseworker today, 09/08/17; regarding possible guardianship Medical ethics consults * Management as per recommendation Medications: * Cogentin 1mg PO BID * Haldol 5mg PO Q6H PRN * Risperidone 1mg PO BID * Trazodone 50mg PO HS Status: Acute (2) Generalized pain Assessment & Plan: CXR 08/31/17: * Large left upper lobe mass with probable involvement of the left posterior 3rd rib. Findings are concerning for malignancy. Dedicated CT scan of the chest with intravenous contrast is recommended for further characterization. * Patient has been refusing chest CT but states that he will think about and have the test done soon * CT abd/pelvis with IV contrast for today. Wanted PO contrast but patient refusing to drink PO Contrast, thus IV contrast: Large destructive heterogeneous soft tissue mass in the left lung upper lobe extending to the left upper posterior chest wall and extending to the left aspect of the upper thoracic spine consistent with malignant neoplasm. The mass is extending to upper aspect of the left hilum. Bony erosion and partial destruction of the left upper ribs and left aspect of T3 and T4 vertebral bodies. Left hilum and left mediastinum lymphadenopathy consistent with metastasis. Right adrenal mass likely represent metastasis. Moderate to mildly severe right hydronephrosis and proximal hydroureter up to 10.5 millimeter obstructing calculus at the proximal right ureter. Moderate constipation. Labs: * QFT negative, legionella negative, pending Mycoplasma Igm, Strep Pneumoniae, * Negative PPD read; no induration noted (48 hours and 72 hours read) * Patient is still refusing to produce sputum Medications: * Trazadone 50mg PO HS * Tylenol 650mg PO Q6H PRN * Morphine extended release 15mg PO Q12H * Percocet 1 tab PO Q4H Palliative consult * Management as per recommendation Status: Acute (3) Mass of upper lobe of left lung Assessment & Plan: CXR 08/31/17: Large left upper lobe mass with probable involvement of the left posterior 3rd rib. Findings are concerning for malignancy. Dedicated CT scan of the chest with intravenous contrast is recommended for further characterization. Chest CT: Large destructive heterogeneous soft tissue mass in the left lung upper lobe extending to the left upper posterior chest wall and extending to the left aspect of the upper thoracic spine consistent with malignant neoplasm. The mass is extending to upper aspect of the left hilum. Bony erosion and partial destruction of the left upper ribs and left aspect of T3 and T4 vertebral bodies. Left hilum and left mediastinum lymphadenopathy consistent with metastasis. Palliative consult Management as per recommendation Status: Acute (4) Right adrenal mass Assessment & Plan: CT abd/pelvis with IV contrast for today. Wanted PO contrast but patient refusing to drink PO Contrast, thus IV contrast: Right adrenal mass likely represent metastasis. Status: Acute (5) Leukocytosis Assessment & Plan: Patient agreed to blood work, 09/20/17: 13.7 On admission: 14.7, patient has been refusing further lab work but continues to state that he would rethink his decision Blood Culture: Negative X5 days UA: LE (2+) and WBC (22), f/u repeat UA and UC (09/15/17) Meds: Cipro 400mg PO BID, started 09/15/17 ( Discontinue if repeat UA AND UC is negative) Zosyn 3.375gm IV Q6H ( Started 09/19/17)-- As per nursing, patient refused treatment Status: Acute (6) Anemia Assessment & Plan: H/H stable : 8.1/26.8 Patient is refusing transfusion at the moment RBC indices indicative of iron deficiency anemia Retic Count ELEVATED 2.5, Haptoglobin ELEVATED 369 Vitamin B12 and Folate NORMAL Ferritin NORMAL Homocysteine NORMAL IRON: 16 TIBC: 302 % Saturation: 5 Peripheral smear: Slight Parietal cell Ab negative, Negative intrinsic factor Pending LDH Medication: * Ferrous sulfate 325mg PO TID Status: Acute (7) Lice infestation Assessment & Plan: Recommendation to shave patient bald; patient refuses Meds: Applied ivermectin and permethrin Given NIX kit once Contact precautions Status: Acute (8) Weight loss Assessment & Plan: Pending HIV Patient is currently not eating Supplemental diet Status: Acute (9) History of CVA (cerebrovascular accident) Assessment & Plan: Hx of CVA in 2016 with documented right arm and leg weakness Head CT: A chronic infarct at the left MCA distribution is identified as well as age related neuro degenerative changes which are mildly advanced for the patient's age of 57 years. No intra hemorrhage, mass effect or CT pattern of an acute or subacute brain infarction is appreciated at this time. Follow-up CT or MRI are available if clinically warranted. Meds: Aspirin 81mg PO QD Crestor 10mg PO HS Status: Chronic (10) Left shoulder pain Assessment & Plan: Left shoulder X-ray (09/05/2017): No acute fracture. Acromioclavicular degenerative arthritis. Status: Acute (11) History of seizures Assessment & Plan: Patient has been without any seizure activity since admission Prior records show seizure activity Will monitor and if necessary start keppra and ativan Seizure precautions Status: Acute (12) Severe depression Assessment & Plan: Start Zoloft 50 mg PO Daily Start Remeron 15 mg PO QHS Status: Acute (13) Prophylactic measure Assessment & Plan: SCDs Anticoagulation contraindication due to anemia Disposition: Patient continues to refuse labs, food, treatment and diagnostic testing/ medications All plans and management discussed with attending, Dr. Torres Status: Acute <Lamonte Torres - Last Filed: 09/22/17 15:10> Objective - Vital Signs/Intake and Output Vital Signs (last 24 hours): Temp Pulse Resp BP Pulse Ox 98.5 F 97 H 20 116/72 95 09/22/17 07:54 09/22/17 07:54 09/22/17 07:54 09/22/17 07:54 09/22/17 07:54 Intake and Output: 09/22/17 09/22/17 06:59 18:59 Intake Total 480 Output Total 200 Balance 280 - Medications Medications: Current Medications Acetaminophen (Tylenol 325mg Tab) 650 mg PO Q6 PRN PRN Reason: fever. Last Admin: 09/17/17 11:32 Dose: 650 mg Aspirin (Aspirin Chewable) 81 mg PO DAILY [facility] Last Admin: 09/22/17 09:34 Dose: Not Given Benztropine Mesylate (Cogentin) 1 mg PO BID [facility] Last Admin: 09/22/17 09:34 Dose: Not Given Docusate Sodium (Colace) 100 mg PO TID [facility] Last Admin: 09/22/17 13:29 Dose: Not Given Enoxaparin Sodium (Lovenox) 30 mg SC DAILY [facility] Last Admin: 09/22/17 09:34 Dose: Not Given Ferrous Sulfate (Feosol) 325 mg PO TID [facility] Last Admin: 09/22/17 13:30 Dose: Not Given Haloperidol (Haldol) 5 mg PO Q6 PRN PRN Reason: Agitation Last Admin: 09/08/17 11:41 Dose: 5 mg Mirtazapine (Remeron) 15 mg PO HS [facility] Last Admin: 09/21/17 22:56 Dose: Not Given Morphine Sulfate (Morphine Extended Release Tab) 15 mg PO Q12 [facility] Last Admin: 09/22/17 09:34 Dose: Not Given Risperidone (Risperdal Tab) 1 mg PO BID [facility] Last Admin: 09/22/17 09:34 Dose: Not Given Rosuvastatin Calcium (Crestor) 10 mg PO [facility] Last Admin: 09/21/17 22:55 Dose: Not Given Sertraline HCl (Zoloft) 50 mg PO DAILY [facility] Last Admin: 09/22/17 09:35 Dose: Not Given Trazodone HCl (Desyrel) 50 mg PO [facility] Last Admin: 09/21/17 22:55 Dose: Not Given - Labs Labs: 09/18/17 14:34 09/18/17 14:34 PT 17.5 SECONDS (9.7-12.2) H 08/31/17 17:07 INR 1.5 08/31/17 17:07 APTT 35 SECONDS (21-34) H 08/31/17 17:07 Attending/Attestation - Attestation I have personally seen and examined this patient.: Yes I have fully participated in the care of the patient.: Yes I have reviewed all pertinent clinical information, including history, physical exam and plan: Yes Notes (Text): This is a 57 years old homeless male with history of CVA brought in from homeless care home for body lices. He is anemic,weak. His CT shows CT abd/pelvis with IV contrast Large destructive heterogeneous soft tissue mass in the left lung upper lobe extending to the left upper posterior chest wall and extending to the left aspect of the upper thoracic spine consistent with malignant neoplasm. The mass is extending to upper aspect of the left hilum. Bony erosion and partial destruction of the left upper ribs and left aspect of T3 and T4 vertebral bodies. Left hilum and left mediastinum lymphadenopathy consistent with metastasis. Right adrenal mass likely represent metastasis. Moderate to mildly severe right hydro nephrosis and proximal hydro ureter up to 10.5 millimeter obstructing calculus at the proximal right ureter. Moderate constipation. 1. Lung mass/likely metastatic cancer,likely bone mets 2.Hydronephrosis 3.Anemia 4.h/o CVA 5.Weakness/unable to sit or ambulate 6.Refuses care,refuses labs,refuses meds 7.Poor intake 8.Depression Patient is complaining of whole body hurts. Started on Morphine ER,started on antidepressant. Patient is not taking medication. Refuses meds. He knows that he is in the hospital.Not able to tell the name of the hospital. Able to tell that we its August 2017.Knows Meek is our president. He knows that he is sick. Discussed with the about getting Medicaid. Spoke to Dr Martinez about refusing meds. we will ask [place]oina palliative RN and [address] Justice to see him
[2017-09-21] MEDS: Sodium Chloride 0.9% 1,000 ML IV SCH ×2 (00:15→12:12)
[2017-09-21] MEDS: Piperacill/Tazo 3.375gm in Dex 3.375 GM/50 ML BAG IVPB SCH ×4 (04:02→22:56)
[2017-09-21] MEDS: Enoxaparin 30 mg Syringe SC SCH (09:41)
[2017-09-21] MEDS: Morphine 15 mg SR Tab PO SCH ×2 (09:41→22:56)
--- NOTE | 2017-09-21 12:42 | CP.PCM.PN ---
<Carlos Morris - Last Filed: 09/21/17 18:47> Subjective - Date & Time of Evaluation Date of Evaluation: 09/21/17 Time of Evaluation: 07:40 - Subjective Subjective: Medicine progress note ( Dr. Torres's service) Patient was seen and examined at bedside. Patient is resting in bed. Patient is clinically the same with no acute issues and continues to refuse treatment. Objective - Vital Signs/Intake and Output Vital Signs (last 24 hours): Temp Pulse Resp BP Pulse Ox 98.7 F 90 20 104/66 95 09/21/17 08:04 09/21/17 08:04 09/21/17 08:04 09/21/17 08:04 09/21/17 08:04 Intake and Output: 09/21/17 09/21/17 06:59 18:59 Intake Total 240 Balance 240 - Medications Medications: Current Medications Acetaminophen (Tylenol 325mg Tab) 650 mg PO Q6 PRN PRN Reason: fever. Last Admin: 09/17/17 11:32 Dose: 650 mg Aspirin (Aspirin Chewable) 81 mg PO DAILY [facility] Last Admin: 09/21/17 09:41 Dose: Not Given Benztropine Mesylate (Cogentin) 1 mg PO BID [facility] Last Admin: 09/21/17 09:41 Dose: Not Given Docusate Sodium (Colace) 100 mg PO TID [facility] Last Admin: 09/21/17 09:41 Dose: Not Given Enoxaparin Sodium (Lovenox) 30 mg SC DAILY [facility] Last Admin: 09/21/17 09:41 Dose: Not Given Ferrous Sulfate (Feosol) 325 mg PO TID [facility] Last Admin: 09/21/17 09:41 Dose: Not Given Haloperidol (Haldol) 5 mg PO Q6 PRN PRN Reason: Agitation Last Admin: 09/08/17 11:41 Dose: 5 mg Piperacillin Sod/Tazobactam Sod (Zosyn 3.375 Gm Iv Premix) 3.375 gm in 50 mls @ 100 mls/hr IVPB Q6H PENDING S[facility] TO [facility] PRN Reason: Protocol Last Admin: 09/21/17 09:42 Dose: Not Given Sodium Chloride (Sodium Chloride 0.9%) 1,000 mls @ 80 mls/hr IV .[id number] [facility] Last Admin: 09/21/17 12:12 Dose: Not Given Mirtazapine (Remeron) 15 mg PO [facility] Last Admin: 09/20/17 21:48 Dose: Not Given Morphine Sulfate (Morphine Extended Release Tab) 15 mg PO Q12 [facility] Last Admin: 09/21/17 09:41 Dose: Not Given Oxycodone/Acetaminophen (Percocet 5/325 Mg Tab) 1 tab PO Q4H PRN PRN Reason: Pain, moderate (4-7) Stop: 09/21/17 13:24 Risperidone (Risperdal Tab) 1 mg PO BID [facility] Last Admin: 09/21/17 09:41 Dose: Not Given Rosuvastatin Calcium (Crestor) 10 mg PO [facility] Last Admin: 09/20/17 21:48 Dose: Not Given Sertraline HCl (Zoloft) 50 mg PO DAILY [facility] Last Admin: 09/21/17 09:42 Dose: Not Given Trazodone HCl (Desyrel) 50 mg PO [facility] Last Admin: 09/20/17 21:48 Dose: Not Given - Labs Labs: 09/18/17 14:34 09/18/17 14:34 PT 17.5 SECONDS (9.7-12.2) H 08/31/17 17:07 INR 1.5 08/31/17 17:07 APTT 35 SECONDS (21-34) H 08/31/17 17:07 - Constitutional Appears: No Acute Distress, Unkempt - Head Exam Head Exam: ATRAUMATIC, NORMAL INSPECTION - Eye Exam Eye Exam: EOMI - ENT Exam ENT Exam: Mucous Membranes Dry - Respiratory Exam Respiratory Exam: NORMAL BREATHING PATTERN - Cardiovascular Exam Cardiovascular Exam: REGULAR RHYTHM, +S1, +S2. absent: Murmur - GI/Abdominal Exam GI & Abdominal Exam: Soft, Normal Bowel Sounds. absent: Distended, Firm, Guarding, Rigid - Extremities Exam Extremities Exam: Normal Inspection. absent: Calf Tenderness, Pedal Edema - Neurological Exam Neurological Exam: Alert, Awake - Psychiatric Exam Psychiatric exam: Normal Affect - Skin Skin Exam: Normal Color Assessment and Plan (1) Refusal of treatment Assessment & Plan: Psychiatry Consult, Dr. Martinez Evaluate for capacity * As per psychiatry evaluation: Patient lacks the capacity to make his own medical decisions at this time. Plans for reevaluation at a latter time. * Re-consultation for capacity and evaluation for severe depression and possible pseudodementia (09/14/17); As per documentation, patient is psychiatrically stable for discharge. As per phone conversation with Dr. 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 Findings are concerning for malignancy. Dedicated CT scan of the chest with intravenous contrast is recommended for further characterization. * Patient has been refusing chest CT but states that he will think about and have the test done soon * CT abd/pelvis with IV contrast for today. Wanted PO contrast but patient refusing to drink PO Contrast, thus IV contrast: Large destructive heterogeneous soft tissue mass in the left lung upper lobe extending to the left upper posterior chest wall and extending to the left aspect of the upper thoracic spine consistent with malignant neoplasm. The mass is extending to upper aspect of the left hilum. Bony erosion and partial destruction of the left upper ribs and left aspect of T3 and T4 vertebral bodies. Left hilum and left mediastinum lymphadenopathy consistent with metastasis. Right adrenal mass likely represent metastasis. Moderate to mildly severe right hydronephrosis and proximal hydroureter up to 10.5 millimeter obstructing calculus at the proximal right ureter. Moderate constipation. Labs: * QFT negative, legionella negative, pending Mycoplasma Igm, Strep Pneumoniae, * Negative PPD read; no induration noted (48 hours and 72 hours read) * Patient is still refusing to produce sputum Medications: * Trazadone 50mg PO HS * Tylenol 650mg PO Q6H PRN * Morphine extended release 15mg PO Q12H * Percocet 1 tab PO Q4H Palliative consult * Management as per recommendation * Reconsultation, 09/21/17 Status: Acute (3) Mass of upper lobe of left lung Assessment & Plan: CXR 08/31/17: Large left upper lobe mass with probable involvement of the left posterior 3rd rib. Findings are concerning for malignancy. Dedicated CT scan of the chest with intravenous contrast is recommended for further characterization. Chest CT: Large destructive heterogeneous soft tissue mass in the left lung upper lobe extending to the left upper posterior chest wall and extending to the left aspect of the upper thoracic spine consistent with malignant neoplasm. The mass is extending to upper aspect of the left hilum. Bony erosion and partial destruction of the left upper ribs and left aspect of T3 and T4 vertebral bodies. Left hilum and left mediastinum lymphadenopathy consistent with metastasis. Palliative consult Management as per recommendation Status: Acute (4) Right adrenal mass Assessment & Plan: CT abd/pelvis with IV contrast for today. Wanted PO contrast but patient refusing to drink PO Contrast, thus IV contrast: Right adrenal mass likely represent metastasis. Status: Acute (5) Leukocytosis Assessment & Plan: Patient agreed to blood work, 09/20/17: 13.7 On admission: 14.7, patient has been refusing further lab work but continues to state that he would rethink his decision Blood Culture: Negative X5 days UA: LE (2+) and WBC (22), f/u repeat UA and UC (09/15/17) Meds: Cipro 400mg PO BID, started 09/15/17 ( Discontinue if repeat UA AND UC is negative) Zosyn 3.375gm IV Q6H ( Started 09/19/17)-- As per nursing, patient refused treatment Status: Acute (6) Anemia Assessment & Plan: H/H stable : 8.1/26.8 Patient is refusing transfusion at the moment RBC indices indicative of iron deficiency anemia Retic Count ELEVATED 2.5, Haptoglobin ELEVATED 369 Vitamin B12 and Folate NORMAL Ferritin NORMAL Homocysteine NORMAL IRON: 16 TIBC: 302 % Saturation: 5 Peripheral smear: Slight Parietal cell Ab negative, Negative intrinsic factor Pending LDH Medication: * Ferrous sulfate 325mg PO TID (As per nursing, patient is refusing treatment) Status: Acute (7) Lice infestation Assessment & Plan: Recommendation to shave patient bald; patient refuses Meds: Applied ivermectin and permethrin Given NIX kit once Contact precautions Status: Acute (8) Weight loss Assessment & Plan: Pending HIV Patient is currently not eating Supplemental diet Status: Acute (9) History of CVA (cerebrovascular accident) Assessment & Plan: Hx of CVA in 2016 with documented right arm and leg weakness Head CT: A chronic infarct at the left MCA distribution is identified as well as age related neuro degenerative changes which are mildly advanced for the patient's age of 57 years. No intra hemorrhage, mass effect or CT pattern of an acute or subacute brain infarction is appreciated at this time. Follow-up CT or MRI are available if clinically warranted. Meds: Aspirin 81mg PO QD Crestor 10mg PO HS Status: Chronic (10) Left shoulder pain Assessment & Plan: Left shoulder X-ray (09/05/2017): No acute fracture. Acromioclavicular degenerative arthritis. Status: Acute (11) History of seizures Assessment & Plan: Patient has been without any seizure activity since admission Prior records show seizure activity Will monitor and if necessary start keppra and ativan Seizure precautions Status: Acute (12) Severe depression Assessment & Plan: Start Zoloft 50 mg PO Daily Start Remeron 15 mg PO QHS Status: Acute (13) Prophylactic measure Assessment & Plan: SCDs Anticoagulation contraindication due to anemia Disposition: Patient continues to refuse labs, food, treatment and diagnostic testing/ medications All plans and management discussed with attending, Dr. Torres Status: Acute <Lamonte Torres - Last Filed: 09/22/17 15:12> Objective - Vital Signs/Intake and Output Vital Signs (last 24 hours): Temp Pulse Resp BP Pulse Ox 98.5 F 97 H 20 116/72 95 09/22/17 07:54 09/22/17 07:54 09/22/17 07:54 09/22/17 07:54 09/22/17 07:54 Intake and Output: 09/22/17 09/22/17 06:59 18:59 Intake Total 480 Output Total 200 Balance 280 - Medications Medications: Current Medications Acetaminophen (Tylenol 325mg Tab) 650 mg PO Q6 PRN PRN Reason: fever. Last Admin: 09/17/17 11:32 Dose: 650 mg Aspirin (Aspirin Chewable) 81 mg PO DAILY [facility] Last Admin: 09/22/17 09:34 Dose: Not Given Benztropine Mesylate (Cogentin) 1 mg PO BID [facility] Last Admin: 09/22/17 09:34 Dose: Not Given Docusate Sodium (Colace) 100 mg PO TID [facility] Last Admin: 09/22/17 13:29 Dose: Not Given Enoxaparin Sodium (Lovenox) 30 mg SC DAILY [facility] Last Admin: 09/22/17 09:34 Dose: Not Given Ferrous Sulfate (Feosol) 325 mg PO TID [facility] Last Admin: 09/22/17 13:30 Dose: Not Given Haloperidol (Haldol) 5 mg PO Q6 PRN PRN Reason: Agitation Last Admin: 09/08/17 11:41 Dose: 5 mg Mirtazapine (Remeron) 15 mg PO HS [facility] Last Admin: 09/21/17 22:56 Dose: Not Given Morphine Sulfate (Morphine Extended Release Tab) 15 mg PO Q12 [facility] Last Admin: 09/22/17 09:34 Dose: Not Given Risperidone (Risperdal Tab) 1 mg PO BID [facility] Last Admin: 09/22/17 09:34 Dose: Not Given Rosuvastatin Calcium (Crestor) 10 mg PO [facility] Last Admin: 09/21/17 22:55 Dose: Not Given Sertraline HCl (Zoloft) 50 mg PO DAILY [facility] Last Admin: 09/22/17 09:35 Dose: Not Given Trazodone HCl (Desyrel) 50 mg PO [facility] Last Admin: 09/21/17 22:55 Dose: Not Given - Labs Labs: 09/18/17 14:34 09/18/17 14:34 PT 17.5 SECONDS (9.7-12.2) H 08/31/17 17:07 INR 1.5 08/31/17 17:07 APTT 35 SECONDS (21-34) H 08/31/17 17:07 Attending/Attestation - Attestation I have personally seen and examined this patient.: Yes I have fully participated in the care of the patient.: Yes I have reviewed all pertinent clinical information, including history, physical exam and plan: Yes Notes (Text): This is a 57 years old homeless male with history of CVA brought in from homeless skilled nursing for body lices. He is anemic,weak. His CT shows CT abd/pelvis with IV contrast Large destructive heterogeneous soft tissue mass in the left lung upper lobe extending to the left upper posterior chest wall and extending to the left aspect of the upper thoracic spine consistent with malignant neoplasm. The mass is extending to upper aspect of the left hilum. Bony erosion and partial destruction of the left upper ribs and left aspect of T3 and T4 vertebral bodies. Left hilum and left mediastinum lymphadenopathy consistent with metastasis. Right adrenal mass likely represent metastasis. Moderate to mildly severe right hydro nephrosis and proximal hydro ureter up to 10.5 millimeter obstructing calculus at the proximal right ureter. Moderate constipation. 1. Lung mass/likely metastatic cancer,likely bone mets 2.Hydronephrosis 3.Anemia 4.h/o CVA 5.Weakness/unable to sit or ambulate 6.Refuses care,refuses labs,refuses meds 7.Poor intake 8.Depression Patient is complaining of whole body hurts. Started on Morphine ER,started on antidepressant. Patient is not taking medication. Refuses meds. He knows that he is in the hospital.Not able to tell the name of the hospital. Able to tell that we its August 2017.Knows Meek is our president. He knows that he is sick. Discussed with the SW about getting Medicaid. Spoke to Dr Martinez about refusing meds. He will be seen by Eloina sifuentes RN and 09/22/17 15:11
[2017-09-22] MEDS: Sodium Chloride 0.9% 1,000 ML IV SCH
[2017-09-22] MEDS: Piperacill/Tazo 3.375gm in Dex 3.375 GM/50 ML BAG IVPB SCH ×2 (04:00→09:35)
[2017-09-22] MEDS: Morphine 15 mg SR Tab PO SCH ×2 (09:34→22:40)
[2017-09-22] MEDS: Enoxaparin 30 mg Syringe SC SCH (09:34)
--- NOTE | 2017-09-22 18:57 | CP.PCM.PN ---
<ArturoShandadayanna Starr - Last Filed: 09/22/17 18:55> Subjective - Date & Time of Evaluation Date of Evaluation: 09/22/17 Time of Evaluation: 07:35 - Subjective Subjective: Medicine progress note ( Dr. Torres's service) Patient was seen and examined at bedside. Patient is resting in bed. Patient is clinically the same with no acute issues and continues to refuse treatment. Patient was more chatty today. Objective - Vital Signs/Intake and Output Vital Signs (last 24 hours): Temp Pulse Resp BP Pulse Ox 97.8 F 103 H 20 122/67 100 09/22/17 16:00 09/22/17 16:00 09/22/17 16:00 09/22/17 16:00 09/22/17 16:00 Intake and Output: 09/22/17 09/22/17 06:59 18:59 Intake Total 480 400 Output Total 200 Balance 280 400 - Medications Medications: Current Medications Acetaminophen (Tylenol 325mg Tab) 650 mg PO Q6 PRN PRN Reason: fever. Last Admin: 09/17/17 11:32 Dose: 650 mg Aspirin (Aspirin Chewable) 81 mg PO DAILY [facility] [place] Last Admin: 09/22/17 09:34 Dose: Not Given Benztropine Mesylate (Cogentin) 1 mg PO BID [facility] [place] Last Admin: 09/22/17 09:34 Dose: Not Given Docusate Sodium (Colace) 100 mg PO TID [facility] [place] Last Admin: 09/22/17 13:29 Dose: Not Given Enoxaparin Sodium (Lovenox) 30 mg SC DAILY [facility] [place] Last Admin: 09/22/17 09:34 Dose: Not Given Ferrous Sulfate (Feosol) 325 mg PO TID [facility] [place] Last Admin: 09/22/17 13:30 Dose: Not Given Haloperidol (Haldol) 5 mg PO Q6 PRN PRN Reason: Agitation Last Admin: 09/08/17 11:41 Dose: 5 mg Mirtazapine (Remeron) 15 mg PO HS [facility] [place] Last Admin: 09/21/17 22:56 Dose: Not Given Morphine Sulfate (Morphine Extended Release Tab) 15 mg PO Q12 [facility] [place] Last Admin: 09/22/17 09:34 Dose: Not Given Risperidone (Risperdal Tab) 1 mg PO BID [facility] [place] Last Admin: 09/22/17 09:34 Dose: Not Given Rosuvastatin Calcium (Crestor) 10 mg PO HS [facility] [place] Last Admin: 09/21/17 22:55 Dose: Not Given Sertraline HCl (Zoloft) 50 mg PO DAILY [facility] [place] Last Admin: 09/22/17 09:35 Dose: Not Given Trazodone HCl (Desyrel) 50 mg PO HS [facility] [place] Last Admin: 09/21/17 22:55 Dose: Not Given - Labs Labs: 09/18/17 14:34 09/18/17 14:34 PT 17.5 SECONDS (9.7-12.2) H 08/31/17 17:07 INR 1.5 08/31/17 17:07 APTT 35 SECONDS (21-34) H 08/31/17 17:07 - Constitutional Appears: Well, No Acute Distress - Head Exam Head Exam: ATRAUMATIC, NORMAL INSPECTION - Eye Exam Eye Exam: EOMI - ENT Exam ENT Exam: Mucous Membranes Moist - Respiratory Exam Respiratory Exam: NORMAL BREATHING PATTERN. absent: Prolonged Expiratory Phase , Rhonchi, Wheezes, Respiratory Distress - Cardiovascular Exam Cardiovascular Exam: REGULAR RHYTHM, +S1, +S2 - GI/Abdominal Exam GI & Abdominal Exam: Soft, Normal Bowel Sounds. absent: Distended, Firm, Guarding, Rigid, Tenderness - Extremities Exam Extremities Exam: Normal Inspection - Neurological Exam Neurological Exam: Alert, Awake - Psychiatric Exam Psychiatric exam: Depressed, Flat Affect - Skin Skin Exam: Abrasion Assessment and Plan (1) Refusal of treatment Assessment & Plan: Psychiatry Consult, Dr. Martinez Evaluate for capacity * As per psychiatry evaluation: Patient lacks the capacity to make his own medical decisions at this time. Plans for reevaluation at a latter time. * Re-consultation for capacity and evaluation for severe depression and possible pseudodementia (09/14/17); As per documentation, patient is psychiatrically stable for discharge. As per phone conversation with Dr. 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 Findings are concerning for malignancy. Dedicated CT scan of the chest with intravenous contrast is recommended for further characterization. * Patient has been refusing chest CT but states that he will think about and have the test done soon * CT abd/pelvis with IV contrast for today. Wanted PO contrast but patient refusing to drink PO Contrast, thus IV contrast: Large destructive heterogeneous soft tissue mass in the left lung upper lobe extending to the left upper posterior chest wall and extending to the left aspect of the upper thoracic spine consistent with malignant neoplasm. The mass is extending to upper aspect of the left hilum. Bony erosion and partial destruction of the left upper ribs and left aspect of T3 and T4 vertebral bodies. Left hilum and left mediastinum lymphadenopathy consistent with metastasis. Right adrenal mass likely represent metastasis. Moderate to mildly severe right hydronephrosis and proximal hydroureter up to 10.5 millimeter obstructing calculus at the proximal right ureter. Moderate constipation. Labs: * QFT negative, legionella negative, pending Mycoplasma Igm, Strep Pneumoniae, * Negative PPD read; no induration noted (48 hours and 72 hours read) * Patient is still refusing to produce sputum Medications: * Trazadone 50mg PO HS * Tylenol 650mg PO Q6H PRN * Morphine extended release 15mg PO Q12H * Percocet 1 tab PO Q4H Palliative consult * Management as per recommendation * Reconsultation, 09/21/17 Status: Acute (3) Mass of upper lobe of left lung Assessment & Plan: CXR 08/31/17: Large left upper lobe mass with probable involvement of the left posterior 3rd rib. Findings are concerning for malignancy. Dedicated CT scan of the chest with intravenous contrast is recommended for further characterization. Chest CT: Large destructive heterogeneous soft tissue mass in the left lung upper lobe extending to the left upper posterior chest wall and extending to the left aspect of the upper thoracic spine consistent with malignant neoplasm. The mass is extending to upper aspect of the left hilum. Bony erosion and partial destruction of the left upper ribs and left aspect of T3 and T4 vertebral bodies. Left hilum and left mediastinum lymphadenopathy consistent with metastasis. Palliative consult Management as per recommendation Status: Acute (4) Right adrenal mass Assessment & Plan: CT abd/pelvis with IV contrast for today. Wanted PO contrast but patient refusing to drink PO Contrast, thus IV contrast: Right adrenal mass likely represent metastasis. Status: Acute (5) Leukocytosis Assessment & Plan: Patient agreed to blood work, 09/20/17: 13.7 On admission: 14.7, patient has been refusing further lab work but continues to state that he would rethink his decision Blood Culture: Negative X5 days UA: LE (2+) and WBC (22), f/u repeat UA and UC (09/15/17) Meds: Cipro 400mg PO BID, started 09/15/17 ( Discontinue if repeat UA AND UC is negative) Zosyn 3.375gm IV Q6H ( Started 09/19/17)-- As per nursing, patient refused treatment Status: Acute (6) Anemia Assessment & Plan: H/H stable : 8.1/26.8 Patient is refusing transfusion at the moment RBC indices indicative of iron deficiency anemia Retic Count ELEVATED 2.5, Haptoglobin ELEVATED 369 Vitamin B12 and Folate NORMAL Ferritin NORMAL Homocysteine NORMAL IRON: 16 TIBC: 302 % Saturation: 5 Peripheral smear: Slight Parietal cell Ab negative, Negative intrinsic factor Pending LDH Medication: * Ferrous sulfate 325mg PO TID (As per nursing, patient is refusing treatment) Status: Acute (7) Lice infestation Assessment & Plan: Recommendation to shave patient bald; patient refuses Meds: Applied ivermectin and permethrin Given NIX kit once Contact precautions Status: Acute (8) Weight loss Assessment & Plan: Pending HIV Patient is currently not eating Supplemental diet Status: Acute (9) History of CVA (cerebrovascular accident) Assessment & Plan: Hx of CVA in 2016 with documented right arm and leg weakness Head CT: A chronic infarct at the left MCA distribution is identified as well as age related neuro degenerative changes which are mildly advanced for the patient's age of 57 years. No intra hemorrhage, mass effect or CT pattern of an acute or subacute brain infarction is appreciated at this time. Follow-up CT or MRI are available if clinically warranted. Meds: Aspirin 81mg PO QD Crestor 10mg PO HS Status: Chronic (10) Left shoulder pain Assessment & Plan: Left shoulder X-ray (09/05/2017): No acute fracture. Acromioclavicular degenerative arthritis. Status: Acute (11) History of seizures Assessment & Plan: Patient has been without any seizure activity since admission Prior records show seizure activity Will monitor and if necessary start keppra and ativan Seizure precautions Status: Acute (12) Severe depression Assessment & Plan: Start Zoloft 50 mg PO Daily Start Remeron 15 mg PO QHS Status: Acute (13) Prophylactic measure Assessment & Plan: SCDs Anticoagulation contraindication due to anemia Disposition: Patient continues to refuse labs, food, treatment and diagnostic testing/ medications All plans and management discussed with attending, Dr. Torres Status: Acute <Lamonte Torres - Last Filed: 09/24/17 20:47> Objective - Vital Signs/Intake and Output Vital Signs (last 24 hours): Temp Pulse Resp BP Pulse Ox 97.9 F 99 H 20 103/66 100 09/24/17 20:11 09/24/17 20:11 09/24/17 20:11 09/24/17 20:11 09/24/17 20:11 Intake and Output: 09/24/17 09/25/17 18:59 06:59 Intake Total 350 Balance 350 - Medications Medications: Current Medications Acetaminophen (Tylenol 325mg Tab) 650 mg PO Q6 PRN PRN Reason: fever. Last Admin: 09/23/17 14:30 Dose: 650 mg Aspirin (Aspirin Chewable) 81 mg PO DAILY [facility] [place] Last Admin: 09/24/17 09:23 Dose: Not Given Benztropine Mesylate (Cogentin) 1 mg PO BID [facility] [place] Last Admin: 09/24/17 17:58 Dose: Not Given Docusate Sodium (Colace) 100 mg PO TID [facility] [place] Last Admin: 09/24/17 17:58 Dose: Not Given Enoxaparin Sodium (Lovenox) 30 mg SC DAILY [facility] [place] Last Admin: 09/24/17 09:23 Dose: Not Given Ferrous Sulfate (Feosol) 325 mg PO TID [facility] [place] Last Admin: 09/24/17 17:58 Dose: Not Given Haloperidol (Haldol) 5 mg PO Q6 PRN PRN Reason: Agitation Last Admin: 09/08/17 11:41 Dose: 5 mg Mirtazapine (Remeron) 15 mg PO [facility] Last Admin: 09/23/17 21:49 Dose: Not Given Risperidone (Risperdal Tab) 1 mg PO BID [facility] [place] Last Admin: 09/24/17 17:58 Dose: Not Given Rosuvastatin Calcium (Crestor) 10 mg PO HS [facility] [place] Last Admin: 09/23/17 21:49 Dose: Not Given Sertraline HCl (Zoloft) 50 mg PO DAILY [facility] [place] Last Admin: 09/24/17 09:24 Dose: Not Given Trazodone HCl (Desyrel) 50 mg PO HS [facility] [place] Last Admin: 09/23/17 21:49 Dose: Not Given - Labs Labs: 09/18/17 14:34 09/18/17 14:34 PT 17.5 SECONDS (9.7-12.2) H 08/31/17 17:07 INR 1.5 08/31/17 17:07 APTT 35 SECONDS (21-34) H 08/31/17 17:07 Attending/Attestation - Attestation I have personally seen and examined this patient.: Yes I have fully participated in the care of the patient.: Yes I have reviewed all pertinent clinical information, including history, physical exam and plan: Yes Notes (Text): This is a 57 years old homeless male with history of CVA brought in from homeless group home for body lices. He is anemic,weak. His CT shows CT abd/pelvis with IV contrast Large destructive heterogeneous soft tissue mass in the left lung upper lobe extending to the left upper posterior chest wall and extending to the left aspect of the upper thoracic spine consistent with malignant neoplasm. The mass is extending to upper aspect of the left hilum. Bony erosion and partial destruction of the left upper ribs and left aspect of T3 and T4 vertebral bodies. Left hilum and left mediastinum lymphadenopathy consistent with metastasis. Right adrenal mass likely represent metastasis. Moderate to mildly severe right hydro nephrosis and proximal hydro ureter up to 10.5 millimeter obstructing calculus at the proximal right ureter. Moderate constipation. 1. Lung mass/likely metastatic cancer,likely bone mets 2.Hydronephrosis 3.Anemia 4.h/o CVA 5.Weakness/unable to sit or ambulate 6.Refuses care,refuses labs,refuses meds 7.Poor intake 8.Depression Patient is complaining of whole body hurts. Started on Morphine ER,started on antidepressant. Patient is not taking medication. Refuses meds. He knows that he is in the hospital.Not able to tell the name of the hospital. Able to tell that we its August 2017.Knows Meek is our president. He knows that he is sick. Discussed with the SW about getting Medicaid. Spoke to Dr Martinez about refusing meds.
--- NOTE | 2017-09-23 00:15 | CP.PCM.PN ---
<Nuria Rob - Last Filed: 09/23/17 00:12> Subjective - Date & Time of Evaluation Date of Evaluation: 09/23/17 Time of Evaluation: 00:12 - Subjective Subjective: Patient seen and examined at bedside. Patient resting comfortably in bed with no new complaints at this time. No acute events per nursing. Patient is clinically same. Objective - Vital Signs/Intake and Output Vital Signs (last 24 hours): Temp Pulse Resp BP Pulse Ox 97.8 F 103 H 20 122/67 100 09/22/17 16:00 09/22/17 16:00 09/22/17 16:00 09/22/17 16:00 09/22/17 16:00 Intake and Output: 09/22/17 09/23/17 18:59 06:59 Intake Total 400 240 Output Total 350 Balance 400 -110 - Medications Medications: Current Medications Acetaminophen (Tylenol 325mg Tab) 650 mg PO Q6 PRN PRN Reason: fever. Last Admin: 09/17/17 11:32 Dose: 650 mg Aspirin (Aspirin Chewable) 81 mg PO DAILY [facility] Last Admin: 09/22/17 09:34 Dose: Not Given Benztropine Mesylate (Cogentin) 1 mg PO BID [facility] Last Admin: 09/22/17 18:00 Dose: Not Given Docusate Sodium (Colace) 100 mg PO TID [facility] Last Admin: 09/22/17 18:00 Dose: Not Given Enoxaparin Sodium (Lovenox) 30 mg SC DAILY [facility] Last Admin: 09/22/17 09:34 Dose: Not Given Ferrous Sulfate (Feosol) 325 mg PO TID [facility] Last Admin: 09/22/17 18:00 Dose: Not Given Haloperidol (Haldol) 5 mg PO Q6 PRN PRN Reason: Agitation Last Admin: 09/08/17 11:41 Dose: 5 mg Mirtazapine (Remeron) 15 mg PO HS [facility] Last Admin: 09/22/17 22:41 Dose: Not Given Risperidone (Risperdal Tab) 1 mg PO BID [facility] Last Admin: 09/22/17 18:00 Dose: Not Given Rosuvastatin Calcium (Crestor) 10 mg PO HS [facility] Last Admin: 09/22/17 22:40 Dose: Not Given Sertraline HCl (Zoloft) 50 mg PO DAILY [facility] Last Admin: 09/22/17 09:35 Dose: Not Given Trazodone HCl (Desyrel) 50 mg PO HS [facility] Last Admin: 09/22/17 22:40 Dose: Not Given - Labs Labs: 09/18/17 14:34 09/18/17 14:34 PT 17.5 SECONDS (9.7-12.2) H 08/31/17 17:07 INR 1.5 08/31/17 17:07 APTT 35 SECONDS (21-34) H 08/31/17 17:07 - Additional Findings Additional findings: - Constitutional Appears: Well, No Acute Distress - Head Exam Head Exam: ATRAUMATIC, NORMAL INSPECTION - Eye Exam Eye Exam: EOMI - ENT Exam ENT Exam: Mucous Membranes Moist - Respiratory Exam Respiratory Exam: NORMAL BREATHING PATTERN. absent: Prolonged Expiratory Phase , Rhonchi, Wheezes, Respiratory Distress - Cardiovascular Exam Cardiovascular Exam: REGULAR RHYTHM, +S1, +S2 - GI/Abdominal Exam GI & Abdominal Exam: Soft, Normal Bowel Sounds. absent: Distended, Firm, Guarding, Rigid, Tenderness - Extremities Exam Extremities Exam: Normal Inspection - Neurological Exam Neurological Exam: Alert, Awake - Psychiatric Exam Psychiatric exam: Depressed, Flat Affect - Skin Skin Exam: Abrasion Assessment and Plan - Assessment and Plan (Free Text) Plan: (1) Refusal of treatment Assessment & Plan: Psychiatry Consult, Dr. Martinez Evaluate for capacity * As per psychiatry evaluation: Patient lacks the capacity to make his own medical decisions at this time. Plans for reevaluation at a latter time. * Re-consultation for capacity and evaluation for severe depression and possible pseudodementia (09/14/17); As per documentation, patient is psychiatrically stable for discharge. As per phone conversation with Dr. Martinez, he will addendum note (09/14/17) commenting on patient's capacity manager news, Consultation: Discussion with case filler today, 09/08/17; regarding possible guardianship Medical ethics consults * Management as per recommendation Medications: * Cogentin 1mg PO BID * Haldol 5mg PO Q6H PRN * Risperidone 1mg PO BID * Trazodone 50mg PO HS Status: Acute (2) Generalized pain Assessment & Plan: CXR 08/31/17: * Large left upper lobe mass with probable involvement of the left posterior 3rd rib. Findings are concerning for malignancy. Dedicated CT scan of the chest with intravenous contrast is recommended for further characterization. * Patient has been refusing chest CT but states that he will think about and have the test done soon * CT abd/pelvis with IV contrast for today. Wanted PO contrast but patient refusing to drink PO Contrast, thus IV contrast: Large destructive heterogeneous soft tissue mass in the left lung upper lobe extending to the left upper posterior chest wall and extending to the left aspect of the upper thoracic spine consistent with malignant neoplasm. The mass is extending to upper aspect of the left hilum. Bony erosion and partial destruction of the left upper ribs and left aspect of T3 and T4 vertebral bodies. Left hilum and left mediastinum lymphadenopathy consistent with metastasis. Right adrenal mass likely represent metastasis. Moderate to mildly severe right hydronephrosis and proximal hydroureter up to 10.5 millimeter obstructing calculus at the proximal right ureter. Moderate constipation. Labs: * QFT negative, legionella negative, pending Mycoplasma Igm, Strep Pneumoniae, * Negative PPD read; no induration noted (48 hours and 72 hours read) * Patient is still refusing to produce sputum Medications: * Trazadone 50mg PO HS * Tylenol 650mg PO Q6H PRN * Morphine extended release 15mg PO Q12H * Percocet 1 tab PO Q4H Palliative consult * Management as per recommendation * Reconsultation, 09/21/17 Status: Acute (3) Mass of upper lobe of left lung Assessment & Plan: CXR 08/31/17: Large left upper lobe mass with probable involvement of the left posterior 3rd rib. Findings are concerning for malignancy. Dedicated CT scan of the chest with intravenous contrast is recommended for further characterization. Chest CT: Large destructive heterogeneous soft tissue mass in the left lung upper lobe extending to the left upper posterior chest wall and extending to the left aspect of the upper thoracic spine consistent with malignant neoplasm. The mass is extending to upper aspect of the left hilum. Bony erosion and partial destruction of the left upper ribs and left aspect of T3 and T4 vertebral bodies. Left hilum and left mediastinum lymphadenopathy consistent with metastasis. Palliative consult Management as per recommendation Status: Acute (4) Right adrenal mass Assessment & Plan: CT abd/pelvis with IV contrast for today. Wanted PO contrast but patient refusing to drink PO Contrast, thus IV contrast: Right adrenal mass likely represent metastasis. Status: Acute (5) Leukocytosis Assessment & Plan: Patient agreed to blood work, 4/25/18: 13.7 On admission: 14.7, patient has been refusing further lab work but continues to state that he would rethink his decision Blood Culture: Negative X5 days UA: LE (2+) and WBC (22), f/u repeat UA and UC (09/15/17) Meds: Cipro 400mg PO BID, started 09/15/17 ( Discontinue if repeat UA AND UC is negative) Zosyn 3.375gm IV Q6H ( Started 09/19/17)-- As per nursing, patient refused treatment Status: Acute (6) Anemia Assessment & Plan: H/H stable : 8.1/26.8 Patient is refusing transfusion at the moment RBC indices indicative of iron deficiency anemia Retic Count ELEVATED 2.5, Haptoglobin ELEVATED 369 Vitamin B12 and Folate NORMAL Ferritin NORMAL Homocysteine NORMAL IRON: 16 TIBC: 302 % Saturation: 5 Peripheral smear: Slight Parietal cell Ab negative, Negative intrinsic factor Pending LDH Medication: * Ferrous sulfate 325mg PO TID (As per nursing, patient is refusing treatment) Status: Acute (7) Lice infestation Assessment & Plan: Recommendation to shave patient bald; patient refuses Meds: Applied ivermectin and permethrin Given NIX kit once Contact precautions Status: Acute (8) Weight loss Assessment & Plan: Pending HIV Patient is currently not eating Supplemental diet Status: Acute (9) History of CVA (cerebrovascular accident) Assessment & Plan: Hx of CVA in 2016 with documented right arm and leg weakness Head CT: A chronic infarct at the left MCA distribution is identified as well as age related neuro degenerative changes which are mildly advanced for the patient's age of 57 years. No intra hemorrhage, mass effect or CT pattern of an acute or subacute brain infarction is appreciated at this time. Follow-up CT or MRI are available if clinically warranted. Meds: Aspirin 81mg PO QD Crestor 10mg PO HS Status: Chronic (10) Left shoulder pain Assessment & Plan: Left shoulder X-ray (09/05/2017): No acute fracture. Acromioclavicular degenerative arthritis. Status: Acute (11) History of seizures Assessment & Plan: Patient has been without any seizure activity since admission Prior records show seizure activity Will monitor and if necessary start keppra and ativan Seizure precautions Status: Acute (12) Severe depression Assessment & Plan: Start Zoloft 50 mg PO Daily Start Remeron 15 mg PO QHS Status: Acute (13) Prophylactic measure Assessment & Plan: SCDs Anticoagulation contraindication due to anemia Disposition: Patient continues to refuse labs, food, treatment and diagnostic testing/ medications <RavinArun copelandmarkwilmar - Last Filed: 09/24/17 20:54> Objective - Vital Signs/Intake and Output Vital Signs (last 24 hours): Temp Pulse Resp BP Pulse Ox 97.9 F 99 H 20 103/66 100 09/24/17 20:11 09/24/17 20:11 09/24/17 20:11 09/24/17 20:11 09/24/17 20:11 Intake and Output: 09/24/17 09/25/17 18:59 06:59 Intake Total 350 Balance 350 - Medications Medications: Current Medications Acetaminophen (Tylenol 325mg Tab) 650 mg PO Q6 PRN PRN Reason: fever. Last Admin: 09/23/17 14:30 Dose: 650 mg Aspirin (Aspirin Chewable) 81 mg PO DAILY [facility] Last Admin: 09/24/17 09:23 Dose: Not Given Benztropine Mesylate (Cogentin) 1 mg PO BID [facility] Last Admin: 09/24/17 17:58 Dose: Not Given Docusate Sodium (Colace) 100 mg PO TID [facility] Last Admin: 09/24/17 17:58 Dose: Not Given Enoxaparin Sodium (Lovenox) 30 mg SC DAILY [facility] Last Admin: 09/24/17 09:23 Dose: Not Given Ferrous Sulfate (Feosol) 325 mg PO TID [facility] Last Admin: 09/24/17 17:58 Dose: Not Given Haloperidol (Haldol) 5 mg PO Q6 PRN PRN Reason: Agitation Last Admin: 09/08/17 11:41 Dose: 5 mg Mirtazapine (Remeron) 15 mg PO [facility] Last Admin: 09/23/17 21:49 Dose: Not Given Risperidone (Risperdal Tab) 1 mg PO BID [facility] Last Admin: 09/24/17 17:58 Dose: Not Given Rosuvastatin Calcium (Crestor) 10 mg PO HS [facility] Last Admin: 09/23/17 21:49 Dose: Not Given Sertraline HCl (Zoloft) 50 mg PO DAILY [facility] Last Admin: 09/24/17 09:24 Dose: Not Given Trazodone HCl (Desyrel) 50 mg PO HS [facility] Last Admin: 09/23/17 21:49 Dose: Not Given - Labs Labs: 09/18/17 14:34 09/18/17 14:34 PT 17.5 SECONDS (9.7-12.2) H 08/31/17 17:07 INR 1.5 08/31/17 17:07 APTT 35 SECONDS (21-34) H 08/31/17 17:07 Attending/Attestation - Attestation I have personally seen and examined this patient.: Yes I have fully participated in the care of the patient.: Yes I have reviewed all pertinent clinical information, including history, physical exam and plan: Yes Notes (Text): his is a 57 years old homeless male with history of CVA brought in from homeless long-term for body lices. He is anemic,weak. His CT shows CT abd/pelvis with IV contrast Large destructive heterogeneous soft tissue mass in the left lung upper lobe extending to the left upper posterior chest wall and extending to the left aspect of the upper thoracic spine consistent with malignant neoplasm. The mass is extending to upper aspect of the left hilum. Bony erosion and partial destruction of the left upper ribs and left aspect of T3 and T4 vertebral bodies. Left hilum and left mediastinum lymphadenopathy consistent with metastasis. Right adrenal mass likely represent metastasis. Moderate to mildly severe right hydro nephrosis and proximal hydro ureter up to 10.5 millimeter obstructing calculus at the proximal right ureter. Moderate constipation. 1. Lung mass/likely metastatic cancer,likely bone mets 2.Hydronephrosis 3.Anemia 4.h/o CVA 5.Weakness/unable to sit or ambulate 6.Refuses care,refuses labs,refuses meds 7.Poor intake 8.Depression D/W Resident. I agree with the documentation
[2017-09-23] MEDS: Enoxaparin 30 mg Syringe SC SCH (09:24)
--- NOTE | 2017-09-24 03:03 | CP.PCM.PN ---
<Nuria Rob - Last Filed: 09/24/17 03:02> Subjective - Date & Time of Evaluation Date of Evaluation: 09/24/17 Time of Evaluation: 03:02 - Subjective Subjective: Patient seen and examined at bedside. Patient resting comfortably in bed with no new complaints at this time. No acute events per nursing. Patient is clinically same. Objective - Vital Signs/Intake and Output Vital Signs (last 24 hours): Temp Pulse Resp BP Pulse Ox 98.1 F 96 H 20 104/64 94 L 09/24/17 00:00 09/24/17 00:00 09/24/17 00:00 09/24/17 00:00 09/24/17 00:00 Intake and Output: 09/23/17 09/24/17 18:59 06:59 Intake Total 600 250 Balance 600 250 - Medications Medications: Current Medications Acetaminophen (Tylenol 325mg Tab) 650 mg PO Q6 PRN PRN Reason: fever. Last Admin: 09/23/17 14:30 Dose: 650 mg Aspirin (Aspirin Chewable) 81 mg PO DAILY [facility] Last Admin: 09/23/17 09:24 Dose: Not Given Benztropine Mesylate (Cogentin) 1 mg PO BID [facility] Last Admin: 09/23/17 18:20 Dose: Not Given Docusate Sodium (Colace) 100 mg PO TID [facility] Last Admin: 09/23/17 18:21 Dose: Not Given Enoxaparin Sodium (Lovenox) 30 mg SC DAILY [facility] Last Admin: 09/23/17 09:24 Dose: Not Given Ferrous Sulfate (Feosol) 325 mg PO TID [facility] Last Admin: 09/23/17 18:21 Dose: Not Given Haloperidol (Haldol) 5 mg PO Q6 PRN PRN Reason: Agitation Last Admin: 09/08/17 11:41 Dose: 5 mg Mirtazapine (Remeron) 15 mg PO HS [facility] Last Admin: 09/23/17 21:49 Dose: Not Given Risperidone (Risperdal Tab) 1 mg PO BID [facility] Last Admin: 09/23/17 18:23 Dose: Not Given Rosuvastatin Calcium (Crestor) 10 mg PO HS [facility] Last Admin: 09/23/17 21:49 Dose: Not Given Sertraline HCl (Zoloft) 50 mg PO DAILY [facility] Last Admin: 09/23/17 09:25 Dose: Not Given Trazodone HCl (Desyrel) 50 mg PO HS [facility] Last Admin: 09/23/17 21:49 Dose: Not Given - Labs Labs: 09/18/17 14:34 09/18/17 14:34 PT 17.5 SECONDS (9.7-12.2) H 08/31/17 17:07 INR 1.5 08/31/17 17:07 APTT 35 SECONDS (21-34) H 08/31/17 17:07 - Additional Findings Additional findings: - Constitutional Appears: Well, No Acute Distress - Head Exam Head Exam: ATRAUMATIC, NORMAL INSPECTION - Eye Exam Eye Exam: EOMI - ENT Exam ENT Exam: Mucous Membranes Moist - Respiratory Exam Respiratory Exam: NORMAL BREATHING PATTERN. absent: Prolonged Expiratory Phase , Rhonchi, Wheezes, Respiratory Distress - Cardiovascular Exam Cardiovascular Exam: REGULAR RHYTHM, +S1, +S2 - GI/Abdominal Exam GI & Abdominal Exam: Soft, Normal Bowel Sounds. absent: Distended, Firm, Guarding, Rigid, Tenderness - Extremities Exam Extremities Exam: Normal Inspection - Neurological Exam Neurological Exam: Alert, Awake - Psychiatric Exam Psychiatric exam: Depressed, Flat Affect - Skin Skin Exam: Abrasion Assessment and Plan - Assessment and Plan (Free Text) Plan: (1) Refusal of treatment Assessment & Plan: Psychiatry Consult, Dr. Martinez Evaluate for capacity * As per psychiatry evaluation: Patient lacks the capacity to make his own medical decisions at this time. Plans for reevaluation at a latter time. * Re-consultation for capacity and evaluation for severe depression and possible pseudodementia (09/14/17); As per documentation, patient is psychiatrically stable for discharge. As per phone conversation with Dr. 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 Findings are concerning for malignancy. Dedicated CT scan of the chest with intravenous contrast is recommended for further characterization. * Patient has been refusing chest CT but states that he will think about and have the test done soon * CT abd/pelvis with IV contrast for today. Wanted PO contrast but patient refusing to drink PO Contrast, thus IV contrast: Large destructive heterogeneous soft tissue mass in the left lung upper lobe extending to the left upper posterior chest wall and extending to the left aspect of the upper thoracic spine consistent with malignant neoplasm. The mass is extending to upper aspect of the left hilum. Bony erosion and partial destruction of the left upper ribs and left aspect of T3 and T4 vertebral bodies. Left hilum and left mediastinum lymphadenopathy consistent with metastasis. Right adrenal mass likely represent metastasis. Moderate to mildly severe right hydronephrosis and proximal hydroureter up to 10.5 millimeter obstructing calculus at the proximal right ureter. Moderate constipation. Labs: * QFT negative, legionella negative, pending Mycoplasma Igm, Strep Pneumoniae, * Negative PPD read; no induration noted (48 hours and 72 hours read) * Patient is still refusing to produce sputum Medications: * Trazadone 50mg PO HS * Tylenol 650mg PO Q6H PRN * Morphine extended release 15mg PO Q12H * Percocet 1 tab PO Q4H Palliative consult * Management as per recommendation * Reconsultation, 09/21/17 Status: Acute (3) Mass of upper lobe of left lung Assessment & Plan: CXR 08/31/17: Large left upper lobe mass with probable involvement of the left posterior 3rd rib. Findings are concerning for malignancy. Dedicated CT scan of the chest with intravenous contrast is recommended for further characterization. Chest CT: Large destructive heterogeneous soft tissue mass in the left lung upper lobe extending to the left upper posterior chest wall and extending to the left aspect of the upper thoracic spine consistent with malignant neoplasm. The mass is extending to upper aspect of the left hilum. Bony erosion and partial destruction of the left upper ribs and left aspect of T3 and T4 vertebral bodies. Left hilum and left mediastinum lymphadenopathy consistent with metastasis. Palliative consult Management as per recommendation Status: Acute (4) Right adrenal mass Assessment & Plan: CT abd/pelvis with IV contrast for today. Wanted PO contrast but patient refusing to drink PO Contrast, thus IV contrast: Right adrenal mass likely represent metastasis. Status: Acute (5) Leukocytosis Assessment & Plan: Patient agreed to blood work, 09/20/17: 13.7 On admission: 14.7, patient has been refusing further lab work but continues to state that he would rethink his decision Blood Culture: Negative X5 days UA: LE (2+) and WBC (22), f/u repeat UA and UC (09/15/17) Meds: Cipro 400mg PO BID, started 09/15/17 ( Discontinue if repeat UA AND UC is negative) Zosyn 3.375gm IV Q6H ( Started 09/19/17)-- As per nursing, patient refused treatment Status: Acute (6) Anemia Assessment & Plan: H/H stable : 8.1/26.8 Patient is refusing transfusion at the moment RBC indices indicative of iron deficiency anemia Retic Count ELEVATED 2.5, Haptoglobin ELEVATED 369 Vitamin B12 and Folate NORMAL Ferritin NORMAL Homocysteine NORMAL IRON: 16 TIBC: 302 % Saturation: 5 Peripheral smear: Slight Parietal cell Ab negative, Negative intrinsic factor Pending LDH Medication: * Ferrous sulfate 325mg PO TID (As per nursing, patient is refusing treatment) Status: Acute (7) Lice infestation Assessment & Plan: Recommendation to shave patient bald; patient refuses Meds: Applied ivermectin and permethrin Given NIX kit once Contact precautions Status: Acute (8) Weight loss Assessment & Plan: Pending HIV Patient is currently not eating Supplemental diet Status: Acute (9) History of CVA (cerebrovascular accident) Assessment & Plan: Hx of CVA in 2016 with documented right arm and leg weakness Head CT: A chronic infarct at the left MCA distribution is identified as well as age related neuro degenerative changes which are mildly advanced for the patient's age of 57 years. No intra hemorrhage, mass effect or CT pattern of an acute or subacute brain infarction is appreciated at this time. Follow-up CT or MRI are available if clinically warranted. Meds: Aspirin 81mg PO QD Crestor 10mg PO HS Status: Chronic (10) Left shoulder pain Assessment & Plan: Left shoulder X-ray (09/05/2017): No acute fracture. Acromioclavicular degenerative arthritis. Status: Acute (11) History of seizures Assessment & Plan: Patient has been without any seizure activity since admission Prior records show seizure activity Will monitor and if necessary start keppra and ativan Seizure precautions Status: Acute (12) Severe depression Assessment & Plan: Start Zoloft 50 mg PO Daily Start Remeron 15 mg PO QHS Status: Acute (13) Prophylactic measure Assessment & Plan: SCDs Anticoagulation contraindication due to anemia Disposition: Patient continues to refuse labs, food, treatment and diagnostic testing/ medications <Lamonte Torres - Last Filed: 09/24/17 15:37> Objective - Vital Signs/Intake and Output Vital Signs (last 24 hours): Temp Pulse Resp BP Pulse Ox 97.6 F 82 20 100/62 98 09/24/17 08:00 09/24/17 08:00 09/24/17 08:00 09/24/17 08:00 09/24/17 08:00 Intake and Output: 09/24/17 09/24/17 06:59 18:59 Intake Total 490 350 Balance 490 350 - Medications Medications: Current Medications Acetaminophen (Tylenol 325mg Tab) 650 mg PO Q6 PRN PRN Reason: fever. Last Admin: 09/23/17 14:30 Dose: 650 mg Aspirin (Aspirin Chewable) 81 mg PO DAILY [facility] Last Admin: 09/24/17 09:23 Dose: Not Given Benztropine Mesylate (Cogentin) 1 mg PO BID [facility] Last Admin: 09/24/17 09:23 Dose: Not Given Docusate Sodium (Colace) 100 mg PO TID [facility] Last Admin: 09/24/17 13:30 Dose: Not Given Enoxaparin Sodium (Lovenox) 30 mg SC DAILY [facility] Last Admin: 09/24/17 09:23 Dose: Not Given Ferrous Sulfate (Feosol) 325 mg PO TID [facility] Last Admin: 09/24/17 13:30 Dose: Not Given Haloperidol (Haldol) 5 mg PO Q6 PRN PRN Reason: Agitation Last Admin: 09/08/17 11:41 Dose: 5 mg Mirtazapine (Remeron) 15 mg PO [facility] Last Admin: 09/23/17 21:49 Dose: Not Given Risperidone (Risperdal Tab) 1 mg PO BID [facility] Last Admin: 09/24/17 09:24 Dose: Not Given Rosuvastatin Calcium (Crestor) 10 mg PO HS [facility] Last Admin: 09/23/17 21:49 Dose: Not Given Sertraline HCl (Zoloft) 50 mg PO DAILY [facility] Last Admin: 09/24/17 09:24 Dose: Not Given Trazodone HCl (Desyrel) 50 mg PO HS [facility] Last Admin: 09/23/17 21:49 Dose: Not Given - Labs Labs: 09/18/17 14:34 09/18/17 14:34 PT 17.5 SECONDS (9.7-12.2) H 08/31/17 17:07 INR 1.5 08/31/17 17:07 APTT 35 SECONDS (21-34) H 08/31/17 17:07 Attending/Attestation - Attestation I have personally seen and examined this patient.: No I have fully participated in the care of the patient.: Yes I have reviewed all pertinent clinical information, including history, physical exam and plan: Yes
[2017-09-24] MEDS: Enoxaparin 30 mg Syringe SC SCH (09:23)
[2017-09-25] MEDS: Enoxaparin 30 mg Syringe SC SCH (11:23)
--- NOTE | 2017-09-25 19:01 | CP.PCM.PN ---
Subjective - Date & Time of Evaluation Date of Evaluation: 09/25/17 Time of Evaluation: 09:35 - Subjective Subjective: Medicine progress note ( Dr. Rajan's service) Patient was seen and examined at bedside. Patient is resting in bed. Patient is clinically the same with no acute issues and continues to refuse treatment. Patient has no intention of receiving treatment. Objective - Vital Signs/Intake and Output Vital Signs (last 24 hours): Temp Pulse Resp BP Pulse Ox 98 F 100 H 20 101/64 96 09/25/17 15:15 09/25/17 15:15 09/25/17 15:15 09/25/17 15:15 09/25/17 15:15 Intake and Output: 09/25/17 09/25/17 06:59 18:59 Intake Total 250 640 Balance 250 640 - Medications Medications: Current Medications Acetaminophen (Tylenol 325mg Tab) 650 mg PO Q6 PRN PRN Reason: fever. Last Admin: 09/23/17 14:30 Dose: 650 mg Aspirin (Aspirin Chewable) 81 mg PO DAILY [facility] Last Admin: 09/25/17 11:23 Dose: Not Given Benztropine Mesylate (Cogentin) 1 mg PO BID [facility] Last Admin: 09/25/17 11:23 Dose: Not Given Docusate Sodium (Colace) 100 mg PO TID [facility] Last Admin: 09/25/17 17:52 Dose: Not Given Enoxaparin Sodium (Lovenox) 30 mg SC DAILY [facility] Last Admin: 09/25/17 11:23 Dose: Not Given Ferrous Sulfate (Feosol) 325 mg PO TID [facility] Last Admin: 09/25/17 17:52 Dose: Not Given Haloperidol (Haldol) 5 mg PO Q6 PRN PRN Reason: Agitation Last Admin: 09/08/17 11:41 Dose: 5 mg Mirtazapine (Remeron) 15 mg PO HS [facility] Last Admin: 09/24/17 22:04 Dose: Not Given Risperidone (Risperdal Tab) 1 mg PO BID [facility] Last Admin: 09/25/17 17:52 Dose: Not Given Rosuvastatin Calcium (Crestor) 10 mg PO HS [facility] Last Admin: 09/24/17 22:03 Dose: Not Given Sertraline HCl (Zoloft) 50 mg PO DAILY [facility] Last Admin: 09/25/17 11:24 Dose: Not Given Trazodone HCl (Desyrel) 50 mg PO HS [facility] Last Admin: 09/24/17 22:03 Dose: Not Given - Labs Labs: 09/18/17 14:34 09/18/17 14:34 PT 17.5 SECONDS (9.7-12.2) H 08/31/17 17:07 INR 1.5 08/31/17 17:07 APTT 35 SECONDS (21-34) H 08/31/17 17:07 - Constitutional Appears: Well - Head Exam Head Exam: ATRAUMATIC, NORMAL INSPECTION - Eye Exam Eye Exam: EOMI, Normal appearance - ENT Exam ENT Exam: Mucous Membranes Moist - Respiratory Exam Respiratory Exam: NORMAL BREATHING PATTERN - Cardiovascular Exam Cardiovascular Exam: REGULAR RHYTHM, +S1, +S2 - GI/Abdominal Exam GI & Abdominal Exam: Soft, Normal Bowel Sounds. absent: Distended, Firm, Guarding, Rigid, Tenderness - Extremities Exam Extremities Exam: Normal Inspection Additional comments: Contracted, but able to move all extremities with assistance - Neurological Exam Neurological Exam: Alert, Awake - Psychiatric Exam Psychiatric exam: Normal Affect - Skin Skin Exam: Normal Color Assessment and Plan (1) Refusal of treatment Assessment & Plan: Psychiatry Consult, Dr. Martinez Evaluate for capacity * As per psychiatry evaluation: Patient lacks the capacity to make his own medical decisions at this time. Plans for reevaluation at a latter time. * Re-consultation for capacity and evaluation for severe depression and possible pseudodementia (09/14/17); As per documentation, patient is psychiatrically stable for discharge. As per phone conversation with Dr. 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 Findings are concerning for malignancy. Dedicated CT scan of the chest with intravenous contrast is recommended for further characterization. * Patient has been refusing chest CT but states that he will think about and have the test done soon * CT abd/pelvis with IV contrast for today. Wanted PO contrast but patient refusing to drink PO Contrast, thus IV contrast: Large destructive heterogeneous soft tissue mass in the left lung upper lobe extending to the left upper posterior chest wall and extending to the left aspect of the upper thoracic spine consistent with malignant neoplasm. The mass is extending to upper aspect of the left hilum. Bony erosion and partial destruction of the left upper ribs and left aspect of T3 and T4 vertebral bodies. Left hilum and left mediastinum lymphadenopathy consistent with metastasis. Right adrenal mass likely represent metastasis. Moderate to mildly severe right hydronephrosis and proximal hydroureter up to 10.5 millimeter obstructing calculus at the proximal right ureter. Moderate constipation. Labs: * QFT negative, legionella negative, pending Mycoplasma Igm, Strep Pneumoniae, * Negative PPD read; no induration noted (48 hours and 72 hours read) * Patient is still refusing to produce sputum Medications: * Trazadone 50mg PO HS * Tylenol 650mg PO Q6H PRN * Morphine extended release 15mg PO Q12H * Percocet 1 tab PO Q4H Palliative consult * Management as per recommendation * Reconsultation, 09/21/17 Status: Acute (3) Mass of upper lobe of left lung Assessment & Plan: CXR 08/31/17: Large left upper lobe mass with probable involvement of the left posterior 3rd rib. Findings are concerning for malignancy. Dedicated CT scan of the chest with intravenous contrast is recommended for further characterization. Chest CT: Large destructive heterogeneous soft tissue mass in the left lung upper lobe extending to the left upper posterior chest wall and extending to the left aspect of the upper thoracic spine consistent with malignant neoplasm. The mass is extending to upper aspect of the left hilum. Bony erosion and partial destruction of the left upper ribs and left aspect of T3 and T4 vertebral bodies. Left hilum and left mediastinum lymphadenopathy consistent with metastasis. Palliative consult Management as per recommendation Status: Acute (4) Right adrenal mass Assessment & Plan: CT abd/pelvis with IV contrast for today. Wanted PO contrast but patient refusing to drink PO Contrast, thus IV contrast: Right adrenal mass likely represent metastasis. Status: Acute (5) Leukocytosis Assessment & Plan: Patient agreed to blood work, 09/20/17: 13.7 On admission: 14.7, patient has been refusing further lab work but continues to state that he would rethink his decision Blood Culture: Negative X5 days UA: LE (2+) and WBC (22), f/u repeat UA and UC (09/15/17) Meds: Cipro 400mg PO BID, started 09/15/17 ( Discontinue if repeat UA AND UC is negative) Zosyn 3.375gm IV Q6H ( Started 09/19/17)-- As per nursing, patient refused treatment Status: Acute (6) Anemia Assessment & Plan: H/H stable : 8.1/26.8 Patient is refusing transfusion at the moment RBC indices indicative of iron deficiency anemia Retic Count ELEVATED 2.5, Haptoglobin ELEVATED 369 Vitamin B12 and Folate NORMAL Ferritin NORMAL Homocysteine NORMAL IRON: 16 TIBC: 302 % Saturation: 5 Peripheral smear: Slight Parietal cell Ab negative, Negative intrinsic factor Pending LDH Medication: Ferrous sulfate 325mg PO TID (As per nursing, patient is refusing treatment) Status: Acute (7) Lice infestation Assessment & Plan: Recommendation to shave patient bald; patient refuses Meds: Applied ivermectin and permethrin Given NIX kit once Contact precautions Status: Acute (8) Weight loss Assessment & Plan: Pending HIV Patient is currently not eating Supplemental diet Status: Acute (9) History of CVA (cerebrovascular accident) Assessment & Plan: Hx of CVA in 2016 with documented right arm and leg weakness Head CT: A chronic infarct at the left MCA distribution is identified as well as age related neuro degenerative changes which are mildly advanced for the patient's age of 57 years. No intra hemorrhage, mass effect or CT pattern of an acute or subacute brain infarction is appreciated at this time. Follow-up CT or MRI are available if clinically warranted. Meds: Aspirin 81mg PO QD Crestor 10mg PO HS Status: Chronic (10) Left shoulder pain Assessment & Plan: Left shoulder X-ray (09/05/2017): No acute fracture. Acromioclavicular degenerative arthritis. Status: Acute (11) History of seizures Assessment & Plan: Patient has been without any seizure activity since admission Prior records show seizure activity Will monitor and if necessary start keppra and ativan Seizure precautions Status: Acute (12) Severe depression Assessment & Plan: Start Zoloft 50 mg PO Daily Start Remeron 15 mg PO QHS Status: Acute (13) Prophylactic measure Assessment & Plan: SCDs Anticoagulation contraindication due to anemia Disposition: Patient continues to refuse labs, food, treatment and diagnostic testing/ medications Plans to look for guardianship All plans and management discussed with attending, Dr. Rajan Status: Acute
[2017-09-26] MEDS: Enoxaparin 30 mg Syringe SC SCH (09:55)
--- NOTE | 2017-09-26 15:04 | PCM.PYCHPN ---
Psychiatric Progress Note - Psychiatric Progress Note Patient seen today, length of contact: 15 min Patient Chief Complaint: Consult for Refusing Treatment Problems Identified/Issues Discussed: Patient seen and evaluated, chart reviewed and discussed with the nurse. Patient remained disorganized, depressed and isolated. As per the staff he is not eating and not getting out of his bed. However, Pt denies any auditory and visual hallucinations and he denies any SI/HI. Patient is compliant with medications but he is still refusing all blood work. Support and psychoeducation given. Medication Change: No (start remeron , start zoloft) Medical Record Reviewed: Yes Mental Status Examination - Cognitive Function Orientation: Person, Place, Situation, Time Memory: Intact Attention: WNL Concentration: Poor Association: Loose Fund of Knowledge: Poor - Mood Mood: Depressed, Anxious - Affect Affect: Constricted, Depressed - Speech Speech: Soft - Formal Thought Process Formal Thought Process: Delusions, Paranoia, Loosening of associations - Suicidal Ideation Suicidal Ideation: No - Homicidal Ideation Homicidal Ideation: No Goal/Treatment Plan - Goal/Treatment Plan Need for Continued Stay: Severe depression anxiety, Severe functional impairment Progress Toward Problem(s) and Goals/Treatment Plan: Supportive therapy Zoloft 200 mg PO Daily Remeron 30 mg PO QHS Risperdal 1 mg PO BID Cogentin 1 mg pO BID - Smoking Cessation Smoking Cessation Initiated: No
--- NOTE | 2017-09-26 18:50 | CP.PCM.PN ---
Subjective - Date & Time of Evaluation Date of Evaluation: 09/26/17 Time of Evaluation: 07:25 - Subjective Subjective: Medicine progress note ( Dr. Rajan's service) Patient was seen and examined at bedside. Patient is resting in bed. Patient is clinically the same with no acute issues and continues to refuse treatment. Patient has no intention of receiving treatment. Patient remains very stubborn and very uncooperative. Objective - Vital Signs/Intake and Output Vital Signs (last 24 hours): Temp Pulse Resp BP Pulse Ox 98.6 F 97 H 20 124/72 99 09/26/17 07:03 09/26/17 07:03 09/26/17 07:03 09/26/17 07:03 09/26/17 07:03 Intake and Output: 09/26/17 09/26/17 06:59 18:59 Intake Total 500 880 Output Total 450 Balance 50 880 - Medications Medications: Current Medications Acetaminophen (Tylenol 325mg Tab) 650 mg PO Q6 PRN PRN Reason: fever. Last Admin: 09/23/17 14:30 Dose: 650 mg Aspirin (Aspirin Chewable) 81 mg PO DAILY [facility] Last Admin: 09/26/17 09:54 Dose: Not Given Benztropine Mesylate (Cogentin) 1 mg PO BID [facility] Last Admin: 09/26/17 09:55 Dose: Not Given Docusate Sodium (Colace) 100 mg PO TID [facility] Last Admin: 09/26/17 13:52 Dose: Not Given Enoxaparin Sodium (Lovenox) 30 mg SC DAILY [facility] Last Admin: 09/26/17 09:55 Dose: Not Given Ferrous Sulfate (Feosol) 325 mg PO TID [facility] Last Admin: 09/26/17 13:52 Dose: Not Given Haloperidol (Haldol) 5 mg PO Q6 PRN PRN Reason: Agitation Last Admin: 09/08/17 11:41 Dose: 5 mg Mirtazapine (Remeron) 30 mg PO HS [facility] Risperidone (Risperdal Tab) 1 mg PO BID [facility] Last Admin: 09/26/17 09:55 Dose: Not Given Rosuvastatin Calcium (Crestor) 10 mg PO HS [facility] Last Admin: 09/25/17 21:59 Dose: Not Given Sertraline HCl (Zoloft) 200 mg PO DAILY [facility] Trazodone HCl (Desyrel) 50 mg PO HS [facility] Last Admin: 09/25/17 21:59 Dose: Not Given - Labs Labs: 09/18/17 14:34 09/18/17 14:34 PT 17.5 SECONDS (9.7-12.2) H 08/31/17 17:07 INR 1.5 08/31/17 17:07 APTT 35 SECONDS (21-34) H 08/31/17 17:07 - Constitutional Appears: No Acute Distress - Head Exam Head Exam: ATRAUMATIC - Eye Exam Eye Exam: EOMI - ENT Exam ENT Exam: Mucous Membranes Dry - Respiratory Exam Respiratory Exam: NORMAL BREATHING PATTERN - Cardiovascular Exam Cardiovascular Exam: REGULAR RHYTHM, +S1, +S2 - GI/Abdominal Exam GI & Abdominal Exam: Soft, Normal Bowel Sounds. absent: Distended, Firm, Guarding, Rigid, Tenderness - Extremities Exam Extremities Exam: Normal Inspection. absent: Calf Tenderness, Pedal Edema - Neurological Exam Neurological Exam: Alert, Awake, Oriented x3 - Psychiatric Exam Psychiatric exam: Depressed, Flat Affect - Skin Skin Exam: Normal Color Assessment and Plan (1) Refusal of treatment Assessment & Plan: Psychiatry Consult, Dr. Martinez Evaluate for capacity * As per psychiatry evaluation: Patient lacks the capacity to make his own medical decisions at this time. Plans for reevaluation at a latter time. * Re-consultation for capacity and evaluation for severe depression and possible pseudodementia (09/14/17); As per documentation, patient is psychiatrically stable for discharge. As per phone conversation with Dr. Martinez, he will addendum note (09/14/17) commenting on patient's capacity * Patient was seen by Dr. 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 Application for medicaid and guardianship Medications: * Cogentin 1mg PO BID * Haldol 5mg PO Q6H PRN * Risperidone 1mg PO BID * Trazodone 50mg PO HS Status: Acute (2) Generalized pain Assessment & Plan: XR 08/31/17: * Large left upper lobe mass with probable involvement of the left posterior 3rd rib. Findings are concerning for malignancy. Dedicated CT scan of the chest with intravenous contrast is recommended for further characterization. * Patient has been refusing chest CT but states that he will think about and have the test done soon * CT abd/pelvis with IV contrast for today. Wanted PO contrast but patient refusing to drink PO Contrast, thus IV contrast: Large destructive heterogeneous soft tissue mass in the left lung upper lobe extending to the left upper posterior chest wall and extending to the left aspect of the upper thoracic spine consistent with malignant neoplasm. The mass is extending to upper aspect of the left hilum. Bony erosion and partial destruction of the left upper ribs and left aspect of T3 and T4 vertebral bodies. Left hilum and left mediastinum lymphadenopathy consistent with metastasis. Right adrenal mass likely represent metastasis. Moderate to mildly severe right hydronephrosis and proximal hydroureter up to 10.5 millimeter obstructing calculus at the proximal right ureter. Moderate constipation. Labs: * QFT negative, legionella negative, pending Mycoplasma Igm, Strep Pneumoniae, * Negative PPD read; no induration noted (48 hours and 72 hours read) * Patient is still refusing to produce sputum Medications: * Trazadone 50mg PO HS * Tylenol 650mg PO Q6H PRN * Morphine extended release 15mg PO Q12H * Percocet 1 tab PO Q4H Palliative consult * Management as per recommendation * Reconsultation, 09/21/17 Status: Acute (3) Mass of upper lobe of left lung Assessment & Plan: CXR 08/31/17: Large left upper lobe mass with probable involvement of the left posterior 3rd rib. Findings are concerning for malignancy. Dedicated CT scan of the chest with intravenous contrast is recommended for further characterization. Chest CT: Large destructive heterogeneous soft tissue mass in the left lung upper lobe extending to the left upper posterior chest wall and extending to the left aspect of the upper thoracic spine consistent with malignant neoplasm. The mass is extending to upper aspect of the left hilum. Bony erosion and partial destruction of the left upper ribs and left aspect of T3 and T4 vertebral bodies. Left hilum and left mediastinum lymphadenopathy consistent with metastasis. Palliative consult Management as per recommendation Status: Acute (4) Right adrenal mass Assessment & Plan: CT abd/pelvis with IV contrast for today. Wanted PO contrast but patient refusing to drink PO Contrast, thus IV contrast: Right adrenal mass likely represent metastasis. Status: Acute (5) Leukocytosis Assessment & Plan: Patient agreed to blood work, 09/20/17: 13.7 On admission: 14.7, patient has been refusing further lab work but continues to state that he would rethink his decision Blood Culture: Negative X5 days UA: LE (2+) and WBC (22), f/u repeat UA and UC (09/15/17) Meds: Cipro 400mg PO BID, started 09/15/17 ( Discontinue if repeat UA AND UC is negative) Zosyn 3.375gm IV Q6H ( Started 09/19/17)-- As per nursing, patient refused treatment Status: Acute (6) Anemia Assessment & Plan: H/H stable : 8.1/26.8 Patient is refusing transfusion at the moment RBC indices indicative of iron deficiency anemia Retic Count ELEVATED 2.5, Haptoglobin ELEVATED 369 Vitamin B12 and Folate NORMAL Ferritin NORMAL Homocysteine NORMAL IRON: 16 TIBC: 302 % Saturation: 5 Peripheral smear: Slight Parietal cell Ab negative, Negative intrinsic factor Pending LDH Medication: Ferrous sulfate 325mg PO TID (As per nursing, patient is refusing treatment) Status: Acute (7) Lice infestation Assessment & Plan: Recommendation to shave patient bald; patient refuses Meds: Applied ivermectin and permethrin Given NIX kit once Contact precautions Status: Acute (8) Weight loss Assessment & Plan: Pending HIV, patient refused blood work Patient is currently not eating Supplemental diet Status: Acute (9) History of CVA (cerebrovascular accident) Assessment & Plan: Hx of CVA in 2016 with documented right arm and leg weakness Head CT: A chronic infarct at the left MCA distribution is identified as well as age related neuro degenerative changes which are mildly advanced for the patient's age of 57 years. No intra hemorrhage, mass effect or CT pattern of an acute or subacute brain infarction is appreciated at this time. Follow-up CT or MRI are available if clinically warranted. Meds: Aspirin 81mg PO QD Crestor 10mg PO HS Status: Chronic (10) Left shoulder pain Assessment & Plan: Left shoulder X-ray (09/05/2017): No acute fracture. Acromioclavicular degenerative arthritis. Status: Acute (11) History of seizures Assessment & Plan: Patient has been without any seizure activity since admission Prior records show seizure activity Will monitor and if necessary start keppra and ativan Seizure precautions Status: Acute (12) Severe depression Assessment & Plan: Start Zoloft 50 mg PO Daily Start Remeron 15 mg PO QHS Status: Acute (13) Prophylactic measure Assessment & Plan: SCDs Anticoagulation contraindication due to anemia Disposition: Patient continues to refuse labs, food, treatment and diagnostic testing/ medications Plans to look for guardianship All plans and management discussed with attending, Dr. Rajan Status: Acute
[2017-09-27] MEDS: Enoxaparin 30 mg Syringe SC SCH (09:36)
--- NOTE | 2017-09-27 14:47 | CP.PCM.PN ---
Subjective - Date & Time of Evaluation Date of Evaluation: 09/27/17 Time of Evaluation: 07:45 - Subjective Subjective: Medicine progress note ( Dr. Morley's service) Patient was seen and examined at bedside. Patient is resting in bed. Patient is clinically the same with no acute issues and continues to refuse treatment. Patient has no intention of receiving treatment. Patient remains very stubborn and very uncooperative. Patient was seen by Dr. Martinez, psychiatry, who believes patient needs guardianship. Objective - Vital Signs/Intake and Output Vital Signs (last 24 hours): Temp Pulse Resp BP Pulse Ox 98.9 F 103 H 20 115/71 95 09/27/17 07:52 09/27/17 07:52 09/27/17 07:52 09/27/17 07:52 09/27/17 07:52 Intake and Output: 09/27/17 09/27/17 06:59 18:59 Intake Total 480 400 Output Total 325 Balance 155 400 - Medications Medications: Current Medications Acetaminophen (Tylenol 325mg Tab) 650 mg PO Q6 PRN PRN Reason: fever. Last Admin: 09/23/17 14:30 Dose: 650 mg Aspirin (Aspirin Chewable) 81 mg PO DAILY [facility] Last Admin: 09/27/17 09:36 Dose: Not Given Benztropine Mesylate (Cogentin) 1 mg PO BID [facility] Last Admin: 09/27/17 09:36 Dose: Not Given Docusate Sodium (Colace) 100 mg PO TID [facility] Last Admin: 09/27/17 13:35 Dose: Not Given Enoxaparin Sodium (Lovenox) 30 mg SC DAILY [facility] Last Admin: 09/27/17 09:36 Dose: Not Given Ferrous Sulfate (Feosol) 325 mg PO TID [facility] Last Admin: 09/27/17 13:35 Dose: Not Given Haloperidol (Haldol) 5 mg PO Q6 PRN PRN Reason: Agitation Last Admin: 09/08/17 11:41 Dose: 5 mg Mirtazapine (Remeron) 30 mg PO [facility] Last Admin: 09/26/17 22:59 Dose: Not Given Risperidone (Risperdal Tab) 1 mg PO BID [facility] Last Admin: 09/27/17 09:37 Dose: Not Given Rosuvastatin Calcium (Crestor) 10 mg PO [facility] Last Admin: 09/26/17 22:59 Dose: Not Given Sertraline HCl (Zoloft) 200 mg PO DAILY [facility] Last Admin: 09/27/17 09:36 Dose: 200 mg Trazodone HCl (Desyrel) 50 mg PO HS [facility] Last Admin: 09/26/17 22:59 Dose: Not Given - Labs Labs: 09/18/17 14:34 09/18/17 14:34 PT 17.5 SECONDS (9.7-12.2) H 08/31/17 17:07 INR 1.5 08/31/17 17:07 APTT 35 SECONDS (21-34) H 08/31/17 17:07 - Constitutional Appears: Well, No Acute Distress - Head Exam Head Exam: ATRAUMATIC, NORMAL INSPECTION - Eye Exam Eye Exam: EOMI - ENT Exam ENT Exam: Mucous Membranes Moist - Respiratory Exam Respiratory Exam: NORMAL BREATHING PATTERN. absent: Prolonged Expiratory Phase , Rhonchi, Wheezes, Respiratory Distress - Cardiovascular Exam Cardiovascular Exam: REGULAR RHYTHM, +S1, +S2 - GI/Abdominal Exam GI & Abdominal Exam: Soft, Normal Bowel Sounds. absent: Distended, Firm, Guarding, Rigid, Tenderness - Extremities Exam Extremities Exam: Normal Inspection - Neurological Exam Neurological Exam: Alert, Awake - Psychiatric Exam Psychiatric exam: Normal Affect - Skin Skin Exam: Dry Assessment and Plan (1) Refusal of treatment Assessment & Plan: Psychiatry Consult, Dr. Martinez Evaluate for capacity * As per psychiatry evaluation: Patient lacks the capacity to make his own medical decisions at this time. Plans for reevaluation at a latter time. * Re-consultation for capacity and evaluation for severe depression and possible pseudodementia (09/14/17); As per documentation, patient is psychiatrically stable for discharge. As per phone conversation with Dr. Martinez, he will addendum note (09/14/17) commenting on patient's capacity * Patient was seen by Dr. 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 Application for medicaid and guardianship in progress Medications: * Cogentin 1mg PO BID * Haldol 5mg PO Q6H PRN * Risperidone 1mg PO BID * Trazodone 50mg PO HS * Patient continues to refuse all medications. Status: Acute (2) Generalized pain Assessment & Plan: CXR 08/31/17: * Large left upper lobe mass with probable involvement of the left posterior 3rd rib. Findings are concerning for malignancy. Dedicated CT scan of the chest with intravenous contrast is recommended for further characterization. * Patient has been refusing chest CT but states that he will think about and have the test done soon * CT abd/pelvis with IV contrast for today. Wanted PO contrast but patient refusing to drink PO Contrast, thus IV contrast: Large destructive heterogeneous soft tissue mass in the left lung upper lobe extending to the left upper posterior chest wall and extending to the left aspect of the upper thoracic spine consistent with malignant neoplasm. The mass is extending to upper aspect of the left hilum. Bony erosion and partial destruction of the left upper ribs and left aspect of T3 and T4 vertebral bodies. Left hilum and left mediastinum lymphadenopathy consistent with metastasis. Right adrenal mass likely represent metastasis. Moderate to mildly severe right hydronephrosis and proximal hydroureter up to 10.5 millimeter obstructing calculus at the proximal right ureter. Moderate constipation. Labs: * QFT negative, legionella negative, pending Mycoplasma Igm, Strep Pneumoniae, * Negative PPD read; no induration noted (48 hours and 72 hours read) * Patient is still refusing to produce sputum Medications: * Trazadone 50mg PO HS * Tylenol 650mg PO Q6H PRN * Morphine extended release 15mg PO Q12H * Percocet 1 tab PO Q4H Palliative consult * Management as per recommendation * Recommendation, Patient will need a guardian to advocate for him and be his decision making surrogate Status: Acute (3) Mass of upper lobe of left lung Assessment & Plan: CXR 08/31/17: Large left upper lobe mass with probable involvement of the left posterior 3rd rib. Findings are concerning for malignancy. Dedicated CT scan of the chest with intravenous contrast is recommended for further characterization. Chest CT: Large destructive heterogeneous soft tissue mass in the left lung upper lobe extending to the left upper posterior chest wall and extending to the left aspect of the upper thoracic spine consistent with malignant neoplasm. The mass is extending to upper aspect of the left hilum. Bony erosion and partial destruction of the left upper ribs and left aspect of T3 and T4 vertebral bodies. Left hilum and left mediastinum lymphadenopathy consistent with metastasis. Palliative consult Management as per recommendation Status: Acute (4) Right adrenal mass Assessment & Plan: CT abd/pelvis with IV contrast for today. Wanted PO contrast but patient refusing to drink PO Contrast, thus IV contrast: Right adrenal mass likely represent metastasis. Status: Acute (5) Leukocytosis Assessment & Plan: Patient agreed to blood work, 09/20/17: 13.7 On admission: 14.7, patient has been refusing further lab work but continues to state that he would rethink his decision Blood Culture: Negative X5 days UA: LE (2+) and WBC (22), f/u repeat UA and UC (09/15/17) Meds: Cipro 400mg PO BID, started 09/15/17 ( Discontinue if repeat UA AND UC is negative) Zosyn 3.375gm IV Q6H ( Started 09/19/17)-- As per nursing, patient refused treatment Status: Acute (6) Anemia Assessment & Plan: H/H stable : 8.1/26.8 Patient is refusing transfusion at the moment RBC indices indicative of iron deficiency anemia Retic Count ELEVATED 2.5, Haptoglobin ELEVATED 369 Vitamin B12 and Folate NORMAL Ferritin NORMAL Homocysteine NORMAL IRON: 16 TIBC: 302 % Saturation: 5 Peripheral smear: Slight Parietal cell Ab negative, Negative intrinsic factor Pending LDH Medication: Ferrous sulfate 325mg PO TID (As per nursing, patient is refusing treatment) Status: Acute (7) Lice infestation Assessment & Plan: Recommendation to shave patient bald; patient refuses Meds: Applied ivermectin and permethrin Given NIX kit once Contact precautions Status: Acute (8) Weight loss Assessment & Plan: Pending HIV, patient refuses blood work Patient is currently not eating Supplemental diet Status: Acute (9) History of CVA (cerebrovascular accident) Assessment & Plan: Hx of CVA in 2016 with documented right arm and leg weakness Head CT: A chronic infarct at the left MCA distribution is identified as well as age related neuro degenerative changes which are mildly advanced for the patient's age of 57 years. No intra hemorrhage, mass effect or CT pattern of an acute or subacute brain infarction is appreciated at this time. Follow-up CT or MRI are available if clinically warranted. Meds: Aspirin 81mg PO QD Crestor 10mg PO HS Status: Chronic (10) Left shoulder pain Assessment & Plan: Left shoulder X-ray (09/05/2017): No acute fracture. Acromioclavicular degenerative arthritis. Status: Acute (11) History of seizures Assessment & Plan: Patient has been without any seizure activity since admission Prior records show seizure activity Will monitor and if necessary start keppra and ativan Seizure precautions Status: Acute (12) Severe depression Assessment & Plan: Start Zoloft 50 mg PO Daily Start Remeron 15 mg PO QHS Status: Acute (13) Prophylactic measure Assessment & Plan: SCDs Anticoagulation contraindication due to anemia Disposition: Patient continues to refuse labs, food, treatment and diagnostic testing/ medications Plans to look for guardianship All plans and management discussed with attending, Dr. Morley Status: Acute
[2017-09-28] MEDS: Enoxaparin 30 mg Syringe SC SCH (09:59)
--- NOTE | 2017-09-28 10:22 | CP.PCM.PN ---
Subjective - Date & Time of Evaluation Date of Evaluation: 09/28/17 Time of Evaluation: 07:00 - Subjective Subjective: Medicine progress note ( Dr. Morley's service) Patient was seen and examined at bedside. Patient is clinically the same and refusing treatment. Patient still admits to pain but refuses further evaluation of current medical issues, even simple blood work. Objective - Vital Signs/Intake and Output Vital Signs (last 24 hours): Temp Pulse Resp BP Pulse Ox 98.0 F 92 H 20 125/65 98 09/28/17 08:18 09/28/17 08:18 09/28/17 08:18 09/28/17 08:18 09/28/17 08:18 Intake and Output: 09/28/17 09/28/17 06:59 18:59 Intake Total 360 200 Balance 360 200 - Medications Medications: Current Medications Acetaminophen (Tylenol 325mg Tab) 650 mg PO Q6 PRN PRN Reason: fever. Last Admin: 09/23/17 14:30 Dose: 650 mg Aspirin (Aspirin Chewable) 81 mg PO DAILY [facility] Last Admin: 09/28/17 09:59 Dose: Not Given Benztropine Mesylate (Cogentin) 1 mg PO BID [facility] Last Admin: 09/28/17 09:59 Dose: Not Given Docusate Sodium (Colace) 100 mg PO TID [facility] Last Admin: 09/28/17 09:59 Dose: Not Given Enoxaparin Sodium (Lovenox) 30 mg SC DAILY [facility] Last Admin: 09/28/17 09:59 Dose: Not Given Ferrous Sulfate (Feosol) 325 mg PO TID [facility] Last Admin: 09/28/17 09:59 Dose: Not Given Haloperidol (Haldol) 5 mg PO Q6 PRN PRN Reason: Agitation Last Admin: 09/08/17 11:41 Dose: 5 mg Mirtazapine (Remeron) 30 mg PO [facility] Last Admin: 09/27/17 22:48 Dose: Not Given Risperidone (Risperdal Tab) 1 mg PO BID [facility] Last Admin: 09/28/17 09:59 Dose: Not Given Rosuvastatin Calcium (Crestor) 10 mg PO HS [facility] Last Admin: 09/27/17 22:47 Dose: Not Given Sertraline HCl (Zoloft) 200 mg PO DAILY [facility] Last Admin: 09/28/17 09:59 Dose: Not Given Trazodone HCl (Desyrel) 50 mg PO HS [facility] Last Admin: 09/27/17 22:48 Dose: Not Given - Labs Labs: 09/18/17 14:34 09/18/17 14:34 PT 17.5 SECONDS (9.7-12.2) H 08/31/17 17:07 INR 1.5 08/31/17 17:07 APTT 35 SECONDS (21-34) H 08/31/17 17:07 - Constitutional Appears: Well, No Acute Distress - Head Exam Head Exam: ATRAUMATIC, NORMAL INSPECTION - Eye Exam Eye Exam: EOMI, Normal appearance - ENT Exam ENT Exam: Mucous Membranes Moist - Respiratory Exam Respiratory Exam: NORMAL BREATHING PATTERN. absent: Prolonged Expiratory Phase , Rhonchi, Wheezes, Respiratory Distress, Stridor - Cardiovascular Exam Cardiovascular Exam: REGULAR RHYTHM, +S1, +S2 - GI/Abdominal Exam GI & Abdominal Exam: Soft, Tenderness, Normal Bowel Sounds Additional comments: Bilateral palpable masses located on inferior anterior ribs; patient is refusing further evaluation at the moment - Extremities Exam Extremities Exam: Normal Inspection. absent: Calf Tenderness, Pedal Edema - Neurological Exam Neurological Exam: Alert, Awake - Skin Skin Exam: Dry Additional comments: very scaly skin Assessment and Plan (1) Refusal of treatment Assessment & Plan: Psychiatry Consult, Dr. Martinez Evaluate for capacity * As per psychiatry evaluation: Patient lacks the capacity to make his own medical decisions at this time. Plans for reevaluation at a latter time. * Re-consultation for capacity and evaluation for severe depression and possible pseudodementia (09/14/17); As per documentation, patient is psychiatrically stable for discharge. As per phone conversation with Dr. Martinez, he will addendum note (09/14/17) commenting on patient's capacity * Patient was seen by Dr. 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 Application for medicaid and guardianship in progress Medications: * Cogentin 1mg PO BID * Haldol 5mg PO Q6H PRN * Risperidone 1mg PO BID * Trazodone 50mg PO HS * Patient continues to refuse all medications. Status: Acute (2) Generalized pain Assessment & Plan: CXR 08/31/17: * Large left upper lobe mass with probable involvement of the left posterior 3rd rib. Findings are concerning for malignancy. Dedicated CT scan of the chest with intravenous contrast is recommended for further characterization. * Patient has been refusing chest CT but states that he will think about and have the test done soon * CT abd/pelvis with IV contrast for today. Wanted PO contrast but patient refusing to drink PO Contrast, thus IV contrast: Large destructive heterogeneous soft tissue mass in the left lung upper lobe extending to the left upper posterior chest wall and extending to the left aspect of the upper thoracic spine consistent with malignant neoplasm. The mass is extending to upper aspect of the left hilum. Bony erosion and partial destruction of the left upper ribs and left aspect of T3 and T4 vertebral bodies. Left hilum and left mediastinum lymphadenopathy consistent with metastasis. Right adrenal mass likely represent metastasis. Moderate to mildly severe right hydronephrosis and proximal hydroureter up to 10.5 millimeter obstructing calculus at the proximal right ureter. Moderate constipation. Labs: * QFT negative, legionella negative, pending Mycoplasma Igm, Strep Pneumoniae, * Negative PPD read; no induration noted (48 hours and 72 hours read) * Patient is still refusing to produce sputum Medications: * Trazadone 50mg PO HS * Tylenol 650mg PO Q6H PRN * Morphine extended release 15mg PO Q12H * Percocet 1 tab PO Q4H Palliative consult * Management as per recommendation * Recommendation, Patient will need a guardian to advocate for him and be his decision making surrogate Status: Acute (3) Mass of upper lobe of left lung Assessment & Plan: CXR 08/31/17: Large left upper lobe mass with probable involvement of the left posterior 3rd rib. Findings are concerning for malignancy. Dedicated CT scan of the chest with intravenous contrast is recommended for further characterization. Chest CT: Large destructive heterogeneous soft tissue mass in the left lung upper lobe extending to the left upper posterior chest wall and extending to the left aspect of the upper thoracic spine consistent with malignant neoplasm. The mass is extending to upper aspect of the left hilum. Bony erosion and partial destruction of the left upper ribs and left aspect of T3 and T4 vertebral bodies. Left hilum and left mediastinum lymphadenopathy consistent with metastasis. Palliative consult Management as per recommendation Status: Acute (4) Right adrenal mass Assessment & Plan: CT abd/pelvis with IV contrast for today. Wanted PO contrast but patient refusing to drink PO Contrast, thus IV contrast: Right adrenal mass likely represent metastasis. Status: Acute (5) Leukocytosis Assessment & Plan: Patient agreed to blood work, 09/20/17: 13.7 On admission: 14.7, patient has been refusing further lab work but continues to state that he would rethink his decision Blood Culture: Negative X5 days UA: LE (2+) and WBC (22), f/u repeat UA and UC (09/15/17) Meds: Cipro 400mg PO BID, started 09/15/17 ( Discontinue if repeat UA AND UC is negative) Zosyn 3.375gm IV Q6H ( Started 09/19/17)-- As per nursing, patient refused treatment Status: Acute (6) Anemia Assessment & Plan: H/H stable : 8.1/26.8 Patient is refusing transfusion at the moment RBC indices indicative of iron deficiency anemia Retic Count ELEVATED 2.5, Haptoglobin ELEVATED 369 Vitamin B12 and Folate NORMAL Ferritin NORMAL Homocysteine NORMAL IRON: 16 TIBC: 302 % Saturation: 5 Peripheral smear: Slight Parietal cell Ab negative, Negative intrinsic factor Pending LDH Medication: Ferrous sulfate 325mg PO TID (As per nursing, patient is refuses medication intermittently) Status: Acute (7) Lice infestation Assessment & Plan: Recommendation to shave patient bald; patient refuses Meds: Applied ivermectin and permethrin Given NIX kit once Contact precautions Status: Acute (8) Weight loss Assessment & Plan: Pending HIV, patient refuses blood work Patient is currently not eating Supplemental diet Status: Acute (9) History of CVA (cerebrovascular accident) Assessment & Plan: Hx of CVA in 2016 with documented right arm and leg weakness Head CT: A chronic infarct at the left MCA distribution is identified as well as age related neuro degenerative changes which are mildly advanced for the patient's age of 57 years. No intra hemorrhage, mass effect or CT pattern of an acute or subacute brain infarction is appreciated at this time. Follow-up CT or MRI are available if clinically warranted. Meds: Aspirin 81mg PO QD Crestor 10mg PO HS Status: Chronic (10) Left shoulder pain Assessment & Plan: Left shoulder X-ray (09/05/2017): No acute fracture. Acromioclavicular degenerative arthritis. Status: Acute Status: Acute (11) History of seizures Assessment & Plan: Patient has been without any seizure activity since admission Prior records show seizure activity Will monitor and if necessary start keppra and ativan Seizure precautions Status: Acute (12) Severe depression Assessment & Plan: Start Zoloft 50 mg PO Daily Start Remeron 15 mg PO QHS Status: Acute (13) Prophylactic measure Assessment & Plan: SCDs DVT: Lovenox 30mg SC daily Disposition: Patient continues to refuse labs, food, treatment and diagnostic testing/ medications Plans for guardianship All plans and management discussed with attending, Dr. Morley Status: Acute
[2017-09-29] MEDS: Enoxaparin 30 mg Syringe SC SCH (11:11)
--- NOTE | 2017-09-29 18:20 | CP.PCM.PN ---
Subjective - Date & Time of Evaluation Date of Evaluation: 09/29/17 Time of Evaluation: 08:45 - Subjective Subjective: Medicine progress note ( Dr. Morley's service) Patient was seen and examined at bedside. Patient is clinically the same and refusing treatment. Patient still admits to pain but refuses further evaluation of current medical issues, even simple blood work. Objective - Vital Signs/Intake and Output Vital Signs (last 24 hours): Temp Pulse Resp BP Pulse Ox 98.3 F 107 H 20 110/66 97 09/29/17 15:00 09/29/17 15:00 09/29/17 15:00 09/29/17 15:00 09/29/17 15:00 Intake and Output: 09/29/17 09/29/17 06:59 18:59 Intake Total 360 Balance 360 - Medications Medications: Current Medications Acetaminophen (Tylenol 325mg Tab) 650 mg PO Q6 PRN PRN Reason: fever. Last Admin: 09/29/17 16:33 Dose: 650 mg Aspirin (Aspirin Chewable) 81 mg PO DAILY REPLACED BY [facility] Last Admin: 09/29/17 11:10 Dose: Not Given Benztropine Mesylate (Cogentin) 1 mg PO BID REPLACED BY [facility] Last Admin: 09/29/17 11:11 Dose: Not Given Docusate Sodium (Colace) 100 mg PO TID REPLACED BY [facility] Last Admin: 09/29/17 13:11 Dose: Not Given Enoxaparin Sodium (Lovenox) 30 mg SC DAILY REPLACED BY [facility] Last Admin: 09/29/17 11:11 Dose: Not Given Ferrous Sulfate (Feosol) 325 mg PO TID REPLACED BY [facility] Last Admin: 09/29/17 13:11 Dose: Not Given Haloperidol (Haldol) 5 mg PO Q6 PRN PRN Reason: Agitation Last Admin: 09/08/17 11:41 Dose: 5 mg Mirtazapine (Remeron) 30 mg PO HS REPLACED BY [facility] Last Admin: 09/28/17 21:27 Dose: 30 mg Risperidone (Risperdal Tab) 1 mg PO BID REPLACED BY [facility] Last Admin: 09/29/17 11:11 Dose: Not Given Rosuvastatin Calcium (Crestor) 10 mg PO HS REPLACED BY [facility] Last Admin: 09/28/17 21:26 Dose: 10 mg Sertraline HCl (Zoloft) 200 mg PO DAILY REPLACED BY [facility] Last Admin: 09/29/17 11:11 Dose: Not Given Trazodone HCl (Desyrel) 50 mg PO HS [facility] Last Admin: 09/28/17 21:26 Dose: 50 mg - Labs Labs: 09/18/17 14:34 09/18/17 14:34 PT 17.5 SECONDS (9.7-12.2) H 08/31/17 17:07 INR 1.5 08/31/17 17:07 APTT 35 SECONDS (21-34) H 08/31/17 17:07 - Constitutional Appears: No Acute Distress - Head Exam Head Exam: ATRAUMATIC - Eye Exam Eye Exam: EOMI - ENT Exam ENT Exam: Mucous Membranes Dry - Respiratory Exam Respiratory Exam: NORMAL BREATHING PATTERN. absent: Rhonchi, Wheezes - Cardiovascular Exam Cardiovascular Exam: REGULAR RHYTHM, +S1, +S2. absent: Murmur - GI/Abdominal Exam GI & Abdominal Exam: Soft, Normal Bowel Sounds. absent: Distended, Firm, Guarding, Rigid, Tenderness - Extremities Exam Extremities Exam: Normal Inspection. absent: Calf Tenderness, Pedal Edema - Neurological Exam Neurological Exam: Alert, Awake - Psychiatric Exam Psychiatric exam: Depressed, Flat Affect - Skin Skin Exam: Dry Assessment and Plan (1) Refusal of treatment Assessment & Plan: Psychiatry Consult, Dr. Martinez Evaluate for capacity * As per psychiatry evaluation: Patient lacks the capacity to make his own medical decisions at this time. Plans for reevaluation at a latter time. * Re-consultation for capacity and evaluation for severe depression and possible pseudodementia (09/14/17); As per documentation, patient is psychiatrically stable for discharge. As per phone conversation with Dr. Martinez, he will addendum note (09/14/17) commenting on patient's capacity * Patient was seen by Dr. 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 Application for medicaid and guardianship in progress Medications: * Cogentin 1mg PO BID * Haldol 5mg PO Q6H PRN * Risperidone 1mg PO BID * Trazodone 50mg PO HS * Patient continues to refuse all medications. Status: Acute (2) Generalized pain Assessment & Plan: CXR 08/31/17: * Large left upper lobe mass with probable involvement of the left posterior 3rd rib. Findings are concerning for malignancy. Dedicated CT scan of the chest with intravenous contrast is recommended for further characterization. * Patient has been refusing chest CT but states that he will think about and have the test done soon * CT abd/pelvis with IV contrast for today. Wanted PO contrast but patient refusing to drink PO Contrast, thus IV contrast: Large destructive heterogeneous soft tissue mass in the left lung upper lobe extending to the left upper posterior chest wall and extending to the left aspect of the upper thoracic spine consistent with malignant neoplasm. The mass is extending to upper aspect of the left hilum. Bony erosion and partial destruction of the left upper ribs and left aspect of T3 and T4 vertebral bodies. Left hilum and left mediastinum lymphadenopathy consistent with metastasis. Right adrenal mass likely represent metastasis. Moderate to mildly severe right hydronephrosis and proximal hydroureter up to 10.5 millimeter obstructing calculus at the proximal right ureter. Moderate constipation. Labs: * QFT negative, legionella negative, pending Mycoplasma Igm, Strep Pneumoniae, * Negative PPD read; no induration noted (48 hours and 72 hours read) * Patient is still refusing to produce sputum Medications: * Trazadone 50mg PO HS * Tylenol 650mg PO Q6H PRN * Morphine extended release 15mg PO Q12H * Percocet 1 tab PO Q4H Palliative consult * Management as per recommendation * Recommendation, Patient will need a guardian to advocate for him and be his decision making surrogate Status: Acute (3) Mass of upper lobe of left lung Assessment & Plan: CXR 08/31/17: Large left upper lobe mass with probable involvement of the left posterior 3rd rib. Findings are concerning for malignancy. Dedicated CT scan of the chest with intravenous contrast is recommended for further characterization. Chest CT: Large destructive heterogeneous soft tissue mass in the left lung upper lobe extending to the left upper posterior chest wall and extending to the left aspect of the upper thoracic spine consistent with malignant neoplasm. The mass is extending to upper aspect of the left hilum. Bony erosion and partial destruction of the left upper ribs and left aspect of T3 and T4 vertebral bodies. Left hilum and left mediastinum lymphadenopathy consistent with metastasis. Palliative consult * Management as per recommendation * Recommendation, Patient will need a guardian to advocate for him and be his decision making surrogate Status: Acute (4) Right adrenal mass Assessment & Plan: CT abd/pelvis with IV contrast for today. Wanted PO contrast but patient refusing to drink PO Contrast, thus IV contrast: Right adrenal mass likely represent metastasis. Status: Acute (5) Leukocytosis Assessment & Plan: Patient agreed to blood work, 09/20/17: 13.7 On admission: 14.7, patient has been refusing further lab work but continues to state that he would rethink his decision Blood Culture: Negative X5 days UA: LE (2+) and WBC (22), f/u repeat UA and UC (09/15/17) Meds: Cipro 400mg PO BID, started 09/15/17 ( Discontinue if repeat UA AND UC is negative) Zosyn 3.375gm IV Q6H ( Started 09/19/17)-- As per nursing, patient refused treatment Status: Acute (6) Anemia Assessment & Plan: H/H stable : 8.1/26.8 Patient is refusing transfusion at the moment RBC indices indicative of iron deficiency anemia Retic Count ELEVATED 2.5, Haptoglobin ELEVATED 369 Vitamin B12 and Folate NORMAL Ferritin NORMAL Homocysteine NORMAL IRON: 16 TIBC: 302 % Saturation: 5 Peripheral smear: Slight Parietal cell Ab negative, Negative intrinsic factor Pending LDH Medication: Ferrous sulfate 325mg PO TID (As per nursing, patient is refuses medication intermittently) Status: Acute (7) Lice infestation Assessment & Plan: Recommendation to shave patient bald; patient refuses Meds: Applied ivermectin and permethrin Given NIX kit once Contact precautions Status: Acute (8) Weight loss Assessment & Plan: Pending HIV, patient refuses blood work Patient is currently not eating Supplemental diet Status: Acute (9) History of CVA (cerebrovascular accident) Assessment & Plan: Hx of CVA in 2016 with documented right arm and leg weakness Head CT: A chronic infarct at the left MCA distribution is identified as well as age related neuro degenerative changes which are mildly advanced for the patient's age of 57 years. No intra hemorrhage, mass effect or CT pattern of an acute or subacute brain infarction is appreciated at this time. Follow-up CT or MRI are available if clinically warranted. Meds: Aspirin 81mg PO QD Crestor 10mg PO HS Status: Chronic (10) Left shoulder pain Assessment & Plan: Left shoulder X-ray (09/05/2017): No acute fracture. Acromioclavicular degenerative arthritis. Status: Acute (11) History of seizures Assessment & Plan: Patient has been without any seizure activity since admission Prior records show seizure activity Will monitor and if necessary start keppra and ativan Seizure precautions Status: Acute (12) Severe depression Assessment & Plan: Start Zoloft 50 mg PO Daily Start Remeron 15 mg PO QHS Status: Acute (13) Prophylactic measure Assessment & Plan: SCDs DVT: Lovenox 30mg SC daily Disposition: Patient continues to refuse labs, food, treatment and diagnostic testing/ medications Plans for guardianship All plans and management discussed with attending, Dr. Morley Status: Acute
--- NOTE | 2017-09-30 09:12 | CP.PCM.PN ---
Subjective - Date & Time of Evaluation Date of Evaluation: 09/30/17 Time of Evaluation: 08:20 - Subjective Subjective: PGY2 Medicine progress note ( Dr. Morley's service) Patient was seen and examined at bedside. Patient is clinically the same and refusing treatment. He only accepted his Haldol and Tylenol today. He is refusing all other medications and refused blood work for nearly 2 weeks. He continues to report pain, but refuses further evaluation of current medical issues. Objective - Vital Signs/Intake and Output Vital Signs (last 24 hours): Temp Pulse Resp BP Pulse Ox 97.8 F 103 H 20 126/75 96 09/30/17 08:17 09/30/17 08:17 09/30/17 08:17 09/30/17 08:17 09/30/17 08:17 Intake and Output: 09/30/17 09/30/17 06:59 18:59 Intake Total 560 Output Total 350 Balance 210 - Medications Medications: Current Medications Acetaminophen (Tylenol 325mg Tab) 650 mg PO Q6 PRN PRN Reason: fever. Last Admin: 09/29/17 16:33 Dose: 650 mg Aspirin (Aspirin Chewable) 81 mg PO DAILY [facility] Last Admin: 09/29/17 11:10 Dose: Not Given Benztropine Mesylate (Cogentin) 1 mg PO BID [facility] Last Admin: 09/29/17 19:00 Dose: Not Given Docusate Sodium (Colace) 100 mg PO TID [facility] Last Admin: 09/29/17 19:00 Dose: Not Given Enoxaparin Sodium (Lovenox) 30 mg SC DAILY [facility] Last Admin: 09/29/17 11:11 Dose: Not Given Ferrous Sulfate (Feosol) 325 mg PO TID [facility] Last Admin: 09/29/17 19:00 Dose: Not Given Haloperidol (Haldol) 5 mg PO Q6 PRN PRN Reason: Agitation Last Admin: 09/08/17 11:41 Dose: 5 mg Mirtazapine (Remeron) 30 mg PO [facility] Last Admin: 09/29/17 22:13 Dose: Not Given Risperidone (Risperdal Tab) 1 mg PO BID [facility] Last Admin: 09/29/17 19:00 Dose: Not Given Rosuvastatin Calcium (Crestor) 10 mg PO [facility] Last Admin: 05/04/18 22:13 Dose: Not Given Sertraline HCl (Zoloft) 200 mg PO DAILY [facility] Last Admin: 09/29/17 11:11 Dose: Not Given Tramadol HCl (Ultram) 25 mg PO ONCE ONE Stop: 09/30/17 22:31 Trazodone HCl (Desyrel) 50 mg PO HS [facility] Last Admin: 09/29/17 22:13 Dose: Not Given - Labs Labs: 09/18/17 14:34 09/18/17 14:34 PT 17.5 SECONDS (9.7-12.2) H 08/31/17 17:07 INR 1.5 08/31/17 17:07 APTT 35 SECONDS (21-34) H 08/31/17 17:07 - Additional Findings Additional findings: - Head Exam Head Exam: ATRAUMATIC - Eye Exam Eye Exam: EOMI - ENT Exam ENT Exam: Mucous Membranes Dry - Respiratory Exam Respiratory Exam: NORMAL BREATHING PATTERN. absent: Rhonchi, Wheezes - Cardiovascular Exam Cardiovascular Exam: REGULAR RHYTHM, +S1, +S2. absent: Murmur - GI/Abdominal Exam GI & Abdominal Exam: Soft, Normal Bowel Sounds. absent: Distended, Firm, Guarding, Rigid, Tenderness - Extremities Exam Extremities Exam: Normal Inspection. absent: Calf Tenderness, Pedal Edema - Neurological Exam Neurological Exam: Alert, Awake - Psychiatric Exam Psychiatric exam: Depressed, Flat Affect - Skin Skin Exam: Dry Assessment and Plan - Assessment and Plan (Free Text) Assessment: (1) Refusal of treatment Assessment & Plan: 09/30: Patient continues to refuse all treatment. He has not allowed blood work to be performed since 09/18/17. Psychiatry Consult, Dr. Martinez Evaluate for capacity * As per psychiatry evaluation: Patient lacks the capacity to make his own medical decisions at this time. Plans for reevaluation at a latter time. * Re-consultation for capacity and evaluation for severe depression and possible pseudodementia (09/14/17); As per documentation, patient is psychiatrically stable for discharge. As per phone conversation with Dr. Martinez, he will addendum note (09/14/17) commenting on patient's capacity * Patient was seen by Dr. 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 Application for medicaid and guardianship in progress Medications: * Cogentin 1mg PO BID * Haldol 5mg PO Q6H PRN * Risperidone 1mg PO BID * Trazodone 50mg PO HS * Patient continues to refuse all medications. Status: Acute (2) Generalized pain Assessment & Plan: CXR 08/31/17: * Large left upper lobe mass with probable involvement of the left posterior 3rd rib. Findings are concerning for malignancy. Dedicated CT scan of the chest with intravenous contrast is recommended for further characterization. * Patient has been refusing chest CT but states that he will think about and have the test done soon * CT abd/pelvis with IV contrast for today. Wanted PO contrast but patient refusing to drink PO Contrast, thus IV contrast: Large destructive heterogeneous soft tissue mass in the left lung upper lobe extending to the left upper posterior chest wall and extending to the left aspect of the upper thoracic spine consistent with malignant neoplasm. The mass is extending to upper aspect of the left hilum. Bony erosion and partial destruction of the left upper ribs and left aspect of T3 and T4 vertebral bodies. Left hilum and left mediastinum lymphadenopathy consistent with metastasis. Right adrenal mass likely represent metastasis. Moderate to mildly severe right hydronephrosis and proximal hydroureter up to 10.5 millimeter obstructing calculus at the proximal right ureter. Moderate constipation. Labs: * QFT negative, legionella negative, pending Mycoplasma Igm, Strep Pneumoniae, * Negative PPD read; no induration noted (48 hours and 72 hours read) * Patient is still refusing to produce sputum Medications: * Trazadone 50mg PO HS * Tylenol 650mg PO Q6H PRN * Morphine extended release 15mg PO Q12H * Percocet 1 tab PO Q4H Palliative consult * Management as per recommendation * Recommendation, Patient will need a guardian to advocate for him and be his decision making surrogate Status: Acute (3) Mass of upper lobe of left lung Assessment & Plan: CXR 08/31/17: Large left upper lobe mass with probable involvement of the left posterior 3rd rib. Findings are concerning for malignancy. Dedicated CT scan of the chest with intravenous contrast is recommended for further characterization. Chest CT: Large destructive heterogeneous soft tissue mass in the left lung upper lobe extending to the left upper posterior chest wall and extending to the left aspect of the upper thoracic spine consistent with malignant neoplasm. The mass is extending to upper aspect of the left hilum. Bony erosion and partial destruction of the left upper ribs and left aspect of T3 and T4 vertebral bodies. Left hilum and left mediastinum lymphadenopathy consistent with metastasis. Palliative consult * Management as per recommendation * Recommendation, Patient will need a guardian to advocate for him and be his decision making surrogate Status: Acute (4) Right adrenal mass Assessment & Plan: CT abd/pelvis with IV contrast for today. Wanted PO contrast but patient refusing to drink PO Contrast, thus IV contrast: Right adrenal mass likely represent metastasis. Status: Acute (5) Leukocytosis Assessment & Plan: Patient agreed to blood work, 09/20/17: 13.7 On admission: 14.7, patient has been refusing further lab work but continues to state that he would rethink his decision Blood Culture: Negative X5 days UA: LE (2+) and WBC (22), f/u repeat UA and UC (09/15/17) Meds: Cipro 400mg PO BID, started 09/15/17 ( Discontinue if repeat UA AND UC is negative) Zosyn 3.375gm IV Q6H ( Started 09/19/17)-- As per nursing, patient refused treatment Status: Acute (6) Anemia Assessment & Plan: H/H stable : 8.1/26.8 Patient is refusing transfusion at the moment RBC indices indicative of iron deficiency anemia Retic Count ELEVATED 2.5, Haptoglobin ELEVATED 369 Vitamin B12 and Folate NORMAL Ferritin NORMAL Homocysteine NORMAL IRON: 16 TIBC: 302 % Saturation: 5 Peripheral smear: Slight Parietal cell Ab negative, Negative intrinsic factor Pending LDH Medication: Ferrous sulfate 325mg PO TID (As per nursing, patient is refuses medication intermittently) Status: Acute (7) Lice infestation Assessment & Plan: Recommendation to shave patient bald; patient refuses Meds: Applied ivermectin and permethrin Given NIX kit once Contact precautions Status: Acute (8) Weight loss Assessment & Plan: Pending HIV, patient refuses blood work Patient is currently not eating Supplemental diet Status: Acute (9) History of CVA (cerebrovascular accident) Assessment & Plan: Hx of CVA in 2016 with documented right arm and leg weakness Head CT: A chronic infarct at the left MCA distribution is identified as well as age related neuro degenerative changes which are mildly advanced for the patient's age of 57 years. No intra hemorrhage, mass effect or CT pattern of an acute or subacute brain infarction is appreciated at this time. Follow-up CT or MRI are available if clinically warranted. Meds: Aspirin 81mg PO QD Crestor 10mg PO HS Status: Chronic (10) Left shoulder pain Assessment & Plan: Left shoulder X-ray (09/05/2017): No acute fracture. Acromioclavicular degenerative arthritis. Status: Acute (11) History of seizures Assessment & Plan: Patient has been without any seizure activity since admission Prior records show seizure activity Will monitor and if necessary start keppra and ativan Seizure precautions Status: Acute (12) Severe depression Assessment & Plan: Start Zoloft 50 mg PO Daily Start Remeron 15 mg PO QHS Status: Acute (13) Prophylactic measure Assessment & Plan: SCDs DVT: Lovenox 30mg SC daily Status: Acute Disposition: Patient continues to refuse labs, food, treatment and diagnostic testing/ medications Plans for guardianship All plans and management discussed with attending, Dr. Morley
[2017-09-30] MEDS: Enoxaparin 30 mg Syringe SC SCH (09:58)
[2017-09-30] MEDS ORDERED: Tramadol 25 mg PO ONE (22:30)
--- NOTE | 2017-10-01 08:57 | CP.PCM.PN ---
<Robert Huggins - Last Filed: 10/01/17 12:10> Subjective - Date & Time of Evaluation Date of Evaluation: 10/01/17 Time of Evaluation: 08:25 - Subjective Subjective: PGY2 Medicine progress note (Dr. Morley's service) Patient was seen and examined at bedside. Patient continues to refuse treatment. We had a long discussion, and he is open to trying his other medications. Unfortunately, the patient lacks capacity and does not remain consistent with his behavior. He continues to report abdominal pain, but refuses further evaluation or workup. Objective - Vital Signs/Intake and Output Vital Signs (last 24 hours): Temp Pulse Resp BP Pulse Ox 98.8 F 99 H 20 97/60 L 95 10/01/17 08:06 10/01/17 08:06 10/01/17 08:06 10/01/17 08:06 10/01/17 08:06 Intake and Output: 10/01/17 10/01/17 06:59 18:59 Intake Total 400 Balance 400 - Medications Medications: Current Medications Acetaminophen (Tylenol 325mg Tab) 650 mg PO Q6 PRN PRN Reason: fever. Last Admin: 09/30/17 11:13 Dose: 650 mg Aspirin (Aspirin Chewable) 81 mg PO DAILY [facility] Last Admin: 09/30/17 09:58 Dose: Not Given Benztropine Mesylate (Cogentin) 1 mg PO BID [facility] Last Admin: 09/30/17 17:26 Dose: Not Given Docusate Sodium (Colace) 100 mg PO TID [facility] Last Admin: 09/30/17 17:25 Dose: Not Given Enoxaparin Sodium (Lovenox) 30 mg SC DAILY [facility] Last Admin: 09/30/17 09:58 Dose: Not Given Ferrous Sulfate (Feosol) 325 mg PO TID [facility] Last Admin: 09/30/17 17:25 Dose: Not Given Haloperidol (Haldol) 5 mg PO Q6 PRN PRN Reason: Agitation Last Admin: 09/08/17 11:41 Dose: 5 mg Mirtazapine (Remeron) 30 mg PO [facility] Last Admin: 09/30/17 21:39 Dose: Not Given Risperidone (Risperdal Tab) 1 mg PO BID [facility] Last Admin: 09/30/17 17:25 Dose: Not Given Rosuvastatin Calcium (Crestor) 10 mg PO [facility] Last Admin: 09/30/17 21:39 Dose: Not Given Sertraline HCl (Zoloft) 200 mg PO DAILY [facility] Last Admin: 09/30/17 09:58 Dose: Not Given Trazodone HCl (Desyrel) 50 mg PO HS [facility] Last Admin: 09/30/17 21:39 Dose: Not Given - Labs Labs: 09/18/17 14:34 09/18/17 14:34 PT 17.5 SECONDS (9.7-12.2) H 08/31/17 17:07 INR 1.5 08/31/17 17:07 APTT 35 SECONDS (21-34) H 08/31/17 17:07 - Additional Findings Additional findings: - Head Exam Head Exam: ATRAUMATIC - Eye Exam Eye Exam: EOMI - ENT Exam ENT Exam: Mucous Membranes Dry - Respiratory Exam Respiratory Exam: NORMAL BREATHING PATTERN. absent: Rhonchi, Wheezes - Cardiovascular Exam Cardiovascular Exam: REGULAR RHYTHM, +S1, +S2. absent: Murmur - GI/Abdominal Exam GI & Abdominal Exam: Soft, Normal Bowel Sounds, Tenderness (diffuse). absent: Distended, Firm, Guarding, Rigid - Extremities Exam Extremities Exam: Normal Inspection. absent: Calf Tenderness, Pedal Edema - Neurological Exam Neurological Exam: Alert, Awake - Psychiatric Exam Psychiatric exam: Depressed, Flat Affect - Skin Skin Exam: Dry, Intact, Warm Assessment and Plan - Assessment and Plan (Free Text) Assessment: (1) Refusal of treatment Assessment & Plan: 09/30-10/01: Patient continues to refuse all treatment. He has not allowed blood work to be performed since 09/18/17. Patient is DNR/DNI. Psychiatry Consult, Dr. Martinez Evaluate for capacity * As per psychiatry evaluation: Patient lacks the capacity to make his own medical decisions at this time. Plans for reevaluation at a latter time. * Re-consultation for capacity and evaluation for severe depression and possible pseudodementia (09/14/17); As per documentation, patient is psychiatrically stable for discharge. As per phone conversation with Dr. Martinez, he will addendum note (09/14/17) commenting on patient's capacity * Patient was seen by Dr. Martinez (09/26/17), patient will need guardianship graphic manager, Consultation: Discussion with senior case manager today, 09/08/17; regarding possible guardianship. Application for medicaid and guardianship in progress Medications: * Cogentin 1mg PO BID * Haldol 5mg PO Q6H PRN * Risperidone 1mg PO BID * Trazodone 50mg PO HS * Patient continues to refuse all medications. Status: Acute (2) Generalized pain Assessment & Plan: CXR 08/31/17: * Large left upper lobe mass with probable involvement of the left posterior 3rd rib. Findings are concerning for malignancy. Dedicated CT scan of the chest with intravenous contrast is recommended for further characterization. * Patient has been refusing chest CT but states that he will think about and have the test done soon * CT abd/pelvis with IV contrast for today. Wanted PO contrast but patient refusing to drink PO Contrast, thus IV contrast: Large destructive heterogeneous soft tissue mass in the left lung upper lobe extending to the left upper posterior chest wall and extending to the left aspect of the upper thoracic spine consistent with malignant neoplasm. The mass is extending to upper aspect of the left hilum. Bony erosion and partial destruction of the left upper ribs and left aspect of T3 and T4 vertebral bodies. Left hilum and left mediastinum lymphadenopathy consistent with metastasis. Right adrenal mass likely represent metastasis. Moderate to mildly severe right hydronephrosis and proximal hydroureter up to 10.5 millimeter obstructing calculus at the proximal right ureter. Moderate constipation. Labs: * QFT negative, legionella negative, pending Mycoplasma Igm, Strep Pneumoniae, * Negative PPD read; no induration noted (48 hours and 72 hours read) * Patient is still refusing to produce sputum Medications: * Trazadone 50mg PO HS * Tylenol 650mg PO Q6H PRN * Morphine extended release 15mg PO Q12H * Percocet 1 tab PO Q4H Palliative consult * Management as per recommendation * Recommendation, Patient will need a guardian to advocate for him and be his decision making surrogate Status: Acute (3) Mass of upper lobe of left lung Assessment & Plan: CXR 08/31/17: Large left upper lobe mass with probable involvement of the left posterior 3rd rib. Findings are concerning for malignancy. Dedicated CT scan of the chest with intravenous contrast is recommended for further characterization. Chest CT: Large destructive heterogeneous soft tissue mass in the left lung upper lobe extending to the left upper posterior chest wall and extending to the left aspect of the upper thoracic spine consistent with malignant neoplasm. The mass is extending to upper aspect of the left hilum. Bony erosion and partial destruction of the left upper ribs and left aspect of T3 and T4 vertebral bodies. Left hilum and left mediastinum lymphadenopathy consistent with metastasis. Palliative consult * Management as per recommendation * Recommendation, Patient will need a guardian to advocate for him and be his decision making surrogate Status: Acute (4) Right adrenal mass Assessment & Plan: CT abd/pelvis with IV contrast for today. Wanted PO contrast but patient refusing to drink PO Contrast, thus IV contrast: Right adrenal mass likely represent metastasis. Status: Acute (5) Leukocytosis Assessment & Plan: 09/30-10/01: Patient continues to refuse all treatment. He has not allowed blood work to be performed since 09/18/17. Patient is DNR/DNI. Patient agreed to blood work, 09/20/17: 13.7 On admission: 14.7, patient has been refusing further lab work but continues to state that he would rethink his decision Blood Culture: Negative X5 days UA: LE (2+) and WBC (22), f/u repeat UA and UC (09/15/17) Meds: Cipro 400mg PO BID, started 09/15/17 ( Discontinue if repeat UA AND UC is negative) Zosyn 3.375gm IV Q6H ( Started 09/19/17)-- As per nursing, patient refused treatment Status: Acute (6) Anemia Assessment & Plan: 09/30-10/01: Patient continues to refuse all treatment. He has not allowed blood work to be performed since 09/18/17. Patient is DNR/DNI. H/H stable : 8.1/26.8 Patient is refusing transfusion at the moment RBC indices indicative of iron deficiency anemia Retic Count ELEVATED 2.5, Haptoglobin ELEVATED 369 Vitamin B12 and Folate NORMAL Ferritin NORMAL Homocysteine NORMAL IRON: 16 TIBC: 302 % Saturation: 5 Peripheral smear: Slight Parietal cell Ab negative, Negative intrinsic factor Pending LDH Medication: Ferrous sulfate 325mg PO TID (As per nursing, patient is refuses medication intermittently) Status: Acute (7) Lice infestation Assessment & Plan: Recommendation to shave patient bald; patient refuses Meds: Applied ivermectin and permethrin Given NIX kit once Contact precautions Status: Acute (8) Weight loss Assessment & Plan: Pending HIV, patient refuses blood work Patient is currently not eating Supplemental diet Status: Acute (9) History of CVA (cerebrovascular accident) Assessment & Plan: Hx of CVA in 2016 with documented right arm and leg weakness Head CT: A chronic infarct at the left MCA distribution is identified as well as age related neuro degenerative changes which are mildly advanced for the patient's age of 57 years. No intra hemorrhage, mass effect or CT pattern of an acute or subacute brain infarction is appreciated at this time. Follow-up CT or MRI are available if clinically warranted. Meds: Aspirin 81mg PO QD Crestor 10mg PO HS Status: Chronic (10) Left shoulder pain Assessment & Plan: Left shoulder X-ray (09/05/2017): No acute fracture. Acromioclavicular degenerative arthritis. Status: Acute (11) History of seizures Assessment & Plan: Patient has been without any seizure activity since admission Prior records show seizure activity Will monitor and if necessary start keppra and ativan Seizure precautions Status: Acute (12) Severe depression Assessment & Plan: Start Zoloft 50 mg PO Daily Start Remeron 15 mg PO QHS Status: Acute (13) Prophylactic measure Assessment & Plan: SCDs DVT: Lovenox 30mg SC daily Status: Acute Disposition: Patient continues to refuse labs, food, treatment and diagnostic testing/ medications Plans for guardianship. All plans and management discussed with attending, Dr. Morley <Robert Morley - Last Filed: 10/01/17 14:10> Objective - Vital Signs/Intake and Output Vital Signs (last 24 hours): Temp Pulse Resp BP Pulse Ox 98.8 F 99 H 20 97/60 L 95 10/01/17 08:06 10/01/17 08:06 10/01/17 08:06 10/01/17 08:06 10/01/17 08:06 Intake and Output: 10/01/17 10/01/17 06:59 18:59 Intake Total 400 Balance 400 - Medications Medications: Current Medications Acetaminophen (Tylenol 325mg Tab) 650 mg PO Q6 PRN PRN Reason: fever. Last Admin: 09/30/17 11:13 Dose: 650 mg Aspirin (Aspirin Chewable) 81 mg PO DAILY [facility] Last Admin: 10/01/17 10:20 Dose: Not Given Benztropine Mesylate (Cogentin) 1 mg PO BID [facility] Last Admin: 10/01/17 10:20 Dose: Not Given Docusate Sodium (Colace) 100 mg PO TID [facility] Last Admin: 10/01/17 13:13 Dose: Not Given Enoxaparin Sodium (Lovenox) 30 mg SC DAILY [facility] Last Admin: 10/01/17 10:20 Dose: Not Given Ferrous Sulfate (Feosol) 325 mg PO TID [facility] Last Admin: 10/01/17 13:13 Dose: Not Given Haloperidol (Haldol) 5 mg PO Q6 PRN PRN Reason: Agitation Last Admin: 09/08/17 11:41 Dose: 5 mg Mirtazapine (Remeron) 30 mg PO HS [facility] Last Admin: 09/30/17 21:39 Dose: Not Given Risperidone (Risperdal Tab) 1 mg PO BID [facility] Last Admin: 10/01/17 10:21 Dose: Not Given Rosuvastatin Calcium (Crestor) 10 mg PO [facility] Last Admin: 09/30/17 21:39 Dose: Not Given Sertraline HCl (Zoloft) 200 mg PO DAILY [facility] Last Admin: 10/01/17 10:21 Dose: Not Given Trazodone HCl (Desyrel) 50 mg PO [facility] Last Admin: 09/30/17 21:39 Dose: Not Given - Labs Labs: 09/18/17 14:34 09/18/17 14:34 PT 17.5 SECONDS (9.7-12.2) H 08/31/17 17:07 INR 1.5 08/31/17 17:07 APTT 35 SECONDS (21-34) H 08/31/17 17:07 Attending/Attestation - Attestation I have personally seen and examined this patient.: Yes I have fully participated in the care of the patient.: Yes I have reviewed all pertinent clinical information, including history, physical exam and plan: Yes Notes (Text): 10/01/17 14:08 Medical attending: Patient was seen and examined by me. Agree with the above note by the resident. No acute changes, overall prognosis remains very poor. His diet is minimal. He cannot even change the channel on the television He tries to answer questions - however affect is very slow and sometimes does not anshwer questions appropriately. Robert Morley
[2017-10-01] MEDS: Enoxaparin 30 mg Syringe SC SCH (10:20)
[2017-10-02] MEDS: Enoxaparin 30 mg Syringe SC SCH (10:09)
[2017-10-02] MEDS ORDERED: Apap-Butalbital-Caffeine 325-50-40mg Tab PO STA (14:35)
--- NOTE | 2017-10-02 14:41 | CP.PCM.PN ---
<Meena Mccray - Last Filed: 10/02/17 14:34> Subjective - Date & Time of Evaluation Date of Evaluation: 10/02/17 Time of Evaluation: 09:00 - Subjective Subjective: Medicine Progress Note for Hospitalist Service- Dr. Torres Patient was seen and examined at bedside. Patient reports he has a headache. Denied fever, chills, shortness of breath, chest pain, abdominal pain, n/v/d/c, or urinary symptoms. Objective - Vital Signs/Intake and Output Vital Signs (last 24 hours): Temp Pulse Resp BP Pulse Ox 98.5 F 100 H 20 114/74 96 10/02/17 08:08 10/02/17 08:08 10/02/17 08:08 10/02/17 08:08 10/02/17 08:08 Intake and Output: 10/02/17 10/02/17 06:59 18:59 Intake Total 240 Balance 240 - Medications Medications: Current Medications Acetaminophen (Tylenol 325mg Tab) 650 mg PO Q6 PRN PRN Reason: fever. Last Admin: 10/02/17 10:39 Dose: 650 mg Aspirin (Aspirin Chewable) 81 mg PO DAILY [facility] Last Admin: 10/02/17 10:08 Dose: Not Given Benztropine Mesylate (Cogentin) 1 mg PO BID [facility] Last Admin: 10/02/17 10:08 Dose: Not Given Docusate Sodium (Colace) 100 mg PO TID [facility] Last Admin: 10/02/17 14:07 Dose: Not Given Enoxaparin Sodium (Lovenox) 30 mg SC DAILY [facility] Last Admin: 10/02/17 10:09 Dose: Not Given Ferrous Sulfate (Feosol) 325 mg PO TID [facility] Last Admin: 10/02/17 14:07 Dose: Not Given Haloperidol (Haldol) 5 mg PO Q6 PRN PRN Reason: Agitation Last Admin: 09/08/17 11:41 Dose: 5 mg Mirtazapine (Remeron) 30 mg PO [facility] Last Admin: 10/01/17 21:19 Dose: Not Given Risperidone (Risperdal Tab) 1 mg PO BID [facility] Last Admin: 10/02/17 10:09 Dose: Not Given Rosuvastatin Calcium (Crestor) 10 mg PO [facility] Last Admin: 05/06/18 22:42 Dose: 10 mg Sertraline HCl (Zoloft) 200 mg PO DAILY [facility] Last Admin: 10/02/17 10:09 Dose: Not Given Trazodone HCl (Desyrel) 50 mg PO HS [facility] Last Admin: 10/01/17 21:19 Dose: Not Given - Labs Labs: 09/18/17 14:34 09/18/17 14:34 PT 17.5 SECONDS (9.7-12.2) H 08/31/17 17:07 INR 1.5 08/31/17 17:07 APTT 35 SECONDS (21-34) H 08/31/17 17:07 - Additional Findings Additional findings: - Head Exam Head Exam: ATRAUMATIC - Eye Exam Eye Exam: EOMI - ENT Exam ENT Exam: Mucous Membranes Dry - Respiratory Exam Respiratory Exam: NORMAL BREATHING PATTERN. absent: Rhonchi, Wheezes - Cardiovascular Exam Cardiovascular Exam: REGULAR RHYTHM, +S1, +S2. absent: Murmur - GI/Abdominal Exam GI & Abdominal Exam: Soft, Normal Bowel Sounds, Tenderness (diffuse). absent: Distended, Firm, Guarding, Rigid - Extremities Exam Extremities Exam: Normal Inspection. absent: Calf Tenderness, Pedal Edema - Neurological Exam Neurological Exam: Alert, Awake - Psychiatric Exam Psychiatric exam: Depressed, Flat Affect - Skin Skin Exam: Dry, Intact, Warm Assessment and Plan - Assessment and Plan (Free Text) Plan: Mass of upper lobe of left lung Right adrenal mass Generalized pain CXR 08/31/17: * Large left upper lobe mass with probable involvement of the left posterior 3rd rib. Findings are concerning for malignancy. Dedicated CT scan of the chest with intravenous contrast is recommended for further characterization. * Patient has been refusing chest CT but states that he will think about and have the test done soon * CT abd/pelvis with IV contrast for today. Wanted PO contrast but patient refusing to drink PO Contrast, thus IV contrast: Large destructive heterogeneous soft tissue mass in the left lung upper lobe extending to the left upper posterior chest wall and extending to the left aspect of the upper thoracic spine consistent with malignant neoplasm. The mass is extending to upper aspect of the left hilum. Bony erosion and partial destruction of the left upper ribs and left aspect of T3 and T4 vertebral bodies. Left hilum and left mediastinum lymphadenopathy consistent with metastasis. Right adrenal mass likely represent metastasis. Moderate to mildly severe right hydronephrosis and proximal hydroureter up to 10.5 millimeter obstructing calculus at the proximal right ureter. Moderate constipation. * Right adrenal mass likely represent metastasis. Labs: * QFT negative, legionella negative, pending Mycoplasma Igm, Strep Pneumoniae, * Negative PPD read; no induration noted (48 hours and 72 hours read) * Patient is still refusing to produce sputum Medications: * Trazadone 50mg PO HS * Tylenol 650mg PO Q6H PRN * Morphine extended release 15mg PO Q12H * Percocet 1 tab PO Q4H Palliative consult * Management as per recommendation * Recommendation, Patient will need a guardian to advocate for him and be his decision making surrogate Refusal of treatment Assessment & Plan: 09/30-10/01: Patient continues to refuse all treatment. He has not allowed blood work to be performed since 09/18/17. Patient is DNR/DNI. Psychiatry Consult, Dr. Martinez Evaluate for capacity * As per psychiatry evaluation: Patient lacks the capacity to make his own medical decisions at this time. Plans for reevaluation at a latter time. * Re-consultation for capacity and evaluation for severe depression and possible pseudodementia (09/14/17); As per documentation, patient is psychiatrically stable for discharge. As per phone conversation with Dr. Martinez, he will addendum note (09/14/17) commenting on patient's capacity * Patient was seen by Dr. Martinez (09/26/17), patient will need guardianship intervention manager, Consultation: Discussion with caser up today, 09/08/17; regarding possible guardianship. Application for medicaid and guardianship in progress Leukocytosis Assessment & Plan: 09/30-10/01: Patient continues to refuse all treatment. He has not allowed blood work to be performed since 09/18/17. Patient is DNR/DNI. Patient agreed to blood work, 09/20/17: 13.7 On admission: 14.7, patient has been refusing further lab work but continues to state that he would rethink his decision Blood Culture: Negative X5 days UA: LE (2+) and WBC (22), f/u repeat UA and UC (09/15/17) Meds: Cipro 400mg PO BID, started 09/15/17 ( Discontinue if repeat UA AND UC is negative) Zosyn 3.375gm IV Q6H ( Started 09/19/17)-- As per nursing, patient refused treatment Anemia Assessment & Plan: 09/30-10/01: Patient continues to refuse all treatment. He has not allowed blood work to be performed since 09/18/17. Patient is DNR/DNI. H/H stable : 8.1/26.8 Patient is refusing transfusion at the moment RBC indices indicative of iron deficiency anemia Retic Count ELEVATED 2.5, Haptoglobin ELEVATED 369 Vitamin B12 and Folate NORMAL Ferritin NORMAL Homocysteine NORMAL IRON: 16 TIBC: 302 % Saturation: 5 Peripheral smear: Slight Parietal cell Ab negative, Negative intrinsic factor Pending LDH Medication: Ferrous sulfate 325mg PO TID (As per nursing, patient is refuses medication intermittently) Lice infestation Assessment & Plan: Recommendation to shave patient bald; patient refuses Meds: Applied ivermectin and permethrin Given NIX kit once Contact precautions Weight loss Assessment & Plan: Pending HIV, patient refuses blood work Patient is currently not eating Supplemental diet History of CVA (cerebrovascular accident) Assessment & Plan: Hx of CVA in 2016 with documented right arm and leg weakness Head CT: A chronic infarct at the left MCA distribution is identified as well as age related neuro degenerative changes which are mildly advanced for the patient's age of 57 years. No intra hemorrhage, mass effect or CT pattern of an acute or subacute brain infarction is appreciated at this time. Follow-up CT or MRI are available if clinically warranted. Meds: Aspirin 81mg PO QD Crestor 10mg PO HS Left shoulder pain Assessment & Plan: Left shoulder X-ray (09/05/2017): No acute fracture. Acromioclavicular degenerative arthritis. History of seizures Assessment & Plan: Patient has been without any seizure activity since admission Prior records show seizure activity Will monitor and if necessary start keppra and ativan Seizure precautions Severe depression Assessment & Plan: Start Zoloft 50 mg PO Daily Start Remeron 15 mg PO QHS Prophylactic measure Assessment & Plan: SCDs DVT: Lovenox 30mg SC daily Disposition: Patient continues to refuse labs, food, treatment and diagnostic testing/ medications. Plans for guardianship. Meena Plummer Dr., DO, PGY-1 <Lamonte Torres - Last Filed: 10/02/17 15:42> Objective - Vital Signs/Intake and Output Vital Signs (last 24 hours): Temp Pulse Resp BP Pulse Ox 98.5 F 100 H 20 114/74 96 10/02/17 08:08 10/02/17 08:08 10/02/17 08:08 10/02/17 08:08 10/02/17 08:08 Intake and Output: 10/02/17 10/02/17 06:59 18:59 Intake Total 240 Balance 240 - Medications Medications: Current Medications Acetaminophen (Tylenol 325mg Tab) 650 mg PO Q6 PRN PRN Reason: fever. Last Admin: 10/02/17 10:39 Dose: 650 mg Aspirin (Aspirin Chewable) 81 mg PO DAILY [facility] Last Admin: 10/02/17 10:08 Dose: Not Given Benztropine Mesylate (Cogentin) 1 mg PO BID [facility] Last Admin: 10/02/17 10:08 Dose: Not Given Docusate Sodium (Colace) 100 mg PO TID [facility] Last Admin: 10/02/17 14:07 Dose: Not Given Enoxaparin Sodium (Lovenox) 30 mg SC DAILY [facility] Last Admin: 10/02/17 10:09 Dose: Not Given Ferrous Sulfate (Feosol) 325 mg PO TID [facility] Last Admin: 10/02/17 14:07 Dose: Not Given Haloperidol (Haldol) 5 mg PO Q6 PRN PRN Reason: Agitation Last Admin: 09/08/17 11:41 Dose: 5 mg Mirtazapine (Remeron) 30 mg PO [facility] Last Admin: 10/01/17 21:19 Dose: Not Given Risperidone (Risperdal Tab) 1 mg PO BID [facility] Last Admin: 10/02/17 10:09 Dose: Not Given Rosuvastatin Calcium (Crestor) 10 mg PO [facility] Last Admin: 10/01/17 22:42 Dose: 10 mg Sertraline HCl (Zoloft) 200 mg PO DAILY [facility] Last Admin: 10/02/17 10:09 Dose: Not Given Trazodone HCl (Desyrel) 50 mg PO [facility] Last Admin: 10/01/17 21:19 Dose: Not Given - Labs Labs: 09/18/17 14:34 09/18/17 14:34 PT 17.5 SECONDS (9.7-12.2) H 08/31/17 17:07 INR 1.5 08/31/17 17:07 APTT 35 SECONDS (21-34) H 08/31/17 17:07 Attending/Attestation - Attestation I have personally seen and examined this patient.: Yes I have fully participated in the care of the patient.: Yes I have reviewed all pertinent clinical information, including history, physical exam and plan: Yes Notes (Text): Seen and examined,refuses meds and treatment This is a 57 years old homeless male with past h/o CVA admitted for body lice. He has malignancy with mets. His prognosis is poor. Refuses treatment. His is DNI and DNR plan discussed with the resident. I agree with the resident's recommendation of the assessment and the plan 10/02/17 15:42
[2017-10-02] MEDS: Tramadol 25 mg PO PRN (20:02)
[2017-10-03] MEDS: Enoxaparin 30 mg Syringe SC SCH (09:48)
--- NOTE | 2017-10-03 10:01 | CP.PCM.PN ---
<Meena Mccray - Last Filed: 10/03/17 12:11> Subjective - Date & Time of Evaluation Date of Evaluation: 10/03/17 Time of Evaluation: 09:00 - Subjective Subjective: Medicine Progress Note for Hospitalist Service- Dr. Torres Patient was seen and examined at bedside. Patient refuses to answer questions and requested I leave the room. ROS unattainable. Objective - Vital Signs/Intake and Output Vital Signs (last 24 hours): Temp Pulse Resp BP Pulse Ox 98 F 93 H 20 108/65 99 10/03/17 08:17 10/03/17 08:17 10/03/17 08:17 10/03/17 08:17 10/03/17 08:17 Intake and Output: 10/03/17 10/03/17 06:59 18:59 Intake Total 720 Output Total 225 Balance 495 - Medications Medications: Current Medications Acetaminophen (Tylenol 325mg Tab) 650 mg PO Q6 PRN PRN Reason: fever. Last Admin: 10/03/17 06:13 Dose: 650 mg Aspirin (Aspirin Chewable) 81 mg PO DAILY [facility] Last Admin: 10/03/17 09:47 Dose: Not Given Benztropine Mesylate (Cogentin) 1 mg PO BID [facility] Last Admin: 10/03/17 09:47 Dose: Not Given Docusate Sodium (Colace) 100 mg PO TID [facility] Last Admin: 10/03/17 09:48 Dose: Not Given Enoxaparin Sodium (Lovenox) 30 mg SC DAILY [facility] Last Admin: 10/03/17 09:48 Dose: Not Given Ferrous Sulfate (Feosol) 325 mg PO TID [facility] Last Admin: 10/03/17 09:48 Dose: Not Given Haloperidol (Haldol) 5 mg PO Q6 PRN PRN Reason: Agitation Last Admin: 09/08/17 11:41 Dose: 5 mg Mirtazapine (Remeron) 30 mg PO [facility] Last Admin: 10/02/17 22:13 Dose: Not Given Risperidone (Risperdal Tab) 1 mg PO BID [facility] Last Admin: 10/03/17 09:48 Dose: Not Given Rosuvastatin Calcium (Crestor) 10 mg PO [facility] Last Admin: 10/02/17 22:13 Dose: Not Given Sertraline HCl (Zoloft) 200 mg PO DAILY [facility] Last Admin: 10/03/17 09:48 Dose: Not Given Tramadol HCl (Ultram) 25 mg PO TID PRN PRN Reason: Pain, moderate (4-7) Last Admin: 10/02/17 20:02 Dose: 25 mg Trazodone HCl (Desyrel) 50 mg PO HS [facility] Last Admin: 10/02/17 22:13 Dose: Not Given - Labs Labs: 09/18/17 14:34 09/18/17 14:34 PT 17.5 SECONDS (9.7-12.2) H 08/31/17 17:07 INR 1.5 08/31/17 17:07 APTT 35 SECONDS (21-34) H 08/31/17 17:07 - Additional Findings Additional findings: - Head Exam Head Exam: ATRAUMATIC - Eye Exam Eye Exam: EOMI - ENT Exam ENT Exam: Mucous Membranes Dry - Respiratory Exam Respiratory Exam: NORMAL BREATHING PATTERN. absent: Rhonchi, Wheezes - Cardiovascular Exam Cardiovascular Exam: REGULAR RHYTHM, +S1, +S2. absent: Murmur - GI/Abdominal Exam GI & Abdominal Exam: Soft, Normal Bowel Sounds, Tenderness (diffuse). absent: Distended, Firm, Guarding, Rigid - Extremities Exam Extremities Exam: Normal Inspection. absent: Calf Tenderness, Pedal Edema - Neurological Exam Neurological Exam: Alert, Awake - Psychiatric Exam Psychiatric exam: Depressed, Flat Affect - Skin Skin Exam: Dry, Intact, Warm Assessment and Plan - Assessment and Plan (Free Text) Plan: Mass of upper lobe of left lung Right adrenal mass Generalized pain CXR 08/31/17: * Large left upper lobe mass with probable involvement of the left posterior 3rd rib. Findings are concerning for malignancy. Dedicated CT scan of the chest with intravenous contrast is recommended for further characterization. * Patient has been refusing chest CT but states that he will think about and have the test done soon * CT abd/pelvis with IV contrast for today. Wanted PO contrast but patient refusing to drink PO Contrast, thus IV contrast: Large destructive heterogeneous soft tissue mass in the left lung upper lobe extending to the left upper posterior chest wall and extending to the left aspect of the upper thoracic spine consistent with malignant neoplasm. The mass is extending to upper aspect of the left hilum. Bony erosion and partial destruction of the left upper ribs and left aspect of T3 and T4 vertebral bodies. Left hilum and left mediastinum lymphadenopathy consistent with metastasis. Right adrenal mass likely represent metastasis. Moderate to mildly severe right hydronephrosis and proximal hydroureter up to 10.5 millimeter obstructing calculus at the proximal right ureter. Moderate constipation. * Right adrenal mass likely represent metastasis. Labs: * QFT negative, legionella negative, pending Mycoplasma Igm, Strep Pneumoniae, * Negative PPD read; no induration noted (48 hours and 72 hours read) * Patient is still refusing to produce sputum Medications: * Trazadone 50mg PO HS * Tylenol 650mg PO Q6H PRN * Morphine extended release 15mg PO Q12H * Percocet 1 tab PO Q4H Palliative consult * Management as per recommendation * Recommendation, Patient will need a guardian to advocate for him and be his decision making surrogate Refusal of treatment Assessment & Plan: 09/30-10/01: Patient continues to refuse all treatment. He has not allowed blood work to be performed since 09/18/17. Patient is DNR/DNI. Psychiatry Consult, Dr. Martinez Evaluate for capacity * As per psychiatry evaluation: Patient lacks the capacity to make his own medical decisions at this time. Plans for reevaluation at a latter time. * Re-consultation for capacity and evaluation for severe depression and possible pseudodementia (09/14/17); As per documentation, patient is psychiatrically stable for discharge. As per phone conversation with Dr. Martinez, he will addendum note (09/14/17) commenting on patient's capacity * Patient was seen by Dr. 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 Application for medicaid and guardianship in progress Leukocytosis Assessment & Plan: 09/30-10/01: Patient continues to refuse all treatment. He has not allowed blood work to be performed since 09/18/17. Patient is DNR/DNI. Patient agreed to blood work, 09/20/17: 13.7 On admission: 14.7, patient has been refusing further lab work but continues to state that he would rethink his decision Blood Culture: Negative X5 days UA: LE (2+) and WBC (22), f/u repeat UA and UC (09/15/17) Meds: Cipro 400mg PO BID, started 09/15/17 ( Discontinue if repeat UA AND UC is negative) Zosyn 3.375gm IV Q6H ( Started 09/19/17)-- As per nursing, patient refused treatment Anemia Assessment & Plan: 09/30-10/01: Patient continues to refuse all treatment. He has not allowed blood work to be performed since 09/18/17. Patient is DNR/DNI. H/H stable : 8.1/26.8 Patient is refusing transfusion at the moment RBC indices indicative of iron deficiency anemia Retic Count ELEVATED 2.5, Haptoglobin ELEVATED 369 Vitamin B12 and Folate NORMAL Ferritin NORMAL Homocysteine NORMAL IRON: 16 TIBC: 302 % Saturation: 5 Peripheral smear: Slight Parietal cell Ab negative, Negative intrinsic factor Pending LDH Medication: Ferrous sulfate 325mg PO TID (As per nursing, patient is refuses medication intermittently) Lice infestation Assessment & Plan: Recommendation to shave patient bald; patient refuses Meds: Applied ivermectin and permethrin Given NIX kit once Contact precautions Weight loss Assessment & Plan: Pending HIV, patient refuses blood work Patient is currently not eating Supplemental diet History of CVA (cerebrovascular accident) Assessment & Plan: Hx of CVA in 2016 with documented right arm and leg weakness Head CT: A chronic infarct at the left MCA distribution is identified as well as age related neuro degenerative changes which are mildly advanced for the patient's age of 57 years. No intra hemorrhage, mass effect or CT pattern of an acute or subacute brain infarction is appreciated at this time. Follow-up CT or MRI are available if clinically warranted. Meds: Aspirin 81mg PO QD Crestor 10mg PO HS Left shoulder pain Assessment & Plan: Left shoulder X-ray (09/05/2017): No acute fracture. Acromioclavicular degenerative arthritis. History of seizures Assessment & Plan: Patient has been without any seizure activity since admission Prior records show seizure activity Will monitor and if necessary start keppra and ativan Seizure precautions Severe depression Assessment & Plan: Start Zoloft 50 mg PO Daily Start Remeron 15 mg PO QHS Prophylactic measure Assessment & Plan: SCDs DVT: Lovenox 30mg SC daily Disposition: Patient continues to refuse labs, food, treatment and diagnostic testing/ medications. Plans for guardianship. Meena Plummer Dr., DO, PGY-1 <Lamonte Torres - Last Filed: 10/03/17 17:29> Objective - Vital Signs/Intake and Output Vital Signs (last 24 hours): Temp Pulse Resp BP Pulse Ox 98.4 F 91 H 20 101/66 96 10/03/17 15:40 10/03/17 15:40 10/03/17 15:40 10/03/17 15:40 10/03/17 15:40 Intake and Output: 10/03/17 10/03/17 06:59 18:59 Intake Total 720 120 Output Total 225 100 Balance 495 20 - Medications Medications: Current Medications Acetaminophen (Tylenol 325mg Tab) 650 mg PO Q6 PRN PRN Reason: fever. Last Admin: 10/03/17 13:12 Dose: 650 mg Aspirin (Aspirin Chewable) 81 mg PO DAILY [facility] Last Admin: 10/03/17 09:47 Dose: Not Given Benztropine Mesylate (Cogentin) 1 mg PO BID [facility] Last Admin: 10/03/17 09:47 Dose: Not Given Docusate Sodium (Colace) 100 mg PO TID [facility] Last Admin: 10/03/17 13:12 Dose: 100 mg Enoxaparin Sodium (Lovenox) 30 mg SC DAILY [facility] Last Admin: 10/03/17 09:48 Dose: Not Given Ferrous Sulfate (Feosol) 325 mg PO TID [facility] Last Admin: 10/03/17 13:12 Dose: 325 mg Haloperidol (Haldol) 5 mg PO Q6 PRN PRN Reason: Agitation Last Admin: 09/08/17 11:41 Dose: 5 mg Mirtazapine (Remeron) 30 mg PO [facility] Last Admin: 10/02/17 22:13 Dose: Not Given Risperidone (Risperdal Tab) 1 mg PO BID [facility] Last Admin: 10/03/17 09:48 Dose: Not Given Rosuvastatin Calcium (Crestor) 10 mg PO [facility] Last Admin: 10/02/17 22:13 Dose: Not Given Sertraline HCl (Zoloft) 200 mg PO DAILY [facility] Last Admin: 10/03/17 09:48 Dose: Not Given Tramadol HCl (Ultram) 25 mg PO TID PRN PRN Reason: Pain, moderate (4-7) Last Admin: 10/02/17 20:02 Dose: 25 mg Trazodone HCl (Desyrel) 50 mg PO HS [facility] Last Admin: 10/02/17 22:13 Dose: Not Given - Labs Labs: 09/18/17 14:34 09/18/17 14:34 PT 17.5 SECONDS (9.7-12.2) H 08/31/17 17:07 INR 1.5 08/31/17 17:07 APTT 35 SECONDS (21-34) H 08/31/17 17:07 Attending/Attestation - Attestation I have personally seen and examined this patient.: No I have fully participated in the care of the patient.: Yes I have reviewed all pertinent clinical information, including history, physical exam and plan: Yes
--- NOTE | 2017-10-04 07:20 | CP.PCM.PN ---
<MackMeena salazar - Last Filed: 10/04/17 07:18> Subjective - Date & Time of Evaluation Date of Evaluation: 10/04/17 Time of Evaluation: 07:00 - Subjective Subjective: Medicine Progress Note for Hospitalist Service- Dr. Torres Patient was seen and examined at bedside. Patient is more amicable to speak today. Reports feeling okay. Continues to refuse any biopsy or further imaging. Admitted to back and abdominal pain. Denied fever, chills, shortness of breath, chest pain, n/v/d/c, or urinary symptoms. Objective - Vital Signs/Intake and Output Vital Signs (last 24 hours): Temp Pulse Resp BP Pulse Ox 98.5 F 94 H 20 106/67 98 10/04/17 00:00 10/04/17 00:00 10/04/17 00:00 10/04/17 00:00 10/04/17 00:00 Intake and Output: 10/04/17 10/04/17 06:59 18:59 Intake Total 760 Balance 760 - Medications Medications: Current Medications Acetaminophen (Tylenol 325mg Tab) 650 mg PO Q6 PRN PRN Reason: fever. Last Admin: 10/03/17 19:48 Dose: 650 mg Aspirin (Aspirin Chewable) [address] [facility] Last Admin: 10/03/17 09:47 Dose: Not Given Benztropine Mesylate (Cogentin) [address] [facility] Last Admin: 10/03/17 17:47 Dose: Not Given Docusate Sodium (Colace) [address] [facility] Last Admin: 10/03/17 17:47 Dose: Not Given Enoxaparin Sodium (Lovenox) [address] [facility] Last Admin: 10/03/17 09:48 Dose: Not Given Ferrous Sulfate (Feosol) [address] [facility] Last Admin: 10/03/17 17:47 Dose: Not Given Haloperidol (Haldol) 5 mg PO Q6 PRN PRN Reason: Agitation Last Admin: 09/08/17 11:41 Dose: 5 mg Mirtazapine (Remeron) [address] [facility] Last Admin: 10/03/17 21:42 Dose: Not Given Risperidone (Risperdal Tab) [address] [facility] Last Admin: 10/03/17 17:47 Dose: Not Given Rosuvastatin Calcium (Crestor) [address] [facility] Last Admin: 10/03/17 21:42 Dose: Not Given Sertraline HCl (Zoloft) [address] [facility] Last Admin: 10/03/17 09:48 Dose: Not Given Tramadol HCl (Ultram) 25 mg PO TID PRN PRN Reason: Pain, moderate (4-7) Last Admin: 10/02/17 20:02 Dose: 25 mg Trazodone HCl (Desyrel) 50 mg PO [facility] Last Admin: 10/03/17 21:42 Dose: Not Given - Labs Labs: 09/18/17 14:34 09/18/17 14:34 PT 17.5 SECONDS (9.7-12.2) H 08/31/17 17:07 INR 1.5 08/31/17 17:07 APTT 35 SECONDS (21-34) H 08/31/17 17:07 - Additional Findings Additional findings: - Head Exam Head Exam: ATRAUMATIC - Eye Exam Eye Exam: EOMI - ENT Exam ENT Exam: Mucous Membranes Dry - Respiratory Exam Respiratory Exam: NORMAL BREATHING PATTERN. absent: Rhonchi, Wheezes - Cardiovascular Exam Cardiovascular Exam: REGULAR RHYTHM, +S1, +S2. absent: Murmur - GI/Abdominal Exam GI & Abdominal Exam: Soft, Normal Bowel Sounds, Tenderness (diffuse). absent: Distended, Firm, Guarding, Rigid - Extremities Exam Extremities Exam: Normal Inspection. absent: Calf Tenderness, Pedal Edema - Neurological Exam Neurological Exam: Alert, Awake - Psychiatric Exam Psychiatric exam: Depressed, Flat Affect - Skin Skin Exam: Dry, Intact, Warm Assessment and Plan - Assessment and Plan (Free Text) Plan: Mass of upper lobe of left lung Right adrenal mass Generalized pain CXR 08/31/17: * Large left upper lobe mass with probable involvement of the left posterior 3rd rib. Findings are concerning for malignancy. Dedicated CT scan of the chest with intravenous contrast is recommended for further characterization. * Patient has been refusing chest CT but states that he will think about and have the test done soon * CT abd/pelvis with IV contrast for today. Wanted PO contrast but patient refusing to drink PO Contrast, thus IV contrast: Large destructive heterogeneous soft tissue mass in the left lung upper lobe extending to the left upper posterior chest wall and extending to the left aspect of the upper thoracic spine consistent with malignant neoplasm. The mass is extending to upper aspect of the left hilum. Bony erosion and partial destruction of the left upper ribs and left aspect of T3 and T4 vertebral bodies. Left hilum and left mediastinum lymphadenopathy consistent with metastasis. Right adrenal mass likely represent metastasis. Moderate to mildly severe right hydronephrosis and proximal hydroureter up to 10.5 millimeter obstructing calculus at the proximal right ureter. Moderate constipation. * Right adrenal mass likely represent metastasis. Labs: * QFT negative, legionella negative, pending Mycoplasma Igm, Strep Pneumoniae, * Negative PPD read; no induration noted (48 hours and 72 hours read) * Patient is still refusing to produce sputum Medications: * Trazadone 50mg PO HS * Tylenol 650mg PO Q6H PRN * Morphine extended release 15mg PO Q12H * Percocet 1 tab PO Q4H Palliative consult * Management as per recommendation * Recommendation, Patient will need a guardian to advocate for him and be his decision making surrogate Refusal of treatment Assessment & Plan: 09/30-10/01: Patient continues to refuse all treatment. He has not allowed blood work to be performed since 09/18/17. Patient is DNR/DNI. Psychiatry Consult, Dr. Martinez Evaluate for capacity * As per psychiatry evaluation: Patient lacks the capacity to make his own medical decisions at this time. Plans for reevaluation at a latter time. * Re-consultation for capacity and evaluation for severe depression and possible pseudodementia (09/14/17); As per documentation, patient is psychiatrically stable for discharge. As per phone conversation with Dr. Martinez, he will addendum note (09/14/17) commenting on patient's capacity * Patient was seen by Dr. Martinez (09/26/17), patient will need guardianship project manager, Consultation: Discussion with shoe parts caser today, 09/08/17; regarding possible guardianship. Application for medicaid and guardianship in progress Leukocytosis Assessment & Plan: 09/30-10/01: Patient continues to refuse all treatment. He has not allowed blood work to be performed since 09/18/17. Patient is DNR/DNI. Patient agreed to blood work, 09/20/17: 13.7 On admission: 14.7, patient has been refusing further lab work but continues to state that he would rethink his decision Blood Culture: Negative X5 days UA: LE (2+) and WBC (22), f/u repeat UA and UC (09/15/17) Meds: Cipro 400mg PO BID, started 09/15/17 ( Discontinue if repeat UA AND UC is negative) Zosyn 3.375gm IV Q6H ( Started 09/19/17)-- As per nursing, patient refused treatment Anemia Assessment & Plan: 09/30-10/01: Patient continues to refuse all treatment. He has not allowed blood work to be performed since 09/18/17. Patient is DNR/DNI. H/H stable : 8.1/26.8 Patient is refusing transfusion at the moment RBC indices indicative of iron deficiency anemia Retic Count ELEVATED 2.5, Haptoglobin ELEVATED 369 Vitamin B12 and Folate NORMAL Ferritin NORMAL Homocysteine NORMAL IRON: 16 TIBC: 302 % Saturation: 5 Peripheral smear: Slight Parietal cell Ab negative, Negative intrinsic factor Pending LDH Medication: Ferrous sulfate 325mg PO TID (As per nursing, patient is refuses medication intermittently) Lice infestation Assessment & Plan: Recommendation to shave patient bald; patient refuses Meds: Applied ivermectin and permethrin Given NIX kit once Contact precautions Weight loss Assessment & Plan: Pending HIV, patient refuses blood work Patient is currently not eating Supplemental diet History of CVA (cerebrovascular accident) Assessment & Plan: Hx of CVA in 2016 with documented right arm and leg weakness Head CT: A chronic infarct at the left MCA distribution is identified as well as age related neuro degenerative changes which are mildly advanced for the patient's age of 57 years. No intra hemorrhage, mass effect or CT pattern of an acute or subacute brain infarction is appreciated at this time. Follow-up CT or MRI are available if clinically warranted. Meds: Aspirin 81mg PO QD Crestor 10mg PO HS Left shoulder pain Assessment & Plan: Left shoulder X-ray (09/05/2017): No acute fracture. Acromioclavicular degenerative arthritis. History of seizures Assessment & Plan: Patient has been without any seizure activity since admission Prior records show seizure activity Will monitor and if necessary start keppra and ativan Seizure precautions Severe depression Assessment & Plan: Start Zoloft 50 mg PO Daily Start Remeron 15 mg PO QHS Prophylactic measure Assessment & Plan: SCDs DVT: Lovenox 30mg SC daily Disposition: Patient continues to refuse labs, food, treatment and diagnostic testing/ medications. Plans for guardianship. DW Dr. Torres, Meena Mccray DO, PGY-1 <Lamonte Torres - Last Filed: 10/04/17 13:32> Objective - Vital Signs/Intake and Output Vital Signs (last 24 hours): Temp Pulse Resp BP Pulse Ox 98.5 F 70 20 110/70 97 10/04/17 08:00 10/04/17 08:00 10/04/17 08:00 10/04/17 08:00 10/04/17 08:00 Intake and Output: 10/04/17 10/04/17 06:59 18:59 Intake Total 760 Balance 760 - Medications Medications: Current Medications Acetaminophen (Tylenol 325mg Tab) 650 mg PO Q6 PRN PRN Reason: fever. Last Admin: 10/04/17 08:40 Dose: 650 mg Aspirin (Aspirin Chewable) [address] [facility] Last Admin: 10/04/17 09:58 Dose: Not Given Benztropine Mesylate (Cogentin) [address] [facility] Last Admin: 10/04/17 09:58 Dose: Not Given Docusate Sodium (Colace) [address] [facility] Last Admin: 10/04/17 13:27 Dose: Not Given Enoxaparin Sodium (Lovenox) [address] [facility] Last Admin: 10/04/17 09:58 Dose: Not Given Ferrous Sulfate (Feosol) [address] [facility] Last Admin: 10/04/17 13:27 Dose: Not Given Haloperidol (Haldol) 5 mg PO Q6 PRN PRN Reason: Agitation Last Admin: 09/08/17 11:41 Dose: 5 mg Mirtazapine (Remeron) [address] [facility] Last Admin: 10/03/17 21:42 Dose: Not Given Risperidone (Risperdal Tab) [address] [facility] Last Admin: 10/04/17 09:59 Dose: Not Given Rosuvastatin Calcium (Crestor) [address] [facility] Last Admin: 10/03/17 21:42 Dose: Not Given Sertraline HCl (Zoloft) [address] [facility] Last Admin: 05/09/18 09:59 Dose: Not Given Tramadol HCl (Ultram) 25 mg PO TID PRN PRN Reason: Pain, moderate (4-7) Last Admin: 10/04/17 12:07 Dose: 25 mg Trazodone HCl (Desyrel) 50 mg PO HS [facility] Last Admin: 10/03/17 21:42 Dose: Not Given - Labs Labs: 09/18/17 14:34 09/18/17 14:34 PT 17.5 SECONDS (9.7-12.2) H 08/31/17 17:07 INR 1.5 08/31/17 17:07 APTT 35 SECONDS (21-34) H 08/31/17 17:07 Attending/Attestation - Attestation I have personally seen and examined this patient.: No I have fully participated in the care of the patient.: Yes I have reviewed all pertinent clinical information, including history, physical exam and plan: Yes Notes (Text): No changes. Patient was not seen today 10/04/17 13:31
[2017-10-04] MEDS: Enoxaparin 30 mg Syringe SC SCH (09:58)
[2017-10-04] MEDS: Tramadol 25 mg PO PRN (12:07)
[2017-10-05] MEDS: Enoxaparin 30 mg Syringe SC SCH (10:10)
--- NOTE | 2017-10-06 07:09 | CP.PCM.PN ---
<Meena Mccray - Last Filed: 10/06/17 07:07> Subjective - Date & Time of Evaluation Date of Evaluation: 10/06/17 Time of Evaluation: 07:00 - Subjective Subjective: Medicine Progress Note for Hospitalist Service- Dr. Torres Patient was seen and examined at bedside. Patient feels okay today. Does not want to answer questions today. ROS unattainable. Objective - Vital Signs/Intake and Output Vital Signs (last 24 hours): Temp Pulse Resp BP Pulse Ox 98.6 F 92 H 20 120/77 100 10/05/17 15:00 10/05/17 15:00 10/05/17 15:00 10/05/17 15:00 10/05/17 15:00 Intake and Output: 10/06/17 10/06/17 06:59 18:59 Intake Total 920 Output Total 750 Balance 170 - Medications Medications: Current Medications Acetaminophen (Tylenol 325mg Tab) 650 mg PO Q6 PRN PRN Reason: fever. Last Admin: 10/05/17 12:37 Dose: 650 mg Aspirin (Aspirin Chewable) 81 mg PO DAILY [facility] Last Admin: 10/05/17 10:10 Dose: Not Given Benztropine Mesylate (Cogentin) 1 mg PO BID [facility] Last Admin: 10/05/17 17:43 Dose: Not Given Docusate Sodium (Colace) 100 mg PO TID [facility] Last Admin: 10/05/17 17:43 Dose: Not Given Enoxaparin Sodium (Lovenox) 30 mg SC DAILY [facility] Last Admin: 10/05/17 10:10 Dose: Not Given Ferrous Sulfate (Feosol) 325 mg PO TID [facility] Last Admin: 10/05/17 17:44 Dose: Not Given Haloperidol (Haldol) 5 mg PO Q6 PRN PRN Reason: Agitation Last Admin: 09/08/17 11:41 Dose: 5 mg Mirtazapine (Remeron) 30 mg PO [facility] Last Admin: 10/05/17 21:27 Dose: Not Given Risperidone (Risperdal Tab) 1 mg PO BID [facility] Last Admin: 10/05/17 17:44 Dose: Not Given Rosuvastatin Calcium (Crestor) 10 mg PO [facility] Last Admin: 10/05/17 21:27 Dose: Not Given Sertraline HCl (Zoloft) 200 mg PO DAILY [facility] Last Admin: 10/05/17 10:11 Dose: Not Given Tramadol HCl (Ultram) 25 mg PO TID PRN PRN Reason: Pain, moderate (4-7) Last Admin: 10/04/17 12:07 Dose: 25 mg Trazodone HCl (Desyrel) 50 mg PO HS [facility] Last Admin: 10/05/17 21:27 Dose: Not Given - Labs Labs: 09/18/17 14:34 09/18/17 14:34 PT 17.5 SECONDS (9.7-12.2) H 08/31/17 17:07 INR 1.5 08/31/17 17:07 APTT 35 SECONDS (21-34) H 08/31/17 17:07 - Additional Findings Additional findings: - Head Exam Head Exam: ATRAUMATIC - Eye Exam Eye Exam: EOMI - ENT Exam ENT Exam: Mucous Membranes Dry - Respiratory Exam Respiratory Exam: NORMAL BREATHING PATTERN. absent: Rhonchi, Wheezes - Cardiovascular Exam Cardiovascular Exam: REGULAR RHYTHM, +S1, +S2. absent: Murmur - GI/Abdominal Exam GI & Abdominal Exam: Soft, Normal Bowel Sounds, Tenderness (diffuse). absent: Distended, Firm, Guarding, Rigid - Extremities Exam Extremities Exam: Normal Inspection. absent: Calf Tenderness, Pedal Edema - Neurological Exam Neurological Exam: Alert, Awake - Psychiatric Exam Psychiatric exam: Depressed, Flat Affect - Skin Skin Exam: Dry, Intact, Warm Assessment and Plan - Assessment and Plan (Free Text) Plan: Mass of upper lobe of left lung Right adrenal mass Generalized pain CXR 08/31/17: * Large left upper lobe mass with probable involvement of the left posterior 3rd rib. Findings are concerning for malignancy. Dedicated CT scan of the chest with intravenous contrast is recommended for further characterization. * Patient has been refusing chest CT but states that he will think about and have the test done soon * CT abd/pelvis with IV contrast for today. Wanted PO contrast but patient refusing to drink PO Contrast, thus IV contrast: Large destructive heterogeneous soft tissue mass in the left lung upper lobe extending to the left upper posterior chest wall and extending to the left aspect of the upper thoracic spine consistent with malignant neoplasm. The mass is extending to upper aspect of the left hilum. Bony erosion and partial destruction of the left upper ribs and left aspect of T3 and T4 vertebral bodies. Left hilum and left mediastinum lymphadenopathy consistent with metastasis. Right adrenal mass likely represent metastasis. Moderate to mildly severe right hydronephrosis and proximal hydroureter up to 10.5 millimeter obstructing calculus at the proximal right ureter. Moderate constipation. * Right adrenal mass likely represent metastasis. Labs: * QFT negative, legionella negative, pending Mycoplasma Igm, Strep Pneumoniae, * Negative PPD read; no induration noted (48 hours and 72 hours read) * Patient is still refusing to produce sputum Medications: * Trazadone 50mg PO HS * Tylenol 650mg PO Q6H PRN * Morphine extended release 15mg PO Q12H * Percocet 1 tab PO Q4H Palliative consult * Management as per recommendation * Recommendation, Patient will need a guardian to advocate for him and be his decision making surrogate Refusal of treatment Assessment & Plan: 09/30-10/01: Patient continues to refuse all treatment. He has not allowed blood work to be performed since 09/18/17. Patient is DNR/DNI. Psychiatry Consult, Dr. Martinez Evaluate for capacity * As per psychiatry evaluation: Patient lacks the capacity to make his own medical decisions at this time. Plans for reevaluation at a latter time. * Re-consultation for capacity and evaluation for severe depression and possible pseudodementia (09/14/17); As per documentation, patient is psychiatrically stable for discharge. As per phone conversation with Dr. Martinez, he will addendum note (09/14/17) commenting on patient's capacity * Patient was seen by Dr. 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 Application for medicaid and guardianship in progress Leukocytosis Assessment & Plan: 09/30-10/01: Patient continues to refuse all treatment. He has not allowed blood work to be performed since 09/18/17. Patient is DNR/DNI. Patient agreed to blood work, 09/20/17: 13.7 On admission: 14.7, patient has been refusing further lab work but continues to state that he would rethink his decision Blood Culture: Negative X5 days UA: LE (2+) and WBC (22), f/u repeat UA and UC (09/15/17) Meds: Cipro 400mg PO BID, started 09/15/17 ( Discontinue if repeat UA AND UC is negative) Zosyn 3.375gm IV Q6H ( Started 09/19/17)-- As per nursing, patient refused treatment Anemia Assessment & Plan: 09/30-10/01: Patient continues to refuse all treatment. He has not allowed blood work to be performed since 09/18/17. Patient is DNR/DNI. H/H stable : 8.06/23.8 Patient is refusing transfusion at the moment RBC indices indicative of iron deficiency anemia Retic Count ELEVATED 2.5, Haptoglobin ELEVATED 369 Vitamin B12 and Folate NORMAL Ferritin NORMAL Homocysteine NORMAL IRON: 16 TIBC: 302 % Saturation: 5 Peripheral smear: Slight Parietal cell Ab negative, Negative intrinsic factor Pending LDH Medication: Ferrous sulfate 325mg PO TID (As per nursing, patient is refuses medication intermittently) Lice infestation Assessment & Plan: Recommendation to shave patient bald; patient refuses Meds: Applied ivermectin and permethrin Given NIX kit once Contact precautions Weight loss Assessment & Plan: Pending HIV, patient refuses blood work Patient is currently not eating Supplemental diet History of CVA (cerebrovascular accident) Assessment & Plan: Hx of CVA in 2016 with documented right arm and leg weakness Head CT: A chronic infarct at the left MCA distribution is identified as well as age related neuro degenerative changes which are mildly advanced for the patient's age of 57 years. No intra hemorrhage, mass effect or CT pattern of an acute or subacute brain infarction is appreciated at this time. Follow-up CT or MRI are available if clinically warranted. Meds: Aspirin 81mg PO QD Crestor 10mg PO HS Left shoulder pain Assessment & Plan: Left shoulder X-ray (09/05/2017): No acute fracture. Acromioclavicular degenerative arthritis. History of seizures Assessment & Plan: Patient has been without any seizure activity since admission Prior records show seizure activity Will monitor and if necessary start keppra and ativan Seizure precautions Severe depression Assessment & Plan: Start Zoloft 50 mg PO Daily Start Remeron 15 mg PO QHS Prophylactic measure Assessment & Plan: SCDs DVT: Lovenox 30mg SC daily Disposition: Patient continues to refuse labs, food, treatment and diagnostic testing/ medications. Plans for guardianship. DW Meena Pemberton DO, PGY-1 <Lamonte Torres - Last Filed: 10/06/17 14:59> Objective - Vital Signs/Intake and Output Vital Signs (last 24 hours): Temp Pulse Resp BP Pulse Ox 98.5 F 68 20 130/75 96 10/06/17 08:00 10/06/17 08:00 10/06/17 08:00 10/06/17 08:00 10/06/17 08:00 Intake and Output: 10/06/17 10/06/17 06:59 18:59 Intake Total 920 240 Output Total 750 600 Balance 170 -360 - Medications Medications: Current Medications Acetaminophen (Tylenol 325mg Tab) 650 mg PO Q6 PRN PRN Reason: fever. Last Admin: 10/06/17 09:41 Dose: 650 mg Aspirin (Aspirin Chewable) 81 mg PO DAILY [facility] Last Admin: 10/06/17 09:35 Dose: Not Given Benztropine Mesylate (Cogentin) 1 mg PO BID [facility] Last Admin: 10/06/17 09:35 Dose: Not Given Docusate Sodium (Colace) 100 mg PO TID [facility] Last Admin: 10/06/17 13:42 Dose: Not Given Enoxaparin Sodium (Lovenox) 30 mg SC DAILY [facility] Last Admin: 10/06/17 09:35 Dose: Not Given Ferrous Sulfate (Feosol) 325 mg PO TID [facility] Last Admin: 10/06/17 13:42 Dose: Not Given Haloperidol (Haldol) 5 mg PO Q6 PRN PRN Reason: Agitation Last Admin: 09/08/17 11:41 Dose: 5 mg Mirtazapine (Remeron) 30 mg PO [facility] Last Admin: 10/05/17 21:27 Dose: Not Given Risperidone (Risperdal Tab) 1 mg PO BID [facility] Last Admin: 10/06/17 09:35 Dose: Not Given Rosuvastatin Calcium (Crestor) 10 mg PO [facility] Last Admin: 10/05/17 21:27 Dose: Not Given Sertraline HCl (Zoloft) 200 mg PO DAILY [facility] Last Admin: 10/06/17 09:36 Dose: Not Given Tramadol HCl (Ultram) 25 mg PO TID PRN PRN Reason: Pain, moderate (4-7) Last Admin: 10/06/17 14:49 Dose: 25 mg Trazodone HCl (Desyrel) 50 mg PO HS [facility] Last Admin: 10/05/17 21:27 Dose: Not Given - Labs Labs: 09/18/17 14:34 09/18/17 14:34 PT 17.5 SECONDS (9.7-12.2) H 08/31/17 17:07 INR 1.5 08/31/17 17:07 APTT 35 SECONDS (21-34) H 08/31/17 17:07 Attending/Attestation - Attestation I have personally seen and examined this patient.: Yes I have fully participated in the care of the patient.: Yes I have reviewed all pertinent clinical information, including history, physical exam and plan: Yes Notes (Text): No changes 10/06/17 14:58
[2017-10-06] MEDS: Enoxaparin 30 mg Syringe SC SCH (09:35)
[2017-10-06] MEDS: Tramadol 25 mg PO PRN (14:49)
[2017-10-07] MEDS: Enoxaparin 30 mg Syringe SC SCH (09:31)
[2017-10-08] MEDS: Enoxaparin 30 mg Syringe SC SCH (09:26)
--- NOTE | 2017-10-09 07:24 | CP.PCM.PN ---
Subjective - Date & Time of Evaluation Date of Evaluation: 10/09/17 Time of Evaluation: 07:00 - Subjective Subjective: Medicine Progress Note for Hospitalist Service- Dr. Morley Patient was seen and examined at bedside. Patient feels okay today. Does not want to answer questions today. ROS unattainable. Objective - Vital Signs/Intake and Output Vital Signs (last 24 hours): Temp Pulse Resp BP Pulse Ox 98.9 F 97 H 20 109/69 95 10/09/17 00:00 10/09/17 00:00 10/09/17 00:00 10/09/17 00:00 10/09/17 00:00 Intake and Output: 10/09/17 10/09/17 06:59 18:59 Intake Total 590 Output Total 850 Balance -260 - Medications Medications: Current Medications Acetaminophen (Tylenol 325mg Tab) 650 mg PO Q6 PRN PRN Reason: fever. Last Admin: 10/08/17 16:15 Dose: 650 mg Aspirin (Aspirin Chewable) 81 mg PO DAILY [facility] Last Admin: 10/08/17 09:26 Dose: Not Given Benztropine Mesylate (Cogentin) 1 mg PO BID [facility] Last Admin: 10/08/17 18:10 Dose: Not Given Docusate Sodium (Colace) 100 mg PO TID [facility] Last Admin: 10/08/17 18:10 Dose: Not Given Enoxaparin Sodium (Lovenox) 30 mg SC DAILY [facility] Last Admin: 10/08/17 09:26 Dose: Not Given Ferrous Sulfate (Feosol) 325 mg PO TID [facility] Last Admin: 10/08/17 18:00 Dose: Not Given Haloperidol (Haldol) 5 mg PO Q6 PRN PRN Reason: Agitation Last Admin: 09/08/17 11:41 Dose: 5 mg Mirtazapine (Remeron) 30 mg PO HS [facility] Last Admin: 10/08/17 21:12 Dose: Not Given Risperidone (Risperdal Tab) 1 mg PO BID [facility] Last Admin: 10/08/17 18:00 Dose: Not Given Rosuvastatin Calcium (Crestor) 10 mg PO HS [facility] Last Admin: 10/08/17 21:11 Dose: Not Given Sertraline HCl (Zoloft) 200 mg PO DAILY [facility] Last Admin: 10/08/17 09:26 Dose: Not Given Tramadol HCl (Ultram) 25 mg PO TID PRN PRN Reason: Pain, moderate (4-7) Last Admin: 10/06/17 14:49 Dose: 25 mg Trazodone HCl (Desyrel) 50 mg PO HS [facility] Last Admin: 10/08/17 21:11 Dose: Not Given - Labs Labs: 09/18/17 14:34 09/18/17 14:34 PT 17.5 SECONDS (9.7-12.2) H 08/31/17 17:07 INR 1.5 08/31/17 17:07 APTT 35 SECONDS (21-34) H 08/31/17 17:07 - Additional Findings Additional findings: - Head Exam Head Exam: ATRAUMATIC - Eye Exam Eye Exam: EOMI - ENT Exam ENT Exam: Mucous Membranes Dry - Respiratory Exam Respiratory Exam: NORMAL BREATHING PATTERN. absent: Rhonchi, Wheezes - Cardiovascular Exam Cardiovascular Exam: REGULAR RHYTHM, +S1, +S2. absent: Murmur - GI/Abdominal Exam GI & Abdominal Exam: Soft, Normal Bowel Sounds, Tenderness (diffuse). absent: Distended, Firm, Guarding, Rigid - Extremities Exam Extremities Exam: Normal Inspection. absent: Calf Tenderness, Pedal Edema - Neurological Exam Neurological Exam: Alert, Awake - Psychiatric Exam Psychiatric exam: Depressed, Flat Affect - Skin Skin Exam: Dry, Intact, Warm Assessment and Plan - Assessment and Plan (Free Text) Plan: Mass of upper lobe of left lung Right adrenal mass Generalized pain CXR 08/31/17: * Large left upper lobe mass with probable involvement of the left posterior 3rd rib. Findings are concerning for malignancy. Dedicated CT scan of the chest with intravenous contrast is recommended for further characterization. * Patient has been refusing chest CT but states that he will think about and have the test done soon * CT abd/pelvis with IV contrast for today. Wanted PO contrast but patient refusing to drink PO Contrast, thus IV contrast: Large destructive heterogeneous soft tissue mass in the left lung upper lobe extending to the left upper posterior chest wall and extending to the left aspect of the upper thoracic spine consistent with malignant neoplasm. The mass is extending to upper aspect of the left hilum. Bony erosion and partial destruction of the left upper ribs and left aspect of T3 and T4 vertebral bodies. Left hilum and left mediastinum lymphadenopathy consistent with metastasis. Right adrenal mass likely represent metastasis. Moderate to mildly severe right hydronephrosis and proximal hydroureter up to 10.5 millimeter obstructing calculus at the proximal right ureter. Moderate constipation. * Right adrenal mass likely represent metastasis. Labs: * QFT negative, legionella negative, pending Mycoplasma Igm, Strep Pneumoniae, * Negative PPD read; no induration noted (48 hours and 72 hours read) * Patient is still refusing to produce sputum Medications: * Trazadone 50mg PO HS * Tylenol 650mg PO Q6H PRN * Morphine extended release 15mg PO Q12H * Percocet 1 tab PO Q4H Palliative consult * Management as per recommendation * Recommendation, Patient will need a guardian to advocate for him and be his decision making surrogate Refusal of treatment Assessment & Plan: 09/30-10/01: Patient continues to refuse all treatment. He has not allowed blood work to be performed since 09/18/17. Patient is DNR/DNI. Psychiatry Consult, Dr. Martinez Evaluate for capacity * As per psychiatry evaluation: Patient lacks the capacity to make his own medical decisions at this time. Plans for reevaluation at a latter time. * Re-consultation for capacity and evaluation for severe depression and possible pseudodementia (09/14/17); As per documentation, patient is psychiatrically stable for discharge. As per phone conversation with Dr. Martinez, he will addendum note (09/14/17) commenting on patient's capacity * Patient was seen by Dr. 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 Application for medicaid and guardianship in progress Leukocytosis Assessment & Plan: 09/30-10/01: Patient continues to refuse all treatment. He has not allowed blood work to be performed since 09/18/17. Patient is DNR/DNI. Patient agreed to blood work, 09/20/17: 13.7 On admission: 14.7, patient has been refusing further lab work but continues to state that he would rethink his decision Blood Culture: Negative X5 days UA: LE (2+) and WBC (22), f/u repeat UA and UC (09/15/17) Meds: Cipro 400mg PO BID, started 09/15/17 ( Discontinue if repeat UA AND UC is negative) Zosyn 3.375gm IV Q6H ( Started 09/19/17)-- As per nursing, patient refused treatment Anemia Assessment & Plan: 09/30-10/01: Patient continues to refuse all treatment. He has not allowed blood work to be performed since 09/18/17. Patient is DNR/DNI. H/H stable : 8.1/26.8 Patient is refusing transfusion at the moment RBC indices indicative of iron deficiency anemia Retic Count ELEVATED 2.5, Haptoglobin ELEVATED 369 Vitamin B12 and Folate NORMAL Ferritin NORMAL Homocysteine NORMAL IRON: 16 TIBC: 302 % Saturation: 5 Peripheral smear: Slight Parietal cell Ab negative, Negative intrinsic factor Pending LDH Medication: Ferrous sulfate 325mg PO TID (As per nursing, patient is refuses medication intermittently) Lice infestation Assessment & Plan: Recommendation to shave patient bald; patient refuses Meds: Applied ivermectin and permethrin Given NIX kit once Contact precautions Weight loss Assessment & Plan: Pending HIV, patient refuses blood work Patient is currently not eating Supplemental diet History of CVA (cerebrovascular accident) Assessment & Plan: Hx of CVA in 2016 with documented right arm and leg weakness Head CT: A chronic infarct at the left MCA distribution is identified as well as age related neuro degenerative changes which are mildly advanced for the patient's age of 57 years. No intra hemorrhage, mass effect or CT pattern of an acute or subacute brain infarction is appreciated at this time. Follow-up CT or MRI are available if clinically warranted. Meds: Aspirin 81mg PO QD Crestor 10mg PO HS Left shoulder pain Assessment & Plan: Left shoulder X-ray (09/05/2017): No acute fracture. Acromioclavicular degenerative arthritis. History of seizures Assessment & Plan: Patient has been without any seizure activity since admission Prior records show seizure activity Will monitor and if necessary start keppra and ativan Seizure precautions Severe depression Assessment & Plan: Start Zoloft 50 mg PO Daily Start Remeron 15 mg PO QHS Prophylactic measure Assessment & Plan: SCDs DVT: Lovenox 30mg SC daily Disposition: Patient continues to refuse labs, food, treatment and diagnostic testing/ medications. Plans for guardianship. MARTITA Morley, Meena Mccray DO, PGY-1
[2017-10-09] MEDS: Enoxaparin 30 mg Syringe SC SCH (10:35)
[2017-10-09] MEDS: Tramadol 25 mg PO PRN (17:18)
[2017-10-10] MEDS: Enoxaparin 30 mg Syringe SC SCH (09:45)
[2017-10-10] MEDS: Tramadol 25 mg PO PRN (15:21)
[2017-10-11] MEDS: Tramadol 25 mg PO PRN ×2 (00:32→11:39)
--- NOTE | 2017-10-11 06:35 | CP.PCM.PN ---
Subjective - Date & Time of Evaluation Date of Evaluation: 10/11/17 Time of Evaluation: 06:00 - Subjective Subjective: Medicine Progress Note for Hospitalist Service- Dr. Morley Patient was seen and examined at bedside. Patient feels okay today. Does not want to answer questions today. ROS unattainable. Objective - Vital Signs/Intake and Output Vital Signs (last 24 hours): Temp Pulse Resp BP Pulse Ox 98.9 F 109 H 20 112/67 94 L 10/11/17 00:00 10/11/17 00:00 10/11/17 00:00 10/11/17 00:00 10/11/17 00:00 Intake and Output: 10/10/17 10/11/17 18:59 06:59 Intake Total 350 350 Output Total 200 500 Balance 150 -150 - Medications Medications: Current Medications Acetaminophen (Tylenol 325mg Tab) 650 mg PO Q6 PRN PRN Reason: fever. Last Admin: 10/09/17 19:36 Dose: 650 mg Aspirin (Aspirin Chewable) 81 mg PO DAILY [facility] Last Admin: 10/10/17 09:45 Dose: Not Given Benztropine Mesylate (Cogentin) 1 mg PO BID [facility] Last Admin: 10/10/17 17:17 Dose: Not Given Docusate Sodium (Colace) 100 mg PO TID [facility] Last Admin: 10/10/17 17:18 Dose: Not Given Enoxaparin Sodium (Lovenox) 30 mg SC DAILY [facility] Last Admin: 10/10/17 09:45 Dose: Not Given Ferrous Sulfate (Feosol) 325 mg PO TID [facility] Last Admin: 10/10/17 17:18 Dose: Not Given Haloperidol (Haldol) 5 mg PO Q6 PRN PRN Reason: Agitation Last Admin: 09/08/17 11:41 Dose: 5 mg Mirtazapine (Remeron) 30 mg PO HS [facility] Last Admin: 10/09/17 22:42 Dose: Not Given Risperidone (Risperdal Tab) 1 mg PO BID [facility] Last Admin: 10/10/17 17:18 Dose: Not Given Rosuvastatin Calcium (Crestor) 10 mg PO HS [facility] Last Admin: 10/09/17 22:42 Dose: Not Given Sertraline HCl (Zoloft) 200 mg PO DAILY [facility] Last Admin: 10/10/17 09:46 Dose: Not Given Tramadol HCl (Ultram) 25 mg PO TID PRN PRN Reason: Pain, moderate (4-7) Last Admin: 10/11/17 00:32 Dose: 25 mg Trazodone HCl (Desyrel) 50 mg PO HS [facility] Last Admin: 10/09/17 22:42 Dose: Not Given - Labs Labs: 09/18/17 14:34 09/18/17 14:34 PT 17.5 SECONDS (9.7-12.2) H 08/31/17 17:07 INR 1.5 08/31/17 17:07 APTT 35 SECONDS (21-34) H 08/31/17 17:07 - Additional Findings Additional findings: - Head Exam Head Exam: ATRAUMATIC - Eye Exam Eye Exam: EOMI - ENT Exam ENT Exam: Mucous Membranes Dry - Respiratory Exam Respiratory Exam: NORMAL BREATHING PATTERN. absent: Rhonchi, Wheezes - Cardiovascular Exam Cardiovascular Exam: REGULAR RHYTHM, +S1, +S2. absent: Murmur - GI/Abdominal Exam GI & Abdominal Exam: Soft, Normal Bowel Sounds, Tenderness (diffuse). absent: Distended, Firm, Guarding, Rigid - Extremities Exam Extremities Exam: Normal Inspection. absent: Calf Tenderness, Pedal Edema - Neurological Exam Neurological Exam: Alert, Awake - Psychiatric Exam Psychiatric exam: Depressed, Flat Affect - Skin Skin Exam: Dry, Intact, Warm Assessment and Plan - Assessment and Plan (Free Text) Plan: Mass of upper lobe of left lung Right adrenal mass Generalized pain CXR 08/31/17: * Large left upper lobe mass with probable involvement of the left posterior 3rd rib. Findings are concerning for malignancy. Dedicated CT scan of the chest with intravenous contrast is recommended for further characterization. * Patient has been refusing chest CT but states that he will think about and have the test done soon * CT abd/pelvis with IV contrast for today. Wanted PO contrast but patient refusing to drink PO Contrast, thus IV contrast: Large destructive heterogeneous soft tissue mass in the left lung upper lobe extending to the left upper posterior chest wall and extending to the left aspect of the upper thoracic spine consistent with malignant neoplasm. The mass is extending to upper aspect of the left hilum. Bony erosion and partial destruction of the left upper ribs and left aspect of T3 and T4 vertebral bodies. Left hilum and left mediastinum lymphadenopathy consistent with metastasis. Right adrenal mass likely represent metastasis. Moderate to mildly severe right hydronephrosis and proximal hydroureter up to 10.5 millimeter obstructing calculus at the proximal right ureter. Moderate constipation. * Right adrenal mass likely represent metastasis. Labs: * QFT negative, legionella negative, pending Mycoplasma Igm, Strep Pneumoniae, * Negative PPD read; no induration noted (48 hours and 72 hours read) * Patient is still refusing to produce sputum Medications: * Trazadone 50mg PO HS * Tylenol 650mg PO Q6H PRN * Morphine extended release 15mg PO Q12H * Percocet 1 tab PO Q4H Palliative consult * Management as per recommendation * Recommendation, Patient will need a guardian to advocate for him and be his decision making surrogate Refusal of treatment Assessment & Plan: 09/30-10/01: Patient continues to refuse all treatment. He has not allowed blood work to be performed since 09/18/17. Patient is DNR/DNI. Psychiatry Consult, Dr. Martinez Evaluate for capacity * As per psychiatry evaluation: Patient lacks the capacity to make his own medical decisions at this time. Plans for reevaluation at a latter time. * Re-consultation for capacity and evaluation for severe depression and possible pseudodementia (09/14/17); As per documentation, patient is psychiatrically stable for discharge. As per phone conversation with Dr. Martinez, he will addendum note (09/14/17) commenting on patient's capacity * Patient was seen by Dr. Martinez (09/26/17), patient will need guardianship manager school, Consultation: Discussion with continuous pillowcase cutter today, 09/08/17; regarding possible guardianship. Application for medicaid and guardianship in progress Leukocytosis Assessment & Plan: 09/30-10/01: Patient continues to refuse all treatment. He has not allowed blood work to be performed since 09/18/17. Patient is DNR/DNI. Patient agreed to blood work, 09/20/17: 13.7 On admission: 14.7, patient has been refusing further lab work but continues to state that he would rethink his decision Blood Culture: Negative X5 days UA: LE (2+) and WBC (22), f/u repeat UA and UC (09/15/17) Meds: Cipro 400mg PO BID, started 09/15/17 ( Discontinue if repeat UA AND UC is negative) Zosyn 3.375gm IV Q6H ( Started 09/19/17)-- As per nursing, patient refused treatment Anemia Assessment & Plan: 09/30-10/01: Patient continues to refuse all treatment. He has not allowed blood work to be performed since 09/18/17. Patient is DNR/DNI. H/H stable : 8.1/26.8 Patient is refusing transfusion at the moment RBC indices indicative of iron deficiency anemia Retic Count ELEVATED 2.5, Haptoglobin ELEVATED 369 Vitamin B12 and Folate NORMAL Ferritin NORMAL Homocysteine NORMAL IRON: 16 TIBC: 302 % Saturation: 5 Peripheral smear: Slight Parietal cell Ab negative, Negative intrinsic factor Pending LDH Medication: Ferrous sulfate 325mg PO TID (As per nursing, patient is refuses medication intermittently) Lice infestation Assessment & Plan: Recommendation to shave patient bald; patient refuses Meds: Applied ivermectin and permethrin Given NIX kit once Contact precautions Weight loss Assessment & Plan: Pending HIV, patient refuses blood work Patient is currently not eating Supplemental diet History of CVA (cerebrovascular accident) Assessment & Plan: Hx of CVA in 2016 with documented right arm and leg weakness Head CT: A chronic infarct at the left MCA distribution is identified as well as age related neuro degenerative changes which are mildly advanced for the patient's age of 57 years. No intra hemorrhage, mass effect or CT pattern of an acute or subacute brain infarction is appreciated at this time. Follow-up CT or MRI are available if clinically warranted. Meds: Aspirin 81mg PO QD Crestor 10mg PO HS Left shoulder pain Assessment & Plan: Left shoulder X-ray (09/05/2017): No acute fracture. Acromioclavicular degenerative arthritis. History of seizures Assessment & Plan: Patient has been without any seizure activity since admission Prior records show seizure activity Will monitor and if necessary start keppra and ativan Seizure precautions Severe depression Assessment & Plan: Start Zoloft 50 mg PO Daily Start Remeron 15 mg PO QHS Prophylactic measure Assessment & Plan: SCDs DVT: Lovenox 30mg SC daily Disposition: Patient continues to refuse labs, food, treatment and diagnostic testing/ medications. Plans for guardianship. MARTITA Morley, Meena Mccray DO, PGY-1
[2017-10-11] MEDS: Enoxaparin 30 mg Syringe SC SCH (09:53)
[2017-10-12] MEDS ORDERED: Lidocaine 5% Patch TD SCH (10:00)
[2017-10-12] MEDS: Enoxaparin 30 mg Syringe SC SCH ×2 (12:23→14:50)
[2017-10-12] MEDS: Lidocaine 5% Patch TD SCH (14:53)
--- NOTE | 2017-10-13 06:31 | CP.PCM.PN ---
Subjective - Date & Time of Evaluation Date of Evaluation: 10/13/17 Time of Evaluation: 06:00 - Subjective Subjective: Medicine Progress Note for Hospitalist Service- Dr. Morley Patient was seen and examined at bedside. Patient feels okay today. Does not want to answer questions today. ROS unattainable. Objective - Vital Signs/Intake and Output Vital Signs (last 24 hours): Temp Pulse Resp BP Pulse Ox 99.2 F 104 H 20 108/69 97 10/13/17 00:00 10/13/17 00:00 10/13/17 00:00 10/13/17 00:00 10/13/17 00:00 Intake and Output: 10/12/17 10/13/17 18:59 06:59 Intake Total 360 300 Output Total 650 Balance -290 300 - Medications Medications: Current Medications Acetaminophen (Tylenol 325mg Tab) 650 mg PO Q6 PRN PRN Reason: fever. Last Admin: 10/12/17 16:39 Dose: 650 mg Aspirin (Aspirin Chewable) 81 mg PO DAILY [facility] Last Admin: 10/12/17 14:49 Dose: Not Given Benztropine Mesylate (Cogentin) 1 mg PO BID [facility] Last Admin: 10/12/17 17:49 Dose: Not Given Docusate Sodium (Colace) 100 mg PO TID [facility] Last Admin: 10/12/17 17:49 Dose: Not Given Enoxaparin Sodium (Lovenox) 30 mg SC DAILY [facility] Last Admin: 10/12/17 14:50 Dose: Not Given Ferrous Sulfate (Feosol) 325 mg PO TID [facility] Last Admin: 10/12/17 17:50 Dose: Not Given Haloperidol (Haldol) 5 mg PO Q6 PRN PRN Reason: Agitation Last Admin: 09/08/17 11:41 Dose: 5 mg Lidocaine (Lidoderm) 1 ea TD DAILY [facility] Last Admin: 10/12/17 14:53 Dose: Not Given Mirtazapine (Remeron) 30 mg PO [facility] Last Admin: 10/12/17 22:51 Dose: Not Given Risperidone (Risperdal Tab) 1 mg PO BID [facility] Last Admin: 10/12/17 17:50 Dose: Not Given Rosuvastatin Calcium (Crestor) 10 mg PO [facility] Last Admin: 10/12/17 22:50 Dose: Not Given Sertraline HCl (Zoloft) 200 mg PO DAILY [facility] Last Admin: 10/12/17 14:50 Dose: Not Given Tramadol HCl (Ultram) 25 mg PO TID PRN PRN Reason: Pain, moderate (4-7) Trazodone HCl (Desyrel) 50 mg PO HS [facility] Last Admin: 10/12/17 22:51 Dose: Not Given - Labs Labs: 09/18/17 14:34 09/18/17 14:34 PT 17.5 SECONDS (9.7-12.2) H 08/31/17 17:07 INR 1.5 08/31/17 17:07 APTT 35 SECONDS (21-34) H 08/31/17 17:07 - Additional Findings Additional findings: - Head Exam Head Exam: ATRAUMATIC - Eye Exam Eye Exam: EOMI - ENT Exam ENT Exam: Mucous Membranes Dry - Respiratory Exam Respiratory Exam: NORMAL BREATHING PATTERN. absent: Rhonchi, Wheezes - Cardiovascular Exam Cardiovascular Exam: REGULAR RHYTHM, +S1, +S2. absent: Murmur - GI/Abdominal Exam GI & Abdominal Exam: Soft, Normal Bowel Sounds, Tenderness (diffuse). absent: Distended, Firm, Guarding, Rigid - Extremities Exam Extremities Exam: Normal Inspection. absent: Calf Tenderness, Pedal Edema - Neurological Exam Neurological Exam: Alert, Awake - Psychiatric Exam Psychiatric exam: Depressed, Flat Affect - Skin Skin Exam: Dry, Intact, Warm Assessment and Plan - Assessment and Plan (Free Text) Plan: Mass of upper lobe of left lung Right adrenal mass Generalized pain CXR 08/31/17: * Large left upper lobe mass with probable involvement of the left posterior 3rd rib. Findings are concerning for malignancy. Dedicated CT scan of the chest with intravenous contrast is recommended for further characterization. * Patient has been refusing chest CT but states that he will think about and have the test done soon * CT abd/pelvis with IV contrast for today. Wanted PO contrast but patient refusing to drink PO Contrast, thus IV contrast: Large destructive heterogeneous soft tissue mass in the left lung upper lobe extending to the left upper posterior chest wall and extending to the left aspect of the upper thoracic spine consistent with malignant neoplasm. The mass is extending to upper aspect of the left hilum. Bony erosion and partial destruction of the left upper ribs and left aspect of T3 and T4 vertebral bodies. Left hilum and left mediastinum lymphadenopathy consistent with metastasis. Right adrenal mass likely represent metastasis. Moderate to mildly severe right hydronephrosis and proximal hydroureter up to 10.5 millimeter obstructing calculus at the proximal right ureter. Moderate constipation. * Right adrenal mass likely represent metastasis. Labs: * QFT negative, legionella negative, pending Mycoplasma Igm, Strep Pneumoniae, * Negative PPD read; no induration noted (48 hours and 72 hours read) * Patient is still refusing to produce sputum Medications: * Trazadone 50mg PO HS * Tylenol 650mg PO Q6H PRN * Morphine extended release 15mg PO Q12H * Percocet 1 tab PO Q4H Palliative consult * Management as per recommendation * Recommendation, Patient will need a guardian to advocate for him and be his decision making surrogate Refusal of treatment Assessment & Plan: 09/30-10/01: Patient continues to refuse all treatment. He has not allowed blood work to be performed since 09/18/17. Patient is DNR/DNI. Psychiatry Consult, Dr. Martinez Evaluate for capacity * As per psychiatry evaluation: Patient lacks the capacity to make his own medical decisions at this time. Plans for reevaluation at a latter time. * Re-consultation for capacity and evaluation for severe depression and possible pseudodementia (09/14/17); As per documentation, patient is psychiatrically stable for discharge. As per phone conversation with Dr. Martinez, he will addendum note (09/14/17) commenting on patient's capacity * Patient was seen by Dr. Martinez (09/26/17), patient will need guardianship manager school, Consultation: Discussion with rn case manager hospice today, 09/08/17; regarding possible guardianship. Application for medicaid and guardianship in progress Leukocytosis Assessment & Plan: 09/30-10/01: Patient continues to refuse all treatment. He has not allowed blood work to be performed since 09/18/17. Patient is DNR/DNI. Patient agreed to blood work, 09/20/17: 13.7 On admission: 14.7, patient has been refusing further lab work but continues to state that he would rethink his decision Blood Culture: Negative X5 days UA: LE (2+) and WBC (22), f/u repeat UA and UC (09/15/17) Meds: Cipro 400mg PO BID, started 4/20/18 ( Discontinue if repeat UA AND UC is negative) Zosyn 3.375gm IV Q6H ( Started 09/19/17)-- As per nursing, patient refused treatment Anemia Assessment & Plan: 09/30-10/01: Patient continues to refuse all treatment. He has not allowed blood work to be performed since 09/18/17. Patient is DNR/DNI. H/H stable : 8.1/26.8 Patient is refusing transfusion at the moment RBC indices indicative of iron deficiency anemia Retic Count ELEVATED 2.5, Haptoglobin ELEVATED 369 Vitamin B12 and Folate NORMAL Ferritin NORMAL Homocysteine NORMAL IRON: 16 TIBC: 302 % Saturation: 5 Peripheral smear: Slight Parietal cell Ab negative, Negative intrinsic factor Pending LDH Medication: Ferrous sulfate 325mg PO TID (As per nursing, patient is refuses medication intermittently) Lice infestation Assessment & Plan: Recommendation to shave patient bald; patient refuses Meds: Applied ivermectin and permethrin Given NIX kit once Contact precautions Weight loss Assessment & Plan: Pending HIV, patient refuses blood work Patient is currently not eating Supplemental diet History of CVA (cerebrovascular accident) Assessment & Plan: Hx of CVA in 2016 with documented right arm and leg weakness Head CT: A chronic infarct at the left MCA distribution is identified as well as age related neuro degenerative changes which are mildly advanced for the patient's age of 57 years. No intra hemorrhage, mass effect or CT pattern of an acute or subacute brain infarction is appreciated at this time. Follow-up CT or MRI are available if clinically warranted. Meds: Aspirin 81mg PO QD Crestor 10mg PO HS Left shoulder pain Assessment & Plan: Left shoulder X-ray (09/05/2017): No acute fracture. Acromioclavicular degenerative arthritis. History of seizures Assessment & Plan: Patient has been without any seizure activity since admission Prior records show seizure activity Will monitor and if necessary start keppra and ativan Seizure precautions Severe depression Assessment & Plan: Start Zoloft 50 mg PO Daily Start Remeron 15 mg PO QHS Prophylactic measure Assessment & Plan: SCDs DVT: Lovenox 30mg SC daily Disposition: Patient continues to refuse labs, food, treatment and diagnostic testing/ medications. Plans for guardianship. Meena Mccauley Dr., DO, PGY-1
[2017-10-13] MEDS: Lidocaine 5% Patch TD SCH (11:05)
[2017-10-13] MEDS: Enoxaparin 30 mg Syringe SC SCH (11:06)
[2017-10-13] MEDS: Tramadol 25 mg PO PRN (22:30)
[2017-10-14] MEDS: Lidocaine 5% Patch TD SCH (10:37)
[2017-10-14] MEDS: Enoxaparin 30 mg Syringe SC SCH (10:38)
[2017-10-14] MEDS: Tramadol 25 mg PO PRN (21:26)
[2017-10-15] MEDS: Tramadol 25 mg PO PRN (05:45)
[2017-10-15] MEDS: Lidocaine 5% Patch TD SCH (09:01)
[2017-10-15] MEDS: Enoxaparin 30 mg Syringe SC SCH (09:01)
[2017-10-16] MEDS: Tramadol 25 mg PO PRN ×2 (06:52→14:40)
--- NOTE | 2017-10-16 07:48 | CP.PCM.PN ---
<Meena Mccray - Last Filed: 10/16/17 07:47> Subjective - Date & Time of Evaluation Date of Evaluation: 10/16/17 Time of Evaluation: 07:00 - Subjective Subjective: Medicine Progress Note for Hospitalist Service- Dr. Torres Patient was seen and examined at bedside. Patient feels okay today. Does not want to answer questions today. ROS unattainable. Objective - Vital Signs/Intake and Output Vital Signs (last 24 hours): Temp Pulse Resp BP Pulse Ox 99.2 F 104 H 20 112/73 98 10/16/17 06:54 10/16/17 06:54 10/16/17 06:54 10/16/17 06:54 10/16/17 06:54 Intake and Output: 10/16/17 10/16/17 06:59 18:59 Intake Total 660 Output Total 600 Balance 60 - Medications Medications: Current Medications Acetaminophen (Tylenol 325mg Tab) 650 mg PO Q6 PRN PRN Reason: fever. Last Admin: 10/12/17 16:39 Dose: 650 mg Aspirin (Aspirin Chewable) 81 mg PO DAILY [facility] Last Admin: 10/15/17 09:00 Dose: Not Given Benztropine Mesylate (Cogentin) 1 mg PO BID [facility] Last Admin: 10/15/17 23:33 Dose: Not Given Docusate Sodium (Colace) 100 mg PO TID [facility] Last Admin: 10/15/17 23:33 Dose: Not Given Enoxaparin Sodium (Lovenox) 30 mg SC DAILY [facility] Last Admin: 10/15/17 09:01 Dose: Not Given Ferrous Sulfate (Feosol) 325 mg PO TID [facility] Last Admin: 10/15/17 23:34 Dose: Not Given Haloperidol (Haldol) 5 mg PO Q6 PRN PRN Reason: Agitation Last Admin: 09/08/17 11:41 Dose: 5 mg Lidocaine (Lidoderm) 1 ea TD DAILY [facility] Last Admin: 10/15/17 09:01 Dose: Not Given Mirtazapine (Remeron) 30 mg PO [facility] Last Admin: 10/15/17 23:34 Dose: Not Given Risperidone (Risperdal Tab) 1 mg PO BID [facility] Last Admin: 10/15/17 23:34 Dose: Not Given Rosuvastatin Calcium (Crestor) 10 mg PO HS [facility] Last Admin: 10/15/17 23:33 Dose: Not Given Sertraline HCl (Zoloft) 200 mg PO DAILY [facility] Last Admin: 10/15/17 09:02 Dose: Not Given Tramadol HCl (Ultram) 25 mg PO TID PRN PRN Reason: Pain, moderate (4-7) Last Admin: 10/16/17 06:52 Dose: 25 mg Trazodone HCl (Desyrel) 50 mg PO HS [facility] Last Admin: 10/15/17 23:34 Dose: Not Given - Labs Labs: 09/18/17 14:34 09/18/17 14:34 PT 17.5 SECONDS (9.7-12.2) H 08/31/17 17:07 INR 1.5 08/31/17 17:07 APTT 35 SECONDS (21-34) H 08/31/17 17:07 - Additional Findings Additional findings: - Head Exam Head Exam: ATRAUMATIC - Eye Exam Eye Exam: EOMI - ENT Exam ENT Exam: Mucous Membranes Dry - Respiratory Exam Respiratory Exam: NORMAL BREATHING PATTERN. absent: Rhonchi, Wheezes - Cardiovascular Exam Cardiovascular Exam: REGULAR RHYTHM, +S1, +S2. absent: Murmur - GI/Abdominal Exam GI & Abdominal Exam: Soft, Normal Bowel Sounds, Tenderness (diffuse). absent: Distended, Firm, Guarding, Rigid - Extremities Exam Extremities Exam: Normal Inspection. absent: Calf Tenderness, Pedal Edema - Neurological Exam Neurological Exam: Alert, Awake - Psychiatric Exam Psychiatric exam: Depressed, Flat Affect - Skin Skin Exam: Dry, Intact, Warm Assessment and Plan - Assessment and Plan (Free Text) Plan: Mass of upper lobe of left lung Right adrenal mass Generalized pain CXR 08/31/17: * Large left upper lobe mass with probable involvement of the left posterior 3rd rib. Findings are concerning for malignancy. Dedicated CT scan of the chest with intravenous contrast is recommended for further characterization. * Patient has been refusing chest CT but states that he will think about and have the test done soon * CT abd/pelvis with IV contrast for today. Wanted PO contrast but patient refusing to drink PO Contrast, thus IV contrast: Large destructive heterogeneous soft tissue mass in the left lung upper lobe extending to the left upper posterior chest wall and extending to the left aspect of the upper thoracic spine consistent with malignant neoplasm. The mass is extending to upper aspect of the left hilum. Bony erosion and partial destruction of the left upper ribs and left aspect of T3 and T4 vertebral bodies. Left hilum and left mediastinum lymphadenopathy consistent with metastasis. Right adrenal mass likely represent metastasis. Moderate to mildly severe right hydronephrosis and proximal hydroureter up to 10.5 millimeter obstructing calculus at the proximal right ureter. Moderate constipation. * Right adrenal mass likely represent metastasis. Labs: * QFT negative, legionella negative, pending Mycoplasma Igm, Strep Pneumoniae, * Negative PPD read; no induration noted (48 hours and 72 hours read) * Patient is still refusing to produce sputum Medications: * Trazadone 50mg PO HS * Tylenol 650mg PO Q6H PRN * Morphine extended release 15mg PO Q12H * Percocet 1 tab PO Q4H Palliative consult * Management as per recommendation * Recommendation, Patient will need a guardian to advocate for him and be his decision making surrogate Refusal of treatment Assessment & Plan: 09/30-10/01: Patient continues to refuse all treatment. He has not allowed blood work to be performed since 09/18/17. Patient is DNR/DNI. Psychiatry Consult, Dr. Martinez Evaluate for capacity * As per psychiatry evaluation: Patient lacks the capacity to make his own medical decisions at this time. Plans for reevaluation at a latter time. * Re-consultation for capacity and evaluation for severe depression and possible pseudodementia (09/14/17); As per documentation, patient is psychiatrically stable for discharge. As per phone conversation with Dr. Martinez, he will addendum note (09/14/17) commenting on patient's capacity * Patient was seen by Dr. Martinez (09/26/17), patient will need guardianship manager risk management, Consultation: Discussion with wrapper caser today, 09/08/17; regarding possible guardianship. Application for medicaid and guardianship in progress Leukocytosis Assessment & Plan: 09/30-10/01: Patient continues to refuse all treatment. He has not allowed blood work to be performed since 09/18/17. Patient is DNR/DNI. Patient agreed to blood work, 09/20/17: 13.7 On admission: 14.7, patient has been refusing further lab work but continues to state that he would rethink his decision Blood Culture: Negative X5 days UA: LE (2+) and WBC (22), f/u repeat UA and UC (09/15/17) Meds: Cipro 400mg PO BID, started 09/15/17 ( Discontinue if repeat UA AND UC is negative) Zosyn 3.375gm IV Q6H ( Started 09/19/17)-- As per nursing, patient refused treatment Anemia Assessment & Plan: 09/30-10/01: Patient continues to refuse all treatment. He has not allowed blood work to be performed since 09/18/17. Patient is DNR/DNI. H/H stable : 8.1.8 Patient is refusing transfusion at the moment RBC indices indicative of iron deficiency anemia Retic Count ELEVATED 2.5, Haptoglobin ELEVATED 369 Vitamin B12 and Folate NORMAL Ferritin NORMAL Homocysteine NORMAL IRON: 16 TIBC: 302 % Saturation: 5 Peripheral smear: Slight Parietal cell Ab negative, Negative intrinsic factor Pending LDH Medication: Ferrous sulfate 325mg PO TID (As per nursing, patient is refuses medication intermittently) Lice infestation Assessment & Plan: Recommendation to shave patient bald; patient refuses Meds: Applied ivermectin and permethrin Given NIX kit once Contact precautions Weight loss Assessment & Plan: Pending HIV, patient refuses blood work Patient is currently not eating Supplemental diet History of CVA (cerebrovascular accident) Assessment & Plan: Hx of CVA in 2016 with documented right arm and leg weakness Head CT: A chronic infarct at the left MCA distribution is identified as well as age related neuro degenerative changes which are mildly advanced for the patient's age of 57 years. No intra hemorrhage, mass effect or CT pattern of an acute or subacute brain infarction is appreciated at this time. Follow-up CT or MRI are available if clinically warranted. Meds: Aspirin 81mg PO QD Crestor 10mg PO HS Left shoulder pain Assessment & Plan: Left shoulder X-ray (09/05/2017): No acute fracture. Acromioclavicular degenerative arthritis. History of seizures Assessment & Plan: Patient has been without any seizure activity since admission Prior records show seizure activity Will monitor and if necessary start keppra and ativan Seizure precautions Severe depression Assessment & Plan: Start Zoloft 50 mg PO Daily Start Remeron 15 mg PO QHS Prophylactic measure Assessment & Plan: SCDs DVT: Lovenox 30mg SC daily Disposition: Patient continues to refuse labs, food, treatment and diagnostic testing/ medications. Plans for guardianship. DW Meena Pemberton DO, PGY-1 <Lamonte Torres - Last Filed: 10/23/17 10:53> Objective - Vital Signs/Intake and Output Vital Signs (last 24 hours): Temp Pulse Resp BP Pulse Ox 98.6 F 101 H 20 103/64 97 10/22/17 16:40 10/22/17 16:40 10/22/17 16:40 10/22/17 16:40 10/22/17 16:40 Intake and Output: 10/23/17 10/23/17 06:59 18:59 Intake Total 300 Balance 300 - Medications Medications: Current Medications Acetaminophen (Tylenol 325mg Tab) 650 mg PO Q6 PRN PRN Reason: fever. Last Admin: 10/19/17 22:47 Dose: 650 mg Aspirin (Aspirin Chewable) 81 mg PO DAILY [facility] Last Admin: 10/23/17 09:41 Dose: Not Given Benztropine Mesylate (Cogentin) 1 mg PO BID [facility] Last Admin: 10/23/17 09:43 Dose: Not Given Docusate Sodium (Colace) 100 mg PO TID [facility] Last Admin: 10/23/17 09:43 Dose: Not Given Enoxaparin Sodium (Lovenox) 30 mg SC DAILY [facility] Last Admin: 10/23/17 09:44 Dose: Not Given Fentanyl (Duragesic) 1 patch TD Q72H [facility] Last Admin: 10/22/17 09:53 Dose: Not Given Ferrous Sulfate (Feosol) 325 mg PO TID [facility] Last Admin: 10/23/17 09:43 Dose: Not Given Haloperidol (Haldol) 5 mg PO Q6 PRN PRN Reason: Agitation Last Admin: 09/08/17 11:41 Dose: 5 mg Lidocaine (Lidoderm) 1 ea TD DAILY [facility] Last Admin: 10/23/17 09:43 Dose: Not Given Mirtazapine (Remeron) 30 mg PO [facility] Last Admin: 10/22/17 22:00 Dose: 30 mg Risperidone (Risperdal Tab) 1 mg PO BID [facility] Last Admin: 10/23/17 09:44 Dose: Not Given Rosuvastatin Calcium (Crestor) 10 mg PO [facility] Last Admin: 10/22/17 22:12 Dose: 10 mg Sertraline HCl (Zoloft) 200 mg PO DAILY [facility] Last Admin: 10/23/17 09:44 Dose: Not Given Tramadol HCl (Ultram) 25 mg PO TID PRN PRN Reason: Pain, moderate (4-7) Last Admin: 10/20/17 08:47 Dose: 25 mg Trazodone HCl (Desyrel) 50 mg PO HS [facility] Last Admin: 10/22/17 22:08 Dose: 50 mg - Labs Labs: 09/18/17 14:34 09/18/17 14:34 PT 17.5 SECONDS (9.7-12.2) H 08/31/17 17:07 INR 1.5 08/31/17 17:07 APTT 35 SECONDS (21-34) H 08/31/17 17:07 Attending/Attestation - Attestation I have personally seen and examined this patient.: No I have fully participated in the care of the patient.: Yes I have reviewed all pertinent clinical information, including history, physical exam and plan: Yes Notes (Text): Refuses examination
[2017-10-16] MEDS: Lidocaine 5% Patch TD SCH (09:40)
[2017-10-16] MEDS: Enoxaparin 30 mg Syringe SC SCH (09:41)
[2017-10-17] MEDS: Lidocaine 5% Patch TD SCH (10:54)
[2017-10-17] MEDS: Enoxaparin 30 mg Syringe SC SCH (10:54)
--- NOTE | 2017-10-18 07:31 | CP.PCM.PN ---
<Edvin Mccraya - Last Filed: 10/18/17 07:30> Subjective - Date & Time of Evaluation Date of Evaluation: 10/18/17 Time of Evaluation: 07:00 - Subjective Subjective: Medicine Progress Note for Hospitalist Service- Dr. Torres Patient was seen and examined at bedside. Patient feels okay today. Does not want to answer questions today. ROS unattainable. Objective - Vital Signs/Intake and Output Vital Signs (last 24 hours): Temp Pulse Resp BP Pulse Ox 98.3 F 111 H 20 118/70 97 10/18/17 00:00 10/18/17 00:00 10/18/17 00:00 10/18/17 00:00 10/18/17 00:00 Intake and Output: 10/18/17 10/18/17 06:59 18:59 Intake Total 350 Output Total 350 Balance 0 - Medications Medications: Current Medications Acetaminophen (Tylenol 325mg Tab) 650 mg PO Q6 PRN PRN Reason: fever. Last Admin: 10/18/17 00:30 Dose: 650 mg Aspirin (Aspirin Chewable) 81 mg PO DAILY [facility] Last Admin: 10/17/17 10:53 Dose: Not Given Benztropine Mesylate (Cogentin) 1 mg PO BID [facility] Last Admin: 10/17/17 17:31 Dose: Not Given Docusate Sodium (Colace) 100 mg PO TID [facility] Last Admin: 10/17/17 17:31 Dose: Not Given Enoxaparin Sodium (Lovenox) 30 mg SC DAILY [facility] Last Admin: 10/17/17 10:54 Dose: Not Given Ferrous Sulfate (Feosol) 325 mg PO TID [facility] Last Admin: 10/17/17 17:31 Dose: Not Given Haloperidol (Haldol) 5 mg PO Q6 PRN PRN Reason: Agitation Last Admin: 09/08/17 11:41 Dose: 5 mg Lidocaine (Lidoderm) 1 ea TD DAILY [facility] Last Admin: 10/17/17 10:54 Dose: Not Given Mirtazapine (Remeron) 30 mg PO [facility] Last Admin: 10/17/17 21:27 Dose: Not Given Risperidone (Risperdal Tab) 1 mg PO BID [facility] Last Admin: 10/17/17 17:31 Dose: Not Given Rosuvastatin Calcium (Crestor) 10 mg PO HS [facility] Last Admin: 10/17/17 21:27 Dose: Not Given Sertraline HCl (Zoloft) 200 mg PO DAILY [facility] Last Admin: 10/17/17 10:54 Dose: Not Given Tramadol HCl (Ultram) 25 mg PO TID PRN PRN Reason: Pain, moderate (4-7) Last Admin: 10/16/17 14:40 Dose: 25 mg Trazodone HCl (Desyrel) 50 mg PO HS [facility] Last Admin: 10/17/17 21:27 Dose: Not Given - Labs Labs: 09/18/17 14:34 09/18/17 14:34 PT 17.5 SECONDS (9.7-12.2) H 08/31/17 17:07 INR 1.5 08/31/17 17:07 APTT 35 SECONDS (21-34) H 08/31/17 17:07 - Additional Findings Additional findings: - Head Exam Head Exam: ATRAUMATIC - Eye Exam Eye Exam: EOMI - ENT Exam ENT Exam: Mucous Membranes Dry - Respiratory Exam Respiratory Exam: NORMAL BREATHING PATTERN. absent: Rhonchi, Wheezes - Cardiovascular Exam Cardiovascular Exam: REGULAR RHYTHM, +S1, +S2. absent: Murmur - GI/Abdominal Exam GI & Abdominal Exam: Soft, Normal Bowel Sounds, Tenderness (diffuse). absent: Distended, Firm, Guarding, Rigid - Extremities Exam Extremities Exam: Normal Inspection. absent: Calf Tenderness, Pedal Edema - Neurological Exam Neurological Exam: Alert, Awake - Psychiatric Exam Psychiatric exam: Depressed, Flat Affect - Skin Skin Exam: Dry, Intact, Warm Assessment and Plan - Assessment and Plan (Free Text) Plan: Mass of upper lobe of left lung Right adrenal mass Generalized pain CXR 08/31/17: * Large left upper lobe mass with probable involvement of the left posterior 3rd rib. Findings are concerning for malignancy. Dedicated CT scan of the chest with intravenous contrast is recommended for further characterization. * Patient has been refusing chest CT but states that he will think about and have the test done soon * CT abd/pelvis with IV contrast for today. Wanted PO contrast but patient refusing to drink PO Contrast, thus IV contrast: Large destructive heterogeneous soft tissue mass in the left lung upper lobe extending to the left upper posterior chest wall and extending to the left aspect of the upper thoracic spine consistent with malignant neoplasm. The mass is extending to upper aspect of the left hilum. Bony erosion and partial destruction of the left upper ribs and left aspect of T3 and T4 vertebral bodies. Left hilum and left mediastinum lymphadenopathy consistent with metastasis. Right adrenal mass likely represent metastasis. Moderate to mildly severe right hydronephrosis and proximal hydroureter up to 10.5 millimeter obstructing calculus at the proximal right ureter. Moderate constipation. * Right adrenal mass likely represent metastasis. Labs: * QFT negative, legionella negative, pending Mycoplasma Igm, Strep Pneumoniae, * Negative PPD read; no induration noted (48 hours and 72 hours read) * Patient is still refusing to produce sputum Medications: * Trazadone 50mg PO HS * Tylenol 650mg PO Q6H PRN * Morphine extended release 15mg PO Q12H * Percocet 1 tab PO Q4H Palliative consult * Management as per recommendation * Recommendation, Patient will need a guardian to advocate for him and be his decision making surrogate Refusal of treatment Assessment & Plan: 09/30-10/01: Patient continues to refuse all treatment. He has not allowed blood work to be performed since 09/18/17. Patient is DNR/DNI. Psychiatry Consult, Dr. Martinez Evaluate for capacity * As per psychiatry evaluation: Patient lacks the capacity to make his own medical decisions at this time. Plans for reevaluation at a latter time. * Re-consultation for capacity and evaluation for severe depression and possible pseudodementia (09/14/17); As per documentation, patient is psychiatrically stable for discharge. As per phone conversation with Dr. Martinez, he will addendum note (09/14/17) commenting on patient's capacity * Patient was seen by Dr. Martinez (09/26/17), patient will need guardianship offshoring manager, Consultation: Discussion with director of casework department today, 09/08/17; regarding possible guardianship. Application for medicaid and guardianship in progress Leukocytosis Assessment & Plan: 09/30-10/01: Patient continues to refuse all treatment. He has not allowed blood work to be performed since 09/18/17. Patient is DNR/DNI. Patient agreed to blood work, 09/20/17: 13.7 On admission: 14.7, patient has been refusing further lab work but continues to state that he would rethink his decision Blood Culture: Negative X5 days UA: LE (2+) and WBC (22), f/u repeat UA and UC (09/15/17) Meds: Cipro 400mg PO BID, started 09/15/17 ( Discontinue if repeat UA AND UC is negative) Zosyn 3.375gm IV Q6H ( Started 09/19/17)-- As per nursing, patient refused treatment Anemia Assessment & Plan: 09/30-10/01: Patient continues to refuse all treatment. He has not allowed blood work to be performed since 09/18/17. Patient is DNR/DNI. H/H stable : 8.1.8 Patient is refusing transfusion at the moment RBC indices indicative of iron deficiency anemia Retic Count ELEVATED 2.5, Haptoglobin ELEVATED 369 Vitamin B12 and Folate NORMAL Ferritin NORMAL Homocysteine NORMAL IRON: 16 TIBC: 302 % Saturation: 5 Peripheral smear: Slight Parietal cell Ab negative, Negative intrinsic factor Pending LDH Medication: Ferrous sulfate 325mg PO TID (As per nursing, patient is refuses medication intermittently) Lice infestation Assessment & Plan: Recommendation to shave patient bald; patient refuses Meds: Applied ivermectin and permethrin Given NIX kit once Contact precautions Weight loss Assessment & Plan: Pending HIV, patient refuses blood work Patient is currently not eating Supplemental diet History of CVA (cerebrovascular accident) Assessment & Plan: Hx of CVA in 2016 with documented right arm and leg weakness Head CT: A chronic infarct at the left MCA distribution is identified as well as age related neuro degenerative changes which are mildly advanced for the patient's age of 57 years. No intra hemorrhage, mass effect or CT pattern of an acute or subacute brain infarction is appreciated at this time. Follow-up CT or MRI are available if clinically warranted. Meds: Aspirin 81mg PO QD Crestor 10mg PO HS Left shoulder pain Assessment & Plan: Left shoulder X-ray (09/05/2017): No acute fracture. Acromioclavicular degenerative arthritis. History of seizures Assessment & Plan: Patient has been without any seizure activity since admission Prior records show seizure activity Will monitor and if necessary start keppra and ativan Seizure precautions Severe depression Assessment & Plan: Start Zoloft 50 mg PO Daily Start Remeron 15 mg PO QHS Prophylactic measure Assessment & Plan: SCDs DVT: Lovenox 30mg SC daily Disposition: Patient continues to refuse labs, food, treatment and diagnostic testing/ medications. Plans for guardianship. DW Meena Pemberton DO, PGY-1 <Lamonte Torres - Last Filed: 10/24/17 08:24> Objective - Vital Signs/Intake and Output Vital Signs (last 24 hours): Temp Pulse Resp BP Pulse Ox 98.2 F 66 20 107/69 97 10/23/17 16:00 10/23/17 16:00 10/23/17 16:00 10/23/17 16:00 10/23/17 16:00 Intake and Output: 10/24/17 10/24/17 06:59 18:59 Intake Total 300 Balance 300 - Medications Medications: Current Medications Acetaminophen (Tylenol 325mg Tab) 650 mg PO Q6 PRN PRN Reason: fever. Last Admin: 10/19/17 22:47 Dose: 650 mg Aspirin (Aspirin Chewable) 81 mg PO DAILY [facility] Last Admin: 10/23/17 09:41 Dose: Not Given Benztropine Mesylate (Cogentin) 1 mg PO BID [facility] Last Admin: 10/23/17 18:10 Dose: 1 mg Docusate Sodium (Colace) 100 mg PO TID [facility] Last Admin: 10/23/17 18:10 Dose: 100 mg Enoxaparin Sodium (Lovenox) 30 mg SC DAILY [facility] Last Admin: 10/23/17 09:44 Dose: Not Given Fentanyl (Duragesic) 1 patch TD Q72H [facility] Last Admin: 10/22/17 09:53 Dose: Not Given Ferrous Sulfate (Feosol) 325 mg PO TID [facility] Last Admin: 10/23/17 13:49 Dose: Not Given Haloperidol (Haldol) 5 mg PO Q6 PRN PRN Reason: Agitation Last Admin: 09/08/17 11:41 Dose: 5 mg Lidocaine (Lidoderm) 1 ea TD DAILY [facility] Last Admin: 10/23/17 09:43 Dose: Not Given Mirtazapine (Remeron) 30 mg PO [facility] Last Admin: 10/23/17 21:42 Dose: 30 mg Risperidone (Risperdal Tab) 1 mg PO BID [facility] Last Admin: 10/23/17 18:10 Dose: 1 mg Rosuvastatin Calcium (Crestor) 10 mg PO [facility] Last Admin: 10/23/17 21:50 Dose: 10 mg Rosuvastatin Calcium (Crestor) 10 mg PO HS [facility] Last Admin: 10/23/17 21:50 Dose: Not Given Sertraline HCl (Zoloft) 200 mg PO DAILY [facility] Last Admin: 10/23/17 09:44 Dose: Not Given Tramadol HCl (Ultram) 25 mg PO TID PRN PRN Reason: Pain, moderate (4-7) Last Admin: 10/20/17 08:47 Dose: 25 mg Trazodone HCl (Desyrel) 50 mg PO [facility] Last Admin: 10/23/17 21:42 Dose: 50 mg - Labs Labs: 09/18/17 14:34 09/18/17 14:34 PT 17.5 SECONDS (9.7-12.2) H 08/31/17 17:07 INR 1.5 08/31/17 17:07 APTT 35 SECONDS (21-34) H 08/31/17 17:07 Attending/Attestation - Attestation I have personally seen and examined this patient.: Yes I have fully participated in the care of the patient.: Yes I have reviewed all pertinent clinical information, including history, physical exam and plan: Yes Notes (Text): Patient was lying on bed without distress He asked me leave the room. when I asked him about his pain ,he started yelling and refuses lisset examined
[2017-10-18] MEDS: Enoxaparin 30 mg Syringe SC SCH (11:33)
[2017-10-18] MEDS: Lidocaine 5% Patch TD SCH (11:33)
[2017-10-19] MEDS: Enoxaparin 30 mg Syringe SC SCH (12:21)
[2017-10-19] MEDS: Lidocaine 5% Patch TD SCH (12:21)
[2017-10-19] MEDS: Tramadol 25 mg PO PRN (12:28)
--- NOTE | 2017-10-20 06:30 | CP.PCM.PN ---
<Meena Mccray - Last Filed: 10/20/17 06:27> Subjective - Date & Time of Evaluation Date of Evaluation: 10/20/17 Time of Evaluation: 06:00 - Subjective Subjective: Medicine Progress Note for Hospitalist Service- Dr. Torres Patient was seen and examined at bedside. Patient feels okay today. Does not want to answer questions today. Discussed with patient, the option of a fentanyl patch to provide pain relief- he refused. ROS unattainable. Objective - Vital Signs/Intake and Output Vital Signs (last 24 hours): Temp Pulse Resp BP Pulse Ox 98.1 F 84 20 101/65 97 10/19/17 16:00 10/19/17 16:00 10/19/17 16:00 10/19/17 16:00 10/19/17 16:00 - Medications Medications: Current Medications Acetaminophen (Tylenol 325mg Tab) 650 mg PO Q6 PRN PRN Reason: fever. Last Admin: 10/19/17 22:47 Dose: 650 mg Aspirin (Aspirin Chewable) 81 mg PO DAILY [facility] Last Admin: 10/19/17 12:21 Dose: Not Given Benztropine Mesylate (Cogentin) 1 mg PO BID [facility] Last Admin: 10/19/17 17:46 Dose: Not Given Docusate Sodium (Colace) 100 mg PO TID [facility] Last Admin: 10/19/17 17:46 Dose: Not Given Enoxaparin Sodium (Lovenox) 30 mg SC DAILY [facility] Last Admin: 10/19/17 12:21 Dose: Not Given Fentanyl (Duragesic) 1 patch TD Q72H [facility] Last Admin: 10/19/17 12:50 Dose: Not Given Ferrous Sulfate (Feosol) 325 mg PO TID [facility] Last Admin: 10/19/17 17:47 Dose: Not Given Haloperidol (Haldol) 5 mg PO Q6 PRN PRN Reason: Agitation Last Admin: 09/08/17 11:41 Dose: 5 mg Lidocaine (Lidoderm) 1 ea TD DAILY [facility] Last Admin: 10/19/17 12:21 Dose: Not Given Mirtazapine (Remeron) 30 mg PO HS [facility] Last Admin: 10/19/17 21:43 Dose: Not Given Risperidone (Risperdal Tab) 1 mg PO BID [facility] Last Admin: 10/19/17 17:47 Dose: Not Given Rosuvastatin Calcium (Crestor) 10 mg PO HS [facility] Last Admin: 10/19/17 21:43 Dose: Not Given Sertraline HCl (Zoloft) 200 mg PO DAILY [facility] Last Admin: 10/19/17 12:22 Dose: Not Given Tramadol HCl (Ultram) 25 mg PO TID PRN PRN Reason: Pain, moderate (4-7) Last Admin: 10/19/17 12:28 Dose: 25 mg Trazodone HCl (Desyrel) 50 mg PO [facility] Last Admin: 10/19/17 21:43 Dose: Not Given - Labs Labs: 09/18/17 14:34 09/18/17 14:34 PT 17.5 SECONDS (9.7-12.2) H 08/31/17 17:07 INR 1.5 08/31/17 17:07 APTT 35 SECONDS (21-34) H 08/31/17 17:07 - Additional Findings Additional findings: - Head Exam Head Exam: ATRAUMATIC - Eye Exam Eye Exam: EOMI - ENT Exam ENT Exam: Mucous Membranes Dry - Respiratory Exam Respiratory Exam: NORMAL BREATHING PATTERN. absent: Rhonchi, Wheezes - Cardiovascular Exam Cardiovascular Exam: REGULAR RHYTHM, +S1, +S2. absent: Murmur - GI/Abdominal Exam GI & Abdominal Exam: Soft, Normal Bowel Sounds, Tenderness (diffuse). absent: Distended, Firm, Guarding, Rigid - Extremities Exam Extremities Exam: Normal Inspection. absent: Calf Tenderness, Pedal Edema - Neurological Exam Neurological Exam: Alert, Awake - Psychiatric Exam Psychiatric exam: Depressed, Flat Affect - Skin Skin Exam: Dry, Intact, Warm Assessment and Plan - Assessment and Plan (Free Text) Plan: Mass of upper lobe of left lung Right adrenal mass Generalized pain CXR 08/31/17: * Large left upper lobe mass with probable involvement of the left posterior 3rd rib. Findings are concerning for malignancy. Dedicated CT scan of the chest with intravenous contrast is recommended for further characterization. * Patient has been refusing chest CT but states that he will think about and have the test done soon * CT abd/pelvis with IV contrast for today. Wanted PO contrast but patient refusing to drink PO Contrast, thus IV contrast: Large destructive heterogeneous soft tissue mass in the left lung upper lobe extending to the left upper posterior chest wall and extending to the left aspect of the upper thoracic spine consistent with malignant neoplasm. The mass is extending to upper aspect of the left hilum. Bony erosion and partial destruction of the left upper ribs and left aspect of T3 and T4 vertebral bodies. Left hilum and left mediastinum lymphadenopathy consistent with metastasis. Right adrenal mass likely represent metastasis. Moderate to mildly severe right hydronephrosis and proximal hydroureter up to 10.5 millimeter obstructing calculus at the proximal right ureter. Moderate constipation. * Right adrenal mass likely represent metastasis. Labs: * QFT negative, legionella negative, pending Mycoplasma Igm, Strep Pneumoniae, * Negative PPD read; no induration noted (48 hours and 72 hours read) * Patient is still refusing to produce sputum Medications: * Trazadone 50mg PO HS * Tylenol 650mg PO Q6H PRN * Morphine extended release 15mg PO Q12H * Percocet 1 tab PO Q4H Palliative consult * Management as per recommendation * Recommendation, Patient will need a guardian to advocate for him and be his decision making surrogate Refusal of treatment Assessment & Plan: 09/30-10/01: Patient continues to refuse all treatment. He has not allowed blood work to be performed since 09/18/17. Patient is DNR/DNI. Psychiatry Consult, Dr. Martinez Evaluate for capacity * As per psychiatry evaluation: Patient lacks the capacity to make his own medical decisions at this time. Plans for reevaluation at a latter time. * Re-consultation for capacity and evaluation for severe depression and possible pseudodementia (09/14/17); As per documentation, patient is psychiatrically stable for discharge. As per phone conversation with Dr. Martinez, he will addendum note (09/14/17) commenting on patient's capacity * Patient was seen by Dr. 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 Application for medicaid and guardianship in progress Leukocytosis Assessment & Plan: 09/30-10/01: Patient continues to refuse all treatment. He has not allowed blood work to be performed since 09/18/17. Patient is DNR/DNI. Patient agreed to blood work, 09/20/17: 13.7 On admission: 14.7, patient has been refusing further lab work but continues to state that he would rethink his decision Blood Culture: Negative X5 days UA: LE (2+) and WBC (22), f/u repeat UA and UC (09/15/17) Meds: Cipro 400mg PO BID, started 09/15/17 ( Discontinue if repeat UA AND UC is negative) Zosyn 3.375gm IV Q6H ( Started 09/19/17)-- As per nursing, patient refused treatment Anemia Assessment & Plan: 09/30-10/01: Patient continues to refuse all treatment. He has not allowed blood work to be performed since 09/18/17. Patient is DNR/DNI. H/H stable : 8.06/23.8 Patient is refusing transfusion at the moment RBC indices indicative of iron deficiency anemia Retic Count ELEVATED 2.5, Haptoglobin ELEVATED 369 Vitamin B12 and Folate NORMAL Ferritin NORMAL Homocysteine NORMAL IRON: 16 TIBC: 302 % Saturation: 5 Peripheral smear: Slight Parietal cell Ab negative, Negative intrinsic factor Pending LDH Medication: Ferrous sulfate 325mg PO TID (As per nursing, patient is refuses medication intermittently) Lice infestation Assessment & Plan: Recommendation to shave patient bald; patient refuses Meds: Applied ivermectin and permethrin Given NIX kit once Contact precautions Weight loss Assessment & Plan: Pending HIV, patient refuses blood work Patient is currently not eating Supplemental diet History of CVA (cerebrovascular accident) Assessment & Plan: Hx of CVA in 2016 with documented right arm and leg weakness Head CT: A chronic infarct at the left MCA distribution is identified as well as age related neuro degenerative changes which are mildly advanced for the patient's age of 57 years. No intra hemorrhage, mass effect or CT pattern of an acute or subacute brain infarction is appreciated at this time. Follow-up CT or MRI are available if clinically warranted. Meds: Aspirin 81mg PO QD Crestor 10mg PO HS Left shoulder pain Assessment & Plan: Left shoulder X-ray (09/05/2017): No acute fracture. Acromioclavicular degenerative arthritis. History of seizures Assessment & Plan: Patient has been without any seizure activity since admission Prior records show seizure activity Will monitor and if necessary start keppra and ativan Seizure precautions Severe depression Assessment & Plan: Start Zoloft 50 mg PO Daily Start Remeron 15 mg PO QHS Prophylactic measure Assessment & Plan: SCDs DVT: Lovenox 30mg SC daily Disposition: Patient continues to refuse labs, food, treatment and diagnostic testing/ medications. Plans for guardianship. DW Meena Pemberton DO, PGY-1 <Lamonte Torres - Last Filed: 10/30/17 16:58> Objective - Vital Signs/Intake and Output Vital Signs (last 24 hours): Temp Pulse Resp BP Pulse Ox 98.1 F 107 H 20 103/68 96 10/30/17 08:16 10/30/17 08:16 10/30/17 08:16 10/30/17 08:16 10/30/17 08:16 Intake and Output: 10/30/17 10/30/17 06:59 18:59 Intake Total 450 200 Output Total 700 Balance -250 200 - Medications Medications: Current Medications Acetaminophen (Tylenol 325mg Tab) 650 mg PO Q6 PRN PRN Reason: fever. Last Admin: 10/30/17 16:32 Dose: 650 mg Aspirin (Aspirin Chewable) 81 mg PO DAILY [facility] Last Admin: 10/30/17 09:50 Dose: Not Given Benztropine Mesylate (Cogentin) 1 mg PO BID [facility] Last Admin: 10/30/17 09:50 Dose: Not Given Docusate Sodium (Colace) 100 mg PO TID [facility] Last Admin: 10/30/17 09:51 Dose: Not Given Dronabinol (Marinol) 5 mg PO BID [facility] Last Admin: 10/29/17 18:21 Dose: Not Given Enoxaparin Sodium (Lovenox) 30 mg SC DAILY [facility] Last Admin: 10/30/17 09:52 Dose: Not Given Ferrous Sulfate (Feosol) 325 mg PO TID [facility] Last Admin: 10/30/17 09:52 Dose: Not Given Haloperidol (Haldol) 5 mg PO Q6 PRN PRN Reason: Agitation Last Admin: 09/08/17 11:41 Dose: 5 mg Lidocaine (Lidoderm) 1 ea TD DAILY [facility] Last Admin: 10/30/17 09:52 Dose: Not Given Mirtazapine (Remeron) 30 mg PO [facility] Last Admin: 10/28/17 21:47 Dose: Not Given Oxycodone HCl (Oxycodone Immediate Release Tab) 5 mg PO Q6 PRN PRN Reason: Pain, moderate (4-7) Last Admin: 10/28/17 19:53 Dose: 5 mg Risperidone (Risperdal Tab) 1 mg PO BID [facility] Last Admin: 10/30/17 09:53 Dose: Not Given Rosuvastatin Calcium (Crestor) 10 mg PO HS [facility] Last Admin: 10/29/17 23:23 Dose: Not Given Sertraline HCl (Zoloft) 200 mg PO DAILY [facility] Last Admin: 10/30/17 09:54 Dose: Not Given Trazodone HCl (Desyrel) 50 mg PO HS [facility] Last Admin: 10/29/17 23:23 Dose: Not Given - Labs Labs: 09/18/17 14:34 09/18/17 14:34 PT 17.5 SECONDS (9.7-12.2) H 08/31/17 17:07 INR 1.5 08/31/17 17:07 APTT 35 SECONDS (21-34) H 08/31/17 17:07 Attending/Attestation - Attestation I have personally seen and examined this patient.: No I have fully participated in the care of the patient.: Yes I have reviewed all pertinent clinical information, including history, physical exam and plan: Yes Notes (Text): Refuses examination
[2017-10-20] MEDS: Tramadol 25 mg PO PRN (08:47)
[2017-10-20] MEDS: Enoxaparin 30 mg Syringe SC SCH (09:05)
[2017-10-20] MEDS: Lidocaine 5% Patch TD SCH (10:00)
[2017-10-21] MEDS: Lidocaine 5% Patch TD SCH (09:43)
[2017-10-21] MEDS: Enoxaparin 30 mg Syringe SC SCH (09:43)
[2017-10-22] MEDS: Lidocaine 5% Patch TD SCH (09:53)
[2017-10-22] MEDS: Enoxaparin 30 mg Syringe SC SCH (09:53)
--- NOTE | 2017-10-23 08:51 | CP.PCM.PN ---
<Meena Mccray - Last Filed: 10/23/17 08:48> Subjective - Date & Time of Evaluation Date of Evaluation: 10/23/17 Time of Evaluation: 08:00 - Subjective Subjective: Medicine Progress Note for Hospitalist Service- Dr. Morley Patient was seen and examined at bedside. Patient feels okay today. Does not want to answer questions today. ROS unattainable. Objective - Vital Signs/Intake and Output Vital Signs (last 24 hours): Temp Pulse Resp BP Pulse Ox 98.6 F 101 H 20 103/64 97 10/22/17 16:40 10/22/17 16:40 10/22/17 16:40 10/22/17 16:40 10/22/17 16:40 Intake and Output: 10/23/17 10/23/17 06:59 18:59 Intake Total 300 Balance 300 - Medications Medications: Current Medications Acetaminophen (Tylenol 325mg Tab) 650 mg PO Q6 PRN PRN Reason: fever. Last Admin: 10/19/17 22:47 Dose: 650 mg Aspirin (Aspirin Chewable) 81 mg PO DAILY [facility] Last Admin: 10/22/17 09:52 Dose: Not Given Benztropine Mesylate (Cogentin) 1 mg PO BID [facility] Last Admin: 10/22/17 17:45 Dose: 1 mg Docusate Sodium (Colace) 100 mg PO TID [facility] Last Admin: 10/22/17 17:45 Dose: 100 mg Enoxaparin Sodium (Lovenox) 30 mg SC DAILY [facility] Last Admin: 10/22/17 09:53 Dose: Not Given Fentanyl (Duragesic) 1 patch TD Q72H [facility] Last Admin: 10/22/17 09:53 Dose: Not Given Ferrous Sulfate (Feosol) 325 mg PO TID [facility] Last Admin: 10/22/17 17:45 Dose: 325 mg Haloperidol (Haldol) 5 mg PO Q6 PRN PRN Reason: Agitation Last Admin: 09/08/17 11:41 Dose: 5 mg Lidocaine (Lidoderm) 1 ea TD DAILY [facility] Last Admin: 10/22/17 09:53 Dose: Not Given Mirtazapine (Remeron) 30 mg PO HS [facility] Last Admin: 10/22/17 22:00 Dose: 30 mg Risperidone (Risperdal Tab) 1 mg PO BID [facility] Last Admin: 10/22/17 17:48 Dose: 1 mg Rosuvastatin Calcium (Crestor) 10 mg PO HS [facility] Last Admin: 10/22/17 22:12 Dose: 10 mg Sertraline HCl (Zoloft) 200 mg PO DAILY [facility] Last Admin: 10/22/17 09:53 Dose: Not Given Tramadol HCl (Ultram) 25 mg PO TID PRN PRN Reason: Pain, moderate (4-7) Last Admin: 10/20/17 08:47 Dose: 25 mg Trazodone HCl (Desyrel) 50 mg PO HS [facility] Last Admin: 10/22/17 22:08 Dose: 50 mg - Labs Labs: 09/18/17 14:34 09/18/17 14:34 PT 17.5 SECONDS (9.7-12.2) H 08/31/17 17:07 INR 1.5 08/31/17 17:07 APTT 35 SECONDS (21-34) H 08/31/17 17:07 - Additional Findings Additional findings: - Head Exam Head Exam: ATRAUMATIC - Eye Exam Eye Exam: EOMI - ENT Exam ENT Exam: Mucous Membranes Dry - Respiratory Exam Respiratory Exam: NORMAL BREATHING PATTERN. absent: Rhonchi, Wheezes - Cardiovascular Exam Cardiovascular Exam: REGULAR RHYTHM, +S1, +S2. absent: Murmur - GI/Abdominal Exam GI & Abdominal Exam: Soft, Normal Bowel Sounds, Tenderness (diffuse). absent: Distended, Firm, Guarding, Rigid - Extremities Exam Extremities Exam: Normal Inspection. absent: Calf Tenderness, Pedal Edema - Neurological Exam Neurological Exam: Alert, Awake - Psychiatric Exam Psychiatric exam: Depressed, Flat Affect - Skin Skin Exam: Dry, Intact, Warm Assessment and Plan - Assessment and Plan (Free Text) Plan: Mass of upper lobe of left lung Right adrenal mass Generalized pain CXR 08/31/17: * Large left upper lobe mass with probable involvement of the left posterior 3rd rib. Findings are concerning for malignancy. Dedicated CT scan of the chest with intravenous contrast is recommended for further characterization. * Patient has been refusing chest CT but states that he will think about and have the test done soon * CT abd/pelvis with IV contrast for today. Wanted PO contrast but patient refusing to drink PO Contrast, thus IV contrast: Large destructive heterogeneous soft tissue mass in the left lung upper lobe extending to the left upper posterior chest wall and extending to the left aspect of the upper thoracic spine consistent with malignant neoplasm. The mass is extending to upper aspect of the left hilum. Bony erosion and partial destruction of the left upper ribs and left aspect of T3 and T4 vertebral bodies. Left hilum and left mediastinum lymphadenopathy consistent with metastasis. Right adrenal mass likely represent metastasis. Moderate to mildly severe right hydronephrosis and proximal hydroureter up to 10.5 millimeter obstructing calculus at the proximal right ureter. Moderate constipation. * Right adrenal mass likely represent metastasis. Labs: * QFT negative, legionella negative, pending Mycoplasma Igm, Strep Pneumoniae, * Negative PPD read; no induration noted (48 hours and 72 hours read) * Patient is still refusing to produce sputum Medications: * Trazadone 50mg PO HS * Tylenol 650mg PO Q6H PRN * Morphine extended release 15mg PO Q12H * Percocet 1 tab PO Q4H Palliative consult * Management as per recommendation * Recommendation, Patient will need a guardian to advocate for him and be his decision making surrogate Refusal of treatment Assessment & Plan: 09/30-10/01: Patient continues to refuse all treatment. He has not allowed blood work to be performed since 09/18/17. Patient is DNR/DNI. Psychiatry Consult, Dr. Martinez Evaluate for capacity * As per psychiatry evaluation: Patient lacks the capacity to make his own medical decisions at this time. Plans for reevaluation at a latter time. * Re-consultation for capacity and evaluation for severe depression and possible pseudodementia (09/14/17); As per documentation, patient is psychiatrically stable for discharge. As per phone conversation with Dr. Martinez, he will addendum note (09/14/17) commenting on patient's capacity * Patient was seen by Dr. 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 Application for medicaid and guardianship in progress Leukocytosis Assessment & Plan: 09/30-10/01: Patient continues to refuse all treatment. He has not allowed blood work to be performed since 09/18/17. Patient is DNR/DNI. Patient agreed to blood work, 09/20/17: 13.7 On admission: 14.7, patient has been refusing further lab work but continues to state that he would rethink his decision Blood Culture: Negative X5 days UA: LE (2+) and WBC (22), f/u repeat UA and UC (09/15/17) Meds: Cipro 400mg PO BID, started 09/15/17 ( Discontinue if repeat UA AND UC is negative) Zosyn 3.375gm IV Q6H ( Started 09/19/17)-- As per nursing, patient refused treatment Anemia Assessment & Plan: 09/30-10/01: Patient continues to refuse all treatment. He has not allowed blood work to be performed since 09/18/17. Patient is DNR/DNI. H/H stable : 8.1.8 Patient is refusing transfusion at the moment RBC indices indicative of iron deficiency anemia Retic Count ELEVATED 2.5, Haptoglobin ELEVATED 369 Vitamin B12 and Folate NORMAL Ferritin NORMAL Homocysteine NORMAL IRON: 16 TIBC: 302 % Saturation: 5 Peripheral smear: Slight Parietal cell Ab negative, Negative intrinsic factor Pending LDH Medication: Ferrous sulfate 325mg PO TID (As per nursing, patient is refuses medication intermittently) Lice infestation Assessment & Plan: Recommendation to shave patient bald; patient refuses Meds: Applied ivermectin and permethrin Given NIX kit once Contact precautions Weight loss Assessment & Plan: Pending HIV, patient refuses blood work Patient is currently not eating Supplemental diet History of CVA (cerebrovascular accident) Assessment & Plan: Hx of CVA in 2016 with documented right arm and leg weakness Head CT: A chronic infarct at the left MCA distribution is identified as well as age related neuro degenerative changes which are mildly advanced for the patient's age of 57 years. No intra hemorrhage, mass effect or CT pattern of an acute or subacute brain infarction is appreciated at this time. Follow-up CT or MRI are available if clinically warranted. Meds: Aspirin 81mg PO QD Crestor 10mg PO HS Left shoulder pain Assessment & Plan: Left shoulder X-ray (09/05/2017): No acute fracture. Acromioclavicular degenerative arthritis. History of seizures Assessment & Plan: Patient has been without any seizure activity since admission Prior records show seizure activity Will monitor and if necessary start keppra and ativan Seizure precautions Severe depression Assessment & Plan: Start Zoloft 50 mg PO Daily Start Remeron 15 mg PO QHS Prophylactic measure Assessment & Plan: SCDs DVT: Lovenox 30mg SC daily Disposition: Patient continues to refuse labs, food, treatment and diagnostic testing/ medications. Plans for guardianship. DW Dr. Morley, Meena Mccray DO, PGY-1 <Robert Morley H - Last Filed: 10/23/17 11:12> Objective - Vital Signs/Intake and Output Vital Signs (last 24 hours): Temp Pulse Resp BP Pulse Ox 98.6 F 101 H 20 103/64 97 10/22/17 16:40 10/22/17 16:40 10/22/17 16:40 10/22/17 16:40 10/22/17 16:40 Intake and Output: 10/23/17 10/23/17 06:59 18:59 Intake Total 300 Balance 300 - Medications Medications: Current Medications Acetaminophen (Tylenol 325mg Tab) 650 mg PO Q6 PRN PRN Reason: fever. Last Admin: 10/19/17 22:47 Dose: 650 mg Aspirin (Aspirin Chewable) 81 mg PO DAILY [facility] Last Admin: 10/23/17 09:41 Dose: Not Given Benztropine Mesylate (Cogentin) 1 mg PO BID [facility] Last Admin: 10/23/17 09:43 Dose: Not Given Docusate Sodium (Colace) 100 mg PO TID [facility] Last Admin: 10/23/17 09:43 Dose: Not Given Enoxaparin Sodium (Lovenox) 30 mg SC DAILY [facility] Last Admin: 10/23/17 09:44 Dose: Not Given Fentanyl (Duragesic) 1 patch TD Q72H [facility] Last Admin: 10/22/17 09:53 Dose: Not Given Ferrous Sulfate (Feosol) 325 mg PO TID [facility] Last Admin: 10/23/17 09:43 Dose: Not Given Haloperidol (Haldol) 5 mg PO Q6 PRN PRN Reason: Agitation Last Admin: 09/08/17 11:41 Dose: 5 mg Lidocaine (Lidoderm) 1 ea TD DAILY [facility] Last Admin: 10/23/17 09:43 Dose: Not Given Mirtazapine (Remeron) 30 mg PO HS [facility] Last Admin: 10/22/17 22:00 Dose: 30 mg Risperidone (Risperdal Tab) 1 mg PO BID [facility] Last Admin: 10/23/17 09:44 Dose: Not Given Rosuvastatin Calcium (Crestor) 10 mg PO HS [facility] Last Admin: 10/22/17 22:12 Dose: 10 mg Sertraline HCl (Zoloft) 200 mg PO DAILY [facility] Last Admin: 10/23/17 09:44 Dose: Not Given Tramadol HCl (Ultram) 25 mg PO TID PRN PRN Reason: Pain, moderate (4-7) Last Admin: 10/20/17 08:47 Dose: 25 mg Trazodone HCl (Desyrel) 50 mg PO HS [facility] Last Admin: 10/22/17 22:08 Dose: 50 mg - Labs Labs: 09/18/17 14:34 09/18/17 14:34 PT 17.5 SECONDS (9.7-12.2) H 08/31/17 17:07 INR 1.5 08/31/17 17:07 APTT 35 SECONDS (21-34) H 08/31/17 17:07 Attending/Attestation - Attestation I have personally seen and examined this patient.: Yes I have fully participated in the care of the patient.: Yes I have reviewed all pertinent clinical information, including history, physical exam and plan: Yes Notes (Text): Medical attending: Patient was seen and examined by me, agree with the above note by the resident. Situation is not changed from before. He continues to have minimal appetite eating very little from the tray Robert Morley
[2017-10-23] MEDS: Lidocaine 5% Patch TD SCH (09:43)
[2017-10-23] MEDS: Enoxaparin 30 mg Syringe SC SCH (09:44)
[2017-10-24] MEDS: Enoxaparin 30 mg Syringe SC SCH (09:41)
[2017-10-24] MEDS: Lidocaine 5% Patch TD SCH (09:41)
[2017-10-24] MEDS: oxyCODONE 10 mg ER Tab (oxyCONTIN) PO SCH (11:23)
--- NOTE | 2017-10-25 06:58 | CP.PCM.PN ---
Subjective - Date & Time of Evaluation Date of Evaluation: 10/25/17 Time of Evaluation: 06:00 - Subjective Subjective: Medicine Progress Note for Hospitalist Service- Dr. Morley Patient was seen and examined at bedside. Patient feels okay today. Does not want to answer questions today. ROS unattainable. Objective - Vital Signs/Intake and Output Vital Signs (last 24 hours): Temp Pulse Resp BP Pulse Ox 98.2 F 114 H 20 102/61 95 10/23/17 16:00 10/24/17 16:00 10/24/17 16:00 10/24/17 16:00 10/24/17 16:00 Intake and Output: 10/24/17 10/25/17 18:59 06:59 Output Total 300 250 Balance -300 -250 - Medications Medications: Current Medications Acetaminophen (Tylenol 325mg Tab) 650 mg PO Q6 PRN PRN Reason: fever. Last Admin: 10/19/17 22:47 Dose: 650 mg Aspirin (Aspirin Chewable) 81 mg PO DAILY [facility] Last Admin: 10/24/17 09:31 Dose: Not Given Benztropine Mesylate (Cogentin) 1 mg PO BID [facility] Last Admin: 10/24/17 17:33 Dose: Not Given Docusate Sodium (Colace) 100 mg PO TID [facility] Last Admin: 10/24/17 17:33 Dose: Not Given Enoxaparin Sodium (Lovenox) 30 mg SC DAILY [facility] Last Admin: 10/24/17 09:41 Dose: Not Given Ferrous Sulfate (Feosol) 325 mg PO TID [facility] Last Admin: 10/24/17 17:34 Dose: Not Given Haloperidol (Haldol) 5 mg PO Q6 PRN PRN Reason: Agitation Last Admin: 09/08/17 11:41 Dose: 5 mg Lidocaine (Lidoderm) 1 ea TD DAILY [facility] Last Admin: 10/24/17 09:41 Dose: Not Given Mirtazapine (Remeron) 30 mg PO HS [facility] Last Admin: 10/24/17 21:25 Dose: Not Given Oxycodone HCl (Oxycontin Extended Release Tab) 10 mg PO Q12 [facility] Stop: 10/27/17 11:01 Last Admin: 10/24/17 11:23 Dose: 10 mg Risperidone (Risperdal Tab) 1 mg PO BID [facility] Last Admin: 10/24/17 17:34 Dose: Not Given Rosuvastatin Calcium (Crestor) 10 mg PO HS [facility] Last Admin: 10/24/17 21:25 Dose: Not Given Rosuvastatin Calcium (Crestor) 10 mg PO HS [facility] Last Admin: 10/24/17 21:25 Dose: Not Given Sertraline HCl (Zoloft) 200 mg PO DAILY [facility] Last Admin: 10/24/17 09:41 Dose: Not Given Trazodone HCl (Desyrel) 50 mg PO HS [facility] Last Admin: 10/24/17 21:25 Dose: Not Given - Labs Labs: 09/18/17 14:34 09/18/17 14:34 PT 17.5 SECONDS (9.7-12.2) H 08/31/17 17:07 INR 1.5 08/31/17 17:07 APTT 35 SECONDS (21-34) H 08/31/17 17:07 - Additional Findings Additional findings: - Head Exam Head Exam: ATRAUMATIC - Eye Exam Eye Exam: EOMI - ENT Exam ENT Exam: Mucous Membranes Dry - Respiratory Exam Respiratory Exam: NORMAL BREATHING PATTERN. absent: Rhonchi, Wheezes - Cardiovascular Exam Cardiovascular Exam: REGULAR RHYTHM, +S1, +S2. absent: Murmur - GI/Abdominal Exam GI & Abdominal Exam: Soft, Normal Bowel Sounds, Tenderness (diffuse). absent: Distended, Firm, Guarding, Rigid - Extremities Exam Extremities Exam: Normal Inspection. absent: Calf Tenderness, Pedal Edema - Neurological Exam Neurological Exam: Alert, Awake - Psychiatric Exam Psychiatric exam: Depressed, Flat Affect - Skin Skin Exam: Dry, Intact, Warm Assessment and Plan - Assessment and Plan (Free Text) Plan: Mass of upper lobe of left lung Right adrenal mass Generalized pain CXR 08/31/17: * Large left upper lobe mass with probable involvement of the left posterior 3rd rib. Findings are concerning for malignancy. Dedicated CT scan of the chest with intravenous contrast is recommended for further characterization. * Patient has been refusing chest CT but states that he will think about and have the test done soon * CT abd/pelvis with IV contrast for today. Wanted PO contrast but patient refusing to drink PO Contrast, thus IV contrast: Large destructive heterogeneous soft tissue mass in the left lung upper lobe extending to the left upper posterior chest wall and extending to the left aspect of the upper thoracic spine consistent with malignant neoplasm. The mass is extending to upper aspect of the left hilum. Bony erosion and partial destruction of the left upper ribs and left aspect of T3 and T4 vertebral bodies. Left hilum and left mediastinum lymphadenopathy consistent with metastasis. Right adrenal mass likely represent metastasis. Moderate to mildly severe right hydronephrosis and proximal hydroureter up to 10.5 millimeter obstructing calculus at the proximal right ureter. Moderate constipation. * Right adrenal mass likely represent metastasis. Labs: * QFT negative, legionella negative, pending Mycoplasma Igm, Strep Pneumoniae, * Negative PPD read; no induration noted (48 hours and 72 hours read) * Patient is still refusing to produce sputum Medications: * Trazadone 50mg PO HS * Tylenol 650mg PO Q6H PRN * Morphine extended release 15mg PO Q12H * Percocet 1 tab PO Q4H Palliative consult * Management as per recommendation * Recommendation, Patient will need a guardian to advocate for him and be his decision making surrogate Refusal of treatment Assessment & Plan: 09/30-10/01: Patient continues to refuse all treatment. He has not allowed blood work to be performed since 09/18/17. Patient is DNR/DNI. Psychiatry Consult, Dr. Martinez Evaluate for capacity * As per psychiatry evaluation: Patient lacks the capacity to make his own medical decisions at this time. Plans for reevaluation at a latter time. * Re-consultation for capacity and evaluation for severe depression and possible pseudodementia (09/14/17); As per documentation, patient is psychiatrically stable for discharge. As per phone conversation with Dr. Martinez, he will addendum note (09/14/17) commenting on patient's capacity * Patient was seen by Dr. Martinez (09/26/17), patient will need guardianship manager workers compensation, Consultation: Discussion with family independence case manager today, 09/08/17; regarding possible guardianship. Application for medicaid and guardianship in progress Leukocytosis Assessment & Plan: 09/30-10/01: Patient continues to refuse all treatment. He has not allowed blood work to be performed since 09/18/17. Patient is DNR/DNI. Patient agreed to blood work, 09/20/17: 13.7 On admission: 14.7, patient has been refusing further lab work but continues to state that he would rethink his decision Blood Culture: Negative X5 days UA: LE (2+) and WBC (22), f/u repeat UA and UC (09/15/17) Meds: Cipro 400mg PO BID, started 09/15/17 ( Discontinue if repeat UA AND UC is negative) Zosyn 3.375gm IV Q6H ( Started 09/19/17)-- As per nursing, patient refused treatment Anemia Assessment & Plan: 09/30-10/01: Patient continues to refuse all treatment. He has not allowed blood work to be performed since 09/18/17. Patient is DNR/DNI. H/H stable : 8.1/26.8 Patient is refusing transfusion at the moment RBC indices indicative of iron deficiency anemia Retic Count ELEVATED 2.5, Haptoglobin ELEVATED 369 Vitamin B12 and Folate NORMAL Ferritin NORMAL Homocysteine NORMAL IRON: 16 TIBC: 302 % Saturation: 5 Peripheral smear: Slight Parietal cell Ab negative, Negative intrinsic factor Pending LDH Medication: Ferrous sulfate 325mg PO TID (As per nursing, patient is refuses medication intermittently) Lice infestation Assessment & Plan: Recommendation to shave patient bald; patient refuses Meds: Applied ivermectin and permethrin Given NIX kit once Contact precautions Weight loss Assessment & Plan: Pending HIV, patient refuses blood work Patient is currently not eating Supplemental diet History of CVA (cerebrovascular accident) Assessment & Plan: Hx of CVA in 2016 with documented right arm and leg weakness Head CT: A chronic infarct at the left MCA distribution is identified as well as age related neuro degenerative changes which are mildly advanced for the patient's age of 57 years. No intra hemorrhage, mass effect or CT pattern of an acute or subacute brain infarction is appreciated at this time. Follow-up CT or MRI are available if clinically warranted. Meds: Aspirin 81mg PO QD Crestor 10mg PO HS Left shoulder pain Assessment & Plan: Left shoulder X-ray (09/05/2017): No acute fracture. Acromioclavicular degenerative arthritis. History of seizures Assessment & Plan: Patient has been without any seizure activity since admission Prior records show seizure activity Will monitor and if necessary start keppra and ativan Seizure precautions Severe depression Assessment & Plan: Start Zoloft 50 mg PO Daily Start Remeron 15 mg PO QHS Prophylactic measure Assessment & Plan: SCDs DVT: Lovenox 30mg SC daily Disposition: Patient continues to refuse labs, food, treatment and diagnostic testing/ medications. Plans for guardianship. MARTITA Morley, Meena Mccray DO, PGY-1
[2017-10-25] MEDS: Lidocaine 5% Patch TD SCH (09:25)
[2017-10-25] MEDS: oxyCODONE 10 mg ER Tab (oxyCONTIN) PO SCH ×2 (09:25→22:15)
[2017-10-25] MEDS: Enoxaparin 30 mg Syringe SC SCH (09:25)
[2017-10-26] MEDS: oxyCODONE 10 mg ER Tab (oxyCONTIN) PO SCH ×2 (11:31→21:59)
[2017-10-26] MEDS: Lidocaine 5% Patch TD SCH (11:31)
[2017-10-26] MEDS: Enoxaparin 30 mg Syringe SC SCH (11:31)
--- NOTE | 2017-10-27 09:22 | CP.PCM.PN ---
<Elida Burris - Last Filed: 10/27/17 09:25> Subjective - Date & Time of Evaluation Date of Evaluation: 10/27/17 Time of Evaluation: 09:24 - Subjective Subjective: Progress note for Dr. Morley Patient was seen and examined at bedside. No acute events overnight. Patient does not want to answer more questions today. ROS unattainable at this time Objective - Vital Signs/Intake and Output Vital Signs (last 24 hours): Temp Pulse Resp BP Pulse Ox 97.6 F 75 20 100/64 95 10/26/17 17:06 10/26/17 17:06 10/26/17 17:06 10/26/17 17:06 10/26/17 17:06 Intake and Output: 10/27/17 10/27/17 06:59 18:59 Intake Total 660 Output Total 850 Balance -190 - Medications Medications: Current Medications Acetaminophen (Tylenol 325mg Tab) 650 mg PO Q6 PRN PRN Reason: fever. Last Admin: 10/26/17 01:47 Dose: 650 mg Aspirin (Aspirin Chewable) 81 mg PO DAILY [facility] Last Admin: 10/26/17 11:31 Dose: Not Given Benztropine Mesylate (Cogentin) 1 mg PO BID [facility] Last Admin: 10/26/17 17:55 Dose: Not Given Docusate Sodium (Colace) 100 mg PO TID [facility] Last Admin: 10/26/17 17:55 Dose: Not Given Enoxaparin Sodium (Lovenox) 30 mg SC DAILY [facility] Last Admin: 10/26/17 11:31 Dose: Not Given Ferrous Sulfate (Feosol) 325 mg PO TID [facility] Last Admin: 10/26/17 17:55 Dose: Not Given Haloperidol (Haldol) 5 mg PO Q6 PRN PRN Reason: Agitation Last Admin: 09/08/17 11:41 Dose: 5 mg Lidocaine (Lidoderm) 1 ea TD DAILY [facility] Last Admin: 10/26/17 11:31 Dose: Not Given Mirtazapine (Remeron) 30 mg PO HS [facility] Last Admin: 10/26/17 21:59 Dose: Not Given Oxycodone HCl (Oxycontin Extended Release Tab) 10 mg PO Q12 [facility] Stop: 10/27/17 11:01 Last Admin: 10/26/17 21:59 Dose: Not Given Risperidone (Risperdal Tab) 1 mg PO BID [facility] Last Admin: 10/26/17 22:00 Dose: Not Given Rosuvastatin Calcium (Crestor) 10 mg PO [facility] Last Admin: 10/26/17 21:58 Dose: Not Given Rosuvastatin Calcium (Crestor) 10 mg PO HS [facility] Last Admin: 10/26/17 21:58 Dose: Not Given Sertraline HCl (Zoloft) 200 mg PO DAILY [facility] Last Admin: 10/26/17 11:32 Dose: Not Given Trazodone HCl (Desyrel) 50 mg PO [facility] Last Admin: 10/26/17 21:58 Dose: Not Given - Labs Labs: 09/18/17 14:34 09/18/17 14:34 PT 17.5 SECONDS (9.7-12.2) H 08/31/17 17:07 INR 1.5 08/31/17 17:07 APTT 35 SECONDS (21-34) H 08/31/17 17:07 - Additional Findings Additional findings: - Head Exam Head Exam: ATRAUMATIC - Eye Exam Eye Exam: EOMI - ENT Exam ENT Exam: Mucous Membranes Dry - Respiratory Exam Respiratory Exam: NORMAL BREATHING PATTERN. absent: Rhonchi, Wheezes - Cardiovascular Exam Cardiovascular Exam: REGULAR RHYTHM, +S1, +S2. absent: Murmur - GI/Abdominal Exam GI & Abdominal Exam: Soft, Normal Bowel Sounds, Tenderness (diffuse). absent: Distended, Firm, Guarding, Rigid - Extremities Exam Extremities Exam: Normal Inspection. absent: Calf Tenderness, Pedal Edema - Neurological Exam Neurological Exam: Alert, Awake - Psychiatric Exam Psychiatric exam: Depressed, Flat Affect - Skin Skin Exam: Dry, Intact, Warm Assessment and Plan - Assessment and Plan (Free Text) Assessment: Mass of upper lobe of left lung Right adrenal mass Generalized pain CXR 08/31/17: * Large left upper lobe mass with probable involvement of the left posterior 3rd rib. Findings are concerning for malignancy. Dedicated CT scan of the chest with intravenous contrast is recommended for further characterization. * Patient has been refusing chest CT but states that he will think about and have the test done soon * CT abd/pelvis with IV contrast for today. Wanted PO contrast but patient refusing to drink PO Contrast, thus IV contrast: Large destructive heterogeneous soft tissue mass in the left lung upper lobe extending to the left upper posterior chest wall and extending to the left aspect of the upper thoracic spine consistent with malignant neoplasm. The mass is extending to upper aspect of the left hilum. Bony erosion and partial destruction of the left upper ribs and left aspect of T3 and T4 vertebral bodies. Left hilum and left mediastinum lymphadenopathy consistent with metastasis. Right adrenal mass likely represent metastasis. Moderate to mildly severe right hydronephrosis and proximal hydroureter up to 10.5 millimeter obstructing calculus at the proximal right ureter. Moderate constipation. * Right adrenal mass likely represent metastasis. Labs: * QFT negative, legionella negative, pending Mycoplasma Igm, Strep Pneumoniae, * Negative PPD read; no induration noted (48 hours and 72 hours read) * Patient is still refusing to produce sputum Medications: * Trazadone 50mg PO HS * Tylenol 650mg PO Q6H PRN * Morphine extended release 15mg PO Q12H * Percocet 1 tab PO Q4H Palliative consult * Management as per recommendation * Recommendation, Patient will need a guardian to advocate for him and be his decision making surrogate Refusal of treatment Assessment & Plan: 09/30-10/01: Patient continues to refuse all treatment. He has not allowed blood work to be performed since 09/18/17. Patient is DNR/DNI. Psychiatry Consult, Dr. Martinez Evaluate for capacity * As per psychiatry evaluation: Patient lacks the capacity to make his own medical decisions at this time. Plans for reevaluation at a latter time. * Re-consultation for capacity and evaluation for severe depression and possible pseudodementia (09/14/17); As per documentation, patient is psychiatrically stable for discharge. As per phone conversation with Dr. Martinez, he will addendum note (09/14/17) commenting on patient's capacity * Patient was seen by Dr. Martinez (09/26/17), patient will need guardianship business affairs manager, Consultation: Discussion with casework specialist today, 09/08/17; regarding possible guardianship. Application for medicaid and guardianship in progress Leukocytosis Assessment & Plan: 09/30-10/01: Patient continues to refuse all treatment. He has not allowed blood work to be performed since 09/18/17. Patient is DNR/DNI. Patient agreed to blood work, 09/20/17: 13.7 On admission: 14.7, patient has been refusing further lab work but continues to state that he would rethink his decision Blood Culture: Negative X5 days UA: LE (2+) and WBC (22), f/u repeat UA and UC (09/15/17) Meds: Cipro 400mg PO BID, started 09/15/17 ( Discontinue if repeat UA AND UC is negative) Zosyn 3.375gm IV Q6H ( Started 09/19/17)-- As per nursing, patient refused treatment Anemia Assessment & Plan: 09/30-10/01: Patient continues to refuse all treatment. He has not allowed blood work to be performed since 09/18/17. Patient is DNR/DNI. H/H stable : 8.06/23.8 Patient is refusing transfusion at the moment RBC indices indicative of iron deficiency anemia Retic Count ELEVATED 2.5, Haptoglobin ELEVATED 369 Vitamin B12 and Folate NORMAL Ferritin NORMAL Homocysteine NORMAL IRON: 16 TIBC: 302 % Saturation: 5 Peripheral smear: Slight Parietal cell Ab negative, Negative intrinsic factor Pending LDH Medication: Ferrous sulfate 325mg PO TID (As per nursing, patient is refuses medication intermittently) Lice infestation Assessment & Plan: Recommendation to shave patient bald; patient refuses Meds: Applied ivermectin and permethrin Given NIX kit once Contact precautions Weight loss Assessment & Plan: Pending HIV, patient refuses blood work Patient is currently not eating Supplemental diet History of CVA (cerebrovascular accident) Assessment & Plan: Hx of CVA in 2016 with documented right arm and leg weakness Head CT: A chronic infarct at the left MCA distribution is identified as well as age related neuro degenerative changes which are mildly advanced for the patient's age of 57 years. No intra hemorrhage, mass effect or CT pattern of an acute or subacute brain infarction is appreciated at this time. Follow-up CT or MRI are available if clinically warranted. Meds: Aspirin 81mg PO QD Crestor 10mg PO HS Left shoulder pain Assessment & Plan: Left shoulder X-ray (09/05/2017): No acute fracture. Acromioclavicular degenerative arthritis. History of seizures Assessment & Plan: Patient has been without any seizure activity since admission Prior records show seizure activity Will monitor and if necessary start keppra and ativan Seizure precautions Severe depression Assessment & Plan: Start Zoloft 50 mg PO Daily Start Remeron 15 mg PO QHS Prophylactic measure Assessment & Plan: SCDs DVT: Lovenox 30mg SC daily Disposition: Patient continues to refuse labs, food, treatment and diagnostic testing/ medications. Plans for guardianship. Discussed with Dr. Milli Burris DO PGY1 <Robert Morley - Last Filed: 10/27/17 14:34> Objective - Vital Signs/Intake and Output Vital Signs (last 24 hours): Temp Pulse Resp BP Pulse Ox 97.6 F 75 20 100/64 95 10/26/17 17:06 10/26/17 17:06 10/26/17 17:06 10/26/17 17:06 10/26/17 17:06 Intake and Output: 10/27/17 10/27/17 06:59 18:59 Intake Total 660 Output Total 850 300 Balance -190 -300 - Medications Medications: Current Medications Acetaminophen (Tylenol 325mg Tab) 650 mg PO Q6 PRN PRN Reason: fever. Last Admin: 10/26/17 01:47 Dose: 650 mg Aspirin (Aspirin Chewable) 81 mg PO DAILY [facility] Last Admin: 10/26/17 11:31 Dose: Not Given Benztropine Mesylate (Cogentin) 1 mg PO BID [facility] Last Admin: 10/26/17 17:55 Dose: Not Given Docusate Sodium (Colace) 100 mg PO TID [facility] Last Admin: 10/26/17 17:55 Dose: Not Given Enoxaparin Sodium (Lovenox) 30 mg SC DAILY [facility] Last Admin: 10/26/17 11:31 Dose: Not Given Ferrous Sulfate (Feosol) 325 mg PO TID [facility] Last Admin: 10/26/17 17:55 Dose: Not Given Haloperidol (Haldol) 5 mg PO Q6 PRN PRN Reason: Agitation Last Admin: 09/08/17 11:41 Dose: 5 mg Lidocaine (Lidoderm) 1 ea TD DAILY [facility] Last Admin: 10/26/17 11:31 Dose: Not Given Mirtazapine (Remeron) 30 mg PO [facility] Last Admin: 10/26/17 21:59 Dose: Not Given Risperidone (Risperdal Tab) 1 mg PO BID [facility] Last Admin: 10/26/17 22:00 Dose: Not Given Rosuvastatin Calcium (Crestor) 10 mg PO HS [facility] Last Admin: 10/26/17 21:58 Dose: Not Given Rosuvastatin Calcium (Crestor) 10 mg PO HS [facility] Last Admin: 10/26/17 21:58 Dose: Not Given Sertraline HCl (Zoloft) 200 mg PO DAILY [facility] Last Admin: 10/26/17 11:32 Dose: Not Given Trazodone HCl (Desyrel) 50 mg PO HS [facility] Last Admin: 10/26/17 21:58 Dose: Not Given - Labs Labs: 09/18/17 14:34 09/18/17 14:34 PT 17.5 SECONDS (9.7-12.2) H 08/31/17 17:07 INR 1.5 08/31/17 17:07 APTT 35 SECONDS (21-34) H 08/31/17 17:07 Attending/Attestation - Attestation I have personally seen and examined this patient.: Yes I have fully participated in the care of the patient.: Yes I have reviewed all pertinent clinical information, including history, physical exam and plan: Yes Notes (Text): 10/27/17 14:32 Medical attending: Patient was seen with the medical reception specialist and agree with the above I do not have much to add. He continues to refuse most medications and orders. He has been refusing lovenox as well and is high risk for DVT/PE especially since he is bed bound and also malignancy Robert Morley
[2017-10-27] MEDS: Lidocaine 5% Patch TD SCH (14:33)
[2017-10-27] MEDS: Enoxaparin 30 mg Syringe SC SCH (14:34)
[2017-10-27] MEDS: oxyCODONE 10 mg ER Tab (oxyCONTIN) PO SCH (14:35)
[2017-10-28] MEDS: Lidocaine 5% Patch TD SCH (10:58)
[2017-10-28] MEDS: Enoxaparin 30 mg Syringe SC SCH (10:58)
[2017-10-28] MEDS ORDERED: oxyCODONE 10 mg ER Tab (oxyCONTIN) PO PRN (13:17)
[2017-10-28] MEDS: oxyCODONE 5 mg Immediate Release Tab PO PRN ×2 (13:38→19:53)
[2017-10-29] MEDS: Lidocaine 5% Patch TD SCH (11:33)
[2017-10-29] MEDS: Enoxaparin 30 mg Syringe SC SCH (11:34)
--- NOTE | 2017-10-30 08:03 | CP.PCM.PN ---
<Tyson Peñaloza - Last Filed: 10/30/17 10:23> Subjective - Date & Time of Evaluation Date of Evaluation: 10/30/17 Time of Evaluation: 07:59 - Subjective Subjective: PGY1 Medicine Note for Dr. Torres Patient seen and examined at bedside this morning. No acute events overnight. Patient is alert to self but is confused. Reports severe abdominal pain and asks what he can have for it. He does not want to answer any other questions this morning. ROS unattainable. Objective - Vital Signs/Intake and Output Vital Signs (last 24 hours): Temp Pulse Resp BP Pulse Ox 97.7 F 91 H 20 110/70 97 10/28/17 08:00 10/28/17 08:00 10/28/17 08:00 10/28/17 08:00 10/28/17 08:00 Intake and Output: 10/30/17 10/30/17 06:59 18:59 Intake Total 450 Output Total 700 Balance -250 - Medications Medications: Current Medications Acetaminophen (Tylenol 325mg Tab) 650 mg PO Q6 PRN PRN Reason: fever. Last Admin: 10/29/17 11:09 Dose: 650 mg Aspirin (Aspirin Chewable) 81 mg PO DAILY [facility] Last Admin: 10/29/17 11:33 Dose: Not Given Benztropine Mesylate (Cogentin) 1 mg PO BID [facility] Last Admin: 10/29/17 18:20 Dose: Not Given Docusate Sodium (Colace) 100 mg PO TID [facility] Last Admin: 10/29/17 18:20 Dose: Not Given Dronabinol (Marinol) 5 mg PO BID [facility] Last Admin: 10/29/17 18:21 Dose: Not Given Enoxaparin Sodium (Lovenox) 30 mg SC DAILY [facility] Last Admin: 10/29/17 11:34 Dose: Not Given Ferrous Sulfate (Feosol) 325 mg PO TID [facility] Last Admin: 10/29/17 18:21 Dose: Not Given Haloperidol (Haldol) 5 mg PO Q6 PRN PRN Reason: Agitation Last Admin: 09/08/17 11:41 Dose: 5 mg Lidocaine (Lidoderm) 1 ea TD DAILY [facility] Last Admin: 10/29/17 11:33 Dose: Not Given Mirtazapine (Remeron) 30 mg PO HS [facility] Last Admin: 10/28/17 21:47 Dose: Not Given Oxycodone HCl (Oxycodone Immediate Release Tab) 5 mg PO Q6 PRN PRN Reason: Pain, moderate (4-7) Last Admin: 10/28/17 19:53 Dose: 5 mg Risperidone (Risperdal Tab) 1 mg PO BID [facility] Last Admin: 10/29/17 18:21 Dose: Not Given Rosuvastatin Calcium (Crestor) 10 mg PO [facility] Last Admin: 10/29/17 23:23 Dose: Not Given Sertraline HCl (Zoloft) 200 mg PO DAILY [facility] Last Admin: 10/29/17 11:34 Dose: Not Given Trazodone HCl (Desyrel) 50 mg PO [facility] Last Admin: 10/29/17 23:23 Dose: Not Given - Labs Labs: 09/18/17 14:34 09/18/17 14:34 PT 17.5 SECONDS (9.7-12.2) H 08/31/17 17:07 INR 1.5 08/31/17 17:07 APTT 35 SECONDS (21-34) H 08/31/17 17:07 - Constitutional Appears: Non-toxic, No Acute Distress, Unkempt, Cachectic - Head Exam Head Exam: ATRAUMATIC, NORMOCEPHALIC - Eye Exam Eye Exam: EOMI - ENT Exam ENT Exam: Mucous Membranes Moist - Respiratory Exam Respiratory Exam: Clear to Ausculation Bilateral, NORMAL BREATHING PATTERN. absent: Accessory Muscle Use, Rales, Rhonchi, Wheezes, Respiratory Distress - Cardiovascular Exam Cardiovascular Exam: REGULAR RHYTHM, +S1, +S2 - GI/Abdominal Exam GI & Abdominal Exam: Soft, Tenderness (diffuse (severe tender to liver)), Organomegaly (liver palpable). absent: Distended, Firm, Guarding, Rigid - Extremities Exam Extremities Exam: absent: Calf Tenderness, Pedal Edema - Neurological Exam Neurological Exam: Alert, Awake. absent: Oriented x3 - Psychiatric Exam Psychiatric exam: Flat Affect - Skin Skin Exam: Dry, Intact, Warm Assessment and Plan - Assessment and Plan (Free Text) Assessment: Mass of upper lobe of left lung/Right adrenal mass/Generalized pain CXR 08/31/17: * Large left upper lobe mass with probable involvement of the left posterior 3rd rib. Findings are concerning for malignancy. Dedicated CT scan of the chest with intravenous contrast is recommended for further characterization. CT abd/pelvis with IV contrast 09/11/17: * Large destructive heterogeneous soft tissue mass in the left lung upper lobe extending to the left upper posterior chest wall and extending to the left aspect of the upper thoracic spine consistent with malignant neoplasm. The mass is extending to upper aspect of the left hilum. Bony erosion and partial destruction of the left upper ribs and left aspect of T3 and T4 vertebral bodies. Left hilum and left mediastinum lymphadenopathy consistent with metastasis. Right adrenal mass likely represent metastasis. Moderate to mildly severe right hydronephrosis and proximal hydroureter up to 10.5 millimeter obstructing calculus at the proximal right ureter. Moderate constipation. * Right adrenal mass likely represent metastasis. Labs: * QFT negative, legionella negative, Mycoplasma Igm negative, Strep Pneumoniae IgG pending, * Negative PPD read; no induration noted (48 hours and 72 hours read) Medications: * Trazadone 50mg PO HS * Tylenol 650mg PO Q6H PRN * Marinol 5mg PO BID * Oxycodone 5mg PO q6h prn * Lidoderm patch 1 TD daily Palliative consult * Management as per recommendation * Recommendation, Patient will need a guardian to advocate for him and be his decision making surrogate Refusal of treatment 09/30-10/01: Patient continues to refuse all treatment. He has not allowed blood work to be performed since 09/18/17. Patient is DNR/DNI. Psychiatry Consult, Dr. Martinez Evaluate for capacity * As per psychiatry evaluation: Patient lacks the capacity to make his own medical decisions at this time. Plans for reevaluation at a latter time. * Re-consultation for capacity and evaluation for severe depression and possible pseudodementia (09/14/17); As per documentation, patient is psychiatrically stable for discharge. As per phone conversation with Dr. Martinez, he will addendum note (09/14/17) commenting on patient's capacity * Patient was seen by Dr. 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 Application for medicaid and guardianship in progress Leukocytosis (no labs since 09/18) 09/30-10/01: Patient continues to refuse all treatment. He has not allowed blood work to be performed since 09/18/17. Patient is DNR/DNI. Patient agreed to blood work, 09/20/17: 13.7 On admission: 14.7, patient has been refusing further lab work but continues to state that he would rethink his decision Blood Culture: Negative X5 days UA: LE (2+) and WBC (22), f/u repeat UA and UC (09/15/17) Meds: Cipro 400mg PO BID, started 09/15/17 ( Discontinue if repeat UA AND UC is negative) Zosyn 3.375gm IV Q6H ( Started 09/19/17)-- As per nursing, patient refused treatment Anemia (no labs since 09/18) 09/30-10/01: Patient continues to refuse all treatment. He has not allowed blood work to be performed since 09/18/17. Patient is DNR/DNI. H/H stable : 8.1/26.8 Patient is refusing transfusion at the moment RBC indices indicative of iron deficiency anemia Retic Count ELEVATED 2.5, Haptoglobin ELEVATED 369 Vitamin B12 and Folate NORMAL Ferritin NORMAL Homocysteine NORMAL IRON: 16 TIBC: 302 % Saturation: 5 Peripheral smear: Slight Parietal cell Ab negative, Negative intrinsic factor Pending LDH Medication: Ferrous sulfate 325mg PO TID (As per nursing, patient is refuses medication intermittently) Lice infestation Recommendation to shave patient bald; patient refuses Meds: Applied ivermectin and permethrin Given NIX kit once Contact precautions Weight loss Pending HIV, patient refuses blood work Hepatitis panel negative Patient is currently not eating Supplemental diet History of CVA (cerebrovascular accident): Hx of CVA in 2016 with documented right arm and leg weakness Head CT 09/11/17: * A chronic infarct at the left MCA distribution is identified as well as age related neuro degenerative changes which are mildly advanced for the patient's age of 57 years. No intra hemorrhage, mass effect or CT pattern of an acute or subacute brain infarction is appreciated at this time. Follow-up CT or MRI are available if clinically warranted. Meds: Aspirin 81mg PO QD Crestor 10mg PO HS Left shoulder pain Left shoulder X-ray 09/05/2017: No acute fracture. Acromioclavicular degenerative arthritis. History of seizures Patient has been without any seizure activity since admission Prior records show seizure activity Will monitor and if necessary start keppra and ativan Seizure precautions Severe depression Zoloft 50 mg PO Daily Remeron 15 mg PO QHS Benztropine 1mg PO BID Haloperiodl 5mg PO Q6H prn Risperidone 1mg PO BID Prophylactic measure SCDs - pt refusing to wear DVT: Lovenox 30mg SC daily Disposition: Patient continues to refuse labs, food, treatment and diagnostic testing/medications. Plans for guardianship. Case discussed with Dr. Melissa Mehta Anabela PGY1 <Lamonte Torres - Last Filed: 10/31/17 07:03> Objective - Vital Signs/Intake and Output Vital Signs (last 24 hours): Temp Pulse Resp BP Pulse Ox 98.1 F 107 H 20 103/68 96 10/30/17 08:16 10/30/17 08:16 10/30/17 08:16 10/30/17 08:16 10/30/17 08:16 Intake and Output: 10/30/17 10/30/17 06:59 18:59 Intake Total 450 200 Output Total 700 Balance -250 200 - Medications Medications: Current Medications Acetaminophen (Tylenol 325mg Tab) 650 mg PO Q6 PRN PRN Reason: fever. Last Admin: 10/30/17 16:32 Dose: 650 mg Aspirin (Aspirin Chewable) 81 mg PO DAILY [facility] Last Admin: 10/30/17 09:50 Dose: Not Given Benztropine Mesylate (Cogentin) 1 mg PO BID [facility] Last Admin: 10/30/17 09:50 Dose: Not Given Docusate Sodium (Colace) 100 mg PO TID [facility] Last Admin: 10/30/17 09:51 Dose: Not Given Dronabinol (Marinol) 5 mg PO BID [facility] Last Admin: 10/29/17 18:21 Dose: Not Given Enoxaparin Sodium (Lovenox) 30 mg SC DAILY [facility] Last Admin: 10/30/17 09:52 Dose: Not Given Ferrous Sulfate (Feosol) 325 mg PO TID [facility] Last Admin: 10/30/17 09:52 Dose: Not Given Haloperidol (Haldol) 5 mg PO Q6 PRN PRN Reason: Agitation Last Admin: 09/08/17 11:41 Dose: 5 mg Lidocaine (Lidoderm) 1 ea TD DAILY [facility] Last Admin: 10/30/17 09:52 Dose: Not Given Mirtazapine (Remeron) 30 mg PO HS [facility] Last Admin: 10/28/17 21:47 Dose: Not Given Oxycodone HCl (Oxycodone Immediate Release Tab) 5 mg PO Q6 PRN PRN Reason: Pain, moderate (4-7) Last Admin: 10/28/17 19:53 Dose: 5 mg Risperidone (Risperdal Tab) 1 mg PO BID [facility] Last Admin: 10/30/17 09:53 Dose: Not Given Rosuvastatin Calcium (Crestor) 10 mg PO HS [facility] Last Admin: 10/29/17 23:23 Dose: Not Given Sertraline HCl (Zoloft) 200 mg PO DAILY [facility] Last Admin: 10/30/17 09:54 Dose: Not Given Trazodone HCl (Desyrel) 50 mg PO HS [facility] Last Admin: 10/29/17 23:23 Dose: Not Given - Labs Labs: 09/18/17 14:34 09/18/17 14:34 PT 17.5 SECONDS (9.7-12.2) H 08/31/17 17:07 INR 1.5 08/31/17 17:07 APTT 35 SECONDS (21-34) H 08/31/17 17:07 Attending/Attestation - Attestation I have personally seen and examined this patient.: No I have fully participated in the care of the patient.: Yes I have reviewed all pertinent clinical information, including history, physical exam and plan: Yes Notes (Text): 10/30/17 18:57 refuses examination.Asked me leave the room.
[2017-10-30] MEDS: Enoxaparin 30 mg Syringe SC SCH (09:52)
[2017-10-30] MEDS: Lidocaine 5% Patch TD SCH (09:52)
[2017-10-31] MEDS: Enoxaparin 30 mg Syringe SC SCH (10:33)
[2017-10-31] MEDS: Lidocaine 5% Patch TD SCH (10:33)
[2017-11-01] MEDS: oxyCODONE 5 mg Immediate Release Tab PO PRN ×2 (04:07→14:03)
[2017-11-01] MEDS: Enoxaparin 30 mg Syringe SC SCH (11:36)
[2017-11-01] MEDS: Lidocaine 5% Patch TD SCH (11:36)
--- NOTE | 2017-11-01 13:29 | CP.PCM.PN ---
<Tyson Peñaloza - Last Filed: 11/01/17 13:27> Subjective - Date & Time of Evaluation Date of Evaluation: 11/01/17 Time of Evaluation: 07:27 - Subjective Subjective: PGY1 Medicine Note for Dr. Torres Patient refused to be seen this morning. He did not want to answer any questions. ROS and examination not possible today. Objective - Vital Signs/Intake and Output Vital Signs (last 24 hours): Temp Pulse Resp BP Pulse Ox 98.1 F 113 H 20 102/67 97 11/01/17 08:00 11/01/17 08:00 11/01/17 08:00 11/01/17 08:00 11/01/17 08:00 Intake and Output: 11/01/17 11/01/17 06:59 18:59 Intake Total 360 Output Total 550 Balance -190 - Medications Medications: Current Medications Acetaminophen (Tylenol 325mg Tab) 650 mg PO Q6 PRN PRN Reason: fever. Last Admin: 10/30/17 16:32 Dose: 650 mg Aspirin (Aspirin Chewable) 81 mg PO DAILY [facility] Last Admin: 11/01/17 11:36 Dose: Not Given Docusate Sodium (Colace) 100 mg PO TID [facility] Last Admin: 11/01/17 11:36 Dose: Not Given Dronabinol (Marinol) 5 mg PO BID [facility] Last Admin: 11/01/17 11:37 Dose: Not Given Ferrous Sulfate (Feosol) 325 mg PO TID [facility] Last Admin: 11/01/17 11:36 Dose: Not Given Lidocaine (Lidoderm) 1 ea TD DAILY [facility] Last Admin: 11/01/17 11:36 Dose: Not Given Mirtazapine (Remeron) 30 mg PO HS [facility] Last Admin: 10/31/17 21:03 Dose: Not Given Oxycodone HCl (Oxycodone Immediate Release Tab) 5 mg PO Q6 PRN PRN Reason: Pain, moderate (4-7) Last Admin: 11/01/17 04:07 Dose: 5 mg Rosuvastatin Calcium (Crestor) 10 mg PO HS [facility] Last Admin: 10/31/17 21:02 Dose: Not Given Sertraline HCl (Zoloft) 200 mg PO DAILY [facility] Last Admin: 11/01/17 11:37 Dose: Not Given Trazodone HCl (Desyrel) 50 mg PO HS [facility] Last Admin: 10/31/17 21:02 Dose: Not Given - Labs Labs: 09/18/17 14:34 09/18/17 14:34 PT 17.5 SECONDS (9.7-12.2) H 08/31/17 17:07 INR 1.5 08/31/17 17:07 APTT 35 SECONDS (21-34) H 08/31/17 17:07 - Constitutional Appears: Unkempt, Agitated - Additional Findings Additional findings: Patient refused physical exam today. Assessment and Plan - Assessment and Plan (Free Text) Plan: Mass of upper lobe of left lung/Right adrenal mass/Generalized pain CXR 08/31/17: * Large left upper lobe mass with probable involvement of the left posterior 3rd rib. Findings are concerning for malignancy. Dedicated CT scan of the chest with intravenous contrast is recommended for further characterization. CT abd/pelvis with IV contrast 09/11/17: * Large destructive heterogeneous soft tissue mass in the left lung upper lobe extending to the left upper posterior chest wall and extending to the left aspect of the upper thoracic spine consistent with malignant neoplasm. The mass is extending to upper aspect of the left hilum. Bony erosion and partial destruction of the left upper ribs and left aspect of T3 and T4 vertebral bodies. Left hilum and left mediastinum lymphadenopathy consistent with metastasis. Right adrenal mass likely represent metastasis. Moderate to mildly severe right hydronephrosis and proximal hydroureter up to 10.5 millimeter obstructing calculus at the proximal right ureter. Moderate constipation. * Right adrenal mass likely represent metastasis. Labs: * QFT negative, legionella negative, Mycoplasma Igm negative, Strep Pneumoniae IgG pending, * Negative PPD read; no induration noted (48 hours and 72 hours read) Medications: * Trazadone 50mg PO HS * Tylenol 650mg PO Q6H PRN * Marinol 5mg PO BID * Oxycodone 5mg PO q6h prn * Lidoderm patch 1 TD daily Palliative consult * Management as per recommendation * Recommendation, Patient will need a guardian to advocate for him and be his decision making surrogate Refusal of treatment 09/30-10/01: Patient continues to refuse all treatment. He has not allowed blood work to be performed since 09/18/17. Patient is DNR/DNI. Psychiatry Consult, Dr. Martinez Evaluate for capacity * As per psychiatry evaluation: Patient lacks the capacity to make his own medical decisions at this time. Plans for reevaluation at a latter time. * Re-consultation for capacity and evaluation for severe depression and possible pseudodementia (09/14/17); As per documentation, patient is psychiatrically stable for discharge. As per phone conversation with Dr. Martinez, he will addendum note (09/14/17) commenting on patient's capacity * Patient was seen by Dr. 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 Application for medicaid and guardianship in progress Leukocytosis (no labs since 09/18) 09/30-10/01: Patient continues to refuse all treatment. He has not allowed blood work to be performed since 09/18/17. Patient is DNR/DNI. Patient agreed to blood work, 09/20/17: 13.7 On admission: 14.7, patient has been refusing further lab work but continues to state that he would rethink his decision Blood Culture: Negative X5 days UA: LE (2+) and WBC (22), f/u repeat UA and UC (09/15/17) Meds: Cipro 400mg PO BID, started 09/15/17 ( Discontinue if repeat UA AND UC is negative) Zosyn 3.375gm IV Q6H ( Started 09/19/17)-- As per nursing, patient refused treatment Anemia (no labs since 09/18) 09/30-10/01: Patient continues to refuse all treatment. He has not allowed blood work to be performed since 09/18/17. Patient is DNR/DNI. H/H stable : 8.1/26.8 Patient is refusing transfusion at the moment RBC indices indicative of iron deficiency anemia Retic Count ELEVATED 2.5, Haptoglobin ELEVATED 369 Vitamin B12 and Folate NORMAL Ferritin NORMAL Homocysteine NORMAL IRON: 16 TIBC: 302 % Saturation: 5 Peripheral smear: Slight Parietal cell Ab negative, Negative intrinsic factor Pending LDH Medication: Ferrous sulfate 325mg PO TID (As per nursing, patient is refuses medication intermittently) Lice infestation Recommendation to shave patient bald; patient refuses Meds: Applied ivermectin and permethrin Given NIX kit once Contact precautions Weight loss Pending HIV, patient refuses blood work Hepatitis panel negative Patient is currently not eating Supplemental diet History of CVA (cerebrovascular accident): Hx of CVA in 2016 with documented right arm and leg weakness Head CT 09/11/17: * A chronic infarct at the left MCA distribution is identified as well as age related neuro degenerative changes which are mildly advanced for the patient's age of 57 years. No intra hemorrhage, mass effect or CT pattern of an acute or subacute brain infarction is appreciated at this time. Follow-up CT or MRI are available if clinically warranted. Meds: Aspirin 81mg PO QD Crestor 10mg PO HS Left shoulder pain Left shoulder X-ray 09/05/2017: No acute fracture. Acromioclavicular degenerative arthritis. History of seizures Patient has been without any seizure activity since admission Prior records show seizure activity Will monitor and if necessary start keppra and ativan Seizure precautions Severe depression Zoloft 50 mg PO Daily Remeron 15 mg PO QHS Benztropine 1mg PO BID Haloperiodl 5mg PO Q6H prn Risperidone 1mg PO BID Prophylactic measure SCDs - pt refusing to wear DVT: Lovenox 30mg SC daily Disposition: Patient continues to refuse labs, food, treatment and diagnostic testing/medications. Plans for guardianship. Will follow up with SW on plans for guardianship. Patient did not want to be examined today. Case discussed with Dr. Melissa Mehta Anabela PGY1 <Lamonte Torres - Last Filed: 11/06/17 18:56> Objective - Vital Signs/Intake and Output Vital Signs (last 24 hours): Temp Pulse Resp BP Pulse Ox 98.3 F 84 20 98/59 L 98 11/06/17 16:00 11/06/17 16:00 11/06/17 16:00 11/06/17 16:00 11/06/17 16:00 Intake and Output: 11/06/17 11/06/17 06:59 18:59 Intake Total 400 400 Balance 400 400 - Medications Medications: Current Medications Acetaminophen (Tylenol 325mg Tab) 650 mg PO Q6 PRN PRN Reason: fever. Last Admin: 10/30/17 16:32 Dose: 650 mg Aspirin (Aspirin Chewable) 81 mg PO DAILY [facility] Last Admin: 11/06/17 10:48 Dose: Not Given Docusate Sodium (Colace) 100 mg PO TID [facility] Last Admin: 11/06/17 14:41 Dose: Not Given Dronabinol (Marinol) 5 mg PO BID [facility] Last Admin: 11/06/17 10:49 Dose: Not Given Ferrous Sulfate (Feosol) 325 mg PO TID [facility] Last Admin: 11/06/17 14:41 Dose: Not Given Lidocaine (Lidoderm) 1 ea TD DAILY [facility] Last Admin: 11/06/17 10:49 Dose: Not Given Mirtazapine (Remeron) 30 mg PO HS [facility] Last Admin: 11/05/17 21:39 Dose: Not Given Oxycodone HCl (Oxycodone Immediate Release Tab) 5 mg PO Q6 PRN PRN Reason: Pain, moderate (4-7) Last Admin: 11/03/17 16:01 Dose: 5 mg Rosuvastatin Calcium (Crestor) 10 mg PO [facility] Last Admin: 11/05/17 21:39 Dose: Not Given Trazodone HCl (Desyrel) 50 mg PO HS [facility] Last Admin: 11/05/17 21:39 Dose: Not Given - Labs Labs: 09/18/17 14:34 09/18/17 14:34 PT 17.5 SECONDS (9.7-12.2) H 08/31/17 17:07 INR 1.5 08/31/17 17:07 APTT 35 SECONDS (21-34) H 08/31/17 17:07 Attending/Attestation - Attestation I have personally seen and examined this patient.: No I have fully participated in the care of the patient.: Yes I have reviewed all pertinent clinical information, including history, physical exam and plan: Yes Notes (Text): Patient refuses examination. Doesn't want to be disturbed
[2017-11-02] MEDS: Lidocaine 5% Patch TD SCH (10:00)
--- NOTE | 2017-11-03 10:29 | CP.PCM.PN ---
<Tyson Peñaloza - Last Filed: 11/03/17 10:26> Subjective - Date & Time of Evaluation Date of Evaluation: 11/03/17 Time of Evaluation: 08:00 - Subjective Subjective: PGY1 Medicine Note for Dr. Tito Delgado Patient seen and examined this morning at bedside. No acute events overnight. Patient is still refusing blood work and not allowing nursing staff to take vitals this morning. Patient reports some abdominal pain but does not want any medication. Patient does not want answer remaining ROS. Objective - Vital Signs/Intake and Output Vital Signs (last 24 hours): Temp Pulse Resp BP Pulse Ox 99.4 F 103 H 20 103/64 95 11/02/17 08:00 11/02/17 08:00 11/02/17 08:00 11/02/17 08:00 11/02/17 08:00 Intake and Output: 11/03/17 11/03/17 06:59 18:59 Intake Total 420 Output Total 600 Balance -180 - Medications Medications: Current Medications Acetaminophen (Tylenol 325mg Tab) 650 mg PO Q6 PRN PRN Reason: fever. Last Admin: 10/30/17 16:32 Dose: 650 mg Aspirin (Aspirin Chewable) 81 mg PO DAILY [facility] Last Admin: 11/02/17 10:00 Dose: Not Given Docusate Sodium (Colace) 100 mg PO TID [facility] Last Admin: 11/02/17 17:56 Dose: Not Given Dronabinol (Marinol) 5 mg PO BID [facility] Last Admin: 11/02/17 17:56 Dose: Not Given Ferrous Sulfate (Feosol) 325 mg PO TID [facility] Last Admin: 11/02/17 17:56 Dose: Not Given Lidocaine (Lidoderm) 1 ea TD DAILY [facility] Last Admin: 11/02/17 10:00 Dose: Not Given Mirtazapine (Remeron) 30 mg PO [facility] Last Admin: 11/01/17 21:40 Dose: Not Given Oxycodone HCl (Oxycodone Immediate Release Tab) 5 mg PO Q6 PRN PRN Reason: Pain, moderate (4-7) Last Admin: 11/01/17 14:03 Dose: 5 mg Rosuvastatin Calcium (Crestor) 10 mg PO HS [facility] Last Admin: 11/01/17 21:40 Dose: Not Given Sertraline HCl (Zoloft) 200 mg PO DAILY [facility] Last Admin: 11/02/17 10:00 Dose: Not Given Trazodone HCl (Desyrel) 50 mg PO HS [facility] Last Admin: 11/01/17 21:40 Dose: Not Given - Labs Labs: 09/18/17 14:34 09/18/17 14:34 PT 17.5 SECONDS (9.7-12.2) H 08/31/17 17:07 INR 1.5 08/31/17 17:07 APTT 35 SECONDS (21-34) H 08/31/17 17:07 - Constitutional Appears: Unkempt, Agitated - GI/Abdominal Exam GI & Abdominal Exam: Tenderness (RUQ pain - stopped physical exam after that) - Psychiatric Exam Psychiatric exam: Agitated - Additional Findings Additional findings: Patient refused physical exam after experiencing pain with palpation of abdomen. Assessment and Plan - Assessment and Plan (Free Text) Plan: Mass of upper lobe of left lung/Right adrenal mass/Generalized pain CXR 08/31/17: * Large left upper lobe mass with probable involvement of the left posterior 3rd rib. Findings are concerning for malignancy. Dedicated CT scan of the chest with intravenous contrast is recommended for further characterization. CT abd/pelvis with IV contrast 09/11/17: * Large destructive heterogeneous soft tissue mass in the left lung upper lobe extending to the left upper posterior chest wall and extending to the left aspect of the upper thoracic spine consistent with malignant neoplasm. The mass is extending to upper aspect of the left hilum. Bony erosion and partial destruction of the left upper ribs and left aspect of T3 and T4 vertebral bodies. Left hilum and left mediastinum lymphadenopathy consistent with metastasis. Right adrenal mass likely represent metastasis. Moderate to mildly severe right hydronephrosis and proximal hydroureter up to 10.5 millimeter obstructing calculus at the proximal right ureter. Moderate constipation. * Right adrenal mass likely represent metastasis. Labs: * QFT negative, legionella negative, Mycoplasma Igm negative, Strep Pneumoniae IgG pending, * Negative PPD read; no induration noted (48 hours and 72 hours read) Medications: * Trazadone 50mg PO HS * Tylenol 650mg PO Q6H PRN * Marinol 5mg PO BID * Oxycodone 5mg PO q6h prn * Lidoderm patch 1 TD daily Palliative consult * Management as per recommendation * Recommendation, Patient will need a guardian to advocate for him and be his decision making surrogate Refusal of treatment 09/30-10/01: Patient continues to refuse all treatment. He has not allowed blood work to be performed since 09/18/17. Patient is DNR/DNI. Psychiatry Consult, Dr. Martinez Evaluate for capacity * As per psychiatry evaluation: Patient lacks the capacity to make his own medical decisions at this time. Plans for reevaluation at a latter time. * Re-consultation for capacity and evaluation for severe depression and possible pseudodementia (09/14/17); As per documentation, patient is psychiatrically stable for discharge. As per phone conversation with Dr. Martinez, he will addendum note (09/14/17) commenting on patient's capacity * Patient was seen by Dr. Martinez (09/26/17), patient will need guardianship clinical data management manager, Consultation: Discussion with rn field case manager today, 09/08/17; regarding possible guardianship. Application for medicaid and guardianship in progress Leukocytosis (no labs since 09/18) 09/30-10/01: Patient continues to refuse all treatment. He has not allowed blood work to be performed since 09/18/17. Patient is DNR/DNI. Patient agreed to blood work, 09/20/17: 13.7 On admission: 14.7, patient has been refusing further lab work but continues to state that he would rethink his decision Blood Culture: Negative X5 days UA: LE (2+) and WBC (22), f/u repeat UA and UC (09/15/17) Meds: Cipro 400mg PO BID, started 09/15/17 ( Discontinue if repeat UA AND UC is negative) Zosyn 3.375gm IV Q6H ( Started 09/19/17)-- As per nursing, patient refused treatment Anemia (no labs since 09/18) 09/30-10/01: Patient continues to refuse all treatment. He has not allowed blood work to be performed since 09/18/17. Patient is DNR/DNI. H/H stable : 8.1/26.8 Patient is refusing transfusion at the moment RBC indices indicative of iron deficiency anemia Retic Count ELEVATED 2.5, Haptoglobin ELEVATED 369 Vitamin B12 and Folate NORMAL Ferritin NORMAL Homocysteine NORMAL IRON: 16 TIBC: 302 % Saturation: 5 Peripheral smear: Slight Parietal cell Ab negative, Negative intrinsic factor Pending LDH Medication: Ferrous sulfate 325mg PO TID (As per nursing, patient is refuses medication intermittently) Lice infestation Recommendation to shave patient bald; patient refuses Meds: Applied ivermectin and permethrin Given NIX kit once Contact precautions Weight loss Pending HIV, patient refuses blood work Hepatitis panel negative Patient is currently not eating Supplemental diet History of CVA (cerebrovascular accident): Hx of CVA in 2016 with documented right arm and leg weakness Head CT 09/11/17: * A chronic infarct at the left MCA distribution is identified as well as age related neuro degenerative changes which are mildly advanced for the patient's age of 57 years. No intra hemorrhage, mass effect or CT pattern of an acute or subacute brain infarction is appreciated at this time. Follow-up CT or MRI are available if clinically warranted. Meds: Aspirin 81mg PO QD Crestor 10mg PO HS Left shoulder pain Left shoulder X-ray 09/05/2017: No acute fracture. Acromioclavicular degenerative arthritis. History of seizures Patient has been without any seizure activity since admission Prior records show seizure activity Will monitor and if necessary start keppra and ativan Seizure precautions Severe depression Zoloft 50 mg PO Daily Remeron 15 mg PO QHS Benztropine 1mg PO BID Haloperiodl 5mg PO Q6H prn Risperidone 1mg PO BID Prophylactic measure SCDs - pt refusing to wear DVT: Lovenox 30mg SC daily Disposition: Patient continues to refuse labs, food, treatment and diagnostic testing/medications. Plans for guardianship. Will follow up with SW on plans for guardianship. Patient did not want to be examined after experiencing pain with abdominal palpation. When offered pain medication, patient refused. Case discussed with Dr. Tito Mehta Anabela PGY1 <Tito Delgado - Last Filed: 11/03/17 11:55> Objective - Vital Signs/Intake and Output Vital Signs (last 24 hours): Temp Pulse Resp BP Pulse Ox 99.4 F 103 H 20 103/64 95 11/02/17 08:00 11/02/17 08:00 11/02/17 08:00 11/02/17 08:00 11/02/17 08:00 Intake and Output: 11/03/17 11/03/17 06:59 18:59 Intake Total 420 Output Total 600 Balance -180 - Medications Medications: Current Medications Acetaminophen (Tylenol 325mg Tab) 650 mg PO Q6 PRN PRN Reason: fever. Last Admin: 10/30/17 16:32 Dose: 650 mg Aspirin (Aspirin Chewable) 81 mg PO DAILY [facility] Last Admin: 11/03/17 11:30 Dose: Not Given Docusate Sodium (Colace) 100 mg PO TID [facility] Last Admin: 11/03/17 11:30 Dose: Not Given Dronabinol (Marinol) 5 mg PO BID [facility] Last Admin: 11/03/17 11:31 Dose: Not Given Ferrous Sulfate (Feosol) 325 mg PO TID [facility] Last Admin: 11/03/17 11:30 Dose: Not Given Lidocaine (Lidoderm) 1 ea TD DAILY [facility] Last Admin: 11/03/17 11:30 Dose: Not Given Mirtazapine (Remeron) 30 mg PO [facility] Last Admin: 11/01/17 21:40 Dose: Not Given Oxycodone HCl (Oxycodone Immediate Release Tab) 5 mg PO Q6 PRN PRN Reason: Pain, moderate (4-7) Last Admin: 11/01/17 14:03 Dose: 5 mg Rosuvastatin Calcium (Crestor) 10 mg PO [facility] Last Admin: 11/01/17 21:40 Dose: Not Given Sertraline HCl (Zoloft) 200 mg PO DAILY [facility] Last Admin: 11/03/17 11:31 Dose: Not Given Trazodone HCl (Desyrel) 50 mg PO [facility] Last Admin: 11/01/17 21:40 Dose: Not Given - Labs Labs: 09/18/17 14:34 09/18/17 14:34 PT 17.5 SECONDS (9.7-12.2) H 08/31/17 17:07 INR 1.5 08/31/17 17:07 APTT 35 SECONDS (21-34) H 08/31/17 17:07 Attending/Attestation - Attestation I have personally seen and examined this patient.: Yes I have fully participated in the care of the patient.: Yes I have reviewed all pertinent clinical information, including history, physical exam and plan: Yes Notes (Text): Patient seen with the residents. Agree with above. Patient refusing vitals, examination and labwork. Nothing new to add
[2017-11-03] MEDS: Lidocaine 5% Patch TD SCH (11:30)
[2017-11-03] MEDS: oxyCODONE 5 mg Immediate Release Tab PO PRN (16:01)
[2017-11-04] MEDS: Lidocaine 5% Patch TD SCH (11:15)
[2017-11-05] MEDS: Lidocaine 5% Patch TD SCH (11:06)
[2017-11-06] MEDS: Lidocaine 5% Patch TD SCH (10:49)
--- NOTE | 2017-11-06 15:16 | CP.PCM.PN ---
Subjective - Date & Time of Evaluation Date of Evaluation: 11/06/17 Time of Evaluation: 09:20 - Subjective Subjective: PGY1 Medicine Note for Dr. Morley Patient seen and examined this morning at bedside. Patient continues to refuse most of his medications and most of the time to be examined. He reports some abdominal pain. Patient has no other complaints at this time. Objective - Vital Signs/Intake and Output Vital Signs (last 24 hours): Temp Pulse Resp BP Pulse Ox 98.8 F 87 20 107/68 95 11/06/17 07:25 11/06/17 07:25 11/06/17 07:25 11/06/17 07:25 11/06/17 07:25 Intake and Output: 11/06/17 11/06/17 06:59 18:59 Intake Total 400 400 Balance 400 400 - Medications Medications: Current Medications Acetaminophen (Tylenol 325mg Tab) 650 mg PO Q6 PRN PRN Reason: fever. Last Admin: 10/30/17 16:32 Dose: 650 mg Aspirin (Aspirin Chewable) 81 mg PO DAILY [facility] Last Admin: 11/06/17 10:48 Dose: Not Given Docusate Sodium (Colace) 100 mg PO TID [facility] Last Admin: 11/06/17 14:41 Dose: Not Given Dronabinol (Marinol) 5 mg PO BID [facility] Last Admin: 11/06/17 10:49 Dose: Not Given Ferrous Sulfate (Feosol) 325 mg PO TID [facility] Last Admin: 11/06/17 14:41 Dose: Not Given Lidocaine (Lidoderm) 1 ea TD DAILY [facility] Last Admin: 11/06/17 10:49 Dose: Not Given Mirtazapine (Remeron) 30 mg PO [facility] Last Admin: 11/05/17 21:39 Dose: Not Given Oxycodone HCl (Oxycodone Immediate Release Tab) 5 mg PO Q6 PRN PRN Reason: Pain, moderate (4-7) Last Admin: 11/03/17 16:01 Dose: 5 mg Rosuvastatin Calcium (Crestor) 10 mg PO HS [facility] Last Admin: 11/05/17 21:39 Dose: Not Given Trazodone HCl (Desyrel) 50 mg PO [facility] Last Admin: 11/05/17 21:39 Dose: Not Given - Labs Labs: 04/23/18 14:34 09/18/17 14:34 PT 17.5 SECONDS (9.7-12.2) H 08/31/17 17:07 INR 1.5 08/31/17 17:07 APTT 35 SECONDS (21-34) H 08/31/17 17:07 - Constitutional Appears: Older Than Stated Age, Cachectic, Chronically Ill - Head Exam Head Exam: ATRAUMATIC - Eye Exam Eye Exam: EOMI - ENT Exam ENT Exam: Mucous Membranes Dry - Respiratory Exam Respiratory Exam: Clear to Ausculation Bilateral, NORMAL BREATHING PATTERN. absent: Rales, Rhonchi, Wheezes, Respiratory Distress - Cardiovascular Exam Cardiovascular Exam: REGULAR RHYTHM, +S1, +S2 - GI/Abdominal Exam GI & Abdominal Exam: Soft, Tenderness (diffuse, most in RUQ). absent: Distended , Firm, Guarding, Rigid - Extremities Exam Extremities Exam: absent: Calf Tenderness, Pedal Edema - Neurological Exam Neurological Exam: Alert, Awake - Psychiatric Exam Psychiatric exam: Depressed, Flat Affect - Skin Skin Exam: Dry, Warm Assessment and Plan - Assessment and Plan (Free Text) Plan: Mass of upper lobe of left lung/Right adrenal mass/Generalized pain CXR 08/31/17: * Large left upper lobe mass with probable involvement of the left posterior 3rd rib. Findings are concerning for malignancy. Dedicated CT scan of the chest with intravenous contrast is recommended for further characterization. CT abd/pelvis with IV contrast 09/11/17: * Large destructive heterogeneous soft tissue mass in the left lung upper lobe extending to the left upper posterior chest wall and extending to the left aspect of the upper thoracic spine consistent with malignant neoplasm. The mass is extending to upper aspect of the left hilum. Bony erosion and partial destruction of the left upper ribs and left aspect of T3 and T4 vertebral bodies. Left hilum and left mediastinum lymphadenopathy consistent with metastasis. Right adrenal mass likely represent metastasis. Moderate to mildly severe right hydronephrosis and proximal hydroureter up to 10.5 millimeter obstructing calculus at the proximal right ureter. Moderate constipation. * Right adrenal mass likely represent metastasis. Labs: * QFT negative, legionella negative, Mycoplasma Igm negative, Strep Pneumoniae IgG pending, * Negative PPD read; no induration noted (48 hours and 72 hours read) Medications: * Trazadone 50mg PO HS * Tylenol 650mg PO Q6H PRN * Marinol 5mg PO BID * Oxycodone 5mg PO q6h prn * Lidoderm patch 1 TD daily Palliative consult * Management as per recommendation * Recommendation, Patient will need a guardian to advocate for him and be his decision making surrogate Refusal of treatment 09/30-10/01: Patient continues to refuse all treatment. He has not allowed blood work to be performed since 09/18/17. Patient is DNR/DNI. Psychiatry Consult, Dr. Martinez Evaluate for capacity * As per psychiatry evaluation: Patient lacks the capacity to make his own medical decisions at this time. Plans for reevaluation at a latter time. * Re-consultation for capacity and evaluation for severe depression and possible pseudodementia (09/14/17); As per documentation, patient is psychiatrically stable for discharge. As per phone conversation with Dr. Martinez, he will addendum note (09/14/17) commenting on patient's capacity * Patient was seen by Dr. Martinez (09/26/17), patient will need guardianship complex case manager, Consultation: Discussion with spring encaser today, 09/08/17; regarding possible guardianship. Application for medicaid and guardianship in progress Leukocytosis (no labs since 09/18) 09/30-10/01: Patient continues to refuse all treatment. He has not allowed blood work to be performed since 09/18/17. Patient is DNR/DNI. Patient agreed to blood work, 09/20/17: 13.7 On admission: 14.7, patient has been refusing further lab work but continues to state that he would rethink his decision Blood Culture: Negative X5 days UA: LE (2+) and WBC (22), f/u repeat UA and UC (09/15/17) Meds: Cipro 400mg PO BID, started 09/15/17 ( Discontinue if repeat UA AND UC is negative) Zosyn 3.375gm IV Q6H ( Started 09/19/17)-- As per nursing, patient refused treatment Anemia (no labs since 09/18) 09/30-10/01: Patient continues to refuse all treatment. He has not allowed blood work to be performed since 09/18/17. Patient is DNR/DNI. H/H stable : 8.1/26.8 Patient is refusing transfusion at the moment RBC indices indicative of iron deficiency anemia Retic Count ELEVATED 2.5, Haptoglobin ELEVATED 369 Vitamin B12 and Folate NORMAL Ferritin NORMAL Homocysteine NORMAL IRON: 16 TIBC: 302 % Saturation: 5 Peripheral smear: Slight Parietal cell Ab negative, Negative intrinsic factor Pending LDH Medication: Ferrous sulfate 325mg PO TID (As per nursing, patient is refuses medication intermittently) Lice infestation Recommendation to shave patient bald; patient refuses Meds: Applied ivermectin and permethrin Given NIX kit once Contact precautions Weight loss Pending HIV, patient refuses blood work Hepatitis panel negative Patient is currently not eating Supplemental diet History of CVA (cerebrovascular accident): Hx of CVA in 2016 with documented right arm and leg weakness Head CT 09/11/17: * A chronic infarct at the left MCA distribution is identified as well as age related neuro degenerative changes which are mildly advanced for the patient's age of 57 years. No intra hemorrhage, mass effect or CT pattern of an acute or subacute brain infarction is appreciated at this time. Follow-up CT or MRI are available if clinically warranted. Meds: Aspirin 81mg PO QD Crestor 10mg PO HS Left shoulder pain Left shoulder X-ray 09/05/2017: No acute fracture. Acromioclavicular degenerative arthritis. History of seizures Patient has been without any seizure activity since admission Prior records show seizure activity Will monitor and if necessary start keppra and ativan Seizure precautions Severe depression Zoloft 50 mg PO Daily Remeron 15 mg PO QHS Benztropine 1mg PO BID Haloperiodl 5mg PO Q6H prn Risperidone 1mg PO BID Prophylactic measure SCDs - pt refusing to wear DVT: Lovenox 30mg SC daily Disposition: Patient continues to refuse labs, food, treatment and diagnostic testing/medications. Plans for guardianship. Will follow up with SW on plans for guardianship. No more labs to be drawn at this patient unless vital signs change due to patient's consistent refusal. Case discussed with Dr. Milli Mehta Anabela PGY1
[2017-11-07] MEDS: Lidocaine 5% Patch TD SCH (11:00)
[2017-11-07] MEDS: oxyCODONE 5 mg Immediate Release Tab PO PRN (22:44)
[2017-11-08] MEDS: Lidocaine 5% Patch TD SCH (10:47)
--- NOTE | 2017-11-08 14:10 | CP.PCM.PN ---
<Tyson Peñaloza - Last Filed: 11/08/17 14:07> Subjective - Date & Time of Evaluation Date of Evaluation: 11/08/17 Time of Evaluation: 07:07 - Subjective Subjective: PGY1 Medicine Note for Dr. Morley Patient seen this morning at bedside. Patient reports some abdominal pain but does not want to answer any other questions. He does not want to be examined but asks for something for his abdominal pain. He had not eaten any of his breakfast when examined. Patient has no other complaints at this time. Objective - Vital Signs/Intake and Output Vital Signs (last 24 hours): Temp Pulse Resp BP Pulse Ox 98.2 F 91 H 20 100/64 96 11/08/17 08:00 11/08/17 08:00 11/08/17 08:00 11/08/17 08:00 11/08/17 08:00 Intake and Output: 11/08/17 11/08/17 06:59 18:59 Intake Total 660 Output Total 600 Balance 60 - Medications Medications: Current Medications Acetaminophen (Tylenol 325mg Tab) 650 mg PO Q6 PRN PRN Reason: fever. Last Admin: 10/30/17 16:32 Dose: 650 mg Aspirin (Aspirin Chewable) 81 mg PO DAILY [facility] Last Admin: 11/08/17 10:46 Dose: Not Given Docusate Sodium (Colace) 100 mg PO TID [facility] Last Admin: 11/08/17 13:28 Dose: Not Given Dronabinol (Marinol) 5 mg PO BID [facility] Last Admin: 11/08/17 10:53 Dose: Not Given Ferrous Sulfate (Feosol) 325 mg PO TID [facility] Last Admin: 11/08/17 13:28 Dose: Not Given Lidocaine (Lidoderm) 1 ea TD DAILY [facility] Last Admin: 11/08/17 10:47 Dose: Not Given Oxycodone HCl (Oxycodone Immediate Release Tab) 5 mg PO Q6 PRN PRN Reason: Pain, moderate (4-7) Last Admin: 11/07/17 22:44 Dose: 5 mg Rosuvastatin Calcium (Crestor) 10 mg PO HS [facility] Last Admin: 11/07/17 21:23 Dose: Not Given Trazodone HCl (Desyrel) 50 mg PO HS [facility] Last Admin: 11/07/17 21:23 Dose: Not Given - Labs Labs: 09/18/17 14:34 09/18/17 14:34 PT 17.5 SECONDS (9.7-12.2) H 08/31/17 17:07 INR 1.5 08/31/17 17:07 APTT 35 SECONDS (21-34) H 08/31/17 17:07 - GI/Abdominal Exam GI & Abdominal Exam: Soft. absent: Distended, Firm, Guarding, Rigid, Tenderness - Skin Skin Exam: Dry, Warm - Additional Findings Additional findings: patient refused to be examined after having his abdomen palpated. Assessment and Plan - Assessment and Plan (Free Text) Plan: Mass of upper lobe of left lung/Right adrenal mass/Generalized pain CXR 08/31/17: * Large left upper lobe mass with probable involvement of the left posterior 3rd rib. Findings are concerning for malignancy. Dedicated CT scan of the chest with intravenous contrast is recommended for further characterization. CT abd/pelvis with IV contrast 09/11/17: * Large destructive heterogeneous soft tissue mass in the left lung upper lobe extending to the left upper posterior chest wall and extending to the left aspect of the upper thoracic spine consistent with malignant neoplasm. The mass is extending to upper aspect of the left hilum. Bony erosion and partial destruction of the left upper ribs and left aspect of T3 and T4 vertebral bodies. Left hilum and left mediastinum lymphadenopathy consistent with metastasis. Right adrenal mass likely represent metastasis. Moderate to mildly severe right hydronephrosis and proximal hydroureter up to 10.5 millimeter obstructing calculus at the proximal right ureter. Moderate constipation. * Right adrenal mass likely represent metastasis. Labs: * QFT negative, legionella negative, Mycoplasma Igm negative, Strep Pneumoniae IgG pending, * Negative PPD read; no induration noted (48 hours and 72 hours read) Medications: * Trazadone 50mg PO HS * Tylenol 650mg PO Q6H PRN * Marinol 5mg PO BID * Oxycodone 5mg PO q6h prn * Lidoderm patch 1 TD daily Palliative consult * Management as per recommendation * Recommendation, Patient will need a guardian to advocate for him and be his decision making surrogate Refusal of treatment 09/30-10/01: Patient continues to refuse all treatment. He has not allowed blood work to be performed since 09/18/17. Patient is DNR/DNI. Psychiatry Consult, Dr. Mratinez Evaluate for capacity * As per psychiatry evaluation: Patient lacks the capacity to make his own medical decisions at this time. Plans for reevaluation at a latter time. * Re-consultation for capacity and evaluation for severe depression and possible pseudodementia (09/14/17); As per documentation, patient is psychiatrically stable for discharge. As per phone conversation with Dr. Martinez, he will addendum note (09/14/17) commenting on patient's capacity * Patient was seen by Dr. 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 Application for medicaid and guardianship in progress Leukocytosis (no labs since 09/18) 09/30-10/01: Patient continues to refuse all treatment. He has not allowed blood work to be performed since 09/18/17. Patient is DNR/DNI. Patient agreed to blood work, 09/20/17: 13.7 On admission: 14.7, patient has been refusing further lab work but continues to state that he would rethink his decision Blood Culture: Negative X5 days UA: LE (2+) and WBC (22), f/u repeat UA and UC (09/15/17) Meds: Cipro 400mg PO BID, started 09/15/17 ( Discontinue if repeat UA AND UC is negative) Zosyn 3.375gm IV Q6H ( Started 09/19/17)-- As per nursing, patient refused treatment Anemia (no labs since 09/18) 09/30-10/01: Patient continues to refuse all treatment. He has not allowed blood work to be performed since 09/18/17. Patient is DNR/DNI. H/H stable : 8.1/26.8 Patient is refusing transfusion at the moment RBC indices indicative of iron deficiency anemia Retic Count ELEVATED 2.5, Haptoglobin ELEVATED 369 Vitamin B12 and Folate NORMAL Ferritin NORMAL Homocysteine NORMAL IRON: 16 TIBC: 302 % Saturation: 5 Peripheral smear: Slight Parietal cell Ab negative, Negative intrinsic factor Pending LDH Medication: Ferrous sulfate 325mg PO TID (As per nursing, patient is refuses medication intermittently) Lice infestation Recommendation to shave patient bald; patient refuses Meds: Applied ivermectin and permethrin Given NIX kit once Contact precautions Weight loss Pending HIV, patient refuses blood work Hepatitis panel negative Patient is currently not eating Supplemental diet History of CVA (cerebrovascular accident): Hx of CVA in 2016 with documented right arm and leg weakness Head CT 09/11/17: * A chronic infarct at the left MCA distribution is identified as well as age related neuro degenerative changes which are mildly advanced for the patient's age of 57 years. No intra hemorrhage, mass effect or CT pattern of an acute or subacute brain infarction is appreciated at this time. Follow-up CT or MRI are available if clinically warranted. Meds: Aspirin 81mg PO QD Crestor 10mg PO HS Left shoulder pain Left shoulder X-ray 09/05/2017: No acute fracture. Acromioclavicular degenerative arthritis. History of seizures Patient has been without any seizure activity since admission Prior records show seizure activity Will monitor and if necessary start keppra and ativan Seizure precautions Severe depression Zoloft 50 mg PO Daily Remeron 15 mg PO QHS Benztropine 1mg PO BID Haloperiodl 5mg PO Q6H prn Risperidone 1mg PO BID Prophylactic measure SCDs - pt refusing to wear DVT: Lovenox 30mg SC daily Disposition: Patient continues to refuse labs, food, treatment and diagnostic testing/medications. Plans for guardianship. Will follow up with SW on plans for guardianship. No updates at this time. Case discussed with Dr. Milli Mehta Anabela PGY1 <Robert Morley H - Last Filed: 11/08/17 14:58> Objective - Vital Signs/Intake and Output Vital Signs (last 24 hours): Temp Pulse Resp BP Pulse Ox 98.2 F 91 H 20 100/64 96 11/08/17 08:00 11/08/17 08:00 11/08/17 08:00 11/08/17 08:00 11/08/17 08:00 Intake and Output: 11/08/17 11/08/17 06:59 18:59 Intake Total 660 240 Output Total 600 300 Balance 60 -60 - Medications Medications: Current Medications Acetaminophen (Tylenol 325mg Tab) 650 mg PO Q6 PRN PRN Reason: fever. Last Admin: 10/30/17 16:32 Dose: 650 mg Aspirin (Aspirin Chewable) 81 mg PO DAILY [facility] Last Admin: 11/08/17 10:46 Dose: Not Given Docusate Sodium (Colace) 100 mg PO TID [facility] Last Admin: 11/08/17 13:28 Dose: Not Given Dronabinol (Marinol) 5 mg PO BID [facility] Last Admin: 11/08/17 10:53 Dose: Not Given Ferrous Sulfate (Feosol) 325 mg PO TID [facility] Last Admin: 11/08/17 13:28 Dose: Not Given Lidocaine (Lidoderm) 1 ea TD DAILY [facility] Last Admin: 11/08/17 10:47 Dose: Not Given Oxycodone HCl (Oxycodone Immediate Release Tab) 5 mg PO Q6 PRN PRN Reason: Pain, moderate (4-7) Last Admin: 11/07/17 22:44 Dose: 5 mg Rosuvastatin Calcium (Crestor) 10 mg PO HS [facility] Last Admin: 11/07/17 21:23 Dose: Not Given Trazodone HCl (Desyrel) 50 mg PO HS [facility] Last Admin: 11/07/17 21:23 Dose: Not Given - Labs Labs: 09/18/17 14:34 09/18/17 14:34 PT 17.5 SECONDS (9.7-12.2) H 08/31/17 17:07 INR 1.5 08/31/17 17:07 APTT 35 SECONDS (21-34) H 08/31/17 17:07 Attending/Attestation - Attestation I have personally seen and examined this patient.: Yes I have fully participated in the care of the patient.: Yes I have reviewed all pertinent clinical information, including history, physical exam and plan: Yes Notes (Text): 11/08/17 14:58 Medical attending: Reviewed the above note by the resident, patient was not eating this morning. Robert Morley
[2017-11-09] MEDS: Lidocaine 5% Patch TD SCH (10:09)
[2017-11-09] MEDS: oxyCODONE 5 mg Immediate Release Tab PO PRN (17:49)
--- NOTE | 2017-11-10 08:55 | CP.PCM.PN ---
Subjective - Date & Time of Evaluation Date of Evaluation: 11/10/17 Time of Evaluation: 07:00 - Subjective Subjective: PGY1 Medicine Note for Dr. Morley Patient seen this morning at bedside. Patient does not want to be examined. Patient did eat some of his breakfast today. Patient has no other complaints at this time. Objective - Vital Signs/Intake and Output Vital Signs (last 24 hours): Temp Pulse Resp BP Pulse Ox 98.1 F 108 H 20 110/55 L 98 11/09/17 16:00 11/09/17 16:00 11/09/17 16:00 11/09/17 16:00 11/09/17 16:00 Intake and Output: 11/10/17 11/10/17 06:59 18:59 Intake Total 420 Output Total 300 Balance 120 - Medications Medications: Current Medications Dronabinol (Marinol) 5 mg PO BID [facility] Last Admin: 11/09/17 17:49 Dose: 5 mg Oxycodone HCl (Oxycodone Immediate Release Tab) 5 mg PO Q6 PRN PRN Reason: Pain, moderate (4-7) Last Admin: 11/09/17 17:49 Dose: 5 mg - Labs Labs: 09/18/17 14:34 09/18/17 14:34 PT 17.5 SECONDS (9.7-12.2) H 08/31/17 17:07 INR 1.5 08/31/17 17:07 APTT 35 SECONDS (21-34) H 08/31/17 17:07 Assessment and Plan - Assessment and Plan (Free Text) Assessment: Mass of upper lobe of left lung/Right adrenal mass/Generalized pain CXR 08/31/17: * Large left upper lobe mass with probable involvement of the left posterior 3rd rib. Findings are concerning for malignancy. Dedicated CT scan of the chest with intravenous contrast is recommended for further characterization. CT abd/pelvis with IV contrast 09/11/17: * Large destructive heterogeneous soft tissue mass in the left lung upper lobe extending to the left upper posterior chest wall and extending to the left aspect of the upper thoracic spine consistent with malignant neoplasm. The mass is extending to upper aspect of the left hilum. Bony erosion and partial destruction of the left upper ribs and left aspect of T3 and T4 vertebral bodies. Left hilum and left mediastinum lymphadenopathy consistent with metastasis. Right adrenal mass likely represent metastasis. Moderate to mildly severe right hydronephrosis and proximal hydroureter up to 10.5 millimeter obstructing calculus at the proximal right ureter. Moderate constipation. * Right adrenal mass likely represent metastasis. Labs: * QFT negative, legionella negative, Mycoplasma Igm negative, Strep Pneumoniae IgG pending, * Negative PPD read; no induration noted (48 hours and 72 hours read) Medications: * Trazadone 50mg PO HS * Tylenol 650mg PO Q6H PRN * Marinol 5mg PO BID * Oxycodone 5mg PO q6h prn * Lidoderm patch 1 TD daily Palliative consult * Management as per recommendation * Recommendation, Patient will need a guardian to advocate for him and be his decision making surrogate Refusal of treatment 09/30-10/01: Patient continues to refuse all treatment. He has not allowed blood work to be performed since 09/18/17. Patient is DNR/DNI. Psychiatry Consult, Dr. Martinez Evaluate for capacity * As per psychiatry evaluation: Patient lacks the capacity to make his own medical decisions at this time. Plans for reevaluation at a latter time. * Re-consultation for capacity and evaluation for severe depression and possible pseudodementia (09/14/17); As per documentation, patient is psychiatrically stable for discharge. As per phone conversation with Dr. Martinez, he will addendum note (09/14/17) commenting on patient's capacity * Patient was seen by Dr. 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 Application for medicaid and guardianship in progress Leukocytosis (no labs since 09/18) 09/30-10/01: Patient continues to refuse all treatment. He has not allowed blood work to be performed since 09/18/17. Patient is DNR/DNI. Patient agreed to blood work, 09/20/17: 13.7 On admission: 14.7, patient has been refusing further lab work but continues to state that he would rethink his decision Blood Culture: Negative X5 days UA: LE (2+) and WBC (22), f/u repeat UA and UC (09/15/17) Meds: Cipro 400mg PO BID, started 09/15/17 ( Discontinue if repeat UA AND UC is negative) Zosyn 3.375gm IV Q6H ( Started 09/19/17)-- As per nursing, patient refused treatment Anemia (no labs since 09/18) 09/30-10/01: Patient continues to refuse all treatment. He has not allowed blood work to be performed since 09/18/17. Patient is DNR/DNI. H/H stable : 8.1/26.8 Patient is refusing transfusion at the moment RBC indices indicative of iron deficiency anemia Retic Count ELEVATED 2.5, Haptoglobin ELEVATED 369 Vitamin B12 and Folate NORMAL Ferritin NORMAL Homocysteine NORMAL IRON: 16 TIBC: 302 % Saturation: 5 Peripheral smear: Slight Parietal cell Ab negative, Negative intrinsic factor Pending LDH Medication: Ferrous sulfate 325mg PO TID (As per nursing, patient is refuses medication intermittently) Lice infestation Recommendation to shave patient bald; patient refuses Meds: Applied ivermectin and permethrin Given NIX kit once Contact precautions Weight loss Pending HIV, patient refuses blood work Hepatitis panel negative Patient is currently not eating Supplemental diet History of CVA (cerebrovascular accident): Hx of CVA in 2016 with documented right arm and leg weakness Head CT 09/11/17: * A chronic infarct at the left MCA distribution is identified as well as age related neuro degenerative changes which are mildly advanced for the patient's age of 57 years. No intra hemorrhage, mass effect or CT pattern of an acute or subacute brain infarction is appreciated at this time. Follow-up CT or MRI are available if clinically warranted. Meds: Aspirin 81mg PO QD Crestor 10mg PO HS Left shoulder pain Left shoulder X-ray 09/05/2017: No acute fracture. Acromioclavicular degenerative arthritis. History of seizures Patient has been without any seizure activity since admission Prior records show seizure activity Will monitor and if necessary start keppra and ativan Seizure precautions Severe depression Zoloft 50 mg PO Daily Remeron 15 mg PO QHS Benztropine 1mg PO BID Haloperiodl 5mg PO Q6H prn Risperidone 1mg PO BID Prophylactic measure SCDs - pt refusing to wear DVT: Lovenox 30mg SC daily Disposition: Patient continues to refuse labs, food, treatment and diagnostic testing/medications. Plans for guardianship. Will follow up with SW on plans for guardianship. No updates at this time.
[2017-11-10] MEDS: oxyCODONE 5 mg Immediate Release Tab PO PRN ×2 (10:59→21:00)
[2017-11-13] MEDS: oxyCODONE 5 mg Immediate Release Tab PO PRN ×2 (06:15→10:07)
--- NOTE | 2017-11-13 09:50 | CP.PCM.PN ---
Subjective - Date & Time of Evaluation Date of Evaluation: 11/13/17 Time of Evaluation: 09:46 - Subjective Subjective: PGY-[address] Rajan. No acute events noted overnight. Patient was seen and examined at bedside. He had eaten some of his breakfast. He did not answer many of my questions. He stated "it hurts" but would not elaborate. When I asked him if it's okay for us to draw blood today and said "no". Objective - Vital Signs/Intake and Output Vital Signs (last 24 hours): Temp Pulse Resp BP Pulse Ox 97.8 F 77 20 96/62 L 95 11/12/17 07:42 11/12/17 07:42 11/12/17 07:42 11/12/17 07:42 11/12/17 07:42 Intake and Output: 11/13/17 11/13/17 06:59 18:59 Intake Total 300 450 Output Total 302 Balance -2 450 - Medications Medications: Current Medications Dronabinol (Marinol) 5 mg PO BID [facility] Last Admin: 11/12/17 18:00 Dose: 5 mg Oxycodone HCl (Oxycodone Immediate Release Tab) 5 mg PO Q6 PRN PRN Reason: Pain, moderate (4-7) Last Admin: 11/13/17 06:15 Dose: 5 mg - Labs Labs: 09/18/17 14:34 09/18/17 14:34 PT 17.5 SECONDS (9.7-12.2) H 08/31/17 17:07 INR 1.5 08/31/17 17:07 APTT 35 SECONDS (21-34) H 08/31/17 17:07 - Additional Findings Additional findings: - Constitutional Appears: Unkempt, Agitated - Additional Findings Additional findings: Patient refused physical exam today. Assessment and Plan - Assessment and Plan (Free Text) Assessment: Mass of upper lobe of left lung consistent with Neoplasm/Right adrenal mass/ Generalized pain CXR 08/31/17: * Large left upper lobe mass with probable involvement of the left posterior 3rd rib. Findings are concerning for malignancy. Dedicated CT scan of the chest with intravenous contrast is recommended for further characterization. CT abd/pelvis with IV contrast 09/11/17: * Large destructive heterogeneous soft tissue mass in the left lung upper lobe extending to the left upper posterior chest wall and extending to the left aspect of the upper thoracic spine consistent with malignant neoplasm. The mass is extending to upper aspect of the left hilum. Bony erosion and partial destruction of the left upper ribs and left aspect of T3 and T4 vertebral bodies. Left hilum and left mediastinum lymphadenopathy consistent with metastasis. Right adrenal mass likely represent metastasis. Moderate to mildly severe right hydronephrosis and proximal hydroureter up to 10.5 millimeter obstructing calculus at the proximal right ureter. Moderate constipation. * Right adrenal mass likely represent metastasis. Labs: * QFT negative, legionella negative, Mycoplasma Igm negative, Strep Pneumoniae IgG pending, * Negative PPD read; no induration noted (48 hours and 72 hours read) Medications: * Trazadone 50mg PO HS * Tylenol 650mg PO Q6H PRN * Marinol 5mg PO BID * Oxycodone 5mg PO q6h prn * Lidoderm patch 1 TD daily Palliative consult * Management as per recommendation * Recommendation, Patient will need a guardian to advocate for him and be his decision making surrogate Refusal of treatment 09/30-10/01: Patient continues to refuse all treatment. He has not allowed blood work to be performed since 09/18/17. Patient is DNR/DNI. Psychiatry Consult, Dr. Martinez Evaluate for capacity * As per psychiatry evaluation: Patient lacks the capacity to make his own medical decisions at this time. Plans for reevaluation at a latter time. * Re-consultation for capacity and evaluation for severe depression and possible pseudodementia (09/14/17); As per documentation, patient is psychiatrically stable for discharge. As per phone conversation with Dr. Martinez, he will addendum note (09/14/17) commenting on patient's capacity * Patient was seen by Dr. 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 Application for medicaid and guardianship in progress Leukocytosis (no labs since 09/18) 09/30-10/01: Patient continues to refuse all treatment. He has not allowed blood work to be performed since 09/18/17. Patient is DNR/DNI. Patient agreed to blood work, 09/20/17: 13.7 On admission: 14.7, patient has been refusing further lab work but continues to state that he would rethink his decision Blood Culture: Negative X5 days UA: LE (2+) and WBC (22), f/u repeat UA and UC (09/15/17) Meds: Cipro 400mg PO BID, started 09/15/17 ( Discontinue if repeat UA AND UC is negative) Zosyn 3.375gm IV Q6H ( Started 09/19/17)-- As per nursing, patient refused treatment Anemia (no labs since 09/18) 09/30-10/01: Patient continues to refuse all treatment. He has not allowed blood work to be performed since 09/18/17. Patient is DNR/DNI. H/H stable : 8.06/23.8 Patient is refusing transfusion at the moment RBC indices indicative of iron deficiency anemia Retic Count ELEVATED 2.5, Haptoglobin ELEVATED 369 Vitamin B12 and Folate NORMAL Ferritin NORMAL Homocysteine NORMAL IRON: 16 TIBC: 302 % Saturation: 5 Peripheral smear: Slight Parietal cell Ab negative, Negative intrinsic factor Pending LDH Medication: Ferrous sulfate 325mg PO TID (As per nursing, patient is refuses medication intermittently) Lice infestation Recommendation to shave patient bald; patient refuses Meds: Applied ivermectin and permethrin Given NIX kit once Contact precautions Weight loss Pending HIV, patient refuses blood work Hepatitis panel negative Patient is currently not eating Supplemental diet History of CVA (cerebrovascular accident): Hx of CVA in 2016 with documented right arm and leg weakness Head CT 09/11/17: * A chronic infarct at the left MCA distribution is identified as well as age related neuro degenerative changes which are mildly advanced for the patient's age of 57 years. No intra hemorrhage, mass effect or CT pattern of an acute or subacute brain infarction is appreciated at this time. Follow-up CT or MRI are available if clinically warranted. Meds: Aspirin 81mg PO QD Crestor 10mg PO HS Left shoulder pain Left shoulder X-ray 09/05/2017: No acute fracture. Acromioclavicular degenerative arthritis. History of seizures Patient has been without any seizure activity since admission Prior records show seizure activity Will monitor and if necessary start keppra and ativan Seizure precautions Severe depression Zoloft 50 mg PO Daily Remeron 15 mg PO QHS Benztropine 1mg PO BID Haloperiodl 5mg PO Q6H prn Risperidone 1mg PO BID Prophylactic measure SCDs - pt refusing to wear DVT: Lovenox 30mg SC daily Disposition: Patient continues to refuse labs, food, treatment and diagnostic testing/medications. The only medications he accepts to take are oxycodone and marinol. Plans for guardianship. Will follow up with on plans for guardianship. Patient did not want to be examined today. Case discussed with Dr. Mohini Bourgeois PGY1
[2017-11-14] MEDS: oxyCODONE 5 mg Immediate Release Tab PO PRN (06:33)
[2017-11-15] MEDS: oxyCODONE 5 mg Immediate Release Tab PO PRN ×2 (06:13→17:47)
--- NOTE | 2017-11-15 07:28 | CP.PCM.PN ---
<Volodymyr Bourgeois - Last Filed: 11/15/17 07:27> Subjective - Date & Time of Evaluation Date of Evaluation: 11/15/17 Time of Evaluation: 07:27 - Subjective Subjective: PGY-[address] Rajan. No acute events noted overnight. Patient was seen and examined at bedside. He had eaten some of his breakfast. He did not answer many of my questions. He stated "it hurts" but would not elaborate. When I asked him if it's okay for us to draw blood today and said "no". Objective - Vital Signs/Intake and Output Vital Signs (last 24 hours): Temp Pulse Resp BP Pulse Ox 98.7 F 102 H 20 97/60 L 96 11/14/17 00:00 11/14/17 00:00 11/14/17 00:00 11/14/17 00:00 11/14/17 00:00 Intake and Output: 11/15/17 11/15/17 06:59 18:59 Intake Total 490 Balance 490 - Medications Medications: Current Medications Dronabinol (Marinol) 5 mg PO BID DEBRA Last Admin: 11/14/17 17:35 Dose: 5 mg Oxycodone HCl (Oxycodone Immediate Release Tab) 5 mg PO Q6 PRN PRN Reason: Pain, moderate (4-7) Last Admin: 11/15/17 06:13 Dose: 5 mg - Labs Labs: 09/18/17 14:34 09/18/17 14:34 PT 17.5 SECONDS (9.7-12.2) H 08/31/17 17:07 INR 1.5 08/31/17 17:07 APTT 35 SECONDS (21-34) H 08/31/17 17:07 - Additional Findings Additional findings: Additional findings: - Constitutional Appears: Unkempt, Agitated - Additional Findings Additional findings: Patient refused physical exam today. Assessment and Plan - Assessment and Plan (Free Text) Assessment: Mass of upper lobe of left lung consistent with Neoplasm/Right adrenal mass/ Generalized pain CXR 08/31/17: * Large left upper lobe mass with probable involvement of the left posterior 3rd rib. Findings are concerning for malignancy. Dedicated CT scan of the chest with intravenous contrast is recommended for further characterization. CT abd/pelvis with IV contrast 09/11/17: * Large destructive heterogeneous soft tissue mass in the left lung upper lobe extending to the left upper posterior chest wall and extending to the left aspect of the upper thoracic spine consistent with malignant neoplasm. The mass is extending to upper aspect of the left hilum. Bony erosion and partial destruction of the left upper ribs and left aspect of T3 and T4 vertebral bodies. Left hilum and left mediastinum lymphadenopathy consistent with metastasis. Right adrenal mass likely represent metastasis. Moderate to mildly severe right hydronephrosis and proximal hydroureter up to 10.5 millimeter obstructing calculus at the proximal right ureter. Moderate constipation. * Right adrenal mass likely represent metastasis. Labs: * QFT negative, legionella negative, Mycoplasma Igm negative, Strep Pneumoniae IgG pending, * Negative PPD read; no induration noted (48 hours and 72 hours read) Medications: * Trazadone 50mg PO HS * Tylenol 650mg PO Q6H PRN * Marinol 5mg PO BID * Oxycodone 5mg PO q6h prn * Lidoderm patch 1 TD daily Palliative consult * Management as per recommendation * Recommendation, Patient will need a guardian to advocate for him and be his decision making surrogate Refusal of treatment 09/30-10/01: Patient continues to refuse all treatment. He has not allowed blood work to be performed since 09/18/17. Patient is DNR/DNI. Psychiatry Consult, Dr. Martinez Evaluate for capacity * As per psychiatry evaluation: Patient lacks the capacity to make his own medical decisions at this time. Plans for reevaluation at a latter time. * Re-consultation for capacity and evaluation for severe depression and possible pseudodementia (09/14/17); As per documentation, patient is psychiatrically stable for discharge. As per phone conversation with Dr. Martinez, he will addendum note (09/14/17) commenting on patient's capacity * Patient was seen by Dr. Martinez (09/26/17), patient will need guardianship sales marketing manager, Consultation: Discussion with block and case maker today, 09/08/17; regarding possible guardianship. Application for medicaid and guardianship in progress Leukocytosis (no labs since 09/18) 09/30-10/01: Patient continues to refuse all treatment. He has not allowed blood work to be performed since 09/18/17. Patient is DNR/DNI. Patient agreed to blood work, 09/20/17: 13.7 On admission: 14.7, patient has been refusing further lab work but continues to state that he would rethink his decision Blood Culture: Negative X5 days UA: LE (2+) and WBC (22), f/u repeat UA and UC (09/15/17) Meds: Cipro 400mg PO BID, started 09/15/17 ( Discontinue if repeat UA AND UC is negative) Zosyn 3.375gm IV Q6H ( Started 09/19/17)-- As per nursing, patient refused treatment Anemia (no labs since 09/18) 09/30-10/01: Patient continues to refuse all treatment. He has not allowed blood work to be performed since 09/18/17. Patient is DNR/DNI. H/H stable : 8.06/23.8 Patient is refusing transfusion at the moment RBC indices indicative of iron deficiency anemia Retic Count ELEVATED 2.5, Haptoglobin ELEVATED 369 Vitamin B12 and Folate NORMAL Ferritin NORMAL Homocysteine NORMAL IRON: 16 TIBC: 302 % Saturation: 5 Peripheral smear: Slight Parietal cell Ab negative, Negative intrinsic factor Pending LDH Medication: Ferrous sulfate 325mg PO TID (As per nursing, patient is refuses medication intermittently) Lice infestation Recommendation to shave patient bald; patient refuses Meds: Applied ivermectin and permethrin Given NIX kit once Contact precautions Weight loss Pending HIV, patient refuses blood work Hepatitis panel negative Patient is currently not eating Supplemental diet History of CVA (cerebrovascular accident): Hx of CVA in 2016 with documented right arm and leg weakness Head CT 09/11/17: * A chronic infarct at the left MCA distribution is identified as well as age related neuro degenerative changes which are mildly advanced for the patient's age of 57 years. No intra hemorrhage, mass effect or CT pattern of an acute or subacute brain infarction is appreciated at this time. Follow-up CT or MRI are available if clinically warranted. Meds: Aspirin 81mg PO QD Crestor 10mg PO HS Left shoulder pain Left shoulder X-ray 09/05/2017: No acute fracture. Acromioclavicular degenerative arthritis. History of seizures Patient has been without any seizure activity since admission Prior records show seizure activity Will monitor and if necessary start keppra and ativan Seizure precautions Severe depression Zoloft 50 mg PO Daily Remeron 15 mg PO QHS Benztropine 1mg PO BID Haloperiodl 5mg PO Q6H prn Risperidone 1mg PO BID Prophylactic measure SCDs - pt refusing to wear DVT: Lovenox 30mg SC daily Disposition: Patient continues to refuse labs, food, treatment and diagnostic testing/medications. The only medications he accepts to take are oxycodone and marinol. Plans for guardianship. Will follow up with SW on plans for guardianship. Patient refuses to be examined. Case discussed with attending. Volodymyr Bourgeois PGY2 <Lamonte Torres - Last Filed: 11/18/17 17:06> Objective - Vital Signs/Intake and Output Vital Signs (last 24 hours): Temp Pulse Resp BP Pulse Ox 98 F 115 H 18 100/62 98 11/17/17 16:00 11/17/17 16:00 11/17/17 16:00 11/17/17 16:10 11/17/17 16:00 Intake and Output: 11/18/17 11/18/17 06:59 18:59 Intake Total 450 Output Total 250 500 Balance 200 -500 - Medications Medications: Current Medications Dronabinol (Marinol) 5 mg PO BID DEBRA Last Admin: 11/18/17 09:55 Dose: Not Given Oxycodone HCl (Oxycodone Immediate Release Tab) 5 mg PO Q6 PRN PRN Reason: Pain, moderate (4-7) Last Admin: 11/18/17 04:00 Dose: 5 mg - Labs Labs: 09/18/17 14:34 09/18/17 14:34 PT 17.5 SECONDS (9.7-12.2) H 08/31/17 17:07 INR 1.5 08/31/17 17:07 APTT 35 SECONDS (21-34) H 08/31/17 17:07 Attending/Attestation - Attestation I have personally seen and examined this patient.: No I have fully participated in the care of the patient.: Yes I have reviewed all pertinent clinical information, including history, physical exam and plan: Yes
[2017-11-16] MEDS: oxyCODONE 5 mg Immediate Release Tab PO PRN ×2 (00:14→09:25)
--- NOTE | 2017-11-17 07:22 | CP.PCM.PN ---
<Volodymyr Bourgeois - Last Filed: 11/17/17 07:20> Subjective - Date & Time of Evaluation Date of Evaluation: 11/17/17 Time of Evaluation: 07:21 - Subjective Subjective: PGY-[address] Rajan. No acute events noted overnight. Patient was seen and examined at bedside. He had eaten some of his breakfast. He did not answer many of my questions. He stated "it hurts" but would not elaborate. When I asked him if it's okay for us to draw blood today and said "no". Objective - Vital Signs/Intake and Output Vital Signs (last 24 hours): Temp Pulse Resp BP Pulse Ox 97.0 F L 72 20 101/61 98 11/16/17 15:17 11/16/17 15:17 11/16/17 15:17 11/16/17 15:17 11/16/17 15:17 Intake and Output: 11/17/17 11/17/17 06:59 18:59 Intake Total 500 Output Total 500 Balance 0 - Medications Medications: Current Medications Dronabinol (Marinol) 5 mg PO BID DEBRA Last Admin: 11/16/17 18:00 Dose: Not Given Oxycodone HCl (Oxycodone Immediate Release Tab) 5 mg PO Q6 PRN PRN Reason: Pain, moderate (4-7) Last Admin: 11/16/17 09:25 Dose: 5 mg - Labs Labs: 09/18/17 14:34 09/18/17 14:34 PT 17.5 SECONDS (9.7-12.2) H 08/31/17 17:07 INR 1.5 08/31/17 17:07 APTT 35 SECONDS (21-34) H 08/31/17 17:07 - Additional Findings Additional findings: - Constitutional Appears: Unkempt, Agitated - Additional Findings Additional findings: Patient refused physical exam today. Assessment and Plan - Assessment and Plan (Free Text) Assessment: Mass of upper lobe of left lung consistent with Neoplasm/Right adrenal mass/ Generalized pain CXR 08/31/17: * Large left upper lobe mass with probable involvement of the left posterior 3rd rib. Findings are concerning for malignancy. Dedicated CT scan of the chest with intravenous contrast is recommended for further characterization. CT abd/pelvis with IV contrast 09/11/17: * Large destructive heterogeneous soft tissue mass in the left lung upper lobe extending to the left upper posterior chest wall and extending to the left aspect of the upper thoracic spine consistent with malignant neoplasm. The mass is extending to upper aspect of the left hilum. Bony erosion and partial destruction of the left upper ribs and left aspect of T3 and T4 vertebral bodies. Left hilum and left mediastinum lymphadenopathy consistent with metastasis. Right adrenal mass likely represent metastasis. Moderate to mildly severe right hydronephrosis and proximal hydroureter up to 10.5 millimeter obstructing calculus at the proximal right ureter. Moderate constipation. * Right adrenal mass likely represent metastasis. Labs: * QFT negative, legionella negative, Mycoplasma Igm negative, Strep Pneumoniae IgG pending, * Negative PPD read; no induration noted (48 hours and 72 hours read) Medications: * Trazadone 50mg PO HS * Tylenol 650mg PO Q6H PRN * Marinol 5mg PO BID * Oxycodone 5mg PO q6h prn * Lidoderm patch 1 TD daily Palliative consult * Management as per recommendation * Recommendation, Patient will need a guardian to advocate for him and be his decision making surrogate Refusal of treatment 09/30-10/01: Patient continues to refuse all treatment. He has not allowed blood work to be performed since 09/18/17. Patient is DNR/DNI. Psychiatry Consult, Dr. Martinez Evaluate for capacity * As per psychiatry evaluation: Patient lacks the capacity to make his own medical decisions at this time. Plans for reevaluation at a latter time. * Re-consultation for capacity and evaluation for severe depression and possible pseudodementia (09/14/17); As per documentation, patient is psychiatrically stable for discharge. As per phone conversation with Dr. Martinez, he will addendum note (09/14/17) commenting on patient's capacity * Patient was seen by Dr. Martinez (09/26/17), patient will need guardianship manager acute, Consultation: Discussion with nurse case manager today, 09/08/17; regarding possible guardianship. Application for medicaid and guardianship in progress Leukocytosis (no labs since 09/18) 09/30-10/01: Patient continues to refuse all treatment. He has not allowed blood work to be performed since 09/18/17. Patient is DNR/DNI. Patient agreed to blood work, 09/20/17: 13.7 On admission: 14.7, patient has been refusing further lab work but continues to state that he would rethink his decision Blood Culture: Negative X5 days UA: LE (2+) and WBC (22), f/u repeat UA and UC (09/15/17) Meds: Cipro 400mg PO BID, started 09/15/17 ( Discontinue if repeat UA AND UC is negative) Zosyn 3.375gm IV Q6H ( Started 09/19/17)-- As per nursing, patient refused treatment Anemia (no labs since 09/18) 09/30-10/01: Patient continues to refuse all treatment. He has not allowed blood work to be performed since 09/18/17. Patient is DNR/DNI. H/H stable : 8.06/23.8 Patient is refusing transfusion at the moment RBC indices indicative of iron deficiency anemia Retic Count ELEVATED 2.5, Haptoglobin ELEVATED 369 Vitamin B12 and Folate NORMAL Ferritin NORMAL Homocysteine NORMAL IRON: 16 TIBC: 302 % Saturation: 5 Peripheral smear: Slight Parietal cell Ab negative, Negative intrinsic factor Pending LDH Medication: Ferrous sulfate 325mg PO TID (As per nursing, patient is refuses medication intermittently) Lice infestation Recommendation to shave patient bald; patient refuses Meds: Applied ivermectin and permethrin Given NIX kit once Contact precautions Weight loss Pending HIV, patient refuses blood work Hepatitis panel negative Patient is currently not eating Supplemental diet History of CVA (cerebrovascular accident): Hx of CVA in 2016 with documented right arm and leg weakness Head CT 09/11/17: * A chronic infarct at the left MCA distribution is identified as well as age related neuro degenerative changes which are mildly advanced for the patient's age of 57 years. No intra hemorrhage, mass effect or CT pattern of an acute or subacute brain infarction is appreciated at this time. Follow-up CT or MRI are available if clinically warranted. Meds: Aspirin 81mg PO QD Crestor 10mg PO HS Left shoulder pain Left shoulder X-ray 09/05/2017: No acute fracture. Acromioclavicular degenerative arthritis. History of seizures Patient has been without any seizure activity since admission Prior records show seizure activity Will monitor and if necessary start keppra and ativan Seizure precautions Severe depression Zoloft 50 mg PO Daily Remeron 15 mg PO QHS Benztropine 1mg PO BID Haloperiodl 5mg PO Q6H prn Risperidone 1mg PO BID Prophylactic measure SCDs - pt refusing to wear DVT: Lovenox 30mg SC daily Disposition: Patient continues to refuse labs, food, treatment and diagnostic testing/medications. The only medications he accepts to take are oxycodone and marinol. Plans for guardianship. Will follow up with SW on plans for guardianship. Patient did not want to be examined today. Case discussed with Dr. Melissa Bourgeois PGY2 <Lamonte Torres - Last Filed: 11/18/17 17:07> Objective - Vital Signs/Intake and Output Vital Signs (last 24 hours): Temp Pulse Resp BP Pulse Ox 98 F 115 H 18 100/62 98 11/17/17 16:00 11/17/17 16:00 11/17/17 16:00 11/17/17 16:10 11/17/17 16:00 Intake and Output: 11/18/17 11/18/17 06:59 18:59 Intake Total 450 Output Total 250 500 Balance 200 -500 - Medications Medications: Current Medications Dronabinol (Marinol) 5 mg PO BID DEBRA Last Admin: 11/18/17 09:55 Dose: Not Given Oxycodone HCl (Oxycodone Immediate Release Tab) 5 mg PO Q6 PRN PRN Reason: Pain, moderate (4-7) Last Admin: 11/18/17 04:00 Dose: 5 mg - Labs Labs: 09/18/17 14:34 09/18/17 14:34 PT 17.5 SECONDS (9.7-12.2) H 08/31/17 17:07 INR 1.5 08/31/17 17:07 APTT 35 SECONDS (21-34) H 08/31/17 17:07 Attending/Attestation - Attestation I have personally seen and examined this patient.: Yes I have fully participated in the care of the patient.: Yes I have reviewed all pertinent clinical information, including history, physical exam and plan: Yes Notes (Text): Patient has no complain,awake and oriented,lying comfortable,Not answering questions. I agree with the resident's documentation
[2017-11-17] MEDS: oxyCODONE 5 mg Immediate Release Tab PO PRN (12:13)
[2017-11-18] MEDS: oxyCODONE 5 mg Immediate Release Tab PO PRN (04:00)
[2017-11-19] MEDS: oxyCODONE 5 mg Immediate Release Tab PO PRN (00:15)
[2017-11-20] MEDS: oxyCODONE 5 mg Immediate Release Tab PO PRN (03:42)
--- NOTE | 2017-11-20 07:48 | CP.PCM.PN ---
Subjective - Date & Time of Evaluation Date of Evaluation: 11/20/17 Time of Evaluation: 07:47 - Subjective Subjective: PGY-[address] Rajan. No acute events noted overnight. Patient was seen and examined at bedside. He had eaten some of his breakfast. He did not answer many of my questions. He stated "it hurts" but would not elaborate. When I asked him if it's okay for us to draw blood today and said "no". Objective - Vital Signs/Intake and Output Vital Signs (last 24 hours): Temp Pulse Resp BP Pulse Ox 98.1 F 103 H 20 96/59 L 99 11/20/17 07:44 11/20/17 07:44 11/20/17 07:44 11/20/17 07:44 11/20/17 07:44 Intake and Output: 11/20/17 11/20/17 06:59 18:59 Intake Total 300 450 Output Total 250 1 Balance 50 449 - Medications Medications: Current Medications Dronabinol (Marinol) 5 mg PO BID DEBRA Last Admin: 11/19/17 17:41 Dose: Not Given Oxycodone HCl (Oxycodone Immediate Release Tab) 5 mg PO Q6 PRN PRN Reason: Pain, moderate (4-7) Last Admin: 11/20/17 03:42 Dose: 5 mg - Labs Labs: 09/18/17 14:34 09/18/17 14:34 PT 17.5 SECONDS (9.7-12.2) H 08/31/17 17:07 INR 1.5 08/31/17 17:07 APTT 35 SECONDS (21-34) H 08/31/17 17:07 - Additional Findings Additional findings: - Constitutional Appears: Unkempt, Agitated - Additional Findings Additional findings: Patient refused physical exam today. Assessment and Plan - Assessment and Plan (Free Text) Assessment: Mass of upper lobe of left lung consistent with Neoplasm/Right adrenal mass/ Generalized pain CXR 08/31/17: * Large left upper lobe mass with probable involvement of the left posterior 3rd rib. Findings are concerning for malignancy. Dedicated CT scan of the chest with intravenous contrast is recommended for further characterization. CT abd/pelvis with IV contrast 09/11/17: * Large destructive heterogeneous soft tissue mass in the left lung upper lobe extending to the left upper posterior chest wall and extending to the left aspect of the upper thoracic spine consistent with malignant neoplasm. The mass is extending to upper aspect of the left hilum. Bony erosion and partial destruction of the left upper ribs and left aspect of T3 and T4 vertebral bodies. Left hilum and left mediastinum lymphadenopathy consistent with metastasis. Right adrenal mass likely represent metastasis. Moderate to mildly severe right hydronephrosis and proximal hydroureter up to 10.5 millimeter obstructing calculus at the proximal right ureter. Moderate constipation. * Right adrenal mass likely represent metastasis. Labs: * QFT negative, legionella negative, Mycoplasma Igm negative, Strep Pneumoniae IgG pending, * Negative PPD read; no induration noted (48 hours and 72 hours read) Medications: * Trazadone 50mg PO HS * Tylenol 650mg PO Q6H PRN * Marinol 5mg PO BID * Oxycodone 5mg PO q6h prn * Lidoderm patch 1 TD daily Palliative consult * Management as per recommendation * Recommendation, Patient will need a guardian to advocate for him and be his decision making surrogate Refusal of treatment 09/30-10/01: Patient continues to refuse all treatment. He has not allowed blood work to be performed since 09/18/17. Patient is DNR/DNI. Psychiatry Consult, Dr. Martinez Evaluate for capacity * As per psychiatry evaluation: Patient lacks the capacity to make his own medical decisions at this time. Plans for reevaluation at a latter time. * Re-consultation for capacity and evaluation for severe depression and possible pseudodementia (09/14/17); As per documentation, patient is psychiatrically stable for discharge. As per phone conversation with Dr. Martinez, he will addendum note (09/14/17) commenting on patient's capacity * Patient was seen by Dr. Martinez (09/26/17), patient will need guardianship manager operating, Consultation: Discussion with pillowcase maker today, 09/08/17; regarding possible guardianship. Application for medicaid and guardianship in progress Leukocytosis (no labs since 09/18) 09/30-10/01: Patient continues to refuse all treatment. He has not allowed blood work to be performed since 09/18/17. Patient is DNR/DNI. Patient agreed to blood work, 09/20/17: 13.7 On admission: 14.7, patient has been refusing further lab work but continues to state that he would rethink his decision Blood Culture: Negative X5 days UA: LE (2+) and WBC (22), f/u repeat UA and UC (09/15/17) Meds: Cipro 400mg PO BID, started 09/15/17 ( Discontinue if repeat UA AND UC is negative) Zosyn 3.375gm IV Q6H ( Started 09/19/17)-- As per nursing, patient refused treatment Anemia (no labs since 09/18) 09/30-10/01: Patient continues to refuse all treatment. He has not allowed blood work to be performed since 09/18/17. Patient is DNR/DNI. H/H stable : 8.06/23.8 Patient is refusing transfusion at the moment RBC indices indicative of iron deficiency anemia Retic Count ELEVATED 2.5, Haptoglobin ELEVATED 369 Vitamin B12 and Folate NORMAL Ferritin NORMAL Homocysteine NORMAL IRON: 16 TIBC: 302 % Saturation: 5 Peripheral smear: Slight Parietal cell Ab negative, Negative intrinsic factor Pending LDH Medication: Ferrous sulfate 325mg PO TID (As per nursing, patient is refuses medication intermittently) Lice infestation Recommendation to shave patient bald; patient refuses Meds: Applied ivermectin and permethrin Given NIX kit once Contact precautions Weight loss Pending HIV, patient refuses blood work Hepatitis panel negative Patient is currently not eating Supplemental diet History of CVA (cerebrovascular accident): Hx of CVA in 2016 with documented right arm and leg weakness Head CT 09/11/17: * A chronic infarct at the left MCA distribution is identified as well as age related neuro degenerative changes which are mildly advanced for the patient's age of 57 years. No intra hemorrhage, mass effect or CT pattern of an acute or subacute brain infarction is appreciated at this time. Follow-up CT or MRI are available if clinically warranted. Meds: Aspirin 81mg PO QD Crestor 10mg PO HS Left shoulder pain Left shoulder X-ray 09/05/2017: No acute fracture. Acromioclavicular degenerative arthritis. History of seizures Patient has been without any seizure activity since admission Prior records show seizure activity Will monitor and if necessary start keppra and ativan Seizure precautions Severe depression Zoloft 50 mg PO Daily Remeron 15 mg PO QHS Benztropine 1mg PO BID Haloperiodl 5mg PO Q6H prn Risperidone 1mg PO BID Prophylactic measure SCDs - pt refusing to wear DVT: Lovenox 30mg SC daily Disposition: Patient continues to refuse labs, food, treatment and diagnostic testing/medications. The only medications he accepts to take are oxycodone and marinol. Plans for guardianship. Will follow up with on plans for guardianship. Patient did not want to be examined today. Case discussed with Dr. Melissa Bourgeois PGY2
[2017-11-21] MEDS: oxyCODONE 5 mg Immediate Release Tab PO PRN (10:35)
--- NOTE | 2017-11-22 07:19 | CP.PCM.PN ---
Subjective - Date & Time of Evaluation Date of Evaluation: 11/22/17 Time of Evaluation: 07:18 - Subjective Subjective: PGY-[address] Morley. No acute events noted overnight. Patient was seen and examined at bedside. He had eaten some of his breakfast. He did not answer many of my questions. He stated "it hurts" but would not elaborate. When I asked him if it's okay for us to draw blood today and said "no". Objective - Vital Signs/Intake and Output Vital Signs (last 24 hours): Temp Pulse Resp BP Pulse Ox 98 F 108 H 20 100/61 97 11/21/17 15:30 11/21/17 15:30 11/21/17 15:30 11/21/17 15:30 11/21/17 15:30 Intake and Output: 11/22/17 11/22/17 06:59 18:59 Intake Total 440 Output Total 650 Balance -210 - Medications Medications: Current Medications Dronabinol (Marinol) 5 mg PO BID DEBRA Last Admin: 11/21/17 18:16 Dose: Not Given Oxycodone HCl (Oxycodone Immediate Release Tab) 5 mg PO Q6 PRN PRN Reason: Pain, severe (8-10) Last Admin: 11/21/17 10:35 Dose: 5 mg - Labs Labs: 09/18/17 14:34 09/18/17 14:34 PT 17.5 SECONDS (9.7-12.2) H 08/31/17 17:07 INR 1.5 08/31/17 17:07 APTT 35 SECONDS (21-34) H 08/31/17 17:07 - Additional Findings Additional findings: - Constitutional Appears: Unkempt, Agitated - Additional Findings Additional findings: Patient refused physical exam today. Assessment and Plan - Assessment and Plan (Free Text) Assessment: Mass of upper lobe of left lung consistent with Neoplasm/Right adrenal mass/ Generalized pain CXR 08/31/17: * Large left upper lobe mass with probable involvement of the left posterior 3rd rib. Findings are concerning for malignancy. Dedicated CT scan of the chest with intravenous contrast is recommended for further characterization. CT abd/pelvis with IV contrast 09/11/17: * Large destructive heterogeneous soft tissue mass in the left lung upper lobe extending to the left upper posterior chest wall and extending to the left aspect of the upper thoracic spine consistent with malignant neoplasm. The mass is extending to upper aspect of the left hilum. Bony erosion and partial destruction of the left upper ribs and left aspect of T3 and T4 vertebral bodies. Left hilum and left mediastinum lymphadenopathy consistent with metastasis. Right adrenal mass likely represent metastasis. Moderate to mildly severe right hydronephrosis and proximal hydroureter up to 10.5 millimeter obstructing calculus at the proximal right ureter. Moderate constipation. * Right adrenal mass likely represent metastasis. Labs: * QFT negative, legionella negative, Mycoplasma Igm negative, Strep Pneumoniae IgG pending, * Negative PPD read; no induration noted (48 hours and 72 hours read) Medications: * Trazadone 50mg PO HS * Tylenol 650mg PO Q6H PRN * Marinol 5mg PO BID * Oxycodone 5mg PO q6h prn * Lidoderm patch 1 TD daily Palliative consult * Management as per recommendation * Recommendation, Patient will need a guardian to advocate for him and be his decision making surrogate Refusal of treatment 09/30-10/01: Patient continues to refuse all treatment. He has not allowed blood work to be performed since 09/18/17. Patient is DNR/DNI. Psychiatry Consult, Dr. Martinez Evaluate for capacity * As per psychiatry evaluation: Patient lacks the capacity to make his own medical decisions at this time. Plans for reevaluation at a latter time. * Re-consultation for capacity and evaluation for severe depression and possible pseudodementia (09/14/17); As per documentation, patient is psychiatrically stable for discharge. As per phone conversation with Dr. Martinez, he will addendum note (09/14/17) commenting on patient's capacity * Patient was seen by Dr. Martinez (09/26/17), patient will need guardianship manager epic, Consultation: Discussion with case finisher today, 09/08/17; regarding possible guardianship. Application for medicaid and guardianship in progress Leukocytosis (no labs since 09/18) 09/30-10/01: Patient continues to refuse all treatment. He has not allowed blood work to be performed since 09/18/17. Patient is DNR/DNI. Patient agreed to blood work, 09/20/17: 13.7 On admission: 14.7, patient has been refusing further lab work but continues to state that he would rethink his decision Blood Culture: Negative X5 days UA: LE (2+) and WBC (22), f/u repeat UA and UC (09/15/17) Meds: Cipro 400mg PO BID, started 09/15/17 ( Discontinue if repeat UA AND UC is negative) Zosyn 3.375gm IV Q6H ( Started 09/19/17)-- As per nursing, patient refused treatment Anemia (no labs since 09/18) 09/30-10/01: Patient continues to refuse all treatment. He has not allowed blood work to be performed since 09/18/17. Patient is DNR/DNI. H/H stable : 8.06/23.8 Patient is refusing transfusion at the moment RBC indices indicative of iron deficiency anemia Retic Count ELEVATED 2.5, Haptoglobin ELEVATED 369 Vitamin B12 and Folate NORMAL Ferritin NORMAL Homocysteine NORMAL IRON: 16 TIBC: 302 % Saturation: 5 Peripheral smear: Slight Parietal cell Ab negative, Negative intrinsic factor Pending LDH Medication: Ferrous sulfate 325mg PO TID (As per nursing, patient is refuses medication intermittently) Lice infestation Recommendation to shave patient bald; patient refuses Meds: Applied ivermectin and permethrin Given NIX kit once Contact precautions Weight loss Pending HIV, patient refuses blood work Hepatitis panel negative Patient is currently not eating Supplemental diet History of CVA (cerebrovascular accident): Hx of CVA in 2016 with documented right arm and leg weakness Head CT 09/11/17: * A chronic infarct at the left MCA distribution is identified as well as age related neuro degenerative changes which are mildly advanced for the patient's age of 57 years. No intra hemorrhage, mass effect or CT pattern of an acute or subacute brain infarction is appreciated at this time. Follow-up CT or MRI are available if clinically warranted. Meds: Aspirin 81mg PO QD Crestor 10mg PO HS Left shoulder pain Left shoulder X-ray 09/05/2017: No acute fracture. Acromioclavicular degenerative arthritis. History of seizures Patient has been without any seizure activity since admission Prior records show seizure activity Will monitor and if necessary start keppra and ativan Seizure precautions Severe depression Zoloft 50 mg PO Daily Remeron 15 mg PO QHS Benztropine 1mg PO BID Haloperiodl 5mg PO Q6H prn Risperidone 1mg PO BID Prophylactic measure SCDs - pt refusing to wear DVT: Lovenox 30mg SC daily Disposition: Patient continues to refuse labs, food, treatment and diagnostic testing/medications. The only medications he accepts to take are oxycodone and marinol. Plans for guardianship. Will follow up with SW on plans for guardianship. Patient did not want to be examined today. Case discussed with Dr. Milli Bourgeois PGY2
[2017-11-22] MEDS: oxyCODONE 5 mg Immediate Release Tab PO PRN ×2 (11:03→18:36)
[2017-11-23] MEDS: oxyCODONE 5 mg Immediate Release Tab PO PRN (10:11)
--- NOTE | 2017-11-24 07:25 | CP.PCM.PN ---
Subjective - Date & Time of Evaluation Date of Evaluation: 11/24/17 Time of Evaluation: 07:24 - Subjective Subjective: PGY-[address] Morley. No acute events noted overnight. Patient was seen and examined at bedside. He had eaten some of his breakfast. He did not answer many of my questions. He stated "it hurts" but would not elaborate. When I asked him if it's okay for us to draw blood today and said "no". Objective - Vital Signs/Intake and Output Vital Signs (last 24 hours): Temp Pulse Resp BP Pulse Ox 98.9 F 88 20 99/60 L 95 11/23/17 08:16 11/23/17 08:16 11/23/17 08:16 11/23/17 08:16 11/23/17 08:16 Intake and Output: 11/24/17 11/24/17 06:59 18:59 Intake Total 300 250 Balance 300 250 - Medications Medications: Current Medications Dronabinol (Marinol) 5 mg PO BID DEBRA Last Admin: 11/23/17 17:57 Dose: Not Given Oxycodone HCl (Oxycodone Immediate Release Tab) 5 mg PO Q6 PRN PRN Reason: Pain, severe (8-10) Last Admin: 11/23/17 10:11 Dose: 5 mg - Labs Labs: 09/18/17 14:34 09/18/17 14:34 PT 17.5 SECONDS (9.7-12.2) H 08/31/17 17:07 INR 1.5 08/31/17 17:07 APTT 35 SECONDS (21-34) H 08/31/17 17:07 - Additional Findings Additional findings: - Constitutional Appears: Unkempt, Agitated - Additional Findings Additional findings: Patient refused physical exam today. Assessment and Plan - Assessment and Plan (Free Text) Assessment: Mass of upper lobe of left lung consistent with Neoplasm/Right adrenal mass/ Generalized pain CXR 08/31/17: * Large left upper lobe mass with probable involvement of the left posterior 3rd rib. Findings are concerning for malignancy. Dedicated CT scan of the chest with intravenous contrast is recommended for further characterization. CT abd/pelvis with IV contrast 09/11/17: * Large destructive heterogeneous soft tissue mass in the left lung upper lobe extending to the left upper posterior chest wall and extending to the left aspect of the upper thoracic spine consistent with malignant neoplasm. The mass is extending to upper aspect of the left hilum. Bony erosion and partial destruction of the left upper ribs and left aspect of T3 and T4 vertebral bodies. Left hilum and left mediastinum lymphadenopathy consistent with metastasis. Right adrenal mass likely represent metastasis. Moderate to mildly severe right hydronephrosis and proximal hydroureter up to 10.5 millimeter obstructing calculus at the proximal right ureter. Moderate constipation. * Right adrenal mass likely represent metastasis. Labs: * QFT negative, legionella negative, Mycoplasma Igm negative, Strep Pneumoniae IgG pending, * Negative PPD read; no induration noted (48 hours and 72 hours read) Medications: * Trazadone 50mg PO HS * Tylenol 650mg PO Q6H PRN * Marinol 5mg PO BID * Oxycodone 5mg PO q6h prn * Lidoderm patch 1 TD daily Palliative consult * Management as per recommendation * Recommendation, Patient will need a guardian to advocate for him and be his decision making surrogate Refusal of treatment 09/30-10/01: Patient continues to refuse all treatment. He has not allowed blood work to be performed since 09/18/17. Patient is DNR/DNI. Psychiatry Consult, Dr. Martinez Evaluate for capacity * As per psychiatry evaluation: Patient lacks the capacity to make his own medical decisions at this time. Plans for reevaluation at a latter time. * Re-consultation for capacity and evaluation for severe depression and possible pseudodementia (09/14/17); As per documentation, patient is psychiatrically stable for discharge. As per phone conversation with Dr. Martinez, he will addendum note (09/14/17) commenting on patient's capacity * Patient was seen by Dr. 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 Application for medicaid and guardianship in progress Leukocytosis (no labs since 09/18) 09/30-10/01: Patient continues to refuse all treatment. He has not allowed blood work to be performed since 09/18/17. Patient is DNR/DNI. Patient agreed to blood work, 09/20/17: 13.7 On admission: 14.7, patient has been refusing further lab work but continues to state that he would rethink his decision Blood Culture: Negative X5 days UA: LE (2+) and WBC (22), f/u repeat UA and UC (09/15/17) Meds: Cipro 400mg PO BID, started 09/15/17 ( Discontinue if repeat UA AND UC is negative) Zosyn 3.375gm IV Q6H ( Started 09/19/17)-- As per nursing, patient refused treatment Anemia (no labs since 09/18) 09/30-10/01: Patient continues to refuse all treatment. He has not allowed blood work to be performed since 09/18/17. Patient is DNR/DNI. H/H stable : 8.06/23.8 Patient is refusing transfusion at the moment RBC indices indicative of iron deficiency anemia Retic Count ELEVATED 2.5, Haptoglobin ELEVATED 369 Vitamin B12 and Folate NORMAL Ferritin NORMAL Homocysteine NORMAL IRON: 16 TIBC: 302 % Saturation: 5 Peripheral smear: Slight Parietal cell Ab negative, Negative intrinsic factor Pending LDH Medication: Ferrous sulfate 325mg PO TID (As per nursing, patient is refuses medication intermittently) Lice infestation Recommendation to shave patient bald; patient refuses Meds: Applied ivermectin and permethrin Given NIX kit once Contact precautions Weight loss Pending HIV, patient refuses blood work Hepatitis panel negative Patient is currently not eating Supplemental diet History of CVA (cerebrovascular accident): Hx of CVA in 2016 with documented right arm and leg weakness Head CT 09/11/17: * A chronic infarct at the left MCA distribution is identified as well as age related neuro degenerative changes which are mildly advanced for the patient's age of 57 years. No intra hemorrhage, mass effect or CT pattern of an acute or subacute brain infarction is appreciated at this time. Follow-up CT or MRI are available if clinically warranted. Meds: Aspirin 81mg PO QD Crestor 10mg PO HS Left shoulder pain Left shoulder X-ray 09/05/2017: No acute fracture. Acromioclavicular degenerative arthritis. History of seizures Patient has been without any seizure activity since admission Prior records show seizure activity Will monitor and if necessary start keppra and ativan Seizure precautions Severe depression Zoloft 50 mg PO Daily Remeron 15 mg PO QHS Benztropine 1mg PO BID Haloperiodl 5mg PO Q6H prn Risperidone 1mg PO BID Prophylactic measure SCDs - pt refusing to wear DVT: Lovenox 30mg SC daily Disposition: Patient continues to refuse labs, food, treatment and diagnostic testing/medications. The only medications he accepts to take are oxycodone and marinol. Plans for guardianship. Will follow up with SW on plans for guardianship. Patient did not want to be examined today. Case discussed with Dr. Milli Bourgeois PGY2
--- NOTE | 2017-11-27 12:48 | CP.PCM.PN ---
<Kristofer Guerra - Last Filed: 11/27/17 16:42> Subjective - Date & Time of Evaluation Date of Evaluation: 11/27/17 Time of Evaluation: 12:42 - Subjective Subjective: Pgy-[address] Torres service Pt is seen and examined at bedside. Nursing reports no acute event overnight. Pt found resting comfortably in bed. Pt reports having generalized pain. Pt is poor historian and minimally verbal with delayed response due to CVA status. Pt refused further questioning and examination. accurate ROS unattainable due to pt status. Objective - Vital Signs/Intake and Output Vital Signs (last 24 hours): Temp Pulse Resp BP Pulse Ox 99.2 F 110 H 18 93/56 L 98 11/27/17 07:30 11/27/17 07:30 11/27/17 07:30 11/27/17 07:30 11/27/17 07:30 Intake and Output: 11/27/17 11/27/17 06:59 18:59 Intake Total 380 200 Balance 380 200 - Medications Medications: Current Medications Dronabinol (Marinol) 5 mg PO BID DEBRA Last Admin: 11/27/17 09:09 Dose: Not Given - Labs Labs: 09/18/17 14:34 09/18/17 14:34 PT 17.5 SECONDS (9.7-12.2) H 08/31/17 17:07 INR 1.5 08/31/17 17:07 APTT 35 SECONDS (21-34) H 08/31/17 17:07 - Constitutional Appears: Non-toxic, No Acute Distress - Head Exam Head Exam: ATRAUMATIC, NORMAL INSPECTION - Eye Exam Eye Exam: EOMI, Normal appearance Pupil Exam: PERRL - ENT Exam ENT Exam: Mucous Membranes Moist - Neck Exam Neck Exam: Full ROM - Respiratory Exam Respiratory Exam: Clear to Ausculation Bilateral, NORMAL BREATHING PATTERN - Cardiovascular Exam Cardiovascular Exam: REGULAR RHYTHM, +S1, +S2 - GI/Abdominal Exam GI & Abdominal Exam: Soft, Normal Bowel Sounds. absent: Distended, Guarding, Tenderness - Extremities Exam Additional comments: pt refused exam to the lower extremities - Neurological Exam Neurological Exam: Alert, Awake - Psychiatric Exam Psychiatric exam: Flat Affect - Skin Skin Exam: Intact, Normal Color Assessment and Plan - Assessment and Plan (Free Text) Plan: Mass of upper lobe of left lung consistent with Neoplasm/Right adrenal mass/ Generalized pain CXR 08/31/17: * Large left upper lobe mass with probable involvement of the left posterior 3rd rib. Findings are concerning for malignancy. Dedicated CT scan of the chest with intravenous contrast is recommended for further characterization. CT abd/pelvis with IV contrast 09/11/17: * Large destructive heterogeneous soft tissue mass in the left lung upper lobe extending to the left upper posterior chest wall and extending to the left aspect of the upper thoracic spine consistent with malignant neoplasm. The mass is extending to upper aspect of the left hilum. Bony erosion and partial destruction of the left upper ribs and left aspect of T3 and T4 vertebral bodies. Left hilum and left mediastinum lymphadenopathy consistent with metastasis. Right adrenal mass likely represent metastasis. Moderate to mildly severe right hydronephrosis and proximal hydroureter up to 10.5 millimeter obstructing calculus at the proximal right ureter. Moderate constipation. * Right adrenal mass likely represent metastasis. Labs: * QFT negative, legionella negative, Mycoplasma Igm negative, Strep Pneumoniae IgG pending, * Negative PPD read; no induration noted (48 hours and 72 hours read) Medications: * Marinol 5mg PO BID Palliative consult * Management as per recommendation * Recommendation, Patient will need a guardian to advocate for him and be his decision making surrogate Refusal of treatment Patient continues to refuse all treatment. He has not allowed blood work to be performed since 09/18/17. Patient is DNR/DNI. Psychiatry Consult, Dr. Martinez Evaluate for capacity * As per psychiatry evaluation: Patient lacks the capacity to make his own medical decisions at this time. Plans for reevaluation at a latter time. * Re-consultation for capacity and evaluation for severe depression and possible pseudodementia (09/14/17); As per documentation, patient is psychiatrically stable for discharge. As per phone conversation with Dr. Martinez, he will addendum note (09/14/17) commenting on patient's capacity * Patient was seen by Dr. Martinez (09/26/17), patient will need guardianship manager talent management, Consultation: Discussion with patient case manager today, 09/08/17; regarding possible guardianship. Application for medicaid and guardianship in progress Leukocytosis (no labs since 09/18) Patient continues to refuse all treatment. He has not allowed blood work to be performed since 09/18/17. Patient is DNR/DNI. Patient agreed to blood work, 09/20/17: 13.7 On admission: 14.7, patient has been refusing further lab work but continues to state that he would rethink his decision Blood Culture (08/31/17): Negative X5 days UA: LE (2+) and WBC (22), f/u repeat UA and UC (09/15/17) Iron deficiency Anemia (no labs since 09/18) Patient continues to refuse all treatment. He has not allowed blood work to be performed since 09/18/17. Patient is DNR/DNI. Patient is refusing transfusion at the moment RBC indices indicative of iron deficiency anemia Retic Count ELEVATED 2.5, Haptoglobin ELEVATED 369 Vitamin B12 and Folate NORMAL Ferritin NORMAL Homocysteine NORMAL IRON: 16 TIBC: 302 % Saturation: 5 Peripheral smear: Slight Parietal cell Ab negative, Negative intrinsic factor Pending LDH Lice infestation - Resolved Recommendation to shave patient bald; patient refuses Meds: Applied ivermectin and permethrin Given NIX kit once Weight loss Pending HIV, patient refuses blood work Hepatitis panel negative Patient is currently not eating Supplemental diet History of CVA (cerebrovascular accident): Hx of CVA in 2016 with documented right arm and leg weakness Head CT 09/11/17: * A chronic infarct at the left MCA distribution is identified as well as age related neuro degenerative changes which are mildly advanced for the patient's age of 57 years. No intra hemorrhage, mass effect or CT pattern of an acute or subacute brain infarction is appreciated at this time. Follow-up CT or MRI are available if clinically warranted. Pt refusing meds below: Aspirin 81mg PO QD Crestor 10mg PO HS Left shoulder pain Left shoulder X-ray 09/05/2017: No acute fracture. Acromioclavicular degenerative arthritis. History of seizures Patient has been without any seizure activity since admission Prior records show seizure activity Will monitor and if necessary start keppra and ativan Seizure precautions Severe depression Pt refusing medication at this time Prophylactic measure SCDs - pt refusing to wear DVT: Pt refusing Lovenox GI prophylaxis not indicated Disposition: Patient continues to refuse labs, food, treatment and diagnostic testing/medications. The only medication he accepts to take is marinol. Plans for guardianship. Will follow up with SW on plans for guardianship. Patient did not want to be examined today. Kristofer Guerra, PGY-[address] Torres <Lamonte Torres - Last Filed: 11/27/17 19:01> Objective - Vital Signs/Intake and Output Vital Signs (last 24 hours): Temp Pulse Resp BP Pulse Ox 101.2 F H 104 H 20 100/62 97 11/27/17 15:40 11/27/17 15:40 11/27/17 15:40 11/27/17 15:40 11/27/17 15:40 Intake and Output: 11/27/17 11/27/17 06:59 18:59 Intake Total 380 200 Balance 380 200 - Medications Medications: Current Medications Acetaminophen (Tylenol 325mg Tab) 650 mg PO Q6 PRN PRN Reason: Fever >100.4 F Piperacillin Sod/Tazobactam Sod (Zosyn 3.375 Gm Iv Premix) 3.375 gm in 50 mls @ 100 mls/hr IVPB Q6 DEBRA PRN Reason: Protocol - Labs Labs: 09/18/17 14:34 09/18/17 14:34 PT 17.5 SECONDS (9.7-12.2) H 08/31/17 17:07 INR 1.5 08/31/17 17:07 APTT 35 SECONDS (21-34) H 08/31/17 17:07 Attending/Attestation - Attestation I have personally seen and examined this patient.: Yes I have fully participated in the care of the patient.: Yes I have reviewed all pertinent clinical information, including history, physical exam and plan: Yes Notes (Text): Patient was seen this evening for fever. Refuses to be examined,Refuses chest x ray,refuses labs,refuses IV line Patient was told that he is sick needs help. refuses ,wanted me to leave the room 11/27/17 18:59
[2017-11-27] MEDS: Piperacill/Tazo 3.375gm in Dex 3.375 GM/50 ML BAG IVPB SCH ×2 (18:00→23:37)
[2017-11-28] MEDS: Piperacill/Tazo 3.375gm in Dex 3.375 GM/50 ML BAG IVPB SCH ×4 (05:53→23:34)
--- NOTE | 2017-11-28 07:11 | CP.PCM.PN ---
<Kristofer Guerra - Last Filed: 11/28/17 20:33> Subjective - Date & Time of Evaluation Date of Evaluation: 11/28/17 Time of Evaluation: 11:39 - Subjective Subjective: PGY-[address] Torres service Pt was seen at bedside. Pt states he has belly pain. Pt refuses on answering any other question pertaining to his current complain and physical examination. Accurate ROS unattainable due to pts refusing to questioning. Objective - Vital Signs/Intake and Output Vital Signs (last 24 hours): Temp Pulse Resp BP Pulse Ox 98.3 F 99 H 20 98/58 L 98 11/28/17 05:30 11/28/17 00:00 11/28/17 00:00 11/28/17 00:00 11/28/17 00:00 Intake and Output: 11/28/17 11/28/17 06:59 18:59 Intake Total 240 Output Total 300 Balance -60 - Medications Medications: Current Medications Acetaminophen (Tylenol 325mg Tab) 650 mg PO Q6 PRN PRN Reason: Fever >100.4 F Last Admin: 11/27/17 19:10 Dose: 650 mg Piperacillin Sod/Tazobactam Sod (Zosyn 3.375 Gm Iv Premix) 3.375 gm in 50 mls @ 100 mls/hr IVPB Q6 DEBRA PRN Reason: Protocol Last Admin: 11/28/17 05:53 Dose: Not Given - Labs Labs: 09/18/17 14:34 09/18/17 14:34 PT 17.5 SECONDS (9.7-12.2) H 08/31/17 17:07 INR 1.5 08/31/17 17:07 APTT 35 SECONDS (21-34) H 08/31/17 17:07 - Constitutional Appears: Non-toxic, No Acute Distress - Head Exam Head Exam: ATRAUMATIC, NORMAL INSPECTION - Eye Exam Eye Exam: EOMI, Normal appearance - ENT Exam Additional comments: patient refused examination - Neck Exam Neck Exam: Full ROM - Respiratory Exam Additional comments: Patient refused to be examined - Cardiovascular Exam Additional comments: Patient refused examination - GI/Abdominal Exam Additional comments: Patient refused examination - Extremities Exam Additional comments: Patient refused examination - Back Exam Additional comments: Patient refused examination - Neurological Exam Neurological Exam: Awake - Psychiatric Exam Psychiatric exam: Depressed, Flat Affect - Skin Skin Exam: Intact, Normal Color Assessment and Plan - Assessment and Plan (Free Text) Plan: Mass of upper lobe of left lung consistent with Neoplasm/Right adrenal mass/ Generalized pain CXR 08/31/17: * Large left upper lobe mass with probable involvement of the left posterior 3rd rib. Findings are concerning for malignancy. Dedicated CT scan of the chest with intravenous contrast is recommended for further characterization. CT abd/pelvis with IV contrast 09/11/17: * Large destructive heterogeneous soft tissue mass in the left lung upper lobe extending to the left upper posterior chest wall and extending to the left aspect of the upper thoracic spine consistent with malignant neoplasm. The mass is extending to upper aspect of the left hilum. Bony erosion and partial destruction of the left upper ribs and left aspect of T3 and T4 vertebral bodies. Left hilum and left mediastinum lymphadenopathy consistent with metastasis. Right adrenal mass likely represent metastasis. Moderate to mildly severe right hydronephrosis and proximal hydroureter up to 10.5 millimeter obstructing calculus at the proximal right ureter. Moderate constipation. * Right adrenal mass likely represent metastasis. Labs: * QFT negative, legionella negative, Mycoplasma Igm negative, Strep Pneumoniae IgG pending, * Negative PPD read; no induration noted (48 hours and 72 hours read) Medications: * Marinol 5mg PO BID Palliative consult * Management as per recommendation * Recommendation, Patient will need a guardian to advocate for him and be his decision making surrogate Subjective fever -Warm to touch as per nurse -blood and urine cultures, U/A, chest xray were order. Pt refused all of the tests. - Medications: - Zosyn 3.375 Gm IV Q6 - REFUSED - Tylenol 325mg PO PRN Refusal of treatment Patient continues to refuse all treatment. He has not allowed blood work to be performed since 09/18/17. Patient is DNR/DNI. Psychiatry Consult, Dr. Martinez Evaluate for capacity * As per psychiatry evaluation: Patient lacks the capacity to make his own medical decisions at this time. Plans for reevaluation at a latter time. * Re-consultation for capacity and evaluation for severe depression and possible pseudodementia (09/14/17); As per documentation, patient is psychiatrically stable for discharge. As per phone conversation with Dr. Martinez, he will addendum note (09/14/17) commenting on patient's capacity * Patient was seen by Dr. 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 Application for medicaid and guardianship in progress Leukocytosis (no labs since 09/18) Patient continues to refuse all treatment. He has not allowed blood work to be performed since 09/18/17. Patient is DNR/DNI. Patient agreed to blood work, 09/20/17: 13.7 On admission: 14.7, patient has been refusing further lab work but continues to state that he would rethink his decision Blood Culture (08/31/17): Negative X5 days UA: LE (2+) and WBC (22), f/u repeat UA and UC (09/15/17) Iron deficiency Anemia (no labs since 09/18) Patient continues to refuse all treatment. He has not allowed blood work to be performed since 09/18/17. Patient is DNR/DNI. Patient is refusing transfusion at the moment RBC indices indicative of iron deficiency anemia Retic Count ELEVATED 2.5, Haptoglobin ELEVATED 369 Vitamin B12 and Folate NORMAL Ferritin NORMAL Homocysteine NORMAL IRON: 16 TIBC: 302 % Saturation: 5 Peripheral smear: Slight Parietal cell Ab negative, Negative intrinsic factor Pending LDH Lice infestation - Resolved Recommendation to shave patient bald; patient refuses Meds: Applied ivermectin and permethrin Given NIX kit once Weight loss Pending HIV, patient refuses blood work Hepatitis panel negative Patient is currently not eating Supplemental diet History of CVA (cerebrovascular accident): Hx of CVA in 2016 with documented right arm and leg weakness Head CT 09/11/17: * A chronic infarct at the left MCA distribution is identified as well as age related neuro degenerative changes which are mildly advanced for the patient's age of 57 years. No intra hemorrhage, mass effect or CT pattern of an acute or subacute brain infarction is appreciated at this time. Follow-up CT or MRI are available if clinically warranted. Pt refusing meds below: Aspirin 81mg PO QD Crestor 10mg PO HS Left shoulder pain Left shoulder X-ray 09/05/2017: No acute fracture. Acromioclavicular degenerative arthritis. History of seizures Patient has been without any seizure activity since admission Prior records show seizure activity Will monitor and if necessary start keppra and ativan Seizure precautions Severe depression Pt refusing medication at this time Prophylactic measure SCDs - pt refusing to wear DVT: Pt refusing Lovenox GI prophylaxis not indicated Disposition: Patient continues to refuse labs, food, treatment and diagnostic testing/medications. Patient complains of stomach pain but does not allow for further questioning and examination. Consider Current diagnosis of abdominal mass with mets. The only medication he accepts to take is marinol and previously , a single dose of tylenol. Will follow up with SW on plans for guardianship. Kristofer Guerra, PGY-[address] Torres <Lamonte Torres - Last Filed: 11/29/17 14:38> Objective - Vital Signs/Intake and Output Vital Signs (last 24 hours): Temp Pulse Resp BP Pulse Ox 98.5 F 98 H 20 100/59 L 95 11/29/17 07:41 11/29/17 07:41 11/29/17 07:41 11/29/17 07:41 11/29/17 07:41 Intake and Output: 11/29/17 11/29/17 06:59 18:59 Intake Total 590 Balance 590 - Medications Medications: Current Medications Acetaminophen (Tylenol 325mg Tab) 650 mg PO Q6 PRN PRN Reason: Fever >100.4 F Last Admin: 11/27/17 19:10 Dose: 650 mg Piperacillin Sod/Tazobactam Sod (Zosyn 3.375 Gm Iv Premix) 3.375 gm in 50 mls @ 100 mls/hr IVPB Q6 DEBRA PRN Reason: Protocol Last Admin: 11/29/17 12:50 Dose: Not Given Oxycodone HCl (Oxycodone Immediate Release Tab) 5 mg PO ONCE PRN PRN Reason: Pain, severe (8-10) Last Admin: 11/29/17 00:22 Dose: 5 mg - Labs Labs: 09/18/17 14:34 09/18/17 14:34 PT 17.5 SECONDS (9.7-12.2) H 08/31/17 17:07 INR 1.5 08/31/17 17:07 APTT 35 SECONDS (21-34) H 08/31/17 17:07 Attending/Attestation - Attestation I have personally seen and examined this patient.: No I have fully participated in the care of the patient.: Yes I have reviewed all pertinent clinical information, including history, physical exam and plan: Yes Notes (Text): Patient is refusing medication and examination. He has metastatic lung cancer. No w has fever spikes. refuses chest x ray, refuses IV line He refuses to talk to me. Refuses examination
[2017-11-28 07:58] LABS: SQUAMOUS EPITHIAL 1 /hpf (0-5); URINE BACTERIA RARE (<OCC); URINE BILIRUBIN NEGATIVE (NEGATIVE); URINE BLOOD NEGATIVE (NEGATIVE); URINE CALCIUM OXALATE CRYSTALS RARE /hpf (<OCC); URINE CLARITY Hazy (Clear); URINE COLOR Yellow (YELLOW); URINE GLUCOSE (UA) NORMAL (Normal); URINE LEUKOCYTE ESTERASE 2+ Leu/uL (Negative); URINE PROTEIN NEGATIVE (NEGATIVE)
[2017-11-28] MEDS ORDERED: oxyCODONE 5 mg Immediate Release Tab PO PRN (21:00)
--- NOTE | 2017-11-29 02:39 | CP.PCM.PN ---
<Sunita Santana - Last Filed: 11/29/17 02:35> Subjective - Date & Time of Evaluation Date of Evaluation: 11/29/17 Time of Evaluation: 02:35 - Subjective Subjective: Medicine progress note for Dr. Torres Patient was seen and examined at bedside in no acute distress. Patient admits to abdominal pain but refuses to describe the pain and refuses medications. The patient does not want to answer questions. Review of systems limited. Objective - Vital Signs/Intake and Output Vital Signs (last 24 hours): Temp Pulse Resp BP Pulse Ox 98.6 F 110 H 20 103/56 L 96 11/29/17 00:00 11/29/17 00:00 11/29/17 00:00 11/29/17 00:00 11/29/17 00:00 Intake and Output: 11/28/17 11/29/17 18:59 06:59 Intake Total 300 350 Balance 300 350 - Medications Medications: Current Medications Acetaminophen (Tylenol 325mg Tab) 650 mg PO Q6 PRN PRN Reason: Fever >100.4 F Last Admin: 11/27/17 19:10 Dose: 650 mg Piperacillin Sod/Tazobactam Sod (Zosyn 3.375 Gm Iv Premix) 3.375 gm in 50 mls @ 100 mls/hr IVPB Q6 DEBRA PRN Reason: Protocol Last Admin: 11/28/17 23:34 Dose: Not Given Oxycodone HCl (Oxycodone Immediate Release Tab) 5 mg PO ONCE PRN PRN Reason: Pain, severe (8-10) Last Admin: 11/29/17 00:22 Dose: 5 mg - Labs Labs: 09/18/17 14:34 09/18/17 14:34 PT 17.5 SECONDS (9.7-12.2) H 08/31/17 17:07 INR 1.5 08/31/17 17:07 APTT 35 SECONDS (21-34) H 08/31/17 17:07 - Constitutional Appears: Unkempt, Older Than Stated Age, Cachectic, Chronically Ill, Other ( Refused examination.) - Head Exam Head Exam: NORMAL INSPECTION - Eye Exam Eye Exam: EOMI - Respiratory Exam Additional comments: Refused examination. - Cardiovascular Exam Additional comments: Refused examination. - GI/Abdominal Exam Additional comments: Refused examination. - Neurological Exam Neurological Exam: Awake - Psychiatric Exam Psychiatric exam: Flat Affect - Skin Skin Exam: Dry Assessment and Plan - Assessment and Plan (Free Text) Plan: Mass of upper lobe of left lung consistent with Neoplasm/Right adrenal mass/ Generalized pain CXR 08/31/17: * Large left upper lobe mass with probable involvement of the left posterior 3rd rib. Findings are concerning for malignancy. Dedicated CT scan of the chest with intravenous contrast is recommended for further characterization. CT abd/pelvis with IV contrast 09/11/17: * Large destructive heterogeneous soft tissue mass in the left lung upper lobe extending to the left upper posterior chest wall and extending to the left aspect of the upper thoracic spine consistent with malignant neoplasm. The mass is extending to upper aspect of the left hilum. Bony erosion and partial destruction of the left upper ribs and left aspect of T3 and T4 vertebral bodies. Left hilum and left mediastinum lymphadenopathy consistent with metastasis. Right adrenal mass likely represent metastasis. Moderate to mildly severe right hydronephrosis and proximal hydroureter up to 10.5 millimeter obstructing calculus at the proximal right ureter. Moderate constipation. * Right adrenal mass likely represent metastasis. Labs: * QFT negative, legionella negative, Mycoplasma Igm negative, Strep Pneumoniae IgG pending, * Negative PPD read; no induration noted (48 hours and 72 hours read) Medications: * Marinol 5mg PO BID Palliative consult * Management as per recommendation * Recommendation, Patient will need a guardian to advocate for him and be his decision making surrogate Fever - Fever on 11/27/17- 101.2F, 101.4F - Blood and urine cultures, U/A, chest xray were order. Pt refused all of the tests. - Medications: * Zosyn 3.375 Gm IV Q6 - REFUSED * Tylenol 325mg PO PRN Refusal of treatment Patient continues to refuse all treatment. He has not allowed blood work to be performed since 09/18/17. Patient is DNR/DNI. Psychiatry Consult, Dr. Martinez Evaluate for capacity * As per psychiatry evaluation: Patient lacks the capacity to make his own medical decisions at this time. Plans for reevaluation at a latter time. * Re-consultation for capacity and evaluation for severe depression and possible pseudodementia (09/14/17); As per documentation, patient is psychiatrically stable for discharge. As per phone conversation with Dr. Martinez, he will addendum note (09/14/17) commenting on patient's capacity * Patient was seen by Dr. 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 Application for medicaid and guardianship in progress Leukocytosis (no labs since 09/18) Patient continues to refuse all treatment. He has not allowed blood work to be performed since 09/18/17. Patient is DNR/DNI. Patient agreed to blood work, 09/20/17: 13.7 On admission: 14.7, patient has been refusing further lab work but continues to state that he would rethink his decision Blood Culture (08/31/17): Negative X5 days UA: LE (2+) and WBC (22), f/u repeat UA and UC (09/15/17) Iron deficiency Anemia (no labs since 09/18) Patient continues to refuse all treatment. He has not allowed blood work to be performed since 09/18/17. Patient is DNR/DNI. Patient is refusing transfusion at the moment RBC indices indicative of iron deficiency anemia Retic Count ELEVATED 2.5, Haptoglobin ELEVATED 369 Vitamin B12 and Folate NORMAL Ferritin NORMAL Homocysteine NORMAL IRON: 16 TIBC: 302 % Saturation: 5 Peripheral smear: Slight Parietal cell Ab negative, Negative intrinsic factor Pending LDH Lice infestation - Resolved Recommendation to shave patient bald; patient refuses Meds: Applied ivermectin and permethrin Given NIX kit once Weight loss Pending HIV, patient refuses blood work Hepatitis panel negative Patient is currently not eating Supplemental diet History of CVA (cerebrovascular accident): Hx of CVA in 2016 with documented right arm and leg weakness Head CT 09/11/17: * A chronic infarct at the left MCA distribution is identified as well as age related neuro degenerative changes which are mildly advanced for the patient's age of 57 years. No intra hemorrhage, mass effect or CT pattern of an acute or subacute brain infarction is appreciated at this time. Follow-up CT or MRI are available if clinically warranted. Pt refusing meds below: Aspirin 81mg PO QD Crestor 10mg PO HS Left shoulder pain Left shoulder X-ray 09/05/2017: No acute fracture. Acromioclavicular degenerative arthritis. History of seizures Patient has been without any seizure activity since admission Prior records show seizure activity Will monitor and if necessary start keppra and ativan Seizure precautions Severe depression Pt refusing medication at this time Prophylactic measure SCDs - pt refusing to wear DVT: Pt refusing Lovenox GI prophylaxis not indicated Disposition: Patient continues to refuse labs, food, treatment and diagnostic testing/medications. Patient complains of stomach pain but does not allow for further questioning and examination. Consider Current diagnosis of abdominal mass with mets. The only medication he accepts to take is marinol and previously , a single dose of tylenol. Will follow up with SW on plans for guardianship. <Lamonte Torres - Last Filed: 12/01/17 18:29> Objective - Vital Signs/Intake and Output Vital Signs (last 24 hours): Temp Pulse Resp BP Pulse Ox 98.2 F 106 H 20 92/57 L 98 12/01/17 00:00 12/01/17 00:00 12/01/17 00:00 12/01/17 00:00 12/01/17 00:00 Intake and Output: 12/01/17 12/01/17 06:59 18:59 Intake Total 540 Output Total 800 300 Balance -260 -300 - Medications Medications: Current Medications Acetaminophen (Tylenol 325mg Tab) 650 mg PO Q6 PRN PRN Reason: Fever >100.4 F Last Admin: 11/27/17 19:10 Dose: 650 mg Oxycodone HCl (Oxycodone Immediate Release Tab) 5 mg PO ONCE PRN PRN Reason: Pain, severe (8-10) Last Admin: 11/29/17 00:22 Dose: 5 mg - Labs Labs: 09/18/17 14:34 09/18/17 14:34 PT 17.5 SECONDS (9.7-12.2) H 08/31/17 17:07 INR 1.5 08/31/17 17:07 APTT 35 SECONDS (21-34) H 08/31/17 17:07 Attending/Attestation - Attestation I have personally seen and examined this patient.: No I have fully participated in the care of the patient.: Yes I have reviewed all pertinent clinical information, including history, physical exam and plan: Yes
[2017-11-29] MEDS: Piperacill/Tazo 3.375gm in Dex 3.375 GM/50 ML BAG IVPB SCH ×4 (07:43→23:28)
[2017-11-30] MEDS: Piperacill/Tazo 3.375gm in Dex 3.375 GM/50 ML BAG IVPB SCH (06:26)
--- NOTE | 2017-12-01 07:23 | CP.PCM.PN ---
<Kristofer Guerra - Last Filed: 12/02/17 00:36> Subjective - Date & Time of Evaluation Date of Evaluation: 12/01/17 Time of Evaluation: 07:30 - Subjective Subjective: PGY-[address] Torres service Patient is seen and examined at bedside. Nursing reports no acute event overnight, and continue to refuse vitals and treatment. Pt found resting comfortably in bed. Pt refused further questioning and examination. Accurate ROS unattainable due to refusal to answer pertaining questions. Objective - Vital Signs/Intake and Output Vital Signs (last 24 hours): Temp Pulse Resp BP Pulse Ox 98.2 F 106 H 20 92/57 L 98 12/01/17 00:00 12/01/17 00:00 12/01/17 00:00 12/01/17 00:00 12/01/17 00:00 Intake and Output: 12/01/17 12/01/17 06:59 18:59 Intake Total 540 Output Total 800 Balance -260 - Medications Medications: Current Medications Acetaminophen (Tylenol 325mg Tab) 650 mg PO Q6 PRN PRN Reason: Fever >100.4 F Last Admin: 11/27/17 19:10 Dose: 650 mg Oxycodone HCl (Oxycodone Immediate Release Tab) 5 mg PO ONCE PRN PRN Reason: Pain, severe (8-10) Last Admin: 11/29/17 00:22 Dose: 5 mg - Labs Labs: 09/18/17 14:34 09/18/17 14:34 PT 17.5 SECONDS (9.7-12.2) H 08/31/17 17:07 INR 1.5 08/31/17 17:07 APTT 35 SECONDS (21-34) H 08/31/17 17:07 - Constitutional Appears: Non-toxic, No Acute Distress - Head Exam Head Exam: ATRAUMATIC, NORMAL INSPECTION - Eye Exam Eye Exam: Normal appearance - Neck Exam Neck Exam: Full ROM - Respiratory Exam Additional comments: refused examination - Cardiovascular Exam Additional comments: refused examination - GI/Abdominal Exam Additional comments: refused examination - Extremities Exam Additional comments: refused examination - Back Exam Additional comments: refused examination - Neurological Exam Additional comments: refused examination - Psychiatric Exam Psychiatric exam: Flat Affect - Skin Additional comments: refused examination Assessment and Plan - Assessment and Plan (Free Text) Plan: Plan: Mass of upper lobe of left lung consistent with Neoplasm/Right adrenal mass/ Generalized pain CXR 08/31/17: * Large left upper lobe mass with probable involvement of the left posterior 3rd rib. Findings are concerning for malignancy. Dedicated CT scan of the chest with intravenous contrast is recommended for further characterization. CT abd/pelvis with IV contrast 09/11/17: * Large destructive heterogeneous soft tissue mass in the left lung upper lobe extending to the left upper posterior chest wall and extending to the left aspect of the upper thoracic spine consistent with malignant neoplasm. The mass is extending to upper aspect of the left hilum. Bony erosion and partial destruction of the left upper ribs and left aspect of T3 and T4 vertebral bodies. Left hilum and left mediastinum lymphadenopathy consistent with metastasis. Right adrenal mass likely represent metastasis. Moderate to mildly severe right hydronephrosis and proximal hydroureter up to 10.5 millimeter obstructing calculus at the proximal right ureter. Moderate constipation. * Right adrenal mass likely represent metastasis. Labs: * QFT negative, legionella negative, Mycoplasma Igm negative, Strep Pneumoniae IgG pending, * Negative PPD read; no induration noted (48 hours and 72 hours read) Medications: * Marinol 5mg PO BID Palliative consult * Management as per recommendation * Recommendation, Patient will need a guardian to advocate for him and be his decision making surrogate Fever - Fever on 11/27/17- 101.2F, 101.4F - Blood and urine cultures, U/A, chest xray were order. Pt refused all of the tests. - Medications: * Zosyn 3.375 Gm IV Q6 - REFUSED * Tylenol 325mg PO PRN Refusal of treatment Patient continues to refuse all treatment. He has not allowed blood work to be performed since 09/18/17. Patient is DNR/DNI. Psychiatry Consult, Dr. Martinez Evaluate for capacity * As per psychiatry evaluation: Patient lacks the capacity to make his own medical decisions at this time. Plans for reevaluation at a latter time. * Re-consultation for capacity and evaluation for severe depression and possible pseudodementia (09/14/17); As per documentation, patient is psychiatrically stable for discharge. As per phone conversation with Dr. Martinez, he will addendum note (09/14/17) commenting on patient's capacity * Patient was seen by Dr. 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 Application for medicaid and guardianship in progress 11/30: Pastoral care services consulted - Patient did not want to talk, allowed his hand to be held. Will F/U Leukocytosis (no labs since 09/18) Patient continues to refuse all treatment. He has not allowed blood work to be performed since 09/18/17. Patient is DNR/DNI. Patient agreed to blood work, 09/20/17: 13.7 On admission: 14.7, patient has been refusing further lab work but continues to state that he would rethink his decision Blood Culture (08/31/17): Negative X5 days UA: LE (2+) and WBC (22), f/u repeat UA and UC (09/15/17) Iron deficiency Anemia (no labs since 09/18) Patient continues to refuse all treatment. He has not allowed blood work to be performed since 09/18/17. Patient is DNR/DNI. Patient is refusing transfusion at the moment RBC indices indicative of iron deficiency anemia Retic Count ELEVATED 2.5, Haptoglobin ELEVATED 369 Vitamin B12 and Folate NORMAL Ferritin NORMAL Homocysteine NORMAL IRON: 16 TIBC: 302 % Saturation: 5 Peripheral smear: Slight Parietal cell Ab negative, Negative intrinsic factor Pending LDH Lice infestation - Resolved Recommendation to shave patient bald; patient refuses Meds: Applied ivermectin and permethrin Given NIX kit once Weight loss Pending HIV, patient refuses blood work Hepatitis panel negative Patient is currently not eating Supplemental diet History of CVA (cerebrovascular accident): Hx of CVA in 2016 with documented right arm and leg weakness Head CT 09/11/17: * A chronic infarct at the left MCA distribution is identified as well as age related neuro degenerative changes which are mildly advanced for the patient's age of 57 years. No intra hemorrhage, mass effect or CT pattern of an acute or subacute brain infarction is appreciated at this time. Follow-up CT or MRI are available if clinically warranted. Pt refusing meds below: Aspirin 81mg PO QD Crestor 10mg PO HS Left shoulder pain Left shoulder X-ray 09/05/2017: No acute fracture. Acromioclavicular degenerative arthritis. History of seizures Patient has been without any seizure activity since admission Prior records show seizure activity Will monitor and if necessary start keppra and ativan Seizure precautions Severe depression Pt refusing medication at this time Prophylactic measure SCDs - pt refusing to wear DVT: Pt refusing Lovenox GI prophylaxis not indicated Disposition: Patient continues to refuse labs, food, treatment and diagnostic testing/medications. Patient complains of stomach pain but does not allow for further questioning and examination. Consider Current diagnosis of abdominal mass with mets. The only medication he accepts to take is marinol and previously , a single dose of tylenol. Will follow up with SW on plans for guardianship. Kristofer Guerra, PGY-1 <Lamonte Torres - Last Filed: 12/02/17 18:06> Objective - Vital Signs/Intake and Output Vital Signs (last 24 hours): Temp Pulse Resp BP Pulse Ox 98.2 F 106 H 20 92/57 L 98 12/01/17 00:00 12/01/17 00:00 12/01/17 00:00 12/01/17 00:00 12/01/17 00:00 Intake and Output: 12/02/17 12/02/17 06:59 18:59 Intake Total 710 Balance 710 - Medications Medications: Current Medications Acetaminophen (Tylenol 325mg Tab) 650 mg PO Q6 PRN PRN Reason: Fever >100.4 F Last Admin: 11/27/17 19:10 Dose: 650 mg Oxycodone HCl (Oxycodone Immediate Release Tab) 5 mg PO ONCE PRN PRN Reason: Pain, severe (8-10) Last Admin: 11/29/17 00:22 Dose: 5 mg - Labs Labs: 09/18/17 14:34 09/18/17 14:34 PT 17.5 SECONDS (9.7-12.2) H 08/31/17 17:07 INR 1.5 08/31/17 17:07 APTT 35 SECONDS (21-34) H 08/31/17 17:07 Attending/Attestation - Attestation I have personally seen and examined this patient.: Yes I have fully participated in the care of the patient.: Yes I have reviewed all pertinent clinical information, including history, physical exam and plan: Yes Notes (Text): Patient was lying comfortable ,c/p pain,not telling where he has pain Irritable mood,Poor intake Patient has metastatic lung cancer. s/p fever Prognosis poor,Doesn't want treatment.Refuses lab,IV line and meds d/w resident I agree with the assessment and the plan of the resident
--- NOTE | 2017-12-04 13:27 | CP.PCM.PN ---
Subjective - Date & Time of Evaluation Date of Evaluation: 12/04/17 Time of Evaluation: 10:00 - Subjective Subjective: Patient is seen and examined at bedside. Nursing reports no acute event overnight, and continue to refuse labs, IV and medications. Pt found resting comfortably in bed. Pt remains silent and refuses to answer questions. Accurate ROS unattainable due to refuse to answers any further questions. Objective - Vital Signs/Intake and Output Vital Signs (last 24 hours): Temp Pulse Resp BP Pulse Ox 98.2 F 98 H 20 97/64 L 96 12/04/17 08:06 12/04/17 08:06 12/04/17 08:06 12/04/17 08:06 12/04/17 08:06 Intake and Output: 12/04/17 12/04/17 06:59 18:59 Intake Total 240 Balance 240 - Medications Medications: Current Medications Acetaminophen (Tylenol 325mg Tab) 650 mg PO Q6 PRN PRN Reason: Fever >100.4 F Last Admin: 11/27/17 19:10 Dose: 650 mg - Labs Labs: 09/18/17 14:34 09/18/17 14:34 PT 17.5 SECONDS (9.7-12.2) H 08/31/17 17:07 INR 1.5 08/31/17 17:07 APTT 35 SECONDS (21-34) H 08/31/17 17:07 - Constitutional Appears: Non-toxic, No Acute Distress - Head Exam Head Exam: ATRAUMATIC, NORMOCEPHALIC - Eye Exam Eye Exam: EOMI, Normal appearance, PERRL - Neck Exam Neck Exam: Full ROM - Respiratory Exam Additional comments: refuses examination - Cardiovascular Exam Additional comments: refuses examination - GI/Abdominal Exam Additional comments: refuses examination - Extremities Exam Additional comments: refuses examination - Back Exam Additional comments: refuses examination - Neurological Exam Neurological Exam: Awake Additional comments: refuses examination - Psychiatric Exam Psychiatric exam: Flat Affect - Skin Additional comments: refuses examination Assessment and Plan - Assessment and Plan (Free Text) Plan: Mass of upper lobe of left lung consistent with Neoplasm/Right adrenal mass/ Generalized pain CXR 08/31/17: * Large left upper lobe mass with probable involvement of the left posterior 3rd rib. Findings are concerning for malignancy. Dedicated CT scan of the chest with intravenous contrast is recommended for further characterization. CT abd/pelvis with IV contrast 09/11/17: * Large destructive heterogeneous soft tissue mass in the left lung upper lobe extending to the left upper posterior chest wall and extending to the left aspect of the upper thoracic spine consistent with malignant neoplasm. The mass is extending to upper aspect of the left hilum. Bony erosion and partial destruction of the left upper ribs and left aspect of T3 and T4 vertebral bodies. Left hilum and left mediastinum lymphadenopathy consistent with metastasis. Right adrenal mass likely represent metastasis. Moderate to mildly severe right hydronephrosis and proximal hydroureter up to 10.5 millimeter obstructing calculus at the proximal right ureter. Moderate constipation. * Right adrenal mass likely represent metastasis. Labs: * QFT negative, legionella negative, Mycoplasma Igm negative, Strep Pneumoniae IgG pending, * Negative PPD read; no induration noted (48 hours and 72 hours read) Medications: * Marinol 5mg PO BID Palliative consult * Management as per recommendation * Recommendation, Patient will need a guardian to advocate for him and be his decision making surrogate Fever - Fever on 11/27/17- 101.2F, 101.4F - Blood and urine cultures, U/A, chest xray were order. Pt refused all of the tests. - Medications: * Zosyn 3.375 Gm IV Q6 - REFUSED * Tylenol 325mg PO PRN Refusal of treatment Patient continues to refuse all treatment. He has not allowed blood work to be performed since 09/18/17. Patient is DNR/DNI. Psychiatry Consult, Dr. Martinez Evaluate for capacity * As per psychiatry evaluation: Patient lacks the capacity to make his own medical decisions at this time. Plans for reevaluation at a latter time. * Re-consultation for capacity and evaluation for severe depression and possible pseudodementia (09/14/17); As per documentation, patient is psychiatrically stable for discharge. As per phone conversation with Dr. Martinez, he will addendum note (09/14/17) commenting on patient's capacity * Patient was seen by Dr. 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 Application for medicaid and guardianship in progress 11/30: Pastoral care services consulted - Patient did not want to talk, allowed his hand to be held. Will F/U Leukocytosis (no labs since 09/18) Patient continues to refuse all treatment. He has not allowed blood work to be performed since 09/18/17. Patient is DNR/DNI. Patient agreed to blood work, 09/20/17: 13.7 On admission: 14.7, patient has been refusing further lab work but continues to state that he would rethink his decision Blood Culture (08/31/17): Negative X5 days UA: LE (2+) and WBC (22), f/u repeat UA and UC (09/15/17) Iron deficiency Anemia (no labs since 09/18) Patient continues to refuse all treatment. He has not allowed blood work to be performed since 09/18/17. Patient is DNR/DNI. Patient is refusing transfusion at the moment RBC indices indicative of iron deficiency anemia Retic Count ELEVATED 2.5, Haptoglobin ELEVATED 369 Vitamin B12 and Folate NORMAL Ferritin NORMAL Homocysteine NORMAL IRON: 16 TIBC: 302 % Saturation: 5 Peripheral smear: Slight Parietal cell Ab negative, Negative intrinsic factor Pending LDH Lice infestation - Resolved Recommendation to shave patient bald; patient refuses Meds: Applied ivermectin and permethrin Given NIX kit once Weight loss Pending HIV, patient refuses blood work Hepatitis panel negative Patient is currently not eating Supplemental diet History of CVA (cerebrovascular accident): Hx of CVA in 2016 with documented right arm and leg weakness Head CT 09/11/17: * A chronic infarct at the left MCA distribution is identified as well as age related neuro degenerative changes which are mildly advanced for the patient's age of 57 years. No intra hemorrhage, mass effect or CT pattern of an acute or subacute brain infarction is appreciated at this time. Follow-up CT or MRI are available if clinically warranted. Pt refusing meds below: Aspirin 81mg PO QD Crestor 10mg PO HS Left shoulder pain Left shoulder X-ray 09/05/2017: No acute fracture. Acromioclavicular degenerative arthritis. History of seizures Patient has been without any seizure activity since admission Prior records show seizure activity Will monitor and if necessary start keppra and ativan Seizure precautions Severe depression Pt refusing medication at this time Prophylactic measure SCDs - pt refusing to wear DVT: Pt refusing Lovenox GI prophylaxis not indicated Disposition: Patient continues to refuse labs, food, treatment and diagnostic testing/medications. Patient complains of stomach pain but does not allow for further questioning and examination. Consider Current diagnosis of abdominal mass with mets. The only medication he accepts to take is marinol and previously , a single dose of tylenol. Will follow up with TODD on plans for guardianship. Kristofer Guerra, PGY-1
--- NOTE | 2017-12-06 06:52 | CP.PCM.PN ---
Subjective - Date & Time of Evaluation Date of Evaluation: 12/06/17 Time of Evaluation: 06:52 - Subjective Subjective: PGY -[address] Rajan service Patient is seen and examined at bedside. Patient is no acute distress. As per nurse, patient complains of abdominal pain and headaches at times. Patient continues to refuses vitals, labs and treatment. Patient says "Do not bother me ". ROS unattainable due to patient refusing. Objective - Vital Signs/Intake and Output Vital Signs (last 24 hours): Temp Pulse Resp BP Pulse Ox 98.4 F 100 H 20 96/68 L 95 12/06/17 00:00 12/06/17 00:00 12/06/17 00:00 12/06/17 00:00 12/06/17 00:00 Intake and Output: 12/05/17 12/06/17 18:59 06:59 Intake Total 240 440 Output Total 300 400 Balance -60 40 - Medications Medications: Current Medications Acetaminophen (Tylenol 325mg Tab) 650 mg PO Q6 PRN PRN Reason: Fever >100.4 F Last Admin: 12/04/17 16:32 Dose: 650 mg - Labs Labs: 09/18/17 14:34 09/18/17 14:34 PT 17.5 SECONDS (9.7-12.2) H 08/31/17 17:07 INR 1.5 08/31/17 17:07 APTT 35 SECONDS (21-34) H 08/31/17 17:07 - Constitutional Appears: Non-toxic, No Acute Distress - Head Exam Head Exam: ATRAUMATIC, NORMAL INSPECTION - Eye Exam Eye Exam: Normal appearance - Neck Exam Neck Exam: Full ROM - Respiratory Exam Additional comments: refused examination - Cardiovascular Exam Additional comments: refused examination - GI/Abdominal Exam Additional comments: refused examination - Extremities Exam Additional comments: Foot scaling, bilaterally on observation refused further examination - Back Exam Additional comments: refused examination - Neurological Exam Neurological Exam: Awake Additional comments: refused neurological examination - Psychiatric Exam Psychiatric exam: Depressed, Flat Affect - Skin Skin Exam: Dry, Intact Assessment and Plan - Assessment and Plan (Free Text) Plan: Plan: Mass of upper lobe of left lung consistent with Neoplasm/Right adrenal mass/ Generalized pain CXR 08/31/17: * Large left upper lobe mass with probable involvement of the left posterior 3rd rib. Findings are concerning for malignancy. Dedicated CT scan of the chest with intravenous contrast is recommended for further characterization. CT abd/pelvis with IV contrast 09/11/17: * Large destructive heterogeneous soft tissue mass in the left lung upper lobe extending to the left upper posterior chest wall and extending to the left aspect of the upper thoracic spine consistent with malignant neoplasm. The mass is extending to upper aspect of the left hilum. Bony erosion and partial destruction of the left upper ribs and left aspect of T3 and T4 vertebral bodies. Left hilum and left mediastinum lymphadenopathy consistent with metastasis. Right adrenal mass likely represent metastasis. Moderate to mildly severe right hydronephrosis and proximal hydroureter up to 10.5 millimeter obstructing calculus at the proximal right ureter. Moderate constipation. * Right adrenal mass likely represent metastasis. Labs: * QFT negative, legionella negative, Mycoplasma Igm negative, Strep Pneumoniae IgG pending, * Negative PPD read; no induration noted (48 hours and 72 hours read) Medications: * Marinol 5mg PO BID Palliative consult * Management as per recommendation * Recommendation, Patient will need a guardian to advocate for him and be his decision making surrogate Abdominal Pain - probable from abdominal Metastasis - Cont Tylenol 650mg PO Q6 PRN Bilateral Foot scaling - possible fungal infection - not able to test due to patient refusal to further examination - Clotrimazole 1% cream TOP BID Fever - Fever on 11/27/17- 101.2F, 101.4F - Blood and urine cultures, U/A, chest xray were order. Pt refused all of the tests. - Medications: * Zosyn 3.375 Gm IV Q6 - REFUSED * Tylenol 325mg PO PRN Refusal of treatment Patient continues to refuse all treatment. He has not allowed blood work to be performed since 09/18/17. Patient is DNR/DNI. Psychiatry Consult, Dr. Martinez Evaluate for capacity * As per psychiatry evaluation: Patient lacks the capacity to make his own medical decisions at this time. Plans for reevaluation at a latter time. * Re-consultation for capacity and evaluation for severe depression and possible pseudodementia (09/14/17); As per documentation, patient is psychiatrically stable for discharge. As per phone conversation with Dr. Martinez, he will addendum note (09/14/17) commenting on patient's capacity * Patient was seen by Dr. Martinez (09/26/17), patient will need guardianship manager technical support, Consultation: Will continue to F/U with case resource manager regarding possible guardianship. Application for medicaid and guardianship in progress 11/30: Pastoral care services consulted - Patient did not want to talk, allowed his hand to be held. Will F/U Leukocytosis (no labs since 09/18) Patient continues to refuse all treatment. He has not allowed blood work to be performed since 09/18/17. Patient is DNR/DNI. Patient agreed to blood work, 09/20/17: 13.7 On admission: 14.7, patient has been refusing further lab work but continues to state that he would rethink his decision Blood Culture (08/31/17): Negative X5 days UA: LE (2+) and WBC (22), f/u repeat UA and UC (09/15/17) Iron deficiency Anemia (no labs since 09/18) Patient continues to refuse all treatment. He has not allowed blood work to be performed since 09/18/17. Patient is DNR/DNI. Patient is refusing transfusion at the moment RBC indices indicative of iron deficiency anemia Retic Count ELEVATED 2.5, Haptoglobin ELEVATED 369 Vitamin B12 and Folate NORMAL Ferritin NORMAL Homocysteine NORMAL IRON: 16 TIBC: 302 % Saturation: 5 Peripheral smear: Slight Parietal cell Ab negative, Negative intrinsic factor Pending LDH Lice infestation - Resolved Recommendation to shave patient bald; patient refuses Meds: Applied ivermectin and permethrin Given NIX kit once Weight loss Pending HIV, patient refuses blood work Hepatitis panel negative Patient is currently not eating Supplemental diet History of CVA (cerebrovascular accident): Hx of CVA in 2016 with documented right arm and leg weakness Head CT 09/11/17: * A chronic infarct at the left MCA distribution is identified as well as age related neuro degenerative changes which are mildly advanced for the patient's age of 57 years. No intra hemorrhage, mass effect or CT pattern of an acute or subacute brain infarction is appreciated at this time. Follow-up CT or MRI are available if clinically warranted. Pt refusing meds below: Aspirin 81mg PO QD Crestor 10mg PO HS Left shoulder pain Left shoulder X-ray 09/05/2017: No acute fracture. Acromioclavicular degenerative arthritis. History of seizures Patient has been without any seizure activity since admission Prior records show seizure activity Will monitor and if necessary start keppra and ativan Seizure precautions Severe depression Pt refusing medication at this time Prophylactic measure SCDs - pt refusing to wear DVT: Pt refusing Lovenox GI prophylaxis not indicated Disposition: Patient continues to refuse labs, food, treatment and diagnostic testing/medications. Patient complains of stomach pain but does not allow for further questioning and examination. Consider Current diagnosis of abdominal mass with mets. The only medication he accepts to take is marinol and previously , a single dose of tylenol. Will follow up with SW on plans for guardianship. Kristofer Guerra, PGY-1
[2017-12-06] MEDS ORDERED: Clotrimazole 1% Cream(30 gm) TOP SCH (18:00)
[2017-12-07] MEDS: Clotrimazole 1% Cream(30 gm) TOP SCH ×2 (10:29→17:08)
--- NOTE | 2017-12-08 07:28 | CP.PCM.PN ---
<Rachel Mendes Y - Last Filed: 12/08/17 17:47> Subjective - Date & Time of Evaluation Date of Evaluation: 12/08/17 Time of Evaluation: 07:28 - Subjective Subjective: PGY-1 Medicine Progress Note for hospitalist Dr. Webber. Patient was seen and examined today at bedside in no acute distress. Nurse reports no overnight events. Patient continues to be uncooperative, refusing vitals, medications, labs, and treatment. Complains of generalized pain today, but would not elaborate and stopped responding to questions. Unable to obtain ROS due to patient resistance. Objective - Vital Signs/Intake and Output Vital Signs (last 24 hours): Temp Pulse Resp BP Pulse Ox 98.2 F 110 H 20 100/58 L 98 12/08/17 00:00 12/08/17 00:00 12/08/17 00:00 12/08/17 00:00 12/08/17 00:00 Intake and Output: 12/08/17 12/08/17 06:59 18:59 Intake Total 480 Output Total 400 Balance 80 - Medications Medications: Current Medications Acetaminophen (Tylenol 325mg Tab) 650 mg PO Q6 PRN PRN Reason: Fever >100.4 F Last Admin: 12/04/17 16:32 Dose: 650 mg Clotrimazole (Lotrimin 1%) 0 gm TOP BID DEBRA Last Admin: 12/07/17 17:08 Dose: Not Given - Labs Labs: 09/18/17 14:34 09/18/17 14:34 PT 17.5 SECONDS (9.7-12.2) H 08/31/17 17:07 INR 1.5 08/31/17 17:07 APTT 35 SECONDS (21-34) H 08/31/17 17:07 - Constitutional Appears: No Acute Distress, Unkempt, Agitated - Head Exam Head Exam: ATRAUMATIC, NORMAL INSPECTION, NORMOCEPHALIC - Eye Exam Eye Exam: EOMI, Normal appearance, PERRL - ENT Exam ENT Exam: Mucous Membranes Moist, Normal Exam - Respiratory Exam Respiratory Exam: Rales, NORMAL BREATHING PATTERN. absent: Rhonchi, Wheezes Additional comments: mild rales in left lower lobe - Cardiovascular Exam Cardiovascular Exam: REGULAR RHYTHM, RRR, +S1, +S2. absent: Murmur - GI/Abdominal Exam Additional comments: refused - Extremities Exam Additional comments: refused - Back Exam Additional comments: refused - Neurological Exam Additional comments: refused - Psychiatric Exam Psychiatric exam: Agitated, Flat Affect - Skin Skin Exam: Dry, Intact, Normal Color, Warm Assessment and Plan - Assessment and Plan (Free Text) Plan: Plan: Mass of upper lobe of left lung consistent with Neoplasm/Right adrenal mass/ Generalized pain CXR 08/31/17: * Large left upper lobe mass with probable involvement of the left posterior 3rd rib. Findings are concerning for malignancy. Dedicated CT scan of the chest with intravenous contrast is recommended for further characterization. CT abd/pelvis with IV contrast 09/11/17: * Large destructive heterogeneous soft tissue mass in the left lung upper lobe extending to the left upper posterior chest wall and extending to the left aspect of the upper thoracic spine consistent with malignant neoplasm. The mass is extending to upper aspect of the left hilum. Bony erosion and partial destruction of the left upper ribs and left aspect of T3 and T4 vertebral bodies. Left hilum and left mediastinum lymphadenopathy consistent with metastasis. Right adrenal mass likely represent metastasis. Moderate to mildly severe right hydronephrosis and proximal hydroureter up to 10.5 millimeter obstructing calculus at the proximal right ureter. Moderate constipation. * Right adrenal mass likely represent metastasis. Labs: * QFT negative, legionella negative, Mycoplasma Igm negative, Strep Pneumoniae IgG pending, * Negative PPD read; no induration noted (48 hours and 72 hours read) Medications: * Marinol 5mg PO BID (stopped because patient refuses all medications) Palliative consult * Management as per recommendation * Recommendation, Patient will need a guardian to advocate for him and be his decision making surrogate Abdominal Pain - probable from abdominal Metastasis - Cont Tylenol 650mg PO Q6 PRN Bilateral Foot scaling - possible fungal infection - not able to test due to patient refusal to further examination - Clotrimazole 1% cream TOP BID Fever - Fever on 11/27/17- 101.2F, 101.4F - Blood and urine cultures, U/A, chest xray were ordered. Pt refused all of the tests. - Medications: * Zosyn 3.375 Gm IV Q6 - REFUSED * Tylenol 325mg PO PRN Refusal of treatment Patient continues to refuse all treatment. He has not allowed blood work to be performed since 09/18/17. Patient is DNR/DNI. Psychiatry Consult, Dr. Martinez Evaluate for capacity * As per psychiatry evaluation: Patient lacks the capacity to make his own medical decisions at this time. Plans for reevaluation at a latter time. * Re-consultation for capacity and evaluation for severe depression and possible pseudodementia (09/14/17); As per documentation, patient is psychiatrically stable for discharge. As per phone conversation with Dr. Martinez, he will addendum note (09/14/17) commenting on patient's capacity * Patient was seen by Dr. Martinez (09/26/17), patient will need guardianship continuum of care manager, Consultation: Will continue to F/U with mental health case manager regarding possible guardianship. Application for medicaid and guardianship in progress 11/30: Pastoral care services consulted - Patient did not want to talk, allowed his hand to be held. Will F/U Leukocytosis (no labs since 09/18) Patient continues to refuse all treatment. He has not allowed blood work to be performed since 09/18/17. Patient is DNR/DNI. Patient agreed to blood work, 09/20/17: 13.7 On admission: 14.7, patient has been refusing further lab work but continues to state that he would rethink his decision Blood Culture (08/31/17): Negative X5 days UA: LE (2+) and WBC (22), f/u repeat UA and UC (09/15/17) Iron deficiency Anemia (no labs since 09/18) Patient continues to refuse all treatment. He has not allowed blood work to be performed since 09/18/17. Patient is DNR/DNI. Patient is refusing transfusion at the moment RBC indices indicative of iron deficiency anemia Retic Count ELEVATED 2.5, Haptoglobin ELEVATED 369 Vitamin B12 and Folate NORMAL Ferritin NORMAL Homocysteine NORMAL IRON: 16 TIBC: 302 % Saturation: 5 Peripheral smear: Slight Parietal cell Ab negative, Negative intrinsic factor Pending LDH -patient refused labs Lice infestation - Resolved Recommendation to shave patient bald; patient refuses Meds: Applied ivermectin and permethrin Given NIX kit once Weight loss Pending HIV, patient refuses blood work Hepatitis panel negative Patient is currently not eating Supplemental diet History of CVA (cerebrovascular accident): Hx of CVA in 2016 with documented right arm and leg weakness Head CT 09/11/17: * A chronic infarct at the left MCA distribution is identified as well as age related neuro degenerative changes which are mildly advanced for the patient's age of 57 years. No intra hemorrhage, mass effect or CT pattern of an acute or subacute brain infarction is appreciated at this time. Follow-up CT or MRI are available if clinically warranted. Pt refusing meds below: Aspirin 81mg PO QD Crestor 10mg PO HS Left shoulder pain Left shoulder X-ray 09/05/2017: No acute fracture. Acromioclavicular degenerative arthritis. History of seizures Patient has been without any seizure activity since admission Prior records show seizure activity Will monitor and if necessary start keppra and ativan Seizure precautions Severe depression Pt refusing medication at this time Prophylactic measure SCDs - pt refusing to wear DVT: Pt refusing Lovenox GI prophylaxis not indicated Disposition: Patient continues to refuse labs, food, treatment and diagnostic testing/medications. Patient complains of stomach pain but does not allow for further questioning and examination. Consider Current diagnosis of abdominal mass with mets. The only medication he accepts to take is marinol and previously , a single dose of tylenol. Will follow up with SW on plans for guardianship. Rachel Mendes PGY-1. Case discussed with Dr. Webber. <Kenzie Webber V - Last Filed: 12/08/17 22:46> Objective - Vital Signs/Intake and Output Vital Signs (last 24 hours): Temp Pulse Resp BP Pulse Ox 98.2 F 110 H 20 100/58 L 98 12/08/17 00:00 12/08/17 00:00 12/08/17 00:00 12/08/17 00:00 12/08/17 00:00 Intake and Output: 12/08/17 12/09/17 18:59 06:59 Intake Total 300 Output Total 400 Balance -100 - Medications Medications: Current Medications Acetaminophen (Tylenol 325mg Tab) 650 mg PO Q6 PRN PRN Reason: Fever >100.4 F Last Admin: 12/08/17 14:48 Dose: 650 mg Clotrimazole (Lotrimin 1%) 0 gm TOP BID DEBRA Last Admin: 12/08/17 18:39 Dose: Not Given - Labs Labs: 09/18/17 14:34 09/18/17 14:34 PT 17.5 SECONDS (9.7-12.2) H 08/31/17 17:07 INR 1.5 08/31/17 17:07 APTT 35 SECONDS (21-34) H 08/31/17 17:07 Attending/Attestation - Attestation I have personally seen and examined this patient.: Yes I have fully participated in the care of the patient.: Yes I have reviewed all pertinent clinical information, including history, physical exam and plan: Yes Notes (Text): Brief Hospitalist Note Patient seen at bedside with resident. This is the first time I have met this patient. I have been endorsed about this patient from my colleagues. However when I entered the room, patient does not want us even talking to him, let alone a physical exam. Patient has eaten his lunch at bedside and multiple iced teas noted. he is verbal and speaking in sentences.
[2017-12-08] MEDS: Clotrimazole 1% Cream(30 gm) TOP SCH ×2 (10:53→18:39)
[2017-12-09] MEDS: Clotrimazole 1% Cream(30 gm) TOP SCH ×2 (11:00→17:28)
--- NOTE | 2017-12-09 16:11 | CP.PCM.PCO ---
Physician Communication Note - Physician Communication Note Physician Communication Note: patient refuses to be seen.
[2017-12-10] MEDS: Clotrimazole 1% Cream(30 gm) TOP SCH ×2 (09:43→17:14)
--- NOTE | 2017-12-11 11:08 | CP.PCM.PN ---
<Kristofer Guerra - Last Filed: 12/11/17 20:36> Subjective - Date & Time of Evaluation Date of Evaluation: 12/11/17 Time of Evaluation: 11:07 - Subjective Subjective: Patient was seen and examined at bedside. Patient was sleeping in bed. as per nurse, no acute events overnight were reported. As per nurse, patient continues to refuse his medications, vitals and blood work. Patient was asked about abdominal pain at the moment. Patient reports having pain in his stomach. Patient refuses to specify or answer any further questions. Patient mentions he wants to leave the hospital. Accurate ROS was unattainable due to patient refusing to answer questions regarding his health. Objective - Vital Signs/Intake and Output Vital Signs (last 24 hours): Temp Pulse Resp BP Pulse Ox 98.4 F 112 H 20 101/64 97 12/11/17 00:00 12/11/17 00:00 12/11/17 00:00 12/11/17 00:00 12/11/17 00:00 Intake and Output: 12/11/17 12/11/17 06:59 18:59 Intake Total 100 Balance 100 - Medications Medications: Current Medications Acetaminophen (Tylenol 325mg Tab) 650 mg PO Q6 PRN PRN Reason: Fever >100.4 F Last Admin: 12/09/17 16:12 Dose: 650 mg Clotrimazole (Lotrimin 1%) 0 gm TOP BID DEBRA Last Admin: 12/10/17 17:14 Dose: Not Given - Labs Labs: 09/18/17 14:34 09/18/17 14:34 PT 17.5 SECONDS (9.7-12.2) H 08/31/17 17:07 INR 1.5 08/31/17 17:07 APTT 35 SECONDS (21-34) H 08/31/17 17:07 - Constitutional Appears: Non-toxic, No Acute Distress - Head Exam Head Exam: ATRAUMATIC, NORMAL INSPECTION, NORMOCEPHALIC - Eye Exam Eye Exam: EOMI, Normal appearance, PERRL - ENT Exam ENT Exam: Mucous Membranes Dry - Neck Exam Neck Exam: Full ROM - Respiratory Exam Additional comments: refused examination - Cardiovascular Exam Cardiovascular Exam: REGULAR RHYTHM, +S1, +S2 - GI/Abdominal Exam Additional comments: refused examination - Extremities Exam Additional comments: refused examination - Back Exam Additional comments: refused examination - Neurological Exam Additional comments: refused examination - Psychiatric Exam Psychiatric exam: Depressed - Skin Skin Exam: Dry Assessment and Plan - Assessment and Plan (Free Text) Plan: Mass of upper lobe of left lung consistent with Neoplasm/Right adrenal mass/ Generalized pain CXR 08/31/17: * Large left upper lobe mass with probable involvement of the left posterior 3rd rib. Findings are concerning for malignancy. Dedicated CT scan of the chest with intravenous contrast is recommended for further characterization. CT abd/pelvis with IV contrast 09/11/17: * Large destructive heterogeneous soft tissue mass in the left lung upper lobe extending to the left upper posterior chest wall and extending to the left aspect of the upper thoracic spine consistent with malignant neoplasm. The mass is extending to upper aspect of the left hilum. Bony erosion and partial destruction of the left upper ribs and left aspect of T3 and T4 vertebral bodies. Left hilum and left mediastinum lymphadenopathy consistent with metastasis. Right adrenal mass likely represent metastasis. Moderate to mildly severe right hydronephrosis and proximal hydroureter up to 10.5 millimeter obstructing calculus at the proximal right ureter. Moderate constipation. * Right adrenal mass likely represent metastasis. Labs: * QFT negative, legionella negative, Mycoplasma Igm negative, Strep Pneumoniae IgG pending, * Negative PPD read; no induration noted (48 hours and 72 hours read) Medications: * Marinol 5mg PO BID (stopped because patient refuses all medications) Palliative consult * Management as per recommendation * Recommendation, Patient will need a guardian to advocate for him and be his decision making surrogate Abdominal Pain - probable from abdominal Metastasis - Cont Tylenol 650mg PO Q6 PRN Bilateral Foot scaling - possible fungal infection - not able to test due to patient refusal to further examination - Clotrimazole 1% cream TOP BID Fever - Fever on 11/27/17- 101.2F, 101.4F - Blood and urine cultures, U/A, chest xray were ordered. Pt refused all of the tests. - Medications: * Zosyn 3.375 Gm IV Q6 - REFUSED * Tylenol 325mg PO PRN Refusal of treatment Patient continues to refuse all treatment. He has not allowed blood work to be performed since 09/18/17. Patient is DNR/DNI. Psychiatry Consult, Dr. Martinez Evaluate for capacity * As per psychiatry evaluation: Patient lacks the capacity to make his own medical decisions at this time. Plans for reevaluation at a latter time. * Re-consultation for capacity and evaluation for severe depression and possible pseudodementia (09/14/17); As per documentation, patient is psychiatrically stable for discharge. As per phone conversation with Dr. Martinez, he will addendum note (09/14/17) commenting on patient's capacity * Patient was seen by Dr. Martinez (09/26/17), patient will need guardianship forms analysis manager, Consultation: Will continue to F/U with pillowcase maker regarding possible guardianship. Application for medicaid and guardianship in progress 11/30: Pastoral care services consulted - Patient did not want to talk, allowed his hand to be held. Will F/U 12/04: pastoral care f/u: patient was vulgar in his response regarding choice of care. It was emphasized that medical team will honor his choice of care. Pastoral care will continue to f/u Leukocytosis (no labs since 09/18) Patient continues to refuse all treatment. He has not allowed blood work to be performed since 09/18/17. Patient is DNR/DNI. Patient agreed to blood work, 09/20/17: 13.7 On admission: 14.7, patient has been refusing further lab work but continues to state that he would rethink his decision Blood Culture (08/31/17): Negative X5 days UA: LE (2+) and WBC (22), f/u repeat UA and UC (09/15/17) Iron deficiency Anemia (no labs since 09/18) Patient continues to refuse all treatment. He has not allowed blood work to be performed since 09/18/17. Patient is DNR/DNI. Patient is refusing transfusion at the moment RBC indices indicative of iron deficiency anemia Retic Count ELEVATED 2.5, Haptoglobin ELEVATED 369 Vitamin B12 and Folate NORMAL Ferritin NORMAL Homocysteine NORMAL IRON: 16 TIBC: 302 % Saturation: 5 Peripheral smear: Slight Parietal cell Ab negative, Negative intrinsic factor Pending LDH -patient refused labs Lice infestation - Resolved Recommendation to shave patient bald; patient refuses Meds: Applied ivermectin and permethrin Given NIX kit once Weight loss Pending HIV, patient refuses blood work Hepatitis panel negative Patient is currently not eating Supplemental diet History of CVA (cerebrovascular accident): Hx of CVA in 2016 with documented right arm and leg weakness Head CT 09/11/17: * A chronic infarct at the left MCA distribution is identified as well as age related neuro degenerative changes which are mildly advanced for the patient's age of 57 years. No intra hemorrhage, mass effect or CT pattern of an acute or subacute brain infarction is appreciated at this time. Follow-up CT or MRI are available if clinically warranted. Pt refusing meds below: Aspirin 81mg PO QD Crestor 10mg PO HS Left shoulder pain Left shoulder X-ray 09/05/2017: No acute fracture. Acromioclavicular degenerative arthritis. History of seizures Patient has been without any seizure activity since admission Prior records show seizure activity Will monitor and if necessary start keppra and ativan Seizure precautions Severe depression Pt refusing medication at this time Prophylactic measure SCDs - pt refusing to wear DVT: Pt refusing Lovenox GI prophylaxis not indicated Disposition: Patient continues to refuse labs, food, treatment and diagnostic testing/medications. Patient complains of stomach pain but does not allow for further questioning and examination. Consider Current diagnosis of abdominal mass with mets. The only medication he accepts to take is marinol and previously , a single dose of tylenol. Will follow up with SW on plans for guardianship. Kristofer Guerra, PGY-1 <Lamonte Torres - Last Filed: 12/12/17 14:01> Objective - Vital Signs/Intake and Output Vital Signs (last 24 hours): Temp Pulse Resp BP Pulse Ox 98.7 F 99 H 20 125/70 96 12/12/17 08:00 12/12/17 08:00 12/12/17 08:00 12/12/17 08:00 12/12/17 08:00 Intake and Output: 12/12/17 12/12/17 06:59 18:59 Intake Total 200 Output Total 250 Balance -50 - Medications Medications: Current Medications Acetaminophen (Tylenol 325mg Tab) 650 mg PO Q6 PRN PRN Reason: Fever >100.4 F Last Admin: 12/09/17 16:12 Dose: 650 mg Clotrimazole (Lotrimin 1%) 0 gm TOP BID DEBRA Last Admin: 12/12/17 09:54 Dose: Not Given - Labs Labs: 09/18/17 14:34 09/18/17 14:34 PT 17.5 SECONDS (9.7-12.2) H 08/31/17 17:07 INR 1.5 08/31/17 17:07 APTT 35 SECONDS (21-34) H 08/31/17 17:07 Attending/Attestation - Attestation I have personally seen and examined this patient.: Yes I have fully participated in the care of the patient.: Yes I have reviewed all pertinent clinical information, including history, physical exam and plan: Yes Notes (Text): Patient was very agitated during examination. doesn't want to be disturbed He is not answering questions. d/w resident. I agree with this documentation Patient has poor prognosis continue comfort care PRN pain meds
[2017-12-11] MEDS: Clotrimazole 1% Cream(30 gm) TOP SCH ×2 (13:48→18:56)
[2017-12-12] MEDS: Clotrimazole 1% Cream(30 gm) TOP SCH ×2 (09:54→18:02)
--- NOTE | 2017-12-13 05:29 | CP.PCM.PN ---
<Kristofer Guerra - Last Filed: 12/13/17 13:27> Subjective - Date & Time of Evaluation Date of Evaluation: 12/13/17 Time of Evaluation: 05:29 - Subjective Subjective: PGY-[address] Torres service Patient is seen and examined by bedside. Patient is awake and lying in bed. Patient seemed very upset at my arrival. Patient says "leave me alone". Patient continues to refuse vitals, medications and blood work. Adequate ROS was not obtained due to patient's refusal to medical encounter. Objective - Vital Signs/Intake and Output Vital Signs (last 24 hours): Temp Pulse Resp BP Pulse Ox 98.7 F 99 H 20 125/70 96 12/12/17 08:00 12/12/17 08:00 12/12/17 08:00 12/12/17 08:00 12/12/17 08:00 Intake and Output: 12/12/17 12/13/17 18:59 06:59 Intake Total 200 Output Total 300 Balance -100 - Medications Medications: Current Medications Acetaminophen (Tylenol 325mg Tab) 650 mg PO Q6 PRN PRN Reason: Fever >100.4 F Last Admin: 12/09/17 16:12 Dose: 650 mg Clotrimazole (Lotrimin 1%) 0 gm TOP BID DEBRA Last Admin: 12/12/17 18:02 Dose: Not Given - Labs Labs: 09/18/17 14:34 09/18/17 14:34 PT 17.5 SECONDS (9.7-12.2) H 08/31/17 17:07 INR 1.5 08/31/17 17:07 APTT 35 SECONDS (21-34) H 08/31/17 17:07 - Constitutional Appears: Non-toxic, No Acute Distress - Head Exam Head Exam: ATRAUMATIC, NORMAL INSPECTION, NORMOCEPHALIC - Eye Exam Eye Exam: Normal appearance - ENT Exam ENT Exam: Mucous Membranes Dry - Neck Exam Neck Exam: Full ROM, Normal Inspection - Respiratory Exam Additional comments: Patient refused examination - Cardiovascular Exam Additional comments: Patient refuses examination - GI/Abdominal Exam Additional comments: Patient refuses examination - Extremities Exam Additional comments: refuses examination - Back Exam Additional comments: refuses examination - Neurological Exam Neurological Exam: Awake Additional comments: Patient refuses examination - Psychiatric Exam Psychiatric exam: Depressed - Skin Skin Exam: Dry Assessment and Plan - Assessment and Plan (Free Text) Plan: Mass of upper lobe of left lung consistent with Neoplasm/Right adrenal mass/ Generalized pain CXR 08/31/17: * Large left upper lobe mass with probable involvement of the left posterior 3rd rib. Findings are concerning for malignancy. Dedicated CT scan of the chest with intravenous contrast is recommended for further characterization. CT abd/pelvis with IV contrast 09/11/17: * Large destructive heterogeneous soft tissue mass in the left lung upper lobe extending to the left upper posterior chest wall and extending to the left aspect of the upper thoracic spine consistent with malignant neoplasm. The mass is extending to upper aspect of the left hilum. Bony erosion and partial destruction of the left upper ribs and left aspect of T3 and T4 vertebral bodies. Left hilum and left mediastinum lymphadenopathy consistent with metastasis. Right adrenal mass likely represent metastasis. Moderate to mildly severe right hydronephrosis and proximal hydroureter up to 10.5 millimeter obstructing calculus at the proximal right ureter. Moderate constipation. * Right adrenal mass likely represent metastasis. Labs: * QFT negative, legionella negative, Mycoplasma Igm negative, Strep Pneumoniae IgG pending, * Negative PPD read; no induration noted (48 hours and 72 hours read) Medications: * Marinol 5mg PO BID (stopped because patient refuses all medications) Palliative consult * Management as per recommendation * Recommendation, Patient will need a guardian to advocate for him and be his decision making surrogate Abdominal Pain - probable from abdominal Metastasis - Cont Tylenol 650mg PO Q6 PRN Bilateral Foot scaling - possible fungal infection - not able to test due to patient refusal to further examination - Clotrimazole 1% cream TOP BID - REFUSES Fever - refuses vitals - Blood and urine cultures, U/A, chest xray were ordered. Pt refused all of the tests. - Medications: * Tylenol 325mg PO PRN Refusal of treatment Patient continues to refuse all treatment. He has not allowed blood work to be performed since 09/18/17. Patient is DNR/DNI. Psychiatry Consult, Dr. Martinez Evaluate for capacity * As per psychiatry evaluation: Patient lacks the capacity to make his own medical decisions at this time. Plans for reevaluation at a latter time. * Re-consultation for capacity and evaluation for severe depression and possible pseudodementia (09/14/17); As per documentation, patient is psychiatrically stable for discharge. As per phone conversation with Dr. Martinez, he will addendum note (09/14/17) commenting on patient's capacity * Patient was seen by Dr. Martinez (09/26/17), patient will need guardianship assistant front office manager, Consultation: Will continue to F/U with mental health case manager regarding possible guardianship. Application for medicaid and guardianship in progress 11/30: Pastoral care services consulted - Patient did not want to talk, allowed his hand to be held. Will F/U 12/04: pastoral care f/u: patient was vulgar in his response regarding choice of care. It was emphasized that medical team will honor his choice of care. Pastoral care will continue to f/u Leukocytosis (no labs since 09/18) Patient continues to refuse all treatment. He has not allowed blood work to be performed since 09/18/17. Patient is DNR/DNI. Patient agreed to blood work, 09/20/17: 13.7 On admission: 14.7, patient has been refusing further lab work but continues to state that he would rethink his decision Blood Culture (08/31/17): Negative X5 days UA: LE (2+) and WBC (22), f/u repeat UA and UC (09/15/17) Iron deficiency Anemia (no labs since 09/18) Patient continues to refuse all treatment. He has not allowed blood work to be performed since 09/18/17. Patient is DNR/DNI. Patient is refusing transfusion at the moment RBC indices indicative of iron deficiency anemia Retic Count ELEVATED 2.5, Haptoglobin ELEVATED 369 Vitamin B12 and Folate NORMAL Ferritin NORMAL Homocysteine NORMAL IRON: 16 TIBC: 302 % Saturation: 5 Peripheral smear: Slight Parietal cell Ab negative, Negative intrinsic factor Pending LDH -patient refused labs Weight loss Pending HIV, patient refuses blood work Hepatitis panel negative Patient is currently not eating Supplemental diet History of CVA (cerebrovascular accident): Hx of CVA in 2016 with documented right arm and leg weakness Head CT 09/11/17: * A chronic infarct at the left MCA distribution is identified as well as age related neuro degenerative changes which are mildly advanced for the patient's age of 57 years. No intra hemorrhage, mass effect or CT pattern of an acute or subacute brain infarction is appreciated at this time. Follow-up CT or MRI are available if clinically warranted. Pt refusing meds below: Aspirin 81mg PO QD Crestor 10mg PO HS Left shoulder pain Left shoulder X-ray 09/05/2017: No acute fracture. Acromioclavicular degenerative arthritis. History of seizures Patient has been without any seizure activity since admission Prior records show seizure activity Will monitor and if necessary start keppra and ativan Seizure precautions Severe depression Pt refusing medication at this time Patient refuses Pastoral care services. Prophylactic measure SCDs - pt refusing to wear DVT: Pt refusing Lovenox GI prophylaxis not indicated Disposition: Patient continues to refuse labs, food, treatment and diagnostic testing/medications. Patient complains of stomach pain but does not allow for further questioning and examination. Consider Current diagnosis of abdominal mass with mets. The only medication he accepts to take is marinol and previously , a single dose of tylenol. Will follow up with SW on plans for guardianship. Kristofer Guerra, PGY-[address] Torres <Lamonte Torres - Last Filed: 12/14/17 17:32> Objective - Vital Signs/Intake and Output Vital Signs (last 24 hours): Temp Pulse Resp BP Pulse Ox 98.7 F 99 H 20 125/70 96 12/12/17 08:00 12/12/17 08:00 12/12/17 08:00 12/12/17 08:00 12/12/17 08:00 Intake and Output: 12/14/17 12/14/17 06:59 18:59 Intake Total 250 300 Output Total 300 Balance 250 0 - Medications Medications: Current Medications Acetaminophen (Tylenol 325mg Tab) 650 mg PO Q6 PRN PRN Reason: Fever >100.4 F Last Admin: 12/09/17 16:12 Dose: 650 mg Clotrimazole (Lotrimin 1%) 0 gm TOP BID DEBRA Last Admin: 12/14/17 10:30 Dose: 1 appl - Labs Labs: 09/18/17 14:34 09/18/17 14:34 PT 17.5 SECONDS (9.7-12.2) H 08/31/17 17:07 INR 1.5 08/31/17 17:07 APTT 35 SECONDS (21-34) H 08/31/17 17:07 Attending/Attestation - Attestation I have personally seen and examined this patient.: No I have fully participated in the care of the patient.: Yes I have reviewed all pertinent clinical information, including history, physical exam and plan: Yes Notes (Text): Refuses care. Asked me to leave the room
[2017-12-13] MEDS: Clotrimazole 1% Cream(30 gm) TOP SCH (17:12)
[2017-12-14] MEDS: Clotrimazole 1% Cream(30 gm) TOP SCH ×2 (10:30→18:23)
[2017-12-15] MEDS: Clotrimazole 1% Cream(30 gm) TOP SCH ×2 (09:29→17:12)
--- NOTE | 2017-12-15 15:13 | CP.PCM.PN ---
<Zaynab Winslow P - Last Filed: 12/16/17 02:33> Subjective - Date & Time of Evaluation Date of Evaluation: 12/15/17 Time of Evaluation: 12:00 - Subjective Subjective: PGY-[address] Torres service Patient is seen at bedside. Patient is awake and lying in bed. When attempted to interview the patient he demanded to "get away" and refused to answer any questions. Unable to obtain further history or ROS. Objective - Vital Signs/Intake and Output Vital Signs (last 24 hours): Temp Pulse Resp BP Pulse Ox 98 F 105 H 20 96/63 L 96 12/15/17 08:12 12/15/17 08:12 12/15/17 08:12 12/15/17 08:12 12/15/17 08:12 Intake and Output: 12/15/17 12/15/17 06:59 18:59 Intake Total 660 350 Output Total 700 400 Balance -40 -50 - Medications Medications: Current Medications Acetaminophen (Tylenol 325mg Tab) 650 mg PO Q6H PRN PRN Reason: Fever >100.4 F Last Admin: 12/15/17 00:15 Dose: 650 mg Clotrimazole (Lotrimin 1%) 0 gm TOP BID DEBRA Last Admin: 12/15/17 09:29 Dose: 1 appl - Labs Labs: 09/18/17 14:34 09/18/17 14:34 PT 17.5 SECONDS (9.7-12.2) H 08/31/17 17:07 INR 1.5 08/31/17 17:07 APTT 35 SECONDS (21-34) H 08/31/17 17:07 - Constitutional Appears: No Acute Distress - Head Exam Head Exam: ATRAUMATIC, NORMOCEPHALIC - Eye Exam Eye Exam: EOMI - Additional Findings Additional findings: Unable to fully assess patient, as he refused examination. Assessment and Plan - Assessment and Plan (Free Text) Plan: Mass of upper lobe of left lung consistent with Neoplasm/Right adrenal mass/ Generalized pain CXR 08/31/17: * Large left upper lobe mass with probable involvement of the left posterior 3rd rib. Findings are concerning for malignancy. Dedicated CT scan of the chest with intravenous contrast is recommended for further characterization. CT abd/pelvis with IV contrast 09/11/17: * Large destructive heterogeneous soft tissue mass in the left lung upper lobe extending to the left upper posterior chest wall and extending to the left aspect of the upper thoracic spine consistent with malignant neoplasm. The mass is extending to upper aspect of the left hilum. Bony erosion and partial destruction of the left upper ribs and left aspect of T3 and T4 vertebral bodies. Left hilum and left mediastinum lymphadenopathy consistent with metastasis. Right adrenal mass likely represent metastasis. Moderate to mildly severe right hydronephrosis and proximal hydroureter up to 10.5 millimeter obstructing calculus at the proximal right ureter. Moderate constipation. * Right adrenal mass likely represent metastasis. Labs: * QFT negative, legionella negative, Mycoplasma Igm negative, Strep Pneumoniae IgG pending, * Negative PPD read; no induration noted (48 hours and 72 hours read) Medications: * Marinol 5mg PO BID (stopped because patient refuses all medications) Palliative consult * Management as per recommendation * Recommendation, Patient will need a guardian to advocate for him and be his decision making surrogate Abdominal Pain - probable from abdominal Metastasis - Cont Tylenol 650mg PO Q6 PRN Bilateral Foot scaling - possible fungal infection - not able to test due to patient refusal to further examination - Clotrimazole 1% cream TOP BID - REFUSES Fever - refuses vitals - Blood and urine cultures, U/A, chest xray were ordered. Pt refused all of the tests. - Medications: * Tylenol 325mg PO PRN Refusal of treatment Patient continues to refuse all treatment. He has not allowed blood work to be performed since 09/18/17. Patient is DNR/DNI. Psychiatry Consult, Dr. Martinez Evaluate for capacity * As per psychiatry evaluation: Patient lacks the capacity to make his own medical decisions at this time. Plans for reevaluation at a latter time. * Re-consultation for capacity and evaluation for severe depression and possible pseudodementia (09/14/17); As per documentation, patient is psychiatrically stable for discharge. As per phone conversation with Dr. Martinez, he will addendum note (09/14/17) commenting on patient's capacity * Patient was seen by Dr. Martinez (09/26/17), patient will need guardianship manager photography, Consultation: Will continue to F/U with case investigator regarding possible guardianship. Application for medicaid and guardianship in progress 11/30: Pastoral care services consulted - Patient did not want to talk, allowed his hand to be held. Will F/U 12/04: pastoral care f/u: patient was vulgar in his response regarding choice of care. It was emphasized that medical team will honor his choice of care. Pastoral care will continue to f/u Leukocytosis (no labs since 09/18) Patient continues to refuse all treatment. He has not allowed blood work to be performed since 09/18/17. Patient is DNR/DNI. Patient agreed to blood work, 09/20/17: 13.7 On admission: 14.7, patient has been refusing further lab work but continues to state that he would rethink his decision Blood Culture (08/31/17): Negative X5 days UA: LE (2+) and WBC (22), f/u repeat UA and UC (09/15/17) Iron deficiency Anemia (no labs since 09/18) Patient continues to refuse all treatment. He has not allowed blood work to be performed since 09/18/17. Patient is DNR/DNI. Patient is refusing transfusion at the moment RBC indices indicative of iron deficiency anemia Retic Count ELEVATED 2.5, Haptoglobin ELEVATED 369 Vitamin B12 and Folate NORMAL Ferritin NORMAL Homocysteine NORMAL IRON: 16 TIBC: 302 % Saturation: 5 Peripheral smear: Slight Parietal cell Ab negative, Negative intrinsic factor Pending LDH -patient refused labs Weight loss Pending HIV, patient refuses blood work Hepatitis panel negative Patient is currently not eating Supplemental diet History of CVA (cerebrovascular accident): Hx of CVA in 2016 with documented right arm and leg weakness Head CT 09/11/17: * A chronic infarct at the left MCA distribution is identified as well as age related neuro degenerative changes which are mildly advanced for the patient's age of 57 years. No intra hemorrhage, mass effect or CT pattern of an acute or subacute brain infarction is appreciated at this time. Follow-up CT or MRI are available if clinically warranted. Pt refusing meds below: Aspirin 81mg PO QD Crestor 10mg PO HS Left shoulder pain Left shoulder X-ray 09/05/2017: No acute fracture. Acromioclavicular degenerative arthritis. History of seizures Patient has been without any seizure activity since admission Prior records show seizure activity Will monitor and if necessary start keppra and ativan Seizure precautions Severe depression Pt refusing medication at this time Patient refuses Pastoral care services. Prophylactic measure SCDs - pt refusing to wear DVT: Pt refusing Lovenox GI prophylaxis not indicated Disposition: Patient continues to refuse labs, food, treatment and diagnostic testing/medications. Pt does not allow for questioning and examination. <Lamonte Torres - Last Filed: 12/17/17 20:16> Objective - Vital Signs/Intake and Output Vital Signs (last 24 hours): Temp Pulse Resp BP Pulse Ox 98.4 F 96 H 20 97/53 L 97 12/17/17 08:27 12/17/17 08:27 12/17/17 08:27 12/17/17 08:27 12/17/17 08:27 Intake and Output: 12/17/17 12/18/17 18:59 06:59 Intake Total 200 Output Total 320 Balance -120 - Medications Medications: Current Medications Acetaminophen (Tylenol 325mg Tab) 650 mg PO Q6H PRN PRN Reason: Fever >100.4 F Last Admin: 12/15/17 00:15 Dose: 650 mg Clotrimazole (Lotrimin 1%) 0 gm TOP BID DEBRA Last Admin: 12/17/17 17:44 Dose: Not Given - Labs Labs: 09/18/17 14:34 09/18/17 14:34 PT 17.5 SECONDS (9.7-12.2) H 08/31/17 17:07 INR 1.5 08/31/17 17:07 APTT 35 SECONDS (21-34) H 08/31/17 17:07 Attending/Attestation - Attestation I have personally seen and examined this patient.: No I have fully participated in the care of the patient.: Yes I have reviewed all pertinent clinical information, including history, physical exam and plan: Yes
[2017-12-16] MEDS: Clotrimazole 1% Cream(30 gm) TOP SCH ×2 (13:11→17:41)
[2017-12-17] MEDS: Clotrimazole 1% Cream(30 gm) TOP SCH ×2 (10:00→17:44)
[2017-12-18] MEDS: Clotrimazole 1% Cream(30 gm) TOP SCH ×2 (10:45→18:35)
--- NOTE | 2017-12-18 13:15 | CP.PCM.PN ---
Subjective - Date & Time of Evaluation Date of Evaluation: 12/18/17 Time of Evaluation: 07:45 - Subjective Subjective: PGY-[address] Robert Morley service Patient is seen at bedside. Patient is awake and lying in bed at time of encounter. Upon asking the patient how he feels, patient responds "leave me alone". Unable to obtained accurate ROS due to patient's refusal to answer questions relevant to the encounter. Objective - Vital Signs/Intake and Output Vital Signs (last 24 hours): Temp Pulse Resp BP Pulse Ox 97.7 F 62 20 152/77 H 96 12/18/17 08:05 12/18/17 08:05 12/18/17 08:05 12/18/17 08:05 12/18/17 08:05 Intake and Output: 12/18/17 12/18/17 06:59 18:59 Intake Total 360 200 Balance 360 200 - Medications Medications: Current Medications Acetaminophen (Tylenol 325mg Tab) 650 mg PO Q6H PRN PRN Reason: Fever >100.4 F Last Admin: 12/18/17 10:49 Dose: 650 mg Clotrimazole (Lotrimin 1%) 0 gm TOP BID DEBRA Last Admin: 12/18/17 10:45 Dose: Not Given - Labs Labs: 09/18/17 14:34 09/18/17 14:34 PT 17.5 SECONDS (9.7-12.2) H 08/31/17 17:07 INR 1.5 08/31/17 17:07 APTT 35 SECONDS (21-34) H 08/31/17 17:07 - Constitutional Appears: No Acute Distress, Chronically Ill - Head Exam Head Exam: ATRAUMATIC, NORMAL INSPECTION - Eye Exam Eye Exam: EOMI, Normal appearance - ENT Exam ENT Exam: Mucous Membranes Dry - Neck Exam Neck Exam: Full ROM - Respiratory Exam Additional comments: unable to perform examination due to patient's refusal - Cardiovascular Exam Additional comments: unable to perform examination due to patient's refusal - GI/Abdominal Exam Additional comments: unable to perform examination due to patient's refusal - Extremities Exam Additional comments: on observation, bilateral foot crusting, yellow in appearance. Patient refuses further examination - Back Exam Additional comments: unable to examine due to patient's refusal - Neurological Exam Neurological Exam: Awake - Psychiatric Exam Psychiatric exam: Depressed, Flat Affect - Skin Skin Exam: Dry Assessment and Plan - Assessment and Plan (Free Text) Plan: Mass of upper lobe of left lung consistent with Neoplasm/Right adrenal mass/ Generalized pain CXR 08/31/17: * Large left upper lobe mass with probable involvement of the left posterior 3rd rib. Findings are concerning for malignancy. Dedicated CT scan of the chest with intravenous contrast is recommended for further characterization. CT abd/pelvis with IV contrast 09/11/17: * Large destructive heterogeneous soft tissue mass in the left lung upper lobe extending to the left upper posterior chest wall and extending to the left aspect of the upper thoracic spine consistent with malignant neoplasm. The mass is extending to upper aspect of the left hilum. Bony erosion and partial destruction of the left upper ribs and left aspect of T3 and T4 vertebral bodies. Left hilum and left mediastinum lymphadenopathy consistent with metastasis. Right adrenal mass likely represent metastasis. Moderate to mildly severe right hydronephrosis and proximal hydroureter up to 10.5 millimeter obstructing calculus at the proximal right ureter. Moderate constipation. * Right adrenal mass likely represent metastasis. Labs: * QFT negative, legionella negative, Mycoplasma Igm negative, Strep Pneumoniae IgG pending, * Negative PPD read; no induration noted (48 hours and 72 hours read) Medications: * Marinol 5mg PO BID (stopped because patient refuses all medications) Palliative consult * Management as per recommendation * Recommendation, Patient will need a guardian to advocate for him and be his decision making surrogate Abdominal Pain - Unable to assess due to patient refusal to examination - Cont Tylenol 650mg PO Q6 PRN Bilateral Foot scaling - unable to assess due to patient refusal to examination - possible fungal infection - Clotrimazole 1% cream TOP BID - REFUSES Fever - vitals 12/18: 97.7, Hr: 62, BP: 152/77, O2: 96, RR: 20 - Blood and urine cultures, U/A, chest xray were ordered. Pt refused all of the tests. - Medications: * Tylenol 325mg PO PRN - taken last 12/18 10:49am Refusal of treatment Patient continues to refuse all treatment. He has not allowed blood work to be performed since 09/18/17. Patient is DNR/DNI. Psychiatry Consult, Dr. Martinez Evaluate for capacity * As per psychiatry evaluation: Patient lacks the capacity to make his own medical decisions at this time. Plans for reevaluation at a latter time. * Re-consultation for capacity and evaluation for severe depression and possible pseudodementia (09/14/17); As per documentation, patient is psychiatrically stable for discharge. As per phone conversation with Dr. Martinez, he will addendum note (09/14/17) commenting on patient's capacity * Patient was seen by Dr. 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 Application for medicaid and guardianship in progress 11/30: Pastoral care services consulted - Patient did not want to talk, allowed his hand to be held. Will F/U 12/04: pastoral care f/u: patient was vulgar in his response regarding choice of care. It was emphasized that medical team will honor his choice of care. Pastoral care will continue to f/u Leukocytosis (no labs since 09/18) 12/18: patient continues to refuse labs Patient continues to refuse all treatment. He has not allowed blood work to be performed since 09/18/17. Patient is DNR/DNI. Patient agreed to blood work, 09/20/17: 13.7 On admission: 14.7, patient has been refusing further lab work but continues to state that he would rethink his decision Blood Culture (08/31/17): Negative X5 days UA: LE (2+) and WBC (22), f/u repeat UA and UC (09/15/17) Iron deficiency Anemia (no labs since 09/18) 12/18: patient continues to refuse labs Patient continues to refuse all treatment. He has not allowed blood work to be performed since 09/18/17. Patient is DNR/DNI. Patient is refusing transfusion at the moment RBC indices indicative of iron deficiency anemia Retic Count ELEVATED 2.5, Haptoglobin ELEVATED 369 Vitamin B12 and Folate NORMAL Ferritin NORMAL Homocysteine NORMAL IRON: 16 TIBC: 302 % Saturation: 5 Peripheral smear: Slight Parietal cell Ab negative, Negative intrinsic factor Pending LDH -patient refused labs Weight loss Pending HIV, patient refuses blood work Hepatitis panel negative Patient is currently not eating Supplemental diet History of CVA (cerebrovascular accident): Hx of CVA in 2016 with documented right arm and leg weakness Head CT 09/11/17: * A chronic infarct at the left MCA distribution is identified as well as age related neuro degenerative changes which are mildly advanced for the patient's age of 57 years. No intra hemorrhage, mass effect or CT pattern of an acute or subacute brain infarction is appreciated at this time. Follow-up CT or MRI are available if clinically warranted. Pt refusing meds below: Aspirin 81mg PO QD Crestor 10mg PO HS Left shoulder pain Left shoulder X-ray 09/05/2017: No acute fracture. Acromioclavicular degenerative arthritis. History of seizures Patient has been without any seizure activity since admission Prior records show seizure activity Will monitor and if necessary start keppra and ativan Seizure precautions Severe depression Pt refusing medication at this time Patient refuses Pastoral care services. Prophylactic measure SCDs - pt refusing to wear DVT: Pt refusing Lovenox GI prophylaxis not indicated Disposition: Patient continues to refuse labs, food, treatment and diagnostic testing/medications. Pt does not allow for questioning and examination. Plan discussed with Dr Robert Guerra, PGY-1
[2017-12-19] MEDS: Clotrimazole 1% Cream(30 gm) TOP SCH ×2 (10:31→17:25)
[2017-12-20] MEDS: Clotrimazole 1% Cream(30 gm) TOP SCH ×2 (11:15→17:43)
--- NOTE | 2017-12-20 14:25 | CP.PCM.PN ---
Subjective - Date & Time of Evaluation Date of Evaluation: 12/20/17 Time of Evaluation: 14:24 - Subjective Subjective: PGY-[address] Robert Morley Patient was seen at bedside. As per nurse, patient keeps refusing treatment, blood and food. Patient asked nurse for juice only, and complains of general pain but does not want any meds. At today's encounter, patient answered " why do you keep bothering me". Patient refuses to answer any questions or to be examined at this time. Accurate ROS were unable to obtain due to patient's refusing the clinical encounter. Objective - Vital Signs/Intake and Output Vital Signs (last 24 hours): Temp Pulse Resp BP Pulse Ox 99.0 F 90 20 106/70 97 12/19/17 23:53 12/19/17 23:53 12/19/17 23:53 12/19/17 23:53 12/19/17 23:53 Intake and Output: 12/20/17 12/20/17 06:59 18:59 Intake Total 500 Output Total 250 Balance 250 - Medications Medications: Current Medications Acetaminophen (Tylenol 325mg Tab) 650 mg PO Q6H PRN PRN Reason: Fever >100.4 F Last Admin: 12/18/17 10:49 Dose: 650 mg Clotrimazole (Lotrimin 1%) 0 gm TOP BID DEBRA Last Admin: 12/20/17 11:15 Dose: Not Given - Labs Labs: 09/18/17 14:34 09/18/17 14:34 PT 17.5 SECONDS (9.7-12.2) H 08/31/17 17:07 INR 1.5 08/31/17 17:07 APTT 35 SECONDS (21-34) H 08/31/17 17:07 - Constitutional Appears: Chronically Ill - Head Exam Head Exam: ATRAUMATIC, NORMAL INSPECTION, NORMOCEPHALIC - Eye Exam Eye Exam: EOMI Additional comments: Patient refuses examination - ENT Exam Additional comments: Patient refuses examination - Neck Exam Additional comments: Patient refuses examination - Respiratory Exam Additional comments: Patient refuses examination - Cardiovascular Exam Additional comments: Patient refuses examination - GI/Abdominal Exam Additional comments: Patient refuses examination - Extremities Exam Additional comments: Patient refuses examination - Back Exam Additional comments: Patient refuses examination - Neurological Exam Neurological Exam: Awake Additional comments: Patient refuses examination - Psychiatric Exam Psychiatric exam: Depressed, Flat Affect - Skin Skin Exam: Dry Additional comments: Patient refuses examination Assessment and Plan - Assessment and Plan (Free Text) Plan: Mass of upper lobe of left lung consistent with Neoplasm/Right adrenal mass/ Generalized pain CXR 08/31/17: * Large left upper lobe mass with probable involvement of the left posterior 3rd rib. Findings are concerning for malignancy. Dedicated CT scan of the chest with intravenous contrast is recommended for further characterization. CT abd/pelvis with IV contrast 09/11/17: * Large destructive heterogeneous soft tissue mass in the left lung upper lobe extending to the left upper posterior chest wall and extending to the left aspect of the upper thoracic spine consistent with malignant neoplasm. The mass is extending to upper aspect of the left hilum. Bony erosion and partial destruction of the left upper ribs and left aspect of T3 and T4 vertebral bodies. Left hilum and left mediastinum lymphadenopathy consistent with metastasis. Right adrenal mass likely represent metastasis. Moderate to mildly severe right hydronephrosis and proximal hydroureter up to 10.5 millimeter obstructing calculus at the proximal right ureter. Moderate constipation. * Right adrenal mass likely represent metastasis. Labs: * QFT negative, legionella negative, Mycoplasma Igm negative, Strep Pneumoniae IgG pending, * Negative PPD read; no induration noted (48 hours and 72 hours read) Medications: * Marinol 5mg PO BID (stopped because patient refuses all medications) Palliative consult * Management as per recommendation * Recommendation, Patient will need a guardian to advocate for him and be his decision making surrogate Abdominal Pain - Unable to assess due to patient refusal to examination - Cont Tylenol 650mg PO Q6 PRN Bilateral Foot scaling - unable to assess due to patient refusal to examination - possible fungal infection - Clotrimazole 1% cream TOP BID - REFUSES Fever - vitals 12/18: 97.7, Hr: 62, BP: 152/77, O2: 96, RR: 20 - Blood and urine cultures, U/A, chest xray were ordered. Pt refused all of the tests. - Medications: * Tylenol 325mg PO PRN - taken last 12/18 10:49am Refusal of treatment Patient continues to refuse all treatment. He has not allowed blood work to be performed since 09/18/17. Patient is DNR/DNI. Psychiatry Consult, Dr. Martinez Evaluate for capacity * As per psychiatry evaluation: Patient lacks the capacity to make his own medical decisions at this time. Plans for reevaluation at a latter time. * Re-consultation for capacity and evaluation for severe depression and possible pseudodementia (09/14/17); As per documentation, patient is psychiatrically stable for discharge. As per phone conversation with Dr. Martinez, he will addendum note (09/14/17) commenting on patient's capacity * Patient was seen by Dr. Martinez (09/26/17), patient will need guardianship disease case manager rn, Consultation: Will continue to F/U with foster care case manager regarding possible guardianship. Application for medicaid and guardianship in progress 11/30: Pastoral care services consulted - Patient did not want to talk, allowed his hand to be held. Will F/U 12/04: pastoral care f/u: patient was vulgar in his response regarding choice of care. It was emphasized that medical team will honor his choice of care. Pastoral care will continue to f/u Leukocytosis (no labs since 09/18) 12/18: patient continues to refuse labs Patient continues to refuse all treatment. He has not allowed blood work to be performed since 09/18/17. Patient is DNR/DNI. Patient agreed to blood work, 09/20/17: 13.7 On admission: 14.7, patient has been refusing further lab work but continues to state that he would rethink his decision Blood Culture (08/31/17): Negative X5 days UA: LE (2+) and WBC (22), f/u repeat UA and UC (09/15/17) Iron deficiency Anemia (no labs since 09/18) 12/18: patient continues to refuse labs Patient continues to refuse all treatment. He has not allowed blood work to be performed since 09/18/17. Patient is DNR/DNI. Patient is refusing transfusion at the moment RBC indices indicative of iron deficiency anemia Retic Count ELEVATED 2.5, Haptoglobin ELEVATED 369 Vitamin B12 and Folate NORMAL Ferritin NORMAL Homocysteine NORMAL IRON: 16 TIBC: 302 % Saturation: 5 Peripheral smear: Slight Parietal cell Ab negative, Negative intrinsic factor Pending LDH -patient refused labs Weight loss Pending HIV, patient refuses blood work Hepatitis panel negative Patient is currently not eating Supplemental diet History of CVA (cerebrovascular accident): Hx of CVA in 2016 with documented right arm and leg weakness Head CT 09/11/17: * A chronic infarct at the left MCA distribution is identified as well as age related neuro degenerative changes which are mildly advanced for the patient's age of 57 years. No intra hemorrhage, mass effect or CT pattern of an acute or subacute brain infarction is appreciated at this time. Follow-up CT or MRI are available if clinically warranted. Pt refusing meds below: Aspirin 81mg PO QD Crestor 10mg PO HS Left shoulder pain Left shoulder X-ray 09/05/2017: No acute fracture. Acromioclavicular degenerative arthritis. History of seizures Patient has been without any seizure activity since admission Prior records show seizure activity Will monitor and if necessary start keppra and ativan Seizure precautions Severe depression Pt refusing medication at this time Patient refuses Pastoral care services. Prophylactic measure SCDs - pt refusing to wear DVT: Pt refusing Lovenox GI prophylaxis not indicated Disposition: Patient continues to refuse labs, food, treatment and diagnostic testing/medications. Pt does not allow for questioning and examination. Plan discussed with Dr Robert Guerra, PGY-1
[2017-12-21] MEDS: Clotrimazole 1% Cream(30 gm) TOP SCH ×2 (10:20→18:00)
--- NOTE | 2017-12-22 13:45 | CP.PCM.PN ---
Subjective - Date & Time of Evaluation Date of Evaluation: 12/22/17 Time of Evaluation: 09:00 - Subjective Subjective: PGY-1 note for hospitalist service. Patient seen at bedside. As per nurse, patient keeps refusing treatment, blood and food. Patient admits to abdominal pain, but refuses to answer additional questions. Also refused examination. Objective - Vital Signs/Intake and Output Vital Signs (last 24 hours): Temp Pulse Resp BP Pulse Ox 97.8 F 123 H 20 98/64 L 96 12/22/17 08:00 12/22/17 08:00 12/22/17 08:00 12/22/17 08:00 12/22/17 08:00 Intake and Output: 12/22/17 12/22/17 06:59 18:59 Intake Total 500 Output Total 250 Balance 250 - Medications Medications: Current Medications Acetaminophen (Tylenol 325mg Tab) 650 mg PO Q6H PRN PRN Reason: Fever >100.4 F Last Admin: 12/18/17 10:49 Dose: 650 mg Clotrimazole (Lotrimin 1%) 0 gm TOP BID DEBRA Last Admin: 12/21/17 18:00 Dose: Not Given - Labs Labs: 09/18/17 14:34 09/18/17 14:34 PT 17.5 SECONDS (9.7-12.2) H 08/31/17 17:07 INR 1.5 08/31/17 17:07 APTT 35 SECONDS (21-34) H 08/31/17 17:07 - Additional Findings Additional findings: Pt refused examination. Assessment and Plan - Assessment and Plan (Free Text) Plan: Mass of upper lobe of left lung consistent with Neoplasm/Right adrenal mass/ Generalized pain CXR 08/31/17: * Large left upper lobe mass with probable involvement of the left posterior 3rd rib. Findings are concerning for malignancy. Dedicated CT scan of the chest with intravenous contrast is recommended for further characterization. CT abd/pelvis with IV contrast 09/11/17: * Large destructive heterogeneous soft tissue mass in the left lung upper lobe extending to the left upper posterior chest wall and extending to the left aspect of the upper thoracic spine consistent with malignant neoplasm. The mass is extending to upper aspect of the left hilum. Bony erosion and partial destruction of the left upper ribs and left aspect of T3 and T4 vertebral bodies. Left hilum and left mediastinum lymphadenopathy consistent with metastasis. Right adrenal mass likely represent metastasis. Moderate to mildly severe right hydronephrosis and proximal hydroureter up to 10.5 millimeter obstructing calculus at the proximal right ureter. Moderate constipation. * Right adrenal mass likely represent metastasis. Labs: * QFT negative, legionella negative, Mycoplasma Igm negative, Strep Pneumoniae IgG pending, * Negative PPD read; no induration noted (48 hours and 72 hours read) Medications: * Marinol 5mg PO BID (stopped because patient refuses all medications) Palliative consult * Management as per recommendation * Recommendation, Patient will need a guardian to advocate for him and be his decision making surrogate Abdominal Pain - Unable to assess due to patient refusal to examination - Cont Tylenol 650mg PO Q6 PRN Bilateral Foot scaling - unable to assess due to patient refusal to examination - possible fungal infection - Clotrimazole 1% cream TOP BID - REFUSES Fever - vitals 12/18: 97.7, Hr: 62, BP: 152/77, O2: 96, RR: 20 - Blood and urine cultures, U/A, chest xray were ordered. Pt refused all of the tests. - Medications: * Tylenol 325mg PO PRN - taken last 12/18 10:49am Refusal of treatment Patient continues to refuse all treatment. He has not allowed blood work to be performed since 09/18/17. Patient is DNR/DNI. Psychiatry Consult, Dr. Martinez Evaluate for capacity * As per psychiatry evaluation: Patient lacks the capacity to make his own medical decisions at this time. Plans for reevaluation at a latter time. * Re-consultation for capacity and evaluation for severe depression and possible pseudodementia (09/14/17); As per documentation, patient is psychiatrically stable for discharge. As per phone conversation with Dr. Martinez, he will addendum note (09/14/17) commenting on patient's capacity * Patient was seen by Dr. 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 Application for medicaid and guardianship in progress 11/30: Pastoral care services consulted - Patient did not want to talk, allowed his hand to be held. Will F/U 12/04: pastoral care f/u: patient was vulgar in his response regarding choice of care. It was emphasized that medical team will honor his choice of care. Pastoral care will continue to f/u Leukocytosis (no labs since 09/18) 12/18: patient continues to refuse labs Patient continues to refuse all treatment. He has not allowed blood work to be performed since 09/18/17. Patient is DNR/DNI. Patient agreed to blood work, 09/20/17: 13.7 On admission: 14.7, patient has been refusing further lab work but continues to state that he would rethink his decision Blood Culture (08/31/17): Negative X5 days UA: LE (2+) and WBC (22), f/u repeat UA and UC (09/15/17) Iron deficiency Anemia (no labs since 09/18) 12/18: patient continues to refuse labs Patient continues to refuse all treatment. He has not allowed blood work to be performed since 09/18/17. Patient is DNR/DNI. Patient is refusing transfusion at the moment RBC indices indicative of iron deficiency anemia Retic Count ELEVATED 2.5, Haptoglobin ELEVATED 369 Vitamin B12 and Folate NORMAL Ferritin NORMAL Homocysteine NORMAL IRON: 16 TIBC: 302 % Saturation: 5 Peripheral smear: Slight Parietal cell Ab negative, Negative intrinsic factor Pending LDH -patient refused labs Weight loss Pending HIV, patient refuses blood work Hepatitis panel negative Patient is currently not eating Supplemental diet History of CVA (cerebrovascular accident): Hx of CVA in 2016 with documented right arm and leg weakness Head CT 09/11/17: * A chronic infarct at the left MCA distribution is identified as well as age related neuro degenerative changes which are mildly advanced for the patient's age of 57 years. No intra hemorrhage, mass effect or CT pattern of an acute or subacute brain infarction is appreciated at this time. Follow-up CT or MRI are available if clinically warranted. Pt refusing meds below: Aspirin 81mg PO QD Crestor 10mg PO HS Left shoulder pain Left shoulder X-ray 09/05/2017: No acute fracture. Acromioclavicular degenerative arthritis. History of seizures Patient has been without any seizure activity since admission Prior records show seizure activity Will monitor and if necessary start keppra and ativan Seizure precautions Severe depression Pt refusing medication at this time Patient refuses Pastoral care services. Prophylactic measure SCDs - pt refusing to wear DVT: Pt refusing Lovenox GI prophylaxis not indicated Disposition: Patient continues to refuse labs, food, treatment and diagnostic testing/medications. Pt does not allow for questioning and examination.
[2017-12-22] MEDS: Clotrimazole 1% Cream(30 gm) TOP SCH (20:49)
[2017-12-23] MEDS: Clotrimazole 1% Cream(30 gm) TOP SCH ×2 (09:03→18:00)
[2017-12-24] MEDS: Clotrimazole 1% Cream(30 gm) TOP SCH ×2 (10:28→17:52)
--- NOTE | 2017-12-25 08:18 | CP.PCM.PN ---
<Tiffanie Ram - Last Filed: 12/25/17 20:19> Subjective - Date & Time of Evaluation Date of Evaluation: 12/25/17 Time of Evaluation: 11:30 - Subjective Subjective: Tiffanie Ram PGY-1 Medicine Progress Note Patient seen at bedside. Patient requested to be left alone. Patient offered no acute complaints other than stating stomach when asked if he was having pain. Patient refused to be examined or treated. No acute events overnight as per nursing. Objective - Vital Signs/Intake and Output Vital Signs (last 24 hours): Temp Pulse Resp BP Pulse Ox 98.8 F 100 H 20 102/62 95 12/24/17 08:47 12/24/17 08:47 12/24/17 08:47 12/24/17 08:47 12/24/17 08:47 Intake and Output: 12/25/17 12/25/17 06:59 18:59 Intake Total 250 Output Total 300 Balance -50 - Medications Medications: Current Medications Acetaminophen (Tylenol 325mg Tab) 650 mg PO Q6H PRN PRN Reason: Fever >100.4 F Last Admin: 12/18/17 10:49 Dose: 650 mg Clotrimazole (Lotrimin 1%) 0 gm TOP BID DEBRA Last Admin: 12/24/17 17:52 Dose: Not Given - Labs Labs: 09/18/17 14:34 09/18/17 14:34 PT 17.5 SECONDS (9.7-12.2) H 08/31/17 17:07 INR 1.5 08/31/17 17:07 APTT 35 SECONDS (21-34) H 08/31/17 17:07 Assessment and Plan - Assessment and Plan (Free Text) Plan: Mass of upper lobe of left lung consistent with Neoplasm/Right adrenal mass/ Generalized pain CXR 08/31/17: * Large left upper lobe mass with probable involvement of the left posterior 3rd rib. Findings are concerning for malignancy. Dedicated CT scan of the chest with intravenous contrast is recommended for further characterization. CT abd/pelvis with IV contrast 09/11/17: * Large destructive heterogeneous soft tissue mass in the left lung upper lobe extending to the left upper posterior chest wall and extending to the left aspect of the upper thoracic spine consistent with malignant neoplasm. The mass is extending to upper aspect of the left hilum. Bony erosion and partial destruction of the left upper ribs and left aspect of T3 and T4 vertebral bodies. Left hilum and left mediastinum lymphadenopathy consistent with metastasis. Right adrenal mass likely represent metastasis. Moderate to mildly severe right hydronephrosis and proximal hydroureter up to 10.5 millimeter obstructing calculus at the proximal right ureter. Moderate constipation. * Right adrenal mass likely represent metastasis. Labs: * QFT negative, legionella negative, Mycoplasma Igm negative, Strep Pneumoniae IgG pending, * Negative PPD read; no induration noted (48 hours and 72 hours read) Medications: * Marinol 5mg PO BID (stopped because patient refuses all medications) Palliative consult * Management as per recommendation * Recommendation, Patient will need a guardian to advocate for him and be his decision making surrogate Abdominal Pain - Unable to assess due to patient refusal to examination - Cont Tylenol 650mg PO Q6 PRN Bilateral Foot scaling - unable to assess due to patient refusal to examination - possible fungal infection - Clotrimazole 1% cream TOP BID - REFUSES Fever - vitals 12/18: 97.7, Hr: 62, BP: 152/77, O2: 96, RR: 20 - Blood and urine cultures, U/A, chest xray were ordered. Pt refused all of the tests. - Medications: * Tylenol 325mg PO PRN - taken last 12/18 10:49am Refusal of treatment Patient continues to refuse all treatment. He has not allowed blood work to be performed since 09/18/17. Patient is DNR/DNI. Psychiatry Consult, Dr. Martinez Evaluate for capacity * As per psychiatry evaluation: Patient lacks the capacity to make his own medical decisions at this time. Plans for reevaluation at a latter time. * Re-consultation for capacity and evaluation for severe depression and possible pseudodementia (09/14/17); As per documentation, patient is psychiatrically stable for discharge. As per phone conversation with Dr. Martinez, he will addendum note (09/14/17) commenting on patient's capacity * Patient was seen by Dr. 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 Application for medicaid and guardianship in progress 11/30: Pastoral care services consulted - Patient did not want to talk, allowed his hand to be held. Will F/U 12/04: pastoral care f/u: patient was vulgar in his response regarding choice of care. It was emphasized that medical team will honor his choice of care. Pastoral care will continue to f/u Leukocytosis (no labs since 09/18) 12/18: patient continues to refuse labs Patient continues to refuse all treatment. He has not allowed blood work to be performed since 09/18/17. Patient is DNR/DNI. Patient agreed to blood work, 09/20/17: 13.7 On admission: 14.7, patient has been refusing further lab work but continues to state that he would rethink his decision Blood Culture (08/31/17): Negative X5 days UA: LE (2+) and WBC (22), f/u repeat UA and UC (09/15/17) Iron deficiency Anemia (no labs since 09/18) 12/18: patient continues to refuse labs Patient continues to refuse all treatment. He has not allowed blood work to be performed since 09/18/17. Patient is DNR/DNI. Patient is refusing transfusion at the moment RBC indices indicative of iron deficiency anemia Retic Count ELEVATED 2.5, Haptoglobin ELEVATED 369 Vitamin B12 and Folate NORMAL Ferritin NORMAL Homocysteine NORMAL IRON: 16 TIBC: 302 % Saturation: 5 Peripheral smear: Slight Parietal cell Ab negative, Negative intrinsic factor Pending LDH -patient refused labs Weight loss Pending HIV, patient refuses blood work Hepatitis panel negative Patient is currently not eating Supplemental diet History of CVA (cerebrovascular accident): Hx of CVA in 2016 with documented right arm and leg weakness Head CT 09/11/17: * A chronic infarct at the left MCA distribution is identified as well as age related neuro degenerative changes which are mildly advanced for the patient's age of 57 years. No intra hemorrhage, mass effect or CT pattern of an acute or subacute brain infarction is appreciated at this time. Follow-up CT or MRI are available if clinically warranted. Pt refusing meds below: Aspirin 81mg PO QD Crestor 10mg PO HS Left shoulder pain Left shoulder X-ray 09/05/2017: No acute fracture. Acromioclavicular degenerative arthritis. History of seizures Patient has been without any seizure activity since admission Prior records show seizure activity Will monitor and if necessary start keppra and ativan Seizure precautions Severe depression Pt refusing medication at this time Patient refuses Pastoral care services. Prophylactic measure SCDs - pt refusing to wear DVT: Pt refusing Lovenox GI prophylaxis not indicated Disposition: Patient continues to refuse labs, food, treatment and diagnostic testing/medications. Pt does not allow for questioning and examination. <Lamonte Torres - Last Filed: 12/26/17 19:44> Objective - Vital Signs/Intake and Output Vital Signs (last 24 hours): Temp Pulse Resp BP Pulse Ox 99 F 113 H 20 90/60 L 95 12/26/17 15:30 12/26/17 15:30 12/26/17 15:30 12/26/17 15:30 12/26/17 15:30 Intake and Output: 12/26/17 12/27/17 18:59 06:59 Intake Total 120 Output Total 0 Balance 120 - Medications Medications: Current Medications Acetaminophen (Tylenol 325mg Tab) 650 mg PO Q6H PRN PRN Reason: Fever >100.4 F Last Admin: 12/18/17 10:49 Dose: 650 mg Clotrimazole (Lotrimin 1%) 0 gm TOP BID DEBRA Last Admin: 12/25/17 20:33 Dose: Not Given - Labs Labs: 09/18/17 14:34 09/18/17 14:34 PT 17.5 SECONDS (9.7-12.2) H 08/31/17 17:07 INR 1.5 08/31/17 17:07 APTT 35 SECONDS (21-34) H 08/31/17 17:07 Attending/Attestation - Attestation I have personally seen and examined this patient.: No I have fully participated in the care of the patient.: Yes I have reviewed all pertinent clinical information, including history, physical exam and plan: Yes Notes (Text): Patient refuses care and refuses examination Continue comfort care
[2017-12-25] MEDS: Clotrimazole 1% Cream(30 gm) TOP SCH ×2 (09:19→20:33)
[2017-12-26] MEDS ORDERED: Albuterol-Ipratrop 3 mg / 0.5 (3 ml) UD INH STA (02:40)
[2017-12-26] MEDS ORDERED: Acetylcysteine 20% Inhal Soln (4ml) INH STA (02:40)
[2017-12-26] MEDS: Clotrimazole 1% Cream(30 gm) TOP SCH (21:47)
--- NOTE | 2017-12-27 07:53 | CP.PCM.PN ---
Subjective - Date & Time of Evaluation Date of Evaluation: 12/27/17 Time of Evaluation: 10:16 - Subjective Subjective: PGY-1 Medicine Progress Note Patient seen and examined at bedside. Patient refused to answer any questions. Patient denied any time of medical examination. Unable to attain ROS as patient refuses to communicate. Objective - Vital Signs/Intake and Output Vital Signs (last 24 hours): Temp Pulse Resp BP Pulse Ox 98 F 101 H 20 97/57 L 95 12/27/17 07:45 12/27/17 07:45 12/27/17 07:45 12/27/17 07:45 12/27/17 07:45 Intake and Output: 12/27/17 12/27/17 06:59 18:59 Intake Total 250 Output Total 0 Balance 250 - Medications Medications: Current Medications Acetaminophen (Tylenol 325mg Tab) 650 mg PO Q6H PRN PRN Reason: Fever >100.4 F Last Admin: 12/18/17 10:49 Dose: 650 mg Clotrimazole (Lotrimin 1%) 0 gm TOP BID DEBRA Last Admin: 12/26/17 21:47 Dose: Not Given - Labs Labs: 09/18/17 14:34 09/18/17 14:34 PT 17.5 SECONDS (9.7-12.2) H 08/31/17 17:07 INR 1.5 08/31/17 17:07 APTT 35 SECONDS (21-34) H 08/31/17 17:07 Assessment and Plan - Assessment and Plan (Free Text) Assessment: Patient is a 57 year old male w/ PMH of abdominal mass with mets, body lice, CVA , seizure, RUL infiltrate that presented to the ED for weakness and tired for 1x month; Cxray showed mass in right upper rodolfo (infection vs malignancy); CT confirmed a mass with mets to abdomen and ribs; Psych was consulted after patient refused any treatment or labs; Blood cultures were negative 5 days; Since 09/18 patient has clinically deteriorated and refuses medical treatment Plan: Mass of upper lobe of left lung consistent with Neoplasm/Right adrenal mass/ Generalized pain CXR 08/31/17: * Large left upper lobe mass with probable involvement of the left posterior 3rd rib. Findings are concerning for malignancy. Dedicated CT scan of the chest with intravenous contrast is recommended for further characterization. CT abd/pelvis with IV contrast 09/11/17: * Large destructive heterogeneous soft tissue mass in the left lung upper lobe extending to the left upper posterior chest wall and extending to the left aspect of the upper thoracic spine consistent with malignant neoplasm. The mass is extending to upper aspect of the left hilum. Bony erosion and partial destruction of the left upper ribs and left aspect of T3 and T4 vertebral bodies. Left hilum and left mediastinum lymphadenopathy consistent with metastasis. Right adrenal mass likely represent metastasis. Moderate to mildly severe right hydronephrosis and proximal hydroureter up to 10.5 millimeter obstructing calculus at the proximal right ureter. Moderate constipation. * Right adrenal mass likely represent metastasis. Labs: * QFT negative, legionella negative, Mycoplasma Igm negative, Strep Pneumoniae IgG pending, * Negative PPD read; no induration noted (48 hours and 72 hours read) Medications: * Marinol 5mg PO BID (stopped because patient refuses all medications) Palliative consult * Management as per recommendation * Recommendation, Patient will need a guardian to advocate for him and be his decision making surrogate Abdominal Pain - Unable to assess due to patient refusal to examination - Cont Tylenol 650mg PO Q6 PRN Bilateral Foot scaling - unable to assess due to patient refusal to examination - possible fungal infection - Clotrimazole 1% cream TOP BID - REFUSES Fever - vitals 12/27: T: 98, Hr: 101, BP: 97/57, O2: 96, RR: 20 - Blood and urine cultures, U/A, chest xray were ordered. Pt refused all of the tests. - Medications: * Tylenol 325mg PO PRN - taken last 12/18 10:49am Refusal of treatment Patient continues to refuse all treatment. He has not allowed blood work to be performed since 09/18/17. Patient is DNR/DNI. Psychiatry Consult, Dr. Martinez Evaluate for capacity * As per psychiatry evaluation: Patient lacks the capacity to make his own medical decisions at this time. Plans for reevaluation at a latter time. * Re-consultation for capacity and evaluation for severe depression and possible pseudodementia (09/14/17); As per documentation, patient is psychiatrically stable for discharge. As per phone conversation with Dr. Martinez, he will addendum note (09/14/17) commenting on patient's capacity * Patient was seen by Dr. 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 Application for medicaid and guardianship in progress 11/30: Pastoral care services consulted - Patient did not want to talk, allowed his hand to be held. Will F/U 12/04: pastoral care f/u: patient was vulgar in his response regarding choice of care. It was emphasized that medical team will honor his choice of care. Pastoral care will continue to f/u Leukocytosis (no labs since 09/18) 12/25: patient continues to refuse labs Patient continues to refuse all treatment. He has not allowed blood work to be performed since 09/18/17. Patient is DNR/DNI. Patient agreed to blood work, 09/20/17: 13.7 On admission: 14.7, patient has been refusing further lab work but continues to state that he would rethink his decision Blood Culture (08/31/17): Negative X5 days UA: LE (2+) and WBC (22), f/u repeat UA and UC (09/15/17) Iron deficiency Anemia (no labs since 09/18) 12/26/17: patient continues to refuse labs Patient continues to refuse all treatment. He has not allowed blood work to be performed since 09/18/17. Patient is DNR/DNI. RBC indices indicative of iron deficiency anemia Retic Count ELEVATED 2.5, Haptoglobin ELEVATED 369 Vitamin B12 and Folate NORMAL Ferritin NORMAL Homocysteine NORMAL IRON: 16 TIBC: 302 % Saturation: 5 Peripheral smear: Slight Parietal cell Ab negative, Negative intrinsic factor Pending LDH -patient refused labs Weight loss Pending HIV, patient refuses blood work Hepatitis panel negative Patient is currently not eating Supplemental diet History of CVA (cerebrovascular accident): Hx of CVA in 2016 with documented right arm and leg weakness Head CT 09/11/17: * A chronic infarct at the left MCA distribution is identified as well as age related neuro degenerative changes which are mildly advanced for the patient's age of 57 years. No intra hemorrhage, mass effect or CT pattern of an acute or subacute brain infarction is appreciated at this time. Follow-up CT or MRI are available if clinically warranted. Pt refusing meds below: Aspirin 81mg PO QD Crestor 10mg PO HS Left shoulder pain Left shoulder X-ray 09/05/2017: No acute fracture. Acromioclavicular degenerative arthritis. History of seizures Patient has been without any seizure activity since admission Prior records show seizure activity Will monitor and if necessary start keppra and ativan Seizure precautions Severe depression Pt refusing medication at this time Patient refuses Pastoral care services. Prophylactic measure SCDs - pt refusing to wear DVT: Pt refusing Lovenox GI prophylaxis not indicated Disposition: Patient continues to refuse labs, food, treatment and diagnostic testing/medications. Pt does not allow for questioning and examination. Tiffanie Ram PGY-1
[2017-12-27] MEDS: Clotrimazole 1% Cream(30 gm) TOP SCH ×2 (11:12→22:29)
[2017-12-28] MEDS: Clotrimazole 1% Cream(30 gm) TOP SCH (17:41)
[2017-12-29] MEDS: Clotrimazole 1% Cream(30 gm) TOP SCH ×2 (09:28→18:36)
--- NOTE | 2017-12-29 16:34 | CP.PCM.PN ---
Subjective - Date & Time of Evaluation Date of Evaluation: 12/29/17 Time of Evaluation: 12:30 - Subjective Subjective: Patient seen and examined at bedside. Patient continues to refuse treatments and will not allow physical examinations. Unable to attain ROS. Objective - Vital Signs/Intake and Output Vital Signs (last 24 hours): Temp Pulse Resp BP Pulse Ox 98.9 F 100 H 22 93/60 L 96 12/29/17 07:49 12/29/17 07:49 12/29/17 07:49 12/29/17 07:49 12/29/17 07:49 Intake and Output: 12/29/17 12/29/17 06:59 18:59 Intake Total 360 120 Output Total 400 Balance -40 120 - Medications Medications: Current Medications Acetaminophen (Tylenol 325mg Tab) 650 mg PO Q6H PRN PRN Reason: Fever >100.4 F Last Admin: 12/18/17 10:49 Dose: 650 mg Clotrimazole (Lotrimin 1%) 0 gm TOP BID DEBRA Last Admin: 12/29/17 09:28 Dose: 1 appl - Labs Labs: 09/18/17 14:34 09/18/17 14:34 PT 17.5 SECONDS (9.7-12.2) H 08/31/17 17:07 INR 1.5 08/31/17 17:07 APTT 35 SECONDS (21-34) H 08/31/17 17:07 Assessment and Plan - Assessment and Plan (Free Text) Assessment: Patient is a 57 year old male w/ PMH of abdominal mass with mets, body lice, CVA , seizure, RUL infiltrate that presented to the ED for weakness and tired for 1x month; Cxray showed mass in right upper rodolfo (infection vs malignancy); CT confirmed a mass with mets to abdomen and ribs; Psych was consulted after patient refused any treatment or labs; Blood cultures were negative 5 days; Since 09/18 patient has clinically deteriorated and refuses medical treatment Plan: Mass of upper lobe of left lung consistent with Neoplasm/Right adrenal mass/ Generalized pain CXR 08/31/17: * Large left upper lobe mass with probable involvement of the left posterior 3rd rib. Findings are concerning for malignancy. Dedicated CT scan of the chest with intravenous contrast is recommended for further characterization. CT abd/pelvis with IV contrast 09/11/17: * Large destructive heterogeneous soft tissue mass in the left lung upper lobe extending to the left upper posterior chest wall and extending to the left aspect of the upper thoracic spine consistent with malignant neoplasm. The mass is extending to upper aspect of the left hilum. Bony erosion and partial destruction of the left upper ribs and left aspect of T3 and T4 vertebral bodies. Left hilum and left mediastinum lymphadenopathy consistent with metastasis. Right adrenal mass likely represent metastasis. Moderate to mildly severe right hydronephrosis and proximal hydroureter up to 10.5 millimeter obstructing calculus at the proximal right ureter. Moderate constipation. * Right adrenal mass likely represent metastasis. Labs: * QFT negative, legionella negative, Mycoplasma Igm negative, Strep Pneumoniae IgG pending, * Negative PPD read; no induration noted (48 hours and 72 hours read) Medications: * Marinol 5mg PO BID (stopped because patient refuses all medications) Palliative consult * Management as per recommendation * Recommendation, Patient will need a guardian to advocate for him and be his decision making surrogate Abdominal Pain - Unable to assess due to patient refusal to examination - Patient refuses treatment - Cont Tylenol 650mg PO Q6 PRN Bilateral Foot scaling - unable to assess due to patient refusal to examination - possible fungal infection - Clotrimazole 1% cream TOP BID - REFUSES Fever - Vitals 12/27: T: 98.9, Hr: 100, BP: 93/60, O2: 96, RR: 22 - Blood and urine cultures, U/A, chest xray were ordered. Pt refused all of the tests. - Medications: * Tylenol 325mg PO PRN - taken last 12/18 10:49am Refusal of treatment Patient continues to refuse all treatment. He has not allowed blood work to be performed since 09/18/17. Patient is DNR/DNI. Psychiatry Consult, Dr. Martinez Evaluate for capacity * As per psychiatry evaluation: Patient lacks the capacity to make his own medical decisions at this time. Plans for reevaluation at a latter time. * Re-consultation for capacity and evaluation for severe depression and possible pseudodementia (09/14/17); As per documentation, patient is psychiatrically stable for discharge. As per phone conversation with Dr. Martinez, he will addendum note (09/14/17) commenting on patient's capacity * Patient was seen by Dr. 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 Application for medicaid and guardianship in progress 11/30: Pastoral care services consulted - Patient did not want to talk, allowed his hand to be held. Will F/U 12/04: pastoral care f/u: patient was vulgar in his response regarding choice of care. It was emphasized that medical team will honor his choice of care. Pastoral care will continue to f/u Leukocytosis (no labs since 09/18) 12/29: patient continues to refuse labs Patient continues to refuse all treatment. He has not allowed blood work to be performed since 09/18/17. Patient is DNR/DNI. Patient agreed to blood work, 09/20/17: 13.7 On admission: 14.7, patient has been refusing further lab work but continues to state that he would rethink his decision Blood Culture (08/31/17): Negative X5 days UA: LE (2+) and WBC (22), f/u repeat UA and UC (09/15/17) Iron deficiency Anemia (no labs since 09/18) 12/29/17: patient continues to refuse labs Patient continues to refuse all treatment. He has not allowed blood work to be performed since 09/18/17. Patient is DNR/DNI. RBC indices indicative of iron deficiency anemia Retic Count ELEVATED 2.5, Haptoglobin ELEVATED 369 Vitamin B12 and Folate NORMAL Ferritin NORMAL Homocysteine NORMAL IRON: 16 TIBC: 302 % Saturation: 5 Peripheral smear: Slight Parietal cell Ab negative, Negative intrinsic factor Pending LDH -patient refused labs Weight loss Pending HIV, patient refuses blood work Hepatitis panel negative Patient is currently not eating Supplemental diet History of CVA (cerebrovascular accident): Hx of CVA in 2016 with documented right arm and leg weakness Head CT 09/11/17: * A chronic infarct at the left MCA distribution is identified as well as age related neuro degenerative changes which are mildly advanced for the patient's age of 57 years. No intra hemorrhage, mass effect or CT pattern of an acute or subacute brain infarction is appreciated at this time. Follow-up CT or MRI are available if clinically warranted. Pt refusing meds below: Aspirin 81mg PO QD Crestor 10mg PO HS Left shoulder pain Left shoulder X-ray 09/05/2017: No acute fracture. Acromioclavicular degenerative arthritis. History of seizures Patient has been without any seizure activity since admission Prior records show seizure activity Will monitor and if necessary start keppra and ativan Seizure precautions Severe depression Pt refusing medication at this time Patient refuses Pastoral care services. Prophylactic measure SCDs - pt refusing to wear DVT: Pt refusing Lovenox GI prophylaxis not indicated Disposition: Patient continues to refuse labs, food, treatment and diagnostic testing/medications. Pt does not allow for questioning and examination. Tiffanie Ram PGY-1
[2017-12-30] MEDS: Clotrimazole 1% Cream(30 gm) TOP SCH ×2 (10:20→18:55)
[2017-12-31 07:46] VITALS: RESP 20
[2017-12-31] MEDS: Clotrimazole 1% Cream(30 gm) TOP SCH (18:14)
[2018-01-01 08:06] VITALS: BP 106/72; PULSE 80; TEMP 98.4; O2SAT 97
[2018-01-01] MEDS: Clotrimazole 1% Cream(30 gm) TOP SCH (10:34)
--- NOTE | 2018-01-01 12:54 | CP.PCM.PN ---
Subjective - Date & Time of Evaluation Date of Evaluation: 01/01/18 Time of Evaluation: 12:51 - Subjective Subjective: PGY-1 Medicine Progress Note Patient seen at bedside. Patient continues to refuse treatment and asks physicians to leave him alone. ROS unattainable secondary to patient's lack of cooperation. Objective - Vital Signs/Intake and Output Vital Signs (last 24 hours): Temp Pulse Resp BP Pulse Ox 98.4 F 80 20 106/72 97 01/01/18 08:05 01/01/18 08:05 01/01/18 08:05 01/01/18 08:05 01/01/18 08:05 Intake and Output: 01/01/18 01/01/18 06:59 18:59 Intake Total 200 180 Balance 200 180 - Medications Medications: Current Medications Clotrimazole (Lotrimin 1%) 0 gm TOP BID DEBRA Last Admin: 01/01/18 10:34 Dose: Not Given - Labs Labs: 09/18/17 14:34 09/18/17 14:34 PT 17.5 SECONDS (9.7-12.2) H 08/31/17 17:07 INR 1.5 08/31/17 17:07 APTT 35 SECONDS (21-34) H 08/31/17 17:07 Assessment and Plan - Assessment and Plan (Free Text) Assessment: Patient is a 57 year old male w/ PMH of abdominal mass with mets, body lice, CVA , seizure, RUL infiltrate that presented to the ED for weakness and tired for 1x month; Cxray showed mass in right upper rodolfo (infection vs malignancy); CT confirmed a mass with mets to abdomen and ribs; Psych was consulted after patient refused any treatment or labs; Blood cultures were negative 5 days; Since 09/18 patient has clinically deteriorated and refuses medical treatment Plan: Mass of upper lobe of left lung consistent with Neoplasm/Right adrenal mass/ Generalized pain CXR 08/31/17: * Large left upper lobe mass with probable involvement of the left posterior 3rd rib. Findings are concerning for malignancy. Dedicated CT scan of the chest with intravenous contrast is recommended for further characterization. CT abd/pelvis with IV contrast 09/11/17: * Large destructive heterogeneous soft tissue mass in the left lung upper lobe extending to the left upper posterior chest wall and extending to the left aspect of the upper thoracic spine consistent with malignant neoplasm. The mass is extending to upper aspect of the left hilum. Bony erosion and partial destruction of the left upper ribs and left aspect of T3 and T4 vertebral bodies. Left hilum and left mediastinum lymphadenopathy consistent with metastasis. Right adrenal mass likely represent metastasis. Moderate to mildly severe right hydronephrosis and proximal hydroureter up to 10.5 millimeter obstructing calculus at the proximal right ureter. Moderate constipation. * Right adrenal mass likely represent metastasis. Labs: * QFT negative, legionella negative, Mycoplasma Igm negative, Strep Pneumoniae IgG pending, * Negative PPD read; no induration noted (48 hours and 72 hours read) Medications: * Marinol 5mg PO BID (stopped because patient refuses all medications) Palliative consult * Management as per recommendation * Recommendation, Patient will need a guardian to advocate for him and be his decision making surrogate Abdominal Pain - Unable to assess due to patient refusal to examination/ patient refuses medications - Patient refuses treatment Bilateral Foot scaling - unable to assess due to patient refusal to examination - possible fungal infection - Clotrimazole 1% cream TOP BID - REFUSES Fever - Currently afebrile - Vitals 01/01: T: 98., Hr: 80, BP: 106/72, O2: 96, RR: 20 - Blood and urine cultures, U/A, chest xray were ordered. Pt refused all of the tests. Refusal of treatment Patient continues to refuse all treatment. He has not allowed blood work to be performed since 09/18/17. Patient is DNR/DNI. Psychiatry Consult, Dr. Martinez Evaluate for capacity * As per psychiatry evaluation: Patient lacks the capacity to make his own medical decisions at this time. Plans for reevaluation at a latter time. * Re-consultation for capacity and evaluation for severe depression and possible pseudodementia (09/14/17); As per documentation, patient is psychiatrically stable for discharge. As per phone conversation with Dr. Martinez, he will addendum note (09/14/17) commenting on patient's capacity * Patient was seen by Dr. Martinez (09/26/17), patient will need guardianship legal records manager, Consultation: Will continue to F/U with case liner regarding possible guardianship. Application for medicaid and guardianship in progress 11/30: Pastoral care services consulted - Patient did not want to talk, allowed his hand to be held. Will F/U 12/04: pastoral care f/u: patient was vulgar in his response regarding choice of care. It was emphasized that medical team will honor his choice of care. Pastoral care will continue to f/u Leukocytosis (no labs since 09/18) 12/29: patient continues to refuse labs Patient continues to refuse all treatment. He has not allowed blood work to be performed since 09/18/17. Patient is DNR/DNI. Patient agreed to blood work, 09/20/17: 13.7 On admission: 14.7, patient has been refusing further lab work but continues to state that he would rethink his decision Blood Culture (08/31/17): Negative X5 days UA: LE (2+) and WBC (22), f/u repeat UA and UC (09/15/17) Iron deficiency Anemia (no labs since 09/18) 12/29/17: patient continues to refuse labs Patient continues to refuse all treatment. He has not allowed blood work to be performed since 09/18/17. Patient is DNR/DNI. RBC indices indicative of iron deficiency anemia Retic Count ELEVATED 2.5, Haptoglobin ELEVATED 369 Vitamin B12 and Folate NORMAL Ferritin NORMAL Homocysteine NORMAL IRON: 16 TIBC: 302 % Saturation: 5 Peripheral smear: Slight Parietal cell Ab negative, Negative intrinsic factor Pending LDH -patient refused labs Weight loss Patient refuses blood work Hepatitis panel negative Patient is currently not eating Supplemental diet History of CVA (cerebrovascular accident): Hx of CVA in 2016 with documented right arm and leg weakness Head CT 09/11/17: * A chronic infarct at the left MCA distribution is identified as well as age related neuro degenerative changes which are mildly advanced for the patient's age of 57 years. No intra hemorrhage, mass effect or CT pattern of an acute or subacute brain infarction is appreciated at this time. Follow-up CT or MRI are available if clinically warranted. Pt refusing meds below: Aspirin 81mg PO QD Crestor 10mg PO HS Left shoulder pain Left shoulder X-ray 09/05/2017: No acute fracture. Acromioclavicular degenerative arthritis. History of seizures Patient has been without any seizure activity since admission Prior records show seizure activity Will monitor and if necessary start keppra and ativan Seizure precautions Severe depression Pt refusing medication at this time Patient refuses Pastoral care services. Prophylactic measure SCDs - pt refusing to wear DVT: Pt refusing Lovenox GI prophylaxis not indicated Disposition: Patient continues to refuse labs, food, treatment and diagnostic testing/medications. Pt does not allow for questioning and examination. Tiffanie Ram PGY-1
--- NOTE | 2018-01-01 16:57 | CP.PCM.PRO ---
Pronouncement of Note - Clinical Findings Physical Exam: No Response Verbal/Painful Stimuli, Absent Peripheral Pulses{ Carotid & Femoral}, Absent Heart & Breath Sounds, No Pupillary Light Reflex, No Corneal Reflex, Pupils Fixed & Dilated, Absence of Vital Signs - Pronouncement Time Time of Pronouncement of : 15:46 - Notifications Pronouncement Notifications: Atending Notified Accounting Manager Notified: No - Autopsy Autopsy Requested: No - [place] [id number]
--- NOTE | 2018-01-01 17:02 | CP.PCM.DIS ---
Provider - Provider Date of Admission: 08/31/17 17:02 Attending physician: Jeffrey Rajan MD Consults: Psych Dr. Juan Donnelly Time Spent in preparation of Discharge (in minutes): 45 Diagnosis - Discharge Diagnosis (1) Mass of upper lobe of left lung Status: Acute (2) Refusal of treatment Status: Acute (3) Anemia Status: Acute (4) Leukocytosis Status: Acute (5) Pneumonia Status: Acute (6) Bacteremia due to Gram-positive bacteria Status: Acute (7) History of CVA (cerebrovascular accident) Status: Chronic Hospital Course - Lab Results Lab Results: Micro Results 11/28/17 07:08 Urine Urine Culture - Final No Growth (<1,000 CFU/ML) 09/15/17 18:57 Urine Urine Culture - Final 08/31/17 21:00 Blood Blood Culture - Final NO GROWTH AFTER 5 DAYS 08/31/17 21:00 Blood Blood Culture - Final NO GROWTH AFTER 5 DAYS Most Recent Lab Values WBC 13.2 K/uL (4.8-10.8) H 09/18/17 14:34 RBC 4.08 Mil/uL (4.40-5.90) L 09/18/17 14:34 Hgb 8.1 g/dL (12.0-18.0) L 09/18/17 14:34 Hct 26.8 % (35.0-51.0) L 09/18/17 14:34 MCV 65.8 fL (80.0-94.0) L D 09/18/17 14:34 MCH 19.9 pg (27.0-31.0) L 09/18/17 14:34 MCHC 30.2 g/dL (33.0-37.0) L 09/18/17 14:34 RDW 18.8 % (11.5-14.5) H 09/18/17 14:34 Plt Count 809 K/uL (130-400) H D 09/18/17 14:34 MPV 7.3 fL (7.2-11.7) 09/18/17 14:34 Neut % (Auto) 79.8 % (50.0-75.0) H 09/18/17 14:34 Lymph % (Auto) 7.8 % (20.0-40.0) L 09/18/17 14:34 [place] % (Auto) 9.5 % (0.0-10.0) 09/18/17 14:34 Eos % (Auto) 2.3 % (0.0-4.0) 09/18/17 14:34 Baso % (Auto) 0.6 % (0.0-2.0) 09/18/17 14:34 Neut # (Auto) 10.5 K/uL (1.8-7.0) H 09/18/17 14:34 Lymph # (Auto) 1.0 K/uL (1.0-4.3) 09/18/17 14:34 [place] # (Auto) 1.2 K/uL (0.0-0.8) H 09/18/17 14:34 Eos # (Auto) 0.3 K/uL (0.0-0.7) 09/18/17 14:34 Baso # (Auto) 0.1 K/uL (0.0-0.2) 09/18/17 14:34 Neutrophils % (Manual) 81 % (50-75) H 09/18/17 14:34 Lymphocytes % (Manual) 7 % (20-40) L 09/18/17 14:34 Monocytes % (Manual) 11 % (0-10) H 09/18/17 14:34 Eosinophils % (Manual) 7 % (0-4) H 08/31/17 15:05 Basophils % (Manual) 1 % (0-2) 09/18/17 14:34 Platelet Estimate Increased (NORMAL) H 09/18/17 14:34 Hypochromasia (manual) Moderate 09/18/17 14:34 Poikilocytosis (manual Slight 09/18/17 14:34 Anisocytosis (manual) Slight 09/18/17 14:34 Microcytosis (manual) Slight 09/18/17 14:34 Target Cells Slight 09/18/17 14:34 Smear Path Review 09/18/17 14:34 Retic Count 2.5 % (0.5-1.5) H 08/31/17 18:01 Haptoglobin 368.9 mg/dL (30.0-200.0) H 08/31/17 17:48 PT 17.5 SECONDS (9.7-12.2) H 08/31/17 17:07 INR 1.5 04/05/18 17:07 APTT 35 SECONDS (21-34) H 08/31/17 17:07 Sodium 137 mmol/L (132-148) 09/18/17 14:34 Potassium 4.2 mmol/L (3.6-5.2) 09/18/17 14:34 Chloride 99 mmol/L (98-107) 09/18/17 14:34 Carbon Dioxide 26 mmol/L (22-30) 09/18/17 14:34 Anion Gap 17 (10-20) 09/18/17 14:34 BUN 16 mg/dL (9-20) 09/18/17 14:34 Creatinine 0.8 mg/dL (0.8-1.5) 09/18/17 14:34 Est GFR ( Amer) > 60 09/18/17 14:34 Est GFR (Non-Af Amer) > 60 09/18/17 14:34 Random Glucose 113 mg/dL (75-110) H 09/18/17 14:34 Calcium 9.0 mg/dl (8.6-10.4) 09/18/17 14:34 Phosphorus 3.5 mg/dL (2.5-4.5) 09/18/17 14:34 Magnesium 1.7 mg/dL (1.6-2.3) 09/18/17 14:34 Iron 16 ug/dL (49-181) L 09/18/17 14:34 TIBC 302 ug/dL (250-450) 09/18/17 14:34 % Saturation 5 (20-55) L 09/18/17 14:34 Ferritin 36.3 ng/mL 08/31/17 17:48 Total Bilirubin 0.3 mg/dL (0.2-1.3) 09/18/17 14:34 AST 20 U/L (17-59) 09/18/17 14:34 ALT 14 U/L (21-72) L D 09/18/17 14:34 Alkaline Phosphatase 117 U/L (38-126) 09/18/17 14:34 Total Protein 8.8 g/dL (6.3-8.3) H 09/18/17 14:34 Albumin 3.4 g/dL (3.5-5.0) L 09/18/17 14:34 Globulin 5.4 gm/dL (2.2-3.9) H 09/18/17 14:34 Albumin/Globulin Ratio 0.6 (1.0-2.1) L 09/18/17 14:34 Lipase 84 U/L (23-300) 08/31/17 15:05 Carcinoembryonic Ag 256.0 ng/mL (0-3.0) H 09/18/17 14:34 Vitamin B12 565 pg/mL (239-931) 08/31/17 17:48 Methylmalonic Acid 332 nmol/L (87-318) H 08/31/17 17:48 Folate 17.6 ng/mL 08/31/17 17:48 Homocysteine 9.1 umol/L (6.6-14.8) 08/31/17 17:48 Urine Color Yellow (YELLOW) 11/28/17 07:08 Urine Clarity Hazy (Clear) 11/28/17 07:08 Urine pH 5.0 (5.0-8.0) 11/28/17 07:08 Ur Specific [employer] 1.025 (1.003-1.030) 11/28/17 07:08 Urine Protein Negative mg/dL (NEGATIVE) 11/28/17 07:08 Urine Glucose (UA) Normal mg/dL (Normal) 11/28/17 07:08 Urine Ketones Negative mg/dL (NEGATIVE) 11/28/17 07:08 Urine Blood Negative (NEGATIVE) 11/28/17 07:08 Urine Nitrate Negative (NEGATIVE) 11/28/17 07:08 Urine Bilirubin Negative (NEGATIVE) 11/28/17 07:08 Urine Urobilinogen 4.0 mg/dL (0.2-1.0) 11/28/17 07:08 Ur Leukocyte Esterase 2+ Cammy/uL (Negative) H 11/28/17 07:08 Urine WBC (Auto) 70 /hpf (0-5) H 11/28/17 07:08 Urine RBC (Auto) 26 /hpf (0-3) H 11/28/17 07:08 Ur Squamous Epith Cells 1 /hpf (0-5) 11/28/17 07:08 Calcium Oxalate Crystal Rare /hpf (<OCC) 11/28/17 07:08 Urine Bacteria Rare (<OCC) 11/28/17 07:08 Urine Opiates Screen Negative (NEGATIVE) 09/04/17 07:20 Urine Methadone Screen Negative (NEGATIVE) 09/04/17 07:20 Ur Barbiturates Screen Negative (NEGATIVE) 09/04/17 07:20 Ur Phencyclidine Scrn Negative (NEGATIVE) 09/04/17 07:20 Ur Amphetamines Screen Negative (NEGATIVE) 09/04/17 07:20 U Benzodiazepines Scrn Negative (NEGATIVE) 09/04/17 07:20 U Oth Cocaine Metabols Negative (NEGATIVE) 09/04/17 07:20 U Cannabinoids Screen Negative (NEGATIVE) 09/04/17 07:20 Alcohol, Quantitative < 10 mg/dl (0-10) 08/31/17 15:05 Anti-Parietal Cell Ab Negative (Negative) 08/31/17 17:48 Intrins Factor Block Ab Negative (Negative) 08/31/17 17:48 Hepatitis A IgM Ab Negative (NEGATIVE) 09/18/17 14:34 Hep Bs Antigen Negative (NEGATIVE) 09/18/17 14:34 Hep B Core IgM Ab Negative (NEGATIVE) 09/18/17 14:34 Hepatitis C Antibody Negative (NEGATIVE) 09/18/17 14:34 Influenza Typ A,B (EIA) Negative for flu a/b (NEGATIVE) 08/31/17 17:00 Ur L.pneumophila Ag Negative (NEGATIVE) 09/04/17 07:20 Mycoplasma pneumon IgG >5.00 (<=0.90) H 08/31/17 17:55 Mycoplasma pneumon IgM 41 U/mL (<770) 08/31/17 17:55 TB Test (QFT) Nil 0.02 IU/mL 08/31/17 17:46 TB Test Mitogen - Nil 3.27 IU/mL 08/31/17 17:46 TB Test TB - Nil 0.01 IU/mL 08/31/17 17:46 TB Test (QFT) Negative (Negative) 08/31/17 17:46 Blood Type AB POSITIVE 08/31/17 17:07 Antibody Screen Negative 08/31/17 17:07 - Hospital Course Hospital Course: "This is a 57-year-old male who [facility] This is a 57-year-old male with a history that is significant for CVA ( resulting in a right sided weakness as well as some difficulty speaking), hypertension, seizures. He was seen in the emergency room and already given body washings and showers twice and also permethrin cream was applied by the emergency room. Per discussion with the emergency room staff he explained that he was feeling really weak and tired for one month. In the ER he had lab work done showing that his hemoglobin was 7.4 and he was tachycardic. He did have elevated white blood cell count as well. A chest x-ray was done in the emergency room showing that he has a large left upper lobe mass. Radiology was concerned that this could represent either malignancy or some type of infection. We are in the process of getting a CT scan of the chest. Per Unfortunately the patient is a rather poor historian. He did not know why jail sent him to [facility]. Previous documentation suggest he is usually AAO x 2. He tells us that he's had weakness for at least one month now, fevers, weight loss and a very poor appetite. He reports that he's had some difficulty walking as well - both from his history of stroke as well as ongoing weakness for this past 1 month. When I saw him he denied having any pain. He denied nausea vomiting. He reported urinary discomfort. He was not readily cooperative with the ER staff who were/are trying to help" Hospital Course: Patient is a 57 year old male w/ PMH of abdominal mass with mets, body lice, CVA, seizure, RUL infiltrate that presented to the ED for weakness and tired for 1x month. Cxray showed mass in right upper rodolfo ( infection vs malignancy). CT confirmed a mass with mets to abdomen and ribs. Psych was consulted after patient refused any treatment or labs; Blood cultures were negative 5 days. Since 09/18 patient has continuously refused medical treatment. Patient after 09/18 never had labs drawn or treatments administered as patient was agressive in stating he did not want further treatment. Patient was DNR/DNI. On 01/01/2018 nursing staff paged resident to inform that patient had . Exam was performed and time of was 15:46. EDRS [id number]. *Patient had a very long hospital stay. This is only a summary of his admission. Please refer to EMR for full admission details. Discharge Exam - Head Exam Additional comments: . Discharge Plan - Follow Up Plan Condition:
== END 2018-01-01 17:35 | DRG 194 ==
LOC: C.ER 12:55 → C.9E 17:02 → C.3T 18:12
PROVIDERS: ADMIT Internal Medicine; ATTEND Internal Medicine
DX: J18.9 Pneumonia, unspecified organism (principal); I69.351 Hemiplegia and hemiparesis following cerebral infarction affecting right dominant side; N39.0 Urinary tract infection, site not specified; R78.81 Bacteremia; C34.12 Malignant neoplasm of upper lobe, left bronchus or lung; C79.51 Secondary malignant neoplasm of bone; C79.70 Secondary malignant neoplasm of unspecified adrenal gland; I69.320 Aphasia following cerebral infarction; I10 Essential (primary) hypertension; D50.9 Iron deficiency anemia, unspecified; R62.7 Adult failure to thrive; Z59.0 Homelessness; R63.4 Abnormal weight loss; Z68.25 Body mass index [BMI] 25.0-25.9, adult; D72.829 Elevated white blood cell count, unspecified; M19.012 Primary osteoarthritis, left shoulder; R52 Pain, unspecified; G40.909 Epilepsy, unspecified, not intractable, without status epilepticus; F43.22 Adjustment disorder with anxiety; F32.9 Major depressive disorder, single episode, unspecified; F29 Unspecified psychosis not due to a substance or known physiological condition; Z51.5 Encounter for palliative care; Z53.20 Procedure and treatment not carried out because of patient's decision for unspecified reasons; Z66 Do not resuscitate; Z74.01 Bed confinement status; B85.1 Pediculosis due to Pediculus humanus corporis; Z53.29 Procedure and treatment not carried out because of patient's decision for other reasons